=== PATIENT | female | born 1975 | race Caucasian/White ===

== ENCOUNTER 2018-04-14 09:25 | Emergency (ER) | payer BC, OTHER ==
[2018-04-14] MEDS ORDERED: KETOROLAC 30 MG/ML INJ ONE (10:13)
--- NOTE | 2018-04-14 10:45 | RAD REPORT ---
EXAM DESCRIPTION: RAD - Lumbar Spine 3 Views - 04/14/2018 10:25 am CLINICAL HISTORY: PAIN Radiculopathy COMPARISON: No comparisons FINDINGS: Vertebral body heights appear maintained. No compression fracture noted. Mild disc thinnin g is seen at L5-S1. No spondylolysis or spondylolisthesis. Cholecystectomy clips. IMPRESSION: Minimal spondylosis lower lumbar spine.
[2018-04-14] MEDS ORDERED: MEPERIDINE HCL 50 MG/ML AMP ONE (10:57)
[2018-04-14] MEDS ORDERED: ONDANSETRON 4 MG (ODT) TAB ONE (10:58)
[2018-04-14] MEDS ORDERED: predniSONE 20 MG TAB ONE (10:58)
--- NOTE | 2018-04-14 13:20 | ER ---
Nurse's Notes [facility] Name: Shannan Fuller Age: 42 yrs Sex: Female : 1975 Arrival Date: 04/14/2018 Time: 09:28 Bed 16 Private MD: Ruddy Jaramillo Diagnosis: Low back pain Presentation: 04/14 09:29 Presenting complaint: Patient states: low back pain, "feels like I have a bulging sv disk". Pain started after working out Saturday. Transition of care: patient was not received from another setting of care. Onset of symptoms was April 12, 2018. Care prior to arrival: None. 09:29 Method Of Arrival: Ambulatory sv 09:29 Acuity: ANNABEL 3 sv 10:22 Risk Assessment: Do you want to hurt yourself or someone else? Patient reports no ph desire to harm self or others. Initial Sepsis Screen: Does the patient meet any 2 criteria? No. Patient's initial sepsis screen is negative. Does the patient have a suspected source of infection? No. Patient's initial sepsis screen is negative. Triage Assessment: 09:29 General: Appears uncomfortable, Behavior is calm, cooperative, appropriate for age. sv Pain: Complains of pain in low back area Pain currently is 10 out of 10 on a pain scale. EENT: No signs and/or symptoms were reported regarding the EENT system. Neuro: Level of Consciousness is awake, alert, obeys commands, Oriented to person, place, time, situation, Moves all extremities. Full function Gait is steady. Respiratory: Respiratory effort is even, unlabored, Respiratory pattern is regular, symmetrical. 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 - Social history:: Smoking status: Patient uses tobacco products, denies chronic smoking, but will smoke occasionally, Patient uses alcohol, occasionally. - Ebola Screening: : No symptoms or risks identified at this time. Screenin:20 Abuse screen: Denies threats or abuse. Denies injuries from another. Nutritional ph screening: No deficits noted. Tuberculosis screening: No symptoms or risk factors identified. Fall Risk None identified. Assessment: 09:45 General: Appears in no apparent distress. uncomfortable, well groomed, Behavior is ph calm, cooperative, appropriate for age, Denies fever, feeling ill. Pain: Complains of pain in lumbar area. Neuro: Level of Consciousness is awake, alert, obeys commands, Oriented to person, place, time, situation. Cardiovascular: Capillary refill < 3 seconds in bilateral fingers Patient's skin is warm and dry. Respiratory: Airway is patent Respiratory effort is even, unlabored, Respiratory pattern is regular, symmetrical. Derm: Skin is intact, is healthy with good turgor, Skin is pink, warm \\T\\ dry. Musculoskeletal: Circulation, motion, and sensation intact. Range of motion: intact in all extremities. 10:50 Reassessment: Patient appears in no apparent distress at this time. Patient and/or ph family updated on plan of care and expected duration. Pain level reassessed. Patient is alert, oriented x 3, equal unlabored respirations, skin warm/dry/pink. 11:57 Reassessment: Patient appears in no apparent distress at this time. Patient and/or ph family updated on plan of care and expected duration. Pain level reassessed. Patient is alert, oriented x 3, equal unlabored respirations, skin warm/dry/pink. Pt reports that pain has decreased to 5/10, resting quietly at this time. 13:05 Reassessment: Patient appears in no apparent distress at this time. Patient and/or ph family updated on plan of care and expected duration. Pain level reassessed. Patient is alert, oriented x 3, equal unlabored respirations, skin warm/dry/pink. Pt currently rates pain 4/10, d/c home w/ prescriptions. Vital Signs: 09:35 BP 121 / 78; Pulse 84; Resp 24; Pulse Ox 100% ; Weight 81.65 kg; Height 5 ft. 6 in. sv (167.64 cm); Pain 10/10; 10:35 BP 105 / 78; Pulse 82; Resp 18; Pulse Ox 100% on R/A; dh3 11:59 BP 112 / 76; Pulse 83; Resp 18; Pulse Ox 98% on R/A; ph 13:06 BP 107 / 76; Pulse 81; Resp 18; Temp 98.0; Pulse Ox 98% on R/A; Pain 4/10; ph 09:35 Body Mass Index 29.05 (81.65 kg, 167.64 cm) sv ED Course: 09:28 Patient arrived in ED. as 09:28 Ruddy Jaramillo MD is Private Physician. as 09:29 Arm band placed on Patient placed in an exam room, on a stretcher. sv 09:35 Triage completed. sv 09:36 Ray Aguirre MD is Attending Physician. darlyn 09:36 Darwin Cleveland PA is PHCP. jr8 10:05 Ania Dominguez RN is Primary Nurse. ph 10:22 Patient has correct armband on for positive identification. Placed in gown. Bed in low ph position. Call light in reach. Side rails up X 1. Pulse ox on. NIBP on. Warm blanket given. 10:26 XRAY Lumbar Spine (3 Views) In Process Unspecified. EDMS 11:59 No provider procedures requiring assistance completed. ph 12:53 Ruddy Jaramillo MD is Referral Physician. jr8 13:13 Patient did not have IV access during this emergency room visit. ph Administered Medications: 10:13 Drug: TORadol 60 mg Route: IM; Site: right gluteus; ph 10:45 Follow up: Response: No adverse reaction; Pain is unchanged, physician notified ph 10:59 Drug: Demerol 50 mg Route: IM; Site: right deltoid; ph 12:50 Follow up: Response: No adverse reaction; Pain is decreased ph 10:59 Drug: Zofran 4 mg Route: PO; ph 12:50 Follow up: Response: No adverse reaction ph 10:59 Drug: predniSONE 60 mg Route: PO; ph 12:50 Follow up: Response: No adverse reaction ph Outcome: 12:53 Discharge ordered by . jr8 13:06 Discharged to home ambulatory, with family. ph 13:06 Condition: good 13:06 Discharge instructions given to patient, Instructed on discharge instructions, follow up and referral plans. medication usage, Demonstrated understanding of instructions, follow-up care, medications, Prescriptions given X 3. 13:13 Patient left the ED. ph Signatures: Dispatcher [employer] EDMS Julieta Mora RN RN Ray Aguirre MD MD cha Martinez, Amelia as Darwin Cleveland PA PA jr8 Ania Dominguez RN RN ph Giovanny, Dorothy 3
--- NOTE | 2018-04-14 13:21 | EDPHYS ---
Physician Documentation [facility] Name: Shannan Fuller Age: 42 yrs Sex: Female : 1975 Arrival Date: 04/14/2018 Time: 09:28 Bed 16 Private MD: Ruddy Jaramillo ED Physician Ray Aguirre HPI: 04/14 11:34 This 42 yrs old Female presents to ER via Ambulatory with complaints of Low jr8 Back Pain. 11:34 The patient presents with pain that is acute. The symptoms are located in the low back. jr8 The pain does not radiate. The problem was sustained from unknown cause. Onset: The symptoms/episode began/occurred acutely, today. Modifying factors: The patient symptoms are alleviated by nothing, the patient symptoms are aggravated by any movement. Associated signs and symptoms: The patient has no apparent associated signs or symptoms. Severity of symptoms: At their worst the symptoms were moderate, in the emergency department the symptoms are unchanged. The patient has not experienced similar symptoms in the past. The patient has not recently seen a physician. stated that she worked out at the gym the other day. Today started with back pain that is unrelieved by anything and is getting worse. Pain with any movement . 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 - Social history:: Smoking status: Patient uses tobacco products, denies chronic smoking, but will smoke occasionally, Patient uses alcohol, occasionally. - Ebola Screening: : No symptoms or risks identified at this time. ROS: 11:34 Eyes: Negative for injury, pain, redness, and discharge, ENT: Negative for injury, jr8 pain, and discharge, Neck: Negative for injury, pain, and swelling, Cardiovascular: Negative for chest pain, palpitations, and edema, Respiratory: Negative for shortness of breath, cough, wheezing, and pleuritic chest pain, Abdomen/GI: Negative for abdominal pain, nausea, vomiting, diarrhea, and constipation, MS/Extremity: Negative for injury and deformity, Skin: Negative for injury, rash, and discoloration, Neuro: Negative for headache, weakness, numbness, tingling, and seizure. 11:34 Back: Positive for pain at rest, pain with movement, of the low back area. Exam: 12:52 Eyes: Pupils equal round and reactive to light, extra-ocular motions intact. Lids and jr8 lashes normal. Conjunctiva and sclera are non-icteric and not injected. Cornea within normal limits. Periorbital areas with no swelling, redness, or edema. ENT: Nares patent. No nasal discharge, no septal abnormalities noted. Tympanic membranes are normal and external auditory canals are clear. Oropharynx with no redness, swelling, or masses, exudates, or evidence of obstruction, uvula midline. Mucous membranes moist. Neck: Trachea midline, no thyromegaly or masses palpated, and no cervical lymphadenopathy. Supple, full range of motion without nuchal rigidity, or vertebral point tenderness. No Meningismus. Cardiovascular: Regular rate and rhythm with a normal S1 and S2. No gallops, murmurs, or rubs. Normal PMI, no JVD. No pulse deficits. Respiratory: Lungs have equal breath sounds bilaterally, clear to auscultation and percussion. No rales, rhonchi or wheezes noted. No increased work of breathing, no retractions or nasal flaring. Abdomen/GI: Soft, non-tender, with normal bowel sounds. No distension or tympany. No guarding or rebound. No evidence of tenderness throughout. Skin: Warm, dry with normal turgor. Normal color with no rashes, no lesions, and no evidence of cellulitis. MS/ Extremity: Pulses equal, no cyanosis. Neurovascular intact. Full, normal range of motion. Neuro: Awake and alert, GCS 15, oriented to person, place, time, and situation. Cranial nerves II-XII grossly intact. Motor strength 5/5 in all extremities. Sensory grossly intact. Cerebellar exam normal. Normal gait. 12:52 Back: pain, that is moderate, ROM is painful, normal spinal alignment noted, CVA tenderness, is absent, vertebral tenderness, is appreciated at L2 and L3. Vital Signs: 09:35 BP 121 / 78; Pulse 84; Resp 24; Pulse Ox 100% ; Weight 81.65 kg; Height 5 ft. 6 in. sv (167.64 cm); Pain 10/10; 10:35 BP 105 / 78; Pulse 82; Resp 18; Pulse Ox 100% on R/A; dh3 11:59 BP 112 / 76; Pulse 83; Resp 18; Pulse Ox 98% on R/A; ph 13:06 BP 107 / 76; Pulse 81; Resp 18; Temp 98.0; Pulse Ox 98% on R/A; Pain 4/10; ph 09:35 Body Mass Index 29.05 (81.65 kg, 167.64 cm) sv MDM: 09:36 Patient medically screened. jr8 12:52 Data reviewed: vital signs, nurses notes, radiologic studies, plain films, and as a jr8 result, I will discharge patient. Data interpreted: Pulse oximetry: on room air is 98 %. Interpretation: normal. Counseling: I had a detailed discussion with the patient and/or guardian regarding: the historical points, exam findings, and any diagnostic results supporting the discharge/admit diagnosis, radiology results, the need for outpatient follow up, a family practitioner, to return to the emergency department if symptoms worsen or persist or if there are any questions or concerns that arise at home. Response to treatment: the patient's symptoms have markedly improved after treatment. 04/14 09:56 Order name: XRAY Lumbar Spine (3 Views); Complete Time: 10:47 jr8 Administered Medications: 10:13 Drug: TORadol 60 mg Route: IM; Site: right gluteus; ph 10:45 Follow up: Response: No adverse reaction; Pain is unchanged, physician notified ph 10:59 Drug: Demerol 50 mg Route: IM; Site: right deltoid; ph 12:50 Follow up: Response: No adverse reaction; Pain is decreased ph 10:59 Drug: Zofran 4 mg Route: PO; ph 12:50 Follow up: Response: No adverse reaction ph 10:59 Drug: predniSONE 60 mg Route: PO; ph 12:50 Follow up: Response: No adverse reaction ph Disposition: 15:31 Co-signature as Attending Physician, Ray Aguirre MD I agree with the assessment and darlyn plan of care. Disposition: 04/14/18 12:53 Discharged to Home. Impression: Low back pain. - Condition is Stable. - Discharge Instructions: Back Pain, Adult, Musculoskeletal Pain, Heat Therapy. - Prescriptions for Ibuprofen 800 mg Oral Tablet - take 1 tablet by ORAL route every 12 hours As needed take with food; 20 tablet. Ultracet 37.5- 325 mg Oral Tablet - take 1 tablet by ORAL route every 6 hours - for up to 5 days; do not exceed 8 tablets per day.; 30 tablet. Cyclobenzaprine 10 mg Oral Tablet - take 1 tablet by ORAL route every 8 hours As needed; 30 tablet. - Medication Reconciliation Form, Thank You Letter, Antibiotic Education, Prescription Opioid Use, Work release form form. - Follow up: Ruddy Jaramillo MD; When: 2 - 3 days; Reason: Recheck today's complaints, Continuance of care, Re-evaluation by your physician. - Problem is new. - Symptoms have improved. Signatures: Dispatcher [employer] EDJulieta Norwood RN RN Ray Van MD MD cha Roszak, Josh, PA PA jr8 Ania Dominguez RN RN ph Corrections: (The following items were deleted from the chart) 13:13 12:53 04/14/2018 12:53 Discharged to Home. Impression: Low back pain. Condition is ph Stable. Forms are Medication Reconciliation Form, Thank You Letter, Antibiotic Education, Prescription Opioid Use. Follow up: Ruddy Jaramillo; When: 2 - 3 days; Reason: Recheck today's complaints, Continuance of care, Re-evaluation by your physician. Problem is new. Symptoms have improved. jr8
[2018-04-15 14:41] VITALS: BP 107/76; TEMP 98; O2SAT 98
== END 2018-04-14 13:13 | disposition home or self-care (01) ==
LOC: ER 09:25
DX: M54.5 Low back pain (principal); Z72.0 Tobacco use; Z88.5 Allergy status to narcotic agent; Z88.8 Allergy status to other drugs, medicaments and biological substances
CPT/HCPCS: 72100; 96372; 99284; J2175; J7512

== ENCOUNTER 2018-12-04 14:46 | Emergency (ER) | payer BC ==
[2018-12-04 15:41] LABS: Absolute Lymphocytes (CBC) 2.2 K/uL (0.7-4.9); Absolute Monocytes 0.5 K/uL (0.1-1.3); Basophils % 0.5 % (0-1.3); Eosinophils % 1.4 % (0-4.4); Hematocrit 42.4 % (36.0-45.0); Lymphocytes % 25.2 % (15.3-44.8); MPV 7.3 fL (7.6-11.3); Monocytes % 5.1 % (3.3-12.3); RBC Red Blood Cell Count 4.56 M/uL (3.86-4.86)
--- NOTE | 2018-12-04 15:48 | RAD REPORT ---
EXAM DESCRIPTION: RAD - Chest Single View - 12/04/2018 3:42 pm CLINICAL HISTORY: COUGH Chest pain. COMPARISON: CHEST SINGLE VIEW dated 09/10/2013; CHEST SINGLE VIEW dated 09/24/2009; CHEST PA AND LAT 2 VIEW dated 04/15/2006 FINDINGS: Portable technique limits examination quality. The lungs are grossly clear. The heart is normal in size. No displaced fractures. IMPRESSION: No acute intrathoracic process suspected.
[2018-12-04 15:49] LABS: Protime INR 0.91
[2018-12-04 15:55] LABS: ALT/SGPT 69 U/L (12-78); AST/SGOT 25 U/L (15-37); Albumin 3.7 g/dL (3.4-5.0); Alkaline Phosphatase 94 U/L (45-117); BUN Blood Urea Nitrogen 15 mg/dL (7-18); Bicarbonate 20 mmol/L (21-32); Bilirubin Direct 0.1 mg/dL (0-0.2); Bilirubin Total 0.5 mg/dL (0.2-1.0); Glucose Level 118 mg/dL (74-106); Lipase 83 U/L (73-393); Magnesium 2.2 mg/dL (1.8-2.4); NT PRO-BNP 84 pg/mL (<125); Potassium 3.5 mmol/L (3.5-5.1); Protein, Total 7.5 g/dL (6.4-8.2); Sodium Level 143 mmol/L (136-145); Troponin (Emerg Dept Use Only) < 0.02 ng/mL (0.0-0.045)
--- NOTE | 2018-12-04 15:57 | RAD REPORT ---
EXAM DESCRIPTION: CT - Head Brain Wo Cont - 12/04/2018 3:50 pm CLINICAL HISTORY: Dizziness;Confused Headache, drowsiness COMPARISON: No comparisons TECHNIQUE: All CT scans are performed using dose optimization technique as appropriate and may inclu de automated exposure control or mA/KV adjustment according to patient size. FINDINGS: No intracranial hemorrhage, hydrocephalus or extra-axial fluid collection.No areas of brai n edema or evidence of midline shift. The paranasal sinuses and mastoids are clear. The calvarium is intact. IMPRESSION: No acute intracranial abnormality.
[2018-12-04 16:02] LABS: Urine Blood 2+ (NEG); Urine Glucose NEGATIVE (NEG); Urine Protein NEGATIVE (NEG); Urine pH 5.5 (5.0-7.0)
--- NOTE | 2018-12-04 16:13 | ER ---
Nurse's Notes [facility] Name: Shannan Fuller Age: 43 yrs Sex: Female : 1975 Arrival Date: 12/04/2018 Time: 14:48 Bed 26 Private MD: Diagnosis: Weakness;Insomnia Presentation: 12/04 14:51 Presenting complaint: Patient states: Confusion and disorientation since 2300 last hb night. Patient's reports patient flushed her underwear down the toilet. Transition of care: patient was not received from another setting of care. An acute neurological deficit is present. The charge nurse has been notified. Onset of symptoms was December 03, 2018 at 23:00. Risk Assessment: Do you want to hurt yourself or someone else? Patient reports no desire to harm self or others. Initial Sepsis Screen: Does the patient meet any 2 criteria? No. Patient's initial sepsis screen is negative. Does the patient have a suspected source of infection? No. Patient's initial sepsis screen is negative. Care prior to arrival: None. 14:51 Method Of Arrival: Ambulatory hb 14:51 Acuity: ANNABEL 2 hb 21:27 Pre-hospital glucose is not applicable to this patient. Triage Assessment: 14:53 The onset of the patients symptoms was December 03, 2018 at 23:00. General: Appears in no hb apparent distress. uncomfortable, Behavior is anxious. Pain: Denies pain. Neuro: Reports dizziness, weakness. Respiratory: Airway is patent Respiratory effort is even, unlabored, Respiratory pattern is regular, symmetrical. Derm: Skin is intact, is healthy with good turgor, Skin is pink, warm \T\ dry. normal. 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 N/A - Hysterectomy hb Stroke Activation: Symptom onset > 6 hours Physician: Stroke Attending; Name: ; Notified At: ; Arrived At: Physician: Chief Stroke Resident; Name: ; Notified At: ; Arrived At: Physician: Stroke Resident; Name: ; Notified At: ; Arrived At: Physician: ED Attending; Name: ; Notified At: ; Arrived At: Physician: ED Resident; Name: ; Notified At: ; Arrived At: Historical: - Allergies: 14:53 GABAPENTIN; hb 14:53 Prozac; hb - Home Meds: 14:53 Wellbutrin 75 mg Oral tab 1 tab 3 times per day [Active]; hb - PMHx: 14:53 Anxiety; Depression; PTSD; DJD; hb 15:20 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 - Social history:: Smoking status: Patient/guardian denies using tobacco. - Ebola Screening: : Patient negative for fever greater than or equal to 101.5 degrees Fahrenheit, and additional compatible Ebola Virus Disease symptoms Patient denies exposure to infectious person Patient denies travel to an Ebola-affected area in the 21 days before illness onset No symptoms or risks identified at this time. - Family history:: not pertinent. Screenin:05 Abuse screen: Denies threats or abuse. Denies injuries from another. Nutritional ch screening: No deficits noted. Tuberculosis screening: No symptoms or risk factors identified. Fall Risk None identified. Assessment: 15:00 VAN Scoring: Arm Drift: Patients demonstrates NO arm weakness. Patient is VAN Negative. ch 15:22 Patient has been NPO before screening. The patient is alert, and able to follow commands. The patient does not exhibit slurred or garbled speech. The patient is not exhibiting difficulty speaking. The patient is exhibiting difficulty understanding words. The patient is unable to swallow own secretions without drooling or the need for suction. Patient tolerated one teaspoon of water. No drooling, immediate coughing, gurgling, or clearing of the throat was noted. The patient tolerated 90mL of water. No drooling, immediate coughing, gurgling, or clearing of the throat was noted. The patient passed the bedside swallow screening. Oral medications may be given as ordered. Contact Physician for further diet orders. Provider notified of bedside swallow screening results: Ray Aguirre MD. T-PA (Activase) Screening: Contraindications: Patient reports onset of signs and symptoms of stroke greater than 6 hours ago:. General: Appears in no apparent distress. uncomfortable, Behavior is cooperative, anxious, crying, restless. Pain: Denies pain. Neuro: Level of Consciousness is awake, alert, obeys commands, Oriented to person, place, time, situation, pt is slow to answer, and has to think of the words. 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 pt could not remember her phone pass code. . Respiratory: Airway is patent Respiratory effort is even, unlabored, Breath sounds are clear bilaterally. GI: No signs and/or symptoms were reported involving the gastrointestinal system. Abdomen is round non-distended, Bowel sounds present X 4 quads. 15:50 Reassessment: Patient appears in no apparent distress at this time. pt states she feels ch very dizzy. pt is tearful, crying in room. 16:30 Reassessment: Patient appears in no apparent distress at this time. No changes from previously documented assessment. pt states she realized after trying to read text messages, that the lower half of her right eye field of vision is blurry. pt cannot read the numbers she is seeing. physician notified, new orders obtained. 18:08 Reassessment: Ultrasound at the bedside. sv 18:56 Reassessment: Patient appears in no apparent distress at this time. Patient and/or family updated on plan of care and expected duration. Pain level reassessed. Patient is alert, oriented x 3, equal unlabored respirations, skin warm/dry/pink. pt gait is steady, resps even and unlabored, states she feels better. Patient states feeling better. Patient states symptoms have improved. 19:29 Reassessment: Patient appears in no apparent distress at this time. No changes from previously documented assessment. Patient and/or family updated on plan of care and expected duration. Pain level reassessed. Patient is alert, oriented x 3, equal unlabored respirations, skin warm/dry/pink. Vital Signs: 14:53 BP 134 / 74; Pulse 97; Resp 18; Temp 98.3; Pulse Ox 98% on R/A; Weight 83.91 kg; Height hb 5 ft. 6 in. (167.64 cm); 16:30 Pulse 81; Resp 16; Pulse Ox 98% on R/A; Pain 0/10; ch 18:56 BP 139 / 82; Pulse 84; Resp 18; Temp 98.6; Pulse Ox 99% on R/A; Pain 0/10; ch 14:53 Body Mass Index 29.86 (83.91 kg, 167.64 cm) NIH Stroke Scale Scores: 15:05 NIHSS Score: 0 ch ED Course: 14:48 Patient arrived in ED. ds1 14:53 Triage completed. hb 14:53 Arm band placed on right wrist. hb 15:00 Ray Aguirre MD is Attending Physician. darlyn 15:05 Patient has correct armband on for positive identification. Placed in gown. Bed in low ch position. Call light in reach. Side rails up X 1. Adult w/ patient. monitoring coordinator on. Pulse ox on. NIBP on. Warm blanket given. 15:10 No provider procedures requiring assistance completed. Inserted saline lock: 18 gauge ch in right forearm, using aseptic technique. Blood collected. 15:19 Claire Ortiz, RN is Primary Nurse. ch 15:28 No apparent distress. Resting quietly. Appears tearful. ch 15:36 EKG done, by dental technician. reviewed by Ray Aguirre MD. dt2 15:37 X-ray completed. Portable x-ray completed in exam room. Patient tolerated procedure mh1 well. 15:43 XRAY Chest (1 view) In Process Unspecified. EDMS 15:[address] az 15:50 CT Head Brain wo Cont In Process Unspecified. EDMS 16:12 Wade Erickson MD is Referral Physician. darlyn 17:01 Patient moved to MRI via wheelchair. sv 17:18 Brain Wo Cont In Process Unspecified. EDMS 17:31 MRI completed. Patient tolerated well. Patient taken to ultrasound. via wheelchair. em2 17:59 Erik Mcqueen MD is Referral Physician. darlyn 18:27 US Carotid Artery Bilateral In Process Unspecified. EDMS 19:30 IV discontinued, intact, bleeding controlled, No redness/swelling at site. Pressure ch dressing applied. Administered Medications: 16:40 Drug: NS 0.9% 1000 ml Route: IV; Rate: 1 bolus; Site: right forearm; ch 18:00 Follow up: IV Status: Completed infusion; IV Intake: 1000ml ch 16:40 Drug: Aspirin 162 mg Route: PO; ch 18:55 Follow up: Response: No adverse reaction; Marked relief of symptoms ch 16:51 Drug: foLIC Acid 1 mg Route: IVPB; Site: right forearm; ch 18:54 Follow up: IV Status: Completed infusion; IV Intake: 1000ml ch Point of Care Testing: Blood Glucose: 15:01 Blood Glucose: 118 mg/dL; lt1 Ranges: Intake: 18:00 IV: 1000ml; Total: 1000ml. ch 18:54 IV: 1000ml; Total: 2000ml. Outcome: 16:12 Discharge ordered by . [facility] 19:29 Discharged to home ambulatory, with family. 19:29 Condition: stable 19:29 Discharge instructions given to patient, family, Instructed on discharge instructions, follow up and referral plans. medication usage, Demonstrated understanding of instructions, follow-up care, medications, no prescriptions, pt to take home medications. 19:30 Patient left the ED. NIH Stroke Scale - NIH Stroke Score Date: 12/04/2018 Time: 15:05 Total Score = 0 1a. Level of Consciousness (LOC) - 0(Alert) 1b. Level of Consciousness (LOC) (Year \T\ Age) - 0(Both) 1c. LOC Commands (Open \T\ Closes Eyes/Religious Education Coordinator) - 0(Both) 2. Best Gaze (Lateral Gaze Paresis) - 0(Normal) 3. Visual Field Loss - 0(No visual loss) 4. Facial Palsy - 0(Normal) 5a. Left Arm: Motor (10-second hold) - 0(No drift) 5b. Right Arm: Motor (10-second hold) - 0(No drift) 6a. Left Leg: Motor (5-second hold - always test supine) - 0(No drift) 6b. Right Leg: Motor (5-second hold - always test supine) - 0(No drift) 7. Limb Ataxia (finger/nose \T\ heel/pace - test with eyes open) - 0(Absent) 8. Sensory Loss (pinprick arms/legs/face) - 0(Normal) 9. Best Language: Aphasia (description/naming/reading) - 0(No aphasia) 10. Dysarthria (speech clarity - read or repeat words) - 0(Normal) 11. Extinction and Inattention (visual/tactile/auditory/spatial/personal) - 0(No abnormality) Initials: Signatures: Dispatcher [employer] Claire Worthy RN RN ch Verde, Stephanie, RN RN sv Anderson, Corey, MD MD cha Harvey, Martha mh1 Tomer, Sushila ds1 Michael Hallman em2 Arin De Jesus RN RN hb Teague, Danielle dt2 Paris Kaur Leah lt1 Corrections: (The following items were deleted from the chart) VAN Scoring: Arm Drift: Patients demonstrates NO arm weakness. Patient is ch VAN Negative. NIHSS Score: 0 ch ch
--- NOTE | 2018-12-04 16:14 | EDPHYS ---
Physician Documentation [facility] Name: Shannan Fuller Age: 43 yrs Sex: Female : 1975 Arrival Date: 12/04/2018 Time: 14:48 Bed 26 Private MD: ED Physician Ray Aguirre HPI: 12/04 15:34 This 43 yrs old Female presents to ER via Ambulatory with complaints of darlyn Weakness. 15:34 The patient presents to the emergency department with weakness of the entire body, darlyn generalized weakness. Onset: The symptoms/episode began/occurred 1 week(s) ago. Associated signs and symptoms: The patient has no apparent associated signs or symptoms. Severity of symptoms: At their worst the symptoms were mild in the emergency department the symptoms are unchanged. Patient's baseline: Neuro: alert and fully oriented. The patient has not experienced similar symptoms in the past. 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 - Social history:: Smoking status: Patient/guardian denies using tobacco. - Ebola Screening: : Patient negative for fever greater than or equal to 101.5 degrees Fahrenheit, and additional compatible Ebola Virus Disease symptoms Patient denies exposure to infectious person Patient denies travel to an Ebola-affected area in the 21 days before illness onset No symptoms or risks identified at this time. - Family history:: not pertinent. ROS: 15:34 Constitutional: Negative for fever, chills, and weight loss, Eyes: Negative for injury, darlyn pain, redness, and discharge, ENT: Negative for injury, pain, and discharge, Neck: Negative for injury, pain, and swelling, Cardiovascular: Negative for chest pain, palpitations, and edema, Respiratory: Negative for shortness of breath, cough, wheezing, and pleuritic chest pain, Abdomen/GI: Negative for abdominal pain, nausea, vomiting, diarrhea, and constipation, Back: Negative for injury and pain, : Negative for injury, bleeding, discharge, and swelling, MS/Extremity: Negative for injury and deformity, Skin: Negative for injury, rash, and discoloration, Psych: Negative for depression, anxiety, suicide ideation, homicidal ideation, and hallucinations, Allergy/Immunology: Negative for hives, rash, and allergies, Endocrine: Negative for neck swelling, polydipsia, polyuria, polyphagia, and marked weight changes. 15:34 Neuro: Positive for altered mental status, weakness. Exam: 15:34 Constitutional: This is a well developed, well nourished patient who is awake, alert, darlyn and in no acute distress. Head/Face: Normocephalic, atraumatic. Eyes: Pupils equal round and reactive to light, extra-ocular motions intact. Lids and lashes normal. Conjunctiva and sclera are non-icteric and not injected. Cornea within normal limits. Periorbital areas with no swelling, redness, or edema. ENT: Nares patent. No nasal discharge, no septal abnormalities noted. Tympanic membranes are normal and external auditory canals are clear. Oropharynx with no redness, swelling, or masses, exudates, or evidence of obstruction, uvula midline. Mucous membranes moist. Neck: Trachea midline, no thyromegaly or masses palpated, and no cervical lymphadenopathy. Supple, full range of motion without nuchal rigidity, or vertebral point tenderness. No Meningismus. Chest/axilla: Normal chest wall appearance and motion. Nontender with no deformity. No lesions are appreciated. Cardiovascular: Regular rate and rhythm with a normal S1 and S2. No gallops, murmurs, or rubs. Normal PMI, no JVD. No pulse deficits. Respiratory: Lungs have equal breath sounds bilaterally, clear to auscultation and percussion. No rales, rhonchi or wheezes noted. No increased work of breathing, no retractions or nasal flaring. Abdomen/GI: Soft, non-tender, with normal bowel sounds. No distension or tympany. No guarding or rebound. No evidence of tenderness throughout. Back: No spinal tenderness. No costovertebral tenderness. Full range of motion. Skin: Warm, dry with normal turgor. Normal color with no rashes, no lesions, and no evidence of cellulitis. MS/ Extremity: Pulses equal, no cyanosis. Neurovascular intact. Full, normal range of motion. Neuro: Awake and alert, GCS 15, oriented to person, place, time, and situation. Cranial nerves II-XII grossly intact. Motor strength 5/5 in all extremities. Sensory grossly intact. Cerebellar exam normal. Normal gait. Psych: Awake, alert, with orientation to person, place and time. Behavior, mood, and affect are within normal limits. Vital Signs: 14:53 BP 134 / 74; Pulse 97; Resp 18; Temp 98.3; Pulse Ox 98% on R/A; Weight 83.91 kg; Height hb 5 ft. 6 in. (167.64 cm); 16:30 Pulse 81; Resp 16; Pulse Ox 98% on R/A; Pain 0/10; ch 18:56 BP 139 / 82; Pulse 84; Resp 18; Temp 98.6; Pulse Ox 99% on R/A; Pain 0/10; ch 14:53 Body Mass Index 29.86 (83.91 kg, 167.64 cm) hb NIH Stroke Scale Scores: 15:05 NIHSS Score: 0 ch MDM: 15:00 Patient medically screened. [facility] 15:35 Data reviewed: vital signs, nurses notes, lab test result(s), EKG, radiologic studies, [facility] CT scan, plain films. 12/04 15:02 Order name: Basic Metabolic Panel; Complete Time: 16:09 [facility] 12/04 15:02 Order name: CBC with Diff; Complete Time: 16:45 [facility] 12/04 15:02 Order name: LFT's; Complete Time: 16:09 [facility] 12/04 15:02 Order name: Magnesium; Complete Time: 16:09 [facility] 12/04 15:02 Order name: NT PRO-BNP; Complete Time: 16:09 [facility] 12/04 15:02 Order name: PT-INR; Complete Time: 16:09 [facility] 12/04 15:02 Order name: Troponin (emerg Dept Use Only); Complete Time: 16:09 [facility] 12/04 15:02 Order name: Lipase; Complete Time: 16:09 [facility] 12/04 15:02 Order name: Urine Culture [facility] 12/04 15:12 Order name: Glucose, Ancillary Testing; Complete Time: 15:12 [facility] 12/04 15:34 Order name: UDS; Complete Time: 17:50 [facility] 12/04 15:40 Order name: Urine Dipstick--Ancillary (enter results); Complete Time: 16:09 12/04 15:40 Order name: Urine --Ancillary (enter results); Complete Time: 16:09 12/04 15:54 Order name: Manual Differential; Complete Time: 16:45 [facility] 12/04 15:02 Order name: XRAY Chest (1 view); Complete Time: 16:09 [facility] 12/04 15:02 Order name: EKG; Complete Time: 15:05 [facility] 12/04 15:02 Order name: Cardiac monitoring; Complete Time: 15:47 [facility] 12/04 15:02 Order name: EKG - Nurse/Tech; Complete Time: 21:27 [facility] 12/04 15:02 Order name: IV Saline Lock; Complete Time: 15:48 [facility] 12/04 15:02 Order name: Labs collected and sent; Complete Time: 15:48 [facility] 12/04 15:02 Order name: O2 Per Protocol; Complete Time: 15:48 [facility] 12/04 15:02 Order name: O2 Sat Monitoring; Complete Time: 15:48 [facility] 12/04 15:02 Order name: Urine Dipstick-Ancillary (obtain specimen); Complete Time: 15:47 [facility] 12/04 15:34 Order name: CT Head Brain wo Cont; Complete Time: 16:09 [facility] 12/04 16:46 Order name: US Carotid Artery Bilateral [facility] 12/04 17:18 Order name: Brain Wo Cont; Complete Time: 17:50 [facility] 12/04 16:10 Order name: PO challenge; Complete Time: 16:38 [facility] Administered Medications: 16:40 Drug: NS 0.9% 1000 ml Route: IV; Rate: 1 bolus; Site: right forearm; ch 18:00 Follow up: IV Status: Completed infusion; IV Intake: 1000ml ch 16:40 Drug: Aspirin 162 mg Route: PO; ch 18:55 Follow up: Response: No adverse reaction; Marked relief of symptoms ch 16:51 Drug: foLIC Acid 1 mg Route: IVPB; Site: right forearm; ch 18:54 Follow up: IV Status: Completed infusion; IV Intake: 1000ml Point of Care Testing: Blood Glucose: 15:01 Blood Glucose: 118 mg/dL; lt1 Ranges: Critical Glucose Levels:Adult <50 mg/dl or >400 mg/dl <40 mg/dl or >180 mg/dl Disposition: 12/04/18 16:12 Discharged to Home. Impression: Weakness, Insomnia. - Condition is Stable. - Discharge Instructions: Weakness, Fatigue, Weakness, [id number], Aspirin and Your Heart. - Prescriptions for Restoril 7.5 mg Oral Capsule - take 2 capsule by ORAL route At bedtime As needed; 14 capsule. - Work release form, Medication Reconciliation Form, Thank You Letter, Antibiotic Education, Prescription Opioid Use form. - Follow up: Private Physician; When: 2 - 3 days; Reason: Recheck today's complaints, Continuance of care, Re-evaluation by your physician. Follow up: Wade Erickson MD; When: 2 - 3 days; Reason: Recheck today's complaints, Continuance of care, Re-evaluation by your physician. Follow up: Erik Mcqueen MD; When: 1 - 2 days; Reason: Recheck today's complaints, Continuance of care, Re-evaluation by your physician. - Problem is new. - Symptoms have improved. NIH Stroke Scale - NIH Stroke Score Date: 12/04/2018 Time: 15:05 Total Score = 0 1a. Level of Consciousness (LOC) - 0(Alert) 1b. Level of Consciousness (LOC) (Year \T\ Age) - 0(Both) 1c. LOC Commands (Open \T\ Closes Eyes/Computer Graphic Designer) - 0(Both) 2. Best Gaze (Lateral Gaze Paresis) - 0(Normal) 3. Visual Field Loss - 0(No visual loss) 4. Facial Palsy - 0(Normal) 5a. Left Arm: Motor (10-second hold) - 0(No drift) 5b. Right Arm: Motor (10-second hold) - 0(No drift) 6a. Left Leg: Motor (5-second hold - always test supine) - 0(No drift) 6b. Right Leg: Motor (5-second hold - always test supine) - 0(No drift) 7. Limb Ataxia (finger/nose \T\ heel/pace - test with eyes open) - 0(Absent) 8. Sensory Loss (pinprick arms/legs/face) - 0(Normal) 9. Best Language: Aphasia (description/naming/reading) - 0(No aphasia) 10. Dysarthria (speech clarity - read or repeat words) - 0(Normal) 11. Extinction and Inattention (visual/tactile/auditory/spatial/personal) - 0(No abnormality) Initials: Signatures: Dispatcher [employer] [facility] Claire Ortiz RN RN Ray Angulo MD MD cha Baxter, Heather, RN RN Corrections: (The following items were deleted from the chart) 17:18 16:48 MR STROKE PROTOCOL+MRI.RAD.BRZ ordered. [facility] 18:00 16:12 12/04/2018 16:12 Discharged to Home. Impression: Weakness; Insomnia. [facility] Condition is Stable. Forms are Medication Reconciliation Form, Thank You Letter, Antibiotic Education, Prescription Opioid Use. Follow up: Private Physician; When: 2 - 3 days; Reason: Recheck today's complaints, Continuance of care, Re-evaluation by your physician. Follow up: Wade Erickson; When: 2 - 3 days; Reason: Recheck today's complaints, Continuance of care, Re-evaluation by your physician. Problem is new. Symptoms have improved. darlyn 19:30 18:00 12/04/2018 16:12 Discharged to Home. Impression: Weakness; Insomnia. ch Condition is Stable. Discharge Instructions: Weakness, Fatigue, Weakness, [id number], Aspirin and Your Heart. Prescriptions for Restoril 7.5 mg Oral Capsule - take 2 capsule by ORAL route At bedtime As needed; 14 capsule. and Forms are Medication Reconciliation Form, Thank You Letter, Antibiotic Education, Prescription Opioid Use. Follow up: Private Physician; When: 2 - 3 days; Reason: Recheck today's complaints, Continuance of care, Re-evaluation by your physician. Follow up: Wade Erickson; When: 2 - 3 days; Reason: Recheck today's complaints, Continuance of care, Re-evaluation by your physician. Follow up: Erik Mcqueen; When: 1 - 2 days; Reason: Recheck today's complaints, Continuance of care, Re-evaluation by your physician. Problem is new. Symptoms have improved. darlyn
[2018-12-04 16:27] LABS: Blood Morphology Comment NOT SEEN (NOT SEEN); Platelet Estimate ADEQ
[2018-12-04] MEDS ORDERED: ASPIRIN 81 MG CHEWABLE TABLET ONE (16:55)
[2018-12-04] MEDS ORDERED: NA CHLORIDE 0.9% 1,000 ML ONE (16:55)
[2018-12-04 17:12] LABS: Barbiturates NEGATIVE (NEGATIVE); Benzodiazepines NEGATIVE (NEGATIVE); Cocaine NEGATIVE (NEGATIVE); METHAMPHETAM NEGATIVE (NEGATIVE); Methadone NEGATIVE (NEGATIVE); Opiates NEGATIVE (NEGATIVE); Phencyclidine NEGATIVE (NEGATIVE); THC Cannibis NEGATIVE (NEGATIVE)
--- NOTE | 2018-12-04 17:29 | RAD REPORT ---
EXAM DESCRIPTION: MRI - Brain Wo Cont - 12/04/2018 5:20 pm CLINICAL HISTORY: Dizziness;TIA Headache, drowsiness COMPARISON: Head Brain Wo Cont dated 12/04/2018 TECHNIQUE: Multi-sequence, multiplanar MR imaging of the brain was performed without contrast. FINDINGS: No intracranial hemorrhage, hydrocephalus or extra-axial fluid collections. No edema or sh ift of midline structures. No findings to suspect brain mass. DWI is negative for acute CVA. Midline structures are normally formed. Mastoid air cells and paranasal sinuses are clear. IMPRESSION: No acute or concerning intracranial abnormalities.
[2018-12-04] MEDS ORDERED: FOLIC ACID 5 MG/ML VIAL ONE (17:30)
--- NOTE | 2018-12-04 18:39 | RAD REPORT ---
EXAM DESCRIPTION: US - CP - 12/04/2018 6:27 pm CLINICAL HISTORY: DIZZINESS Headache, drowsiness, dizziness COMPARISON: No comparisons TECHNIQUE: Real-time sonographic evaluation of both carotid systems was performed. Doppler interroga tion was performed with waveform tracing bilaterally. FINDINGS: Normal high resistance waveforms are noted in both external carotid arteries. The common c arotid arteries and internal carotid arteries show normal low resistance waveforms. No significant plaque formation is seen. Peak systolic and end diastolic velocity values and the ICA/ CCA ratios are in the non-hemodynamically significant range. Antegrade flow seen in both vertebral arteries. IMPRESSION: No significant atherosclerotic changes noted. No evidence of a hemodynamically significant stenosis.
[2018-12-04 21:25] VITALS: BP 139/82; TEMP 98.6; O2SAT 99
--- NOTE | 2018-12-05 07:18 | EKG ---
Test Date: 2018-12-04 Test Time: 15:11:37 Warp Hanger: MARY MEASUREMENT RESULTS: Intervals: Rate: 84 [place]: 158 QRSD: 92 QT: 358 QTc: 423 [place]: P: 77 AZ: 158 QRS: 97 T: 52 INTERPRETIVE STATEMENTS: Normal sinus rhythm Rightward axis Borderline ECG Compared to ECG 11/25/2014 22:45:07 Right-axis deviation now present Electronically Signed On 12-05-18 07:15:51 CDT by Lennox Damico
== END 2018-12-04 19:30 | disposition home or self-care (01) ==
LOC: ER 14:46
DX: R53.1 Weakness (principal); G47.00 Insomnia, unspecified; F41.9 Anxiety disorder, unspecified; F32.9 Major depressive disorder, single episode, unspecified
CPT/HCPCS: 36415; 70450; 70551; 71045; 80048; 80076; 80307; 81003; 81025; 82962; 83690; 83735; 83880; 84484; 85025; 85610; 87086; 87088; 93005; 93880; 96365; 96366; 99285; J7030

== ENCOUNTER 2021-11-30 17:46 | Emergency (ER) | payer BC ==
--- OUTSIDE RECORDS SUMMARY | 2021-11-30 17:49 | XMS REPORT | Continuity of Care Document ---
:1975 Author Organization [facility] t Address [address] [place] [place] [address] Care Team Providers Name Role Phone Asked, Pcp Primary Care Physician Unavailable TANIA PINK Attending Clinician Unavailable TANIA PINK Attending Clinician Unavailable González Murrieta Attending Clinician Unavailable Chuck Angeles Attending Clinician Unavailable Lincoln DUGGAN, Not In Attending Clinician Unavailable Parag DUGGAN Attending Clinician CHRISTIE MEYERS Attending Clinician Unavailable TANIA PINK Admitting Clinician Unavailable González Murrieta Admitting Clinician Unavailable Physician, Primary or Family Admitting Clinician Unavailabl e Payers Payer Name Policy Type Policy Number Effective Date Expiration Date S carol BCBSTX PPO [id number] 2018 00:00:00 2024 00: 00:00 Problems This patient has no known problems. Allergies, Adverse Reactions, Alerts Allergy Allergy Status Severity Reaction(s) Onset Inactive Treating Comm ents Source Name Type Date Date Clinician fluoxeti DA Active U [facility] ne 03-21 [place] 00:00: [facility] 00 are [facility] fluoxeti DA Active U UNKNOWN [facility] ne 03-21 [place] 00:00: Health 00 are [facility] gabapent DA Active SV 2016-07 [facility] 07[facility] [place] fluoxeti DA Active SV 2016-07 [facility] ne 07-17 [facility] [place] gabapent DA Active SV HEART 2016- [facility] in PALPITATIONS 07-17 [facility] [place] fluoxeti DA Active SV IRREGULAR 2016- [facility] ne HEAR BEAT 07-17 [facility] [place] Social History Social Habit Start Date Stop Date Quantity Comments Source Sex Assigned At [birth year] [facility] 00:00:00 00:00:00 Smoking Status Start Date Stop Date Source Unknown if ever smoked [facility] Medications This patient has no known medications. Procedures This patient has no known procedures. Plan of Care Planned Activity Planned Date Details Comments Source Future Scheduled Test INFLUENZA VACCINE [facility] [code = INFLUENZA VACCINE] Future Scheduled Test COVID-19 VACCINE (1) [facility] [code = COVID-19 VACCINE (1)] Future Scheduled Test Hepatitis C screening [facility] (procedure) [code = 451515479] Future Scheduled Test Screening for [facility] malignant neoplasm of cervix (procedure) [code = 282385331] Encounters Start End Encounter Admission Attending Care Care Encounter Source Date/Time Date/Time Type Type Clinicians Facility Department ID 2021-07-08 Outpatient PINK, [facility] [id number] [place] 01:03:47 [facility] 2021-06-08 [id number] [place] 01:[facility]50 [facility] 2021-05-24 [facility] [id number] [place] 01:03:47 [facility] 2021-05-24 Outpatient PINK, [facility] [id number] [place] 01:03:47 [facility] 2021-04-07 Inpatient U APRYL, [facility] [address] [facility] 20:58:00 [facility] 2021-03-20 Inpatient CARMEN PhelpsSP MEDI.01 [id number] [place] 16:13:00 Willam 0920 [facility] 2020-10-25 Inpatient RICK Angeles [facility] [id number] [facility] 12:00:00 Sah [id number] [facility] [place] 2021-05-08 2021-05-08 EXT MHH IP System, EXT MSRDP [id number] 1 [id number] [place] 00:00:00 00:00:00 Provider LOCATION [id number] Health Not In [id number] 2021-03-20 2021-04-05 Inpatient RICK Murireta [facility] MEDI.01 [id number] [place] 20:36:00 19:20:00 Willam 09 tone [facility] 2021-03-21 2021-03-21 Outpatient Lit, [facility] [id number] [facility] 09:11:00 09:11:00 Willam 43 [facility] are [facility] 2021-03-21 2021-03-21 Outpatient Lit [facility] [id number] [facility] 09:11:00 09:11:00 Willam 0921 [facility] are [facility] 2021-03-20 2021-03-20 Outpatient Lit [facility] PPS [id number] [facility] 23:07:00 23:07:00 Willam 0920 [facility] 2021-02-22 2021-03-20 Inpatient PINK, [facility] [address] [facility] 05:19:00 19:40:00 [facility] 2021-03-13 2021-03-13 EXT MHH IP System, EXT MSRDP [id number] 1 [id number] [place] 00:00:00 00:00:00 Provider LOCATION [id number] Health Not In [id number] 2021-03-02 2021-03-02 EXT MHH IP Parag, EXT MSRDP 1.2.840.114 1 [id number] [place] 00:00:00 00:00:00 Pushan LOCATION [id number] [facility] [id number] 2021-02-02 2021-02-02 EXT MHH OP EXT MSRDP 1.2.840.114 1 [id number] [place] 00:00:00 00:00:00 LOCATION [id number] H ealth [id number] 2021-02-02 2021-02-02 EXT [facility] OP EXT MSRDP [id number] 1 [id number] [place] 00:00:00 00:00:00 LOCATION [id number] H ealth [id number] 2020-10-21 2020-10-21 [id number] 12:00:00 12:00:00 Ash [id number] Wori n's [facility] 2020-09-12 2020-09-12 Outpatient APRYL [facility] [address] [facility] 06:37:00 23:59:00 ROMEO 2020-09-07 2020-09-08 Emergency E MIRA MARCUS [facility] [address] [facility] 18:57:00 08:27:00 Results Test Description Test Time Test Comments Results Result Comments Source PROTEIN ELECTROPHORESIS SERUM 2021-04-05 15:12:00 Test Item Value Reference Range Interpretation Comme nts TOTAL PROTEIN (test code 6.6 g/dL 6.0-8.5 = PROTE) ALBUMIN (test code = 3.4 g/dL 2.9-4.4 ALBE) AQTUD-9-SUHGVEFN (test 0.2 g/dL 0.0-0.4 code = A1G) CCQGJ-3-TUSMCWVA (test 0.9 g/dL 0.4-1.0 code = A2G) BETA GLOBULIN (test code 1.1 g/dL 0.7-1.3 = BG) GAMMA GLOBULIN (test 0.9 g/dL 0.4-1.8 code = GG) M-SPIKE,SERUM (test code Not Observed g/dL Not Observed = MSPIKES) GLOBULIN ELECT (test 3.2 g/dL 2.2-3.9 code = GLOBE) ALBUMIN/GLOBULIN RATIO 1.1 0.7-1.7 (test code = AGE) PROT ELECT INTERP (test Comment See_Comment The SPE pattern appears code = ELEINT) unremarkable. Evidence ofmonoclonal pr otein is not apparent.Perfor med At: [facility] [address] [place] [id number] Reji Claudio MD Ph:[phone] rformed At: DA [facility] [id number] [place], [place] [id number] h ALLAN DUGGAN Ph:[phone] [ Automated message] The sy stem which generated this result transmitted ref erence range: (). The referen ce range was not used to int erpret this result as nika l/abnormal. THYROID STIMULATING [id number] 15:12:00 Test Item Value Reference Range Interpretation Comments THYROID STIMULATING 2.00 mIU/mL 0.55-4.78 N Please n ote: New HORMONE (test code = Referen ce Range Aug TSH) 2020 BASIC METABOLIC [id number] 05:47:00 Test Item Value Reference Range Interpretation Comments SODIUM (test code 146 mmol/L 136-145 H Please not e: New = NA) Reference Range Aug 2020 POTASSIUM (test 3.6 mmol/L 3.5-5.1 N code = K) CHLORIDE (test 105 mmol/L 98-107 N Please note: New code = CL) Reference Range Aug 2020 CARBON DIOXIDE 30 mmol/L 20-31 N Please note: New (test code = CO2) Reference Range Aug 2020 GLUCOSE (test code 88 mg/dL 74-106 N Please no te: New = GLU) Reference Range Aug 2020 BLOOD UREA 22 mg/dL 9-23 N Please note: Ne w NITROGEN (test Reference Ran ge Feb code = BUN) 2020 GLOMERULAR >=60 max >60 Units are FILTRATION RATE estimate mL/min mL/min/1. 73m2 The (test code = GFR) estimated glomerular filtration rate is computed usingpatient ra ce, age (>18), sex, and serum creatinin e. If anyof the neede d data elements a re missing the Laboratory sarina ot compute an estimation of t he glomerular filtration rate . CREATININE (test 0.80 mg/dL 0.55-1.02 N Please note : New code = CREAT) Reference Rang e Aug 2020 CALCIUM (test code 10.2 mg/dL 8.7-10.4 N Please no te: New = CA) Reference Range Aug 2020 Coronavirus 2019 nCoV [id number] 14:47:00 Test Item Value Reference Range Interpretation Comments Coronavirus 2019 Negative Negative Negative re sults should be nCoV Bedside (test treated a s presumptive code = and, ifinconsis tent with [id number]) clinical signs and symptoms or nec essaryfor patient managem ent, should be tested with differentauthor ized or cleared molecul ar tests. Negative result s donot preclude SARS-C OV-2 infection and s hould not be used asthe s ole basis for patient man agement decisions. Negativeresults should be considered in t he context of the patient' srecent exposures, hist ory, presence of cli nical signs andsymptoms con sistent with COVID-19. BASIC METABOLIC [id number] 06:27:00 Test Item Value Reference Range Interpretation Comments SODIUM (test code 144 mmol/L 136-145 N Please not e: New = NA) Reference Range Aug 2020 POTASSIUM (test 3.8 mmol/L 3.5-5.1 N code = K) CHLORIDE (test 105 mmol/L 98-107 N Please note: New code = CL) Reference Range Aug 2020 CARBON DIOXIDE 28 mmol/L 20-31 N Please note: New (test code = CO2) Reference Range Aug 2020 GLUCOSE (test code 105 mg/dL 74-106 N Please no te: New = GLU) Reference Range Aug 2020 BLOOD UREA 18 mg/dL 9-23 N Please note: Ne w NITROGEN (test Reference Ran ge Feb code = BUN) 2020 GLOMERULAR >=60 max >60 Units are FILTRATION RATE estimate mL/min mL/min/1. 73m2 The (test code = GFR) estimated glomerular filtration rate is computed usingpatient ra ce, age (>18), sex, and serum creatinin e. If anyof the neede d data elements a re missing the Laboratory sarina ot compute an estimation of t he glomerular filtration rate . CREATININE (test 0.80 mg/dL 0.55-1.02 N Please note : New code = CREAT) Reference Rang e Aug 2020 CALCIUM (test code 9.9 mg/dL 8.7-10.4 N Please no te: New = CA) Reference Range Aug 2020 [id number] 06:27:00 Test Item Value Reference Range Interpretation Comments MAGNESIUM (test code = 2.3 mg/dL 1.6-2.6 N Pleas e note: New MAG) Reference Range Aug 2020 [id number] 18:55:00 Test Item Value Reference Range Interpretation Comments TROPONIN-I (test 3.2 pg/mL 27.36-66.23 L Please note : Units and code = TROPI) Reference Rang e have changedFeb 3, 2 021 CBC W/AUTO [id number] 20:11:00 Test Item Value Reference Range Interpretation Comments WHITE BLOOD CELL (test code = 8.4 x10 3/uL 4.8-10.8 N WBC) RED BLOOD CELL (test code = 4.32 x10 6/uL 4.20-5.40 N RBC) HEMOGLOBIN (test code = HGB) 12.9 g/dL 12.0-16.0 N HEMATOCRIT (test code = HCT) 40.3 % 37.0-47.0 N MEAN CELL VOLUME (test code = 93.3 fL 81.0-99.0 N MCV) MEAN CELL HGB (test code = MCH) 29.9 pg 27-31 N MEAN CELL HGB CONCENTRATION 32.0 G/DL 33-36.5 L (test code = MCHC) RED CELL DISTRIBUTION WIDTH 13.3 % 12.9-16.9 N (test code = RDW) PLATELET COUNT (test code = 355 x10 3/uL 150-440 N PLT) MEAN PLATELET VOLUME (test code 10.5 fL 8.9-12.4 N = MPV) NEUTROPHIL % (test code = NT%) 66.8 % 42.2-75.2 N LYMPHOCYTE % (test code = LY%) 21.9 % 20.5-51.1 N MONOCYTE % (test code = MO%) 5.8 % 1.7-9.3 N EOSINOPHIL % (test code = EO%) 0.5 % 0.0-7.0 N BASOPHIL % (test code = BA%) 0.8 % 0-2.5 N NEUTROPHIL # (test code = NT#) 5.61 x10 3/uL 1.80-7.70 N LYMPHOCYTE # (test code = LY#) 1.84 x10 3/uL 1.00-4.80 N MONOCYTE # (test code = MO#) 0.49 x10 3/uL 0.00-0.80 N EOSINOPHIL # (test code = EO#) 0.04 x10 3/uL 0.00-0.45 N BASOPHIL # (test code = BA#) 0.07 x10 3/uL 0.0-0.20 N RECOLLECTBASIC METABOLIC [id number] 07:08:00 Test Item Value Reference Range Interpretation Comments SODIUM (test code 143 mmol/L 136-145 N Please not e: New = NA) Reference Range Aug 2020 POTASSIUM (test 3.3 mmol/L 3.5-5.1 L code = K) CHLORIDE (test 105 mmol/L 98-107 N Please note: New code = CL) Reference Range Aug 2020 CARBON DIOXIDE 27 mmol/L 20-31 N Please note: New (test code = CO2) Reference Range Aug 2020 GLUCOSE (test code 87 mg/dL 74-106 N Please no te: New = GLU) Reference Range Aug 2020 BLOOD UREA 21 mg/dL 9-23 N Please note: Ne w NITROGEN (test Reference Ran ge Feb code = BUN) 2020 GLOMERULAR >=60 max >60 Units are FILTRATION RATE estimate mL/min mL/min/1. 73m2 The (test code = GFR) estimated glomerular filtration rate is computed usingpatient ra ce, age (>18), sex, and serum creatinin e. If anyof the neede d data elements a re missing the Laboratory sarina ot compute an estimation of t he glomerular filtration rate . CREATININE (test 0.90 mg/dL 0.55-1.02 N Please note : New code = CREAT) Reference Rang e Aug 2020 CALCIUM (test code 9.8 mg/dL 8.7-10.4 N Please no te: New = CA) Reference Range Aug 2020 BASIC METABOLIC [id number] 05:53:00 Test Item Value Reference Range Interpretation Comments SODIUM (test code = 150 mmol/L 136-145 H Please n ote: New NA) Reference Range Aug 2020 POTASSIUM (test code 3.5 mmol/L 3.5-5.1 N = K) CHLORIDE (test code = 108 mmol/L 98-107 H Please note: New CL) Reference Range Aug 2020 CARBON DIOXIDE (test 30 mmol/L 20-31 N Please note: New code = CO2) Reference Range Aug 2020 GLUCOSE (test code = 105 mg/dL 74-106 N Please note: New GLU) Reference Range Aug 2020 BLOOD UREA NITROGEN 31 mg/dL 9-23 H Please n ote: New (test code = BUN) Reference Range Aug 2020 GLOMERULAR FILTRATION 51 mL/min >60 L Units are RATE (test code = mL/min/1.7 3m2 The GFR) estimated glome rular filtration rate is computed usingp atient race, age (>18) , sex, and serum creat inine. If anyof the ne eded data elements a re missing the Lab oratory cannot compute an estimation of t he glomerular filt ration rate. CREATININE (test code 1.20 mg/dL 0.55-1.02 H Please note: New = CREAT) Reference Range Aug 2020 CALCIUM (test code = 9.7 mg/dL 8.7-10.4 N Please note: New CA) Reference Range Aug 2020 BASIC METABOLIC [id number] 06:07:00 Test Item Value Reference Range Interpretation Comments SODIUM (test code = 147 mmol/L 136-145 H Please n ote: New NA) Reference Range Aug 2020 POTASSIUM (test code 3.8 mmol/L 3.5-5.1 N = K) CHLORIDE (test code = 105 mmol/L 98-107 N Please note: New CL) Reference Range Aug 2020 CARBON DIOXIDE (test 31 mmol/L 20-31 N Please note: New code = CO2) Reference Range Aug 2020 GLUCOSE (test code = 146 mg/dL 74-106 H Please note: New GLU) Reference Range Aug 2020 BLOOD UREA NITROGEN 34 mg/dL 9-23 H Please n ote: New (test code = BUN) Reference Range Aug 2020 GLOMERULAR FILTRATION 47 mL/min >60 L Units are RATE (test code = mL/min/1.7 3m2 The GFR) estimated glome rular filtration rate is computed usingp atient race, age (>18) , sex, and serum creat inine. If anyof the ne eded data elements a re missing the Lab oratory cannot compute an estimation of t he glomerular filt ration rate. CREATININE (test code 1.30 mg/dL 0.55-1.02 H Please note: New = CREAT) Reference Range Aug 2020 CALCIUM (test code = 10.6 mg/dL 8.7-10.4 H Please note: New CA) Reference Range Aug 2020 - XR CHEST 1 [id number] 23:33:00 [facility] : 1975 Sex: FPatient Name: FRANCISCO HERANNDEZ Unit No: [id number] EXAMS: CPT CODE: [id number] XR CHEST 1 V 02328 AFTER HOURS SERVICE ON: 03/27/2021 11:29 PM AP PortableChest Location Code M12 HISTORY: Tracheostomy tube change FINDINGS: Study limited by shallow inspiration. Minimal left basilar subsegmental atelectasis is noted. Tracheostomy is in place. The base of the tracheostomy appears to the left of midline but this may be projectional. There are no pleural effusions. There is no pneumothorax. Cardiac silhouette and mediastinum appear within normal limits. IMPRESSION: Minimal left basilar subsegmental atelectasis.The base of the tracheostomy appears to the left of midline but this may be projectional. Repeat study is suggested. at 2333 Reported and signed by: LEANA MARTINEZ M.D. CC: Willam Murrieta MD; William Smith Technologist: Hussein Hutson Time: DAP (Gy m2): Air Kerma (mGy): Trscr Dt/Tm: 03/27/2021 (2333) by:[email or web address] Printed Date/Time: 03/27/2021 (5757) Name: FRANCISCO HERNANDEZ [facility] Phys: William Rosas [address] : 1975 Age: 45 Sex: [place] [address] [id number] Loc: [facility] Exam Date: 03/27/2021 Status: REG REF PH: FAX: PAGE 1 Signed ReportBASIC METABOLIC [id number] 06:35:00 Test Item Value Reference Range Interpretation Comments SODIUM (test code 146 mmol/L 136-145 H Please not e: New = NA) Reference Range Aug 2020 POTASSIUM (test 4.0 mmol/L 3.5-5.1 N code = K) CHLORIDE (test 104 mmol/L 98-107 N Please note: New code = CL) Reference Range Aug 2020 CARBON DIOXIDE 32 mmol/L 20-31 H Please note: New (test code = CO2) Reference Range Aug 2020 GLUCOSE (test code 98 mg/dL 74-106 N Please no te: New = GLU) Reference Range Aug 2020 BLOOD UREA 30 mg/dL 9-23 H Please note: Ne w NITROGEN (test Reference Ran ge Feb code = BUN) 2020 GLOMERULAR >=60 max >60 Units are FILTRATION RATE estimate mL/min mL/min/1. 73m2 The (test code = GFR) estimated glomerular filtration rate is computed usingpatient ra ce, age (>18), sex, and serum creatinin e. If anyof the neede d data elements a re missing the Laboratory sarina ot compute an estimation of t he glomerular filtration rate . CREATININE (test 0.90 mg/dL 0.55-1.02 N Please note : New code = CREAT) Reference Rang e Aug 2020 CALCIUM (test code 10.4 mg/dL 8.7-10.4 N Please no te: New = CA) Reference Range Aug 2020 CBC W/MANUAL [id number] 09:25:00 Test Item Value Reference Range Interpretation Comments WHITE BLOOD CELL (test code = 10.2 x10 3/uL 4.8-10.8 N WBC) RED BLOOD CELL (test code = 4.33 x10 6/uL 4.20-5.40 N RBC) HEMOGLOBIN (test code = HGB) 12.9 g/dL 12.0-16.0 N HEMATOCRIT (test code = HCT) 40.9 % 37.0-47.0 N MEAN CELL VOLUME (test code = 94.5 fL 81.0-99.0 N MCV) MEAN CELL HGB (test code = MCH) 29.8 pg 27-31 N MEAN CELL HGB CONCENTRATION 31.5 G/DL 33-36.5 L (test code = MCHC) RED CELL DISTRIBUTION WIDTH 14.5 % 12.9-16.9 N (test code = RDW) PLATELET COUNT (test code = 448 x10 3/uL 150-440 H PLT) MEAN PLATELET VOLUME (test code 9.3 fL 8.9-12.4 N = MPV) TOTAL CELLS COUNTED (test code 100 #CELLS = TCC) SEGMENTED NEUTROPHILS (test 62 % 49-71 N code = SEG) LYMPHOCYTE (test code = LYMPH) 28 % 20-40 N BAND NEUTROPHIL (test code = 1 % 0-5 N BAND) MONOCYTE (test code = MON) 7 % 3-8 N EOSINOPHIL (test code = EOS) 1 % 1-5 N METAMYELOCYTE (test code = 1 % 0-0 H META) HYPOCHROMIA (test code = HYPO) 1+ NONE SEEN A POIKILOCYTOSIS (test code = 1+ NONE SEEN A POIK) PLATELET MORPHOLOGY (test code NORMAL NORMAL = PLTMORPH) - XR CHEST 1 [id number] 08:48:00 [facility] : 1975 Sex: FPatient Name: FRANCISCO HERNANDEZ Unit No: [id number] EXAMS: CPT CODE: [id number] XR CHEST 1 V 90014 HISTORY: Respiratory failure Location code: B2 FINDINGS: Frontal view of the chest demonstrates normal cardiomediastinal silhouette. The trachea is midline. The lungs are clear. There is no effusion or pneumothorax. The bones are intact. Tracheostomy tube is in good position. IMPRESSION: No acute pulmonary process. at 0848 Reported and signed by: Joe Rao M.D. CC: Willam Murrieta MD Technologist: Miguel Hutson Time: DAP (Gy m2): Air Kerma (mGy): Trscr Dt/Tm: 03/21/2021 (0827) by:[email or web address] Printed Date/Time: 03/21/2021 (7424) [facility] Raeann Willam Murrieta MD [address] : 1975 Age: 45 Sex: F [place] [id number] Loc: ELKE Exam Date: 03/21/2021 Status: REG REF PH: FAX: PAGE 1 Signed ReportBASIC METABOLIC [id number] 08:26:00 Test Item Value Reference Range Interpretation Comments SODIUM (test code 142 mmol/L 136-145 N Please not e: New = NA) Reference Range Aug 2020 POTASSIUM (test 4.4 mmol/L 3.5-5.1 N code = K) CHLORIDE (test 104 mmol/L 98-107 N Please note: New code = CL) Reference Range Aug 2020 CARBON DIOXIDE 29 mmol/L 20-31 N Please note: New (test code = CO2) Reference Range Aug 2020 GLUCOSE (test code 142 mg/dL 74-106 H Please no te: New = GLU) Reference Range Aug 2020 BLOOD UREA 34 mg/dL 9-23 H Please note: Ne w NITROGEN (test Reference Ran ge Feb code = BUN) 2020 GLOMERULAR >=60 max >60 Units are FILTRATION RATE estimate mL/min mL/min/1. 73m2 The (test code = GFR) estimated glomerular filtration rate is computed usingpatient ra ce, age (>18), sex, and serum creatinin e. If anyof the neede d data elements a re missing the Laboratory sarina ot compute an estimation of t he glomerular filtration rate . CREATININE (test 1.00 mg/dL 0.55-1.02 N Please note : New code = CREAT) Reference Rang e Aug 2020 CALCIUM (test code 10.4 mg/dL 8.7-10.4 N Please no te: New = CA) Reference Range Aug 2020 VULVA TOTAL/SUBTOTAL [id number] 09:44:00 Test Item Value Reference Range Interpretation Comments VULVA TOTAL/SUBTOTAL RESECTION (test code = VULVARES) RUN DATE: 10/28/20 [facility] PAGE 1 RUN TIME: 1835 Specimen Inquiry RUN USER: INTERFACE PATIENT: FRANCISCO HERNANDEZ Mc LOC: [facility] U #: [id number] AGE/SX: 45/F ROOM: RE10/25/20REG DR: Ash Angeles MD : [birth year] BED: DIS: STATUS: CALOS CEBALLOS TLOC: SPEC #: [id number] RECD: 10/26/2043 STATUS: JACKIE LEACH #: [id number] LASHA: 10/25/20- SUBM DR: Ash Angeles MD ENTERED: 10/26/2044 SP TYPE: YANET CLEARY DR: ORDERED: LEVEL SURGIC CODES: [id number] - VULVA, NOS PROCEDURES: LEVEL SURGIC (Incomplete) TISSUES: VULVA, NOS - BILATERAL RADICAL PARTIAL VULVECTOMY X 4 CLINICAL HISTORY 45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, vulvar intraepithelial neoplasia 3 (sparkle) FINAL DIAGNOSIS Specimen #1 vulva, radical partial vulvectomy: - high-grade squamous intraepithelial lesion (BART 3) - margins negative for dysplasia - no invasive malignancy identified Specimen #2 additional left medial labial minora margin, excision: - no high-grade dysplasia identified - focal squamous atypia Specimen #3 additional right clitoral sylvester margin, biopsy: - no high-grade dysplasia identified - reactive inflammatory epithelial changes Specimen #4 additional left labial minora inferior margin, excision: - no high-grade dysplasia identified - focal reactive squamous epithelial changes CPT: 94233, 89877 x3 cds/wpd GROSS DESCRIPTION ANATOMIC SOURCE OF TISSUE (per Requisition): 1. Radical partial vulvectomy, bilateral labial minora clitoral sylvester - stitch at 12:00 2. Additional left medial labial minora margin 3. Additional right clitoral sylvester margin 4. Additional left labia minora inferior margin CONTINUED ON NEXT PAGE RUN DATE: 10/28/20 [facility] PAGE 2 RUN TIME: 6 Specimen Inquiry RUN USER: INTERFACE SPEC #: [id number] PATIENT: FRANCISCO HERNANDEZ #[id number] (Continued) --- GROSS DESCRIPTION (Continued) Each specimen is labeled with the patient's name and medical record number. Specimen #1 is designated "radical partial vulvectomy, bilateral labial minora clitoral sylvester - stitch at 12:00" and consists of a 6 x 3.5 cm, V-shaped, lind-pink to brown skin excised to a depth of 1.0 cm. The specimen displays a suture designating "clitoral sylvester". The specimen is inked as follows: left lateral - emory, left medial - green, right lateral - blue, right medial - red, deep - black. The epidermal surface displays a 2.6 x 1.5 cm lind-white, granular lesion which is 1.5 cm from the clitoral sylvester stitch, 1.0 cm from the left lateral aspect margin, 1.2 cm from the right lateral aspect, abuts the left medial margin and less than 0.1 cm from the right medial margin. The specimen is serially sectioned and subsequently submitted from superior to inferior in A1 - A20. Specimen #2 is designated "additional left medial labial minora margin" and consists of a 2.7 x 0.6 x 0.3 cm lind-esquivel portion of mucosa. The specimen is unoriented. The mucosa is lind-esquivel and dull. The specimen is inked black. The specimen is entirely submitted in B1 - B5. Specimen #3 is designated "additional right clitoral sylvester margin" and consists of a 0.6 x 0.3 x 0.1 cm portion of lind-esquivel mucosa. The mucosa is dull. The specimen is inked black. The specimen is trisected and entirely submitted in C1. Specimen #4 is designated "additional left labia minora inferior margin" and consists of a 2 x 1.3 x 0.4 cm portion of mucosa. The mucosa is dull. The specimen is inked black and entirely submitted in D1 - D4. nz/sparkle 10/26/20 MICROSCOPIC DESCRIPTION Margins are negative for high-grade dysplasia. There is no evidence of invasive malignancy. cds/wpd Signed Thanh Nuñez 10/28/20 0944 END OF REPORT [id number] 13:31:00 Test Item Value Reference Range Interpretation Comments GLUBED (test code = GLUBED) 99 mg/dL 65-110 N [id number] 09:17:00 Test Item Value Reference Range Interpretation Comments GLUBED (test code = GLUBED) 101 mg/dL 65-110 N COVID 19 Asymptomatic IH [id number] 16:39:00 Test Item Value Reference Range Interpretation Comments COVID 19 NEGATIVE NEGATIVE This test has b een Asymptomatic IH AG authorize d only for the (test code = detection ofpro teins from COVNONPUIAG) SARS-CoV-2, not for any other viruses orpathogens. N egative results should be treated as presumptive andconfirmed wi th a molecular assay , if necessary for patientmanageme nt. Negative result s do not rule out COVID- 19 andshould not b e used as the sole basis for treatment orpat ient management brennai giovany including infec tion controldecision s. Negative result s should be considered i n thecontext of a patient's recent exposure s, history and thepresence of clinical signs and symptoms consis tent withCOVID-19. T his test has not been FD A cleared or approved; th e test hasbeen authori matilde by FDA under an Emerge ncy Use Authorization(E UA) for use by [facility] certified under the CLIA thatmeet the re quirements to perform mode rate, high or waivedcomple xity tests. This lauren t is authorized for use at thePoint of Car e (POC), i.e., in patien t care settingsoperati ng under a CLIA Certificat e of Waiver, Certifi charito ofCompliance, o r Certificate of Accreditation. This test is only authori zed for the duration of thedeclaration that circumstances e xist justifying theauthorizatio n of emergency use o f in vitro diagnostic test sfor detection and/o r diagnosis of CO VID-19 under [id number] 4(b)(1) of the Act, 21 U.S .C. 360bbb-3(b)(1), unless theauthorizatio n is terminated or r evoked sooner. CBC W/AUTO [id number] 11:51:00 Test Item Value Reference Range Interpretation Comments WHITE BLOOD CELL (test code = WBC) 9.1 K/mm3 6.5-12.3 N RED BLOOD CELL (test code = RBC) 4.46 M/mm3 3.51-4.69 N HEMOGLOBIN (test code = HGB) 14.0 g/dL 10.1-13.8 H HEMATOCRIT (test code = HCT) 43.6 % 32.5-41.8 H MEAN CELL VOLUME (test code = MCV) 97.8 fL 84.6-96.6 H MEAN CELL HGB (test code = MCH) 31.4 pg 27.3-33.9 N MEAN CELL HGB CONCETRATION (test 32.1 gm/dL 32.0-34.2 N code = MCHC) RED CELL DISTRIBUTION WIDTH (test 12.7 % 12.2-16.3 N code = RDW) PLATELET COUNT (test code = PLT) 312 K/mm3 134-363 N MEAN PLATELET VOLUME (test code = 9.3 fL 9.2-12.7 N MPV) MANUAL DIFF REQUIRED (test code = YES MDIFF) RBC MORPHOLOGY REQUIRED (test code NORMAL NORMAL = RBCM) PLATELET MORPHOLOGY REQUIRED (test NORMAL NORMAL code = PLTMR) WBC [id number] 11:51:00 Test Item Value Reference Range Interpretation Comments TOTAL CELLS COUNTED (test code = 100 #CELLS TCC) SEGMENTED NEUTROPHILS (test code = 64 % 56.5-79.4 N SEG) BAND NEUTROPHIL (test code = BAND) 4 % 0-5 N LYMPHOCYTE (test code = LYMPH) 25 % 20-40 N ATYPICAL LYMPH (test code = 4 % ALYMPH) MONOCYTE (test code = MON) 5 % 0-8 N EOSINOPHIL (test code = EOS) 1 % 0-4 N METAMYELOCYTE (test code = META) 1 % 0-0 H PLATELET MORPHOLOGY (test code = NORMAL NORMAL PLTMORPH) CHEMISTRY 7 [id number] 11:23:00 Test Item Value Reference Range Interpretation Comments SODIUM (test code = NA) 141 mEq/L 135-145 N POTASSIUM (test code = K) 3.4 mEq/L 3.5-5.0 L CHLORIDE (test code = CL) 104 mEq/L 100-115 N CARBON DIOXIDE (test code = CO2) 28 mEq/L 22-31 N ANION GAP (test code = GAP) 12.70 10-20 N GLUCOSE (test code = GLU) 126 mg/dL 65-110 H BLOOD UREA NITROGEN (test code = 15 mg/dL 7-18 N BUN) GLOMERULAR FILTRATION RATE (test 44 ml/min >60 L code = GFR) CREATININE (test code = CREAT) 1.3 mg/dL 0.5-1.0 H CALCIUM (test code = CA) 9.1 mg/dL 8.4-10.2 N CBC W/AUTO [id number] 11:13:00 Test Item Value Reference Range Interpretation Comments WHITE BLOOD CELL (test code = WBC) 9.1 K/mm3 6.5-12.3 N RED BLOOD CELL (test code = RBC) 4.46 M/mm3 3.51-4.69 N HEMOGLOBIN (test code = HGB) 14.0 g/dL 10.1-13.8 H HEMATOCRIT (test code = HCT) 43.6 % 32.5-41.8 H MEAN CELL VOLUME (test code = MCV) 97.8 fL 84.6-96.6 H MEAN CELL HGB (test code = MCH) 31.4 pg 27.3-33.9 N MEAN CELL HGB CONCETRATION (test 32.1 gm/dL 32.0-34.2 N code = MCHC) RED CELL DISTRIBUTION WIDTH (test 12.7 % 12.2-16.3 N code = RDW) PLATELET COUNT (test code = PLT) 312 K/mm3 134-363 N MEAN PLATELET VOLUME (test code = 9.3 fL 9.2-12.7 N MPV) MANUAL DIFF REQUIRED (test code = YES MDIFF) RBC MORPHOLOGY REQUIRED (test code NORMAL = RBCM) PLATELET MORPHOLOGY REQUIRED (test NORMAL code = PLTMR) WBC [id number] 11:13:00 Test Item Value Reference Range Interpretation Comments SEGMENTED NEUTROPHILS (test code = SEG) % 56.5-79.4 LYMPHOCYTE (test code = LYMPH) % 20-40 CBC W/AUTO [id number] 11:13:00 Test Item Value Reference Range Interpretation Comments WHITE BLOOD CELL (test code = WBC) 9.1 K/mm3 6.5-12.3 N RED BLOOD CELL (test code = RBC) 4.46 M/mm3 3.51-4.69 N HEMOGLOBIN (test code = HGB) 14.0 g/dL 10.1-13.8 H HEMATOCRIT (test code = HCT) 43.6 % 32.5-41.8 H MEAN CELL VOLUME (test code = MCV) 97.8 fL 84.6-96.6 H MEAN CELL HGB (test code = MCH) 31.4 pg 27.3-33.9 N MEAN CELL HGB CONCETRATION (test 32.1 gm/dL 32.0-34.2 N code = MCHC) RED CELL DISTRIBUTION WIDTH (test 12.7 % 12.2-16.3 N code = RDW) PLATELET COUNT (test code = PLT) 312 K/mm3 134-363 N MEAN PLATELET VOLUME (test code = 9.3 fL 9.2-12.7 N MPV) MANUAL DIFF REQUIRED (test code = YES MDIFF) RBC MORPHOLOGY REQUIRED (test code NORMAL = RBCM) PLATELET MORPHOLOGY REQUIRED (test NORMAL code = PLTMR) WBC [id number] 11:13:00 Test Item Value Reference Range Interpretation Comments SEGMENTED NEUTROPHILS (test code = SEG) % 56.5-79.4 LYMPHOCYTE (test code = LYMPH) % 20-40
[2021-11-30 18:34] LABS: Urine Blood 1+ (Negative); Urine Glucose Negative (Negative); Urine Protein Negative (Negative); Urine Specific Gravity 1.015 (1.005-1.030); Urine pH 5.5 (5.0-7.0)
[2021-11-30 18:34] LABS: Absolute Lymphocytes (CBC) 2.9 K/uL (0.7-4.9); Hematocrit 42.8 % (36.0-45.0); Lymphocytes % 39.9 % (15.3-44.8); MPV 6.7 fL (7.6-11.3); RBC Red Blood Cell Count 4.58 M/uL (3.86-4.86)
[2021-11-30] MEDS ORDERED: ONDANSETRON 4 MG/2 ML VIAL ONE (18:34)
[2021-11-30] MEDS ORDERED: NA CHLORIDE 0.9% 1,000 ML ONE (18:34)
[2021-11-30] MEDS ORDERED: MORPHINE 4 MG/ML SYR ONE (18:41)
[2021-11-30 18:53] LABS: Albumin 4.1 g/dL (3.4-5.0); Bilirubin Total 0.6 mg/dL (0.2-1.0); Potassium 3.7 mmol/L (3.5-5.1); Protein, Total 7.9 g/dL (6.4-8.2)
[2021-11-30 19:01] LABS: Urine Bacteria 20-50 /HPF (<20)
[2021-11-30] MEDS ORDERED: PROMETHAZINE INJ 25 MG/ML AMP ONE (19:46)
[2021-11-30] MEDS ORDERED: FENTANYL CITR 100 MCG/2 ML ONE (19:47)
--- NOTE | 2021-11-30 19:48 | RAD REPORT ---
EXAM DESCRIPTION: CT - Abdomen Pelvis W Contrast - 11/30/2021 7:37 pm CLINICAL HISTORY: Abdominal pain/right upper quadrant pain COMPARISON: 2010 TECHNIQUE: Computed axial tomography of the abdomen pelvis was obtained. 100 cc Isovue-300 was admin istered intravenously. Oral contrast was not requested which limits evaluation of bowel and appendix All CT scans are performed using dose optimization technique as appropriate and may include automated exposure control or mA/KV adjustment according to patient size. FINDINGS: The liver, spleen, pancreas, adrenal and kidneys appear unremarkable. Cholecystectomy. There is no evidence of diverticulitis. Hysterectomy. No adnexal mass. Shunt tubing has its tip within the anterior abdomen. Moderate amount of stool within the colon IMPRESSION: Moderate amount of stool within the colon
--- NOTE | 2021-11-30 20:04 | EDPHYS ---
Physician Documentation [facility] Name: Shannan Fuller Age: 46 yrs Sex: Female : 1975 Arrival Date: 11/30/2021 Time: 17:47 Bed 18 Private MD: LOUISA Physician Ray Aguirre HPI: 11/30 18:00 This 46 yrs old Female presents to ER via Ambulatory with complaints of Abdominal Pain. jh7 18:00 The patient presents with abdominal pain in the right upper quadrant. Onset: The jh7 symptoms/episode began/occurred 3 week(s) ago, and became worse yesterday. Associated signs and symptoms: Pertinent positives: constipation, nausea, Pertinent negatives: diarrhea, vomiting. Patient reports right upper quadrant pain x3 weeks that was intermittent, but became constant starting yesterday. Also complains of nausea and constipation.. 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 - Social history:: Smoking status: Patient denies any tobacco usage or history of. ROS: 18:00 Constitutional: Negative for fever, chills, and weight loss, Neck: Negative for injury, jh7 pain, and swelling, Cardiovascular: Negative for chest pain, palpitations, and edema, Respiratory: Negative for shortness of breath, cough, wheezing, and pleuritic chest pain, Back: Negative for injury and pain, Skin: Negative for injury, rash, and discoloration, Neuro: Negative for headache, weakness, numbness, tingling, and seizure. 18:00 Abdomen/GI: Positive for abdominal pain, nausea, Negative for vomiting, diarrhea, rectal bleeding. 18:00 All other systems are negative. Exam: 18:00 ENT: Nares patent. No nasal discharge, no septal abnormalities noted. Oropharynx with jh7 no redness, swelling, or masses, exudates, or evidence of obstruction, uvula midline. Mucous membranes moist. Cardiovascular: Regular rate and rhythm with a normal S1 and S2. No gallops, murmurs, or rubs. Normal PMI, no JVD. No pulse deficits. Respiratory: Lungs have equal breath sounds bilaterally, clear to auscultation and percussion. No rales, rhonchi or wheezes noted. No increased work of breathing, no retractions or nasal flaring. Back: No spinal tenderness. No costovertebral tenderness. Full range of motion. Skin: Warm, dry with normal turgor. Normal color with no rashes, no lesions, and no evidence of cellulitis. MS/ Extremity: Pulses equal, no cyanosis. Neurovascular intact. Full, normal range of motion. Neuro: Awake and alert, GCS 15, oriented to person, place, time, and situation. Cranial nerves II-XII grossly intact. Motor strength 5/5 in all extremities. Sensory grossly intact. Cerebellar exam normal. Normal gait. 18:00 Constitutional: The patient appears alert, awake, uncomfortable. 18:00 Abdomen/GI: Inspection: abdomen appears normal, Bowel sounds: normal, Palpation: soft, mild abdominal tenderness, in the right upper quadrant. Vital Signs: 17:57 BP 144 / 96; Pulse 91; Resp 17; Temp 98.1(TE); Pulse Ox 100% on R/A; Weight 89.81 kg tw2 (R); Height 5 ft. 9 in. (175.26 cm); Pain 10/10; 19:22 BP 142 / 86; Pulse 88; Resp 17; Pulse Ox 100% on R/A; lg3 17:57 Body Mass Index 29.24 (89.81 kg, 175.26 cm) tw2 MDM: 18:04 Patient medically screened. jh7 20:05 Differential diagnosis: pancreatitis, Pyelonephritis, urinary tract infection. Data [facility] reviewed: vital signs, nurses notes, lab test result(s), radiologic studies, CT scan. Data interpreted: Pulse oximetry: is 100 %. Interpretation: normal. Counseling: I had a detailed discussion with the patient and/or guardian regarding: the historical points, exam findings, and any diagnostic results supporting the discharge/admit diagnosis, to return to the emergency department if symptoms worsen or persist or if there are any questions or concerns that arise at home. Response to treatment: the patient's symptoms have mildly improved after treatment. ED course: Informed the patient of both the lab and imaging results. She mentioned that her urine had a foul smell to it and that she had been experiencing urinary hesitancy as of the past few days along with her constipation. Informed her that the CT showed no acute findings but that there was a moderate amount of stool shown with no obstruction. Advised for her to increase her fluid intake, fiber, and to take stool softeners. If she develops any new symptoms or severe pain, she may return to the ER for reeval. The patient and agreed with the plan of care.. 11/30 18:11 Order name: CBC with Diff; Complete Time: 18:51 [facility] 11/30 18:11 Order name: CMP; Complete Time: 18:59 [facility] 11/30 18:11 Order name: Lipase; Complete Time: 18:59 [facility] 11/30 18:11 Order name: Urine Microscopic Only; Complete Time: 19:05 [facility] 11/30 18:35 Order name: Urine Dipstick-Ancillary; Complete Time: 18:44 [facility] 11/30 19:04 Order name: Urine Culture [facility] 11/30 18:11 Order name: CT Abd/Pelvis - IV Contrast Only; Complete Time: 20:13 [facility] 11/30 18:11 Order name: IV Saline Lock; Complete Time: 18:27 [facility] 11/30 18:11 Order name: Labs collected and sent; Complete Time: 18:27 [facility] 11/30 18:11 Order name: Urine Dipstick-Ancillary (obtain specimen); Complete Time: 18:27 [facility] Administered Medications: 18:35 Drug: NS 0.9% 1000 ml Route: IV; Rate: 1 bolus; Site: right antecubital; jd3 19:06 Follow up: Response: No adverse reaction; IV Status: Completed infusion jd3 18:35 Drug: Zofran (Ondansetron) 4 mg Route: IVP; Site: right antecubital; jd3 19:07 Follow up: Response: No adverse reaction jd3 18:38 Drug: morphine 4 mg Route: IVP; Infused Over: 4 mins; Site: right antecubital; jd3 19:06 Follow up: Response: No adverse reaction; RASS: Alert and Calm (0) jd3 19:50 Drug: Phenergan (promethazine) 12.5 mg Route: IVP; Site: right antecubital; lg3 19:51 Follow up: Response: No adverse reaction 3 19:50 Drug: fentaNYL (PF) 50 mcg Route: IVP; Site: right antecubital; lg3 19:50 Follow up: Response: No adverse reaction 3 20:36 Drug: Rocephin (cefTRIAXone) 1 grams Route: IV; Rate: 1 calculated rate; Site: right lg3 antecubital; 20:36 Follow up: Response: No adverse reaction; IV Status: Completed infusion; IV Intake: [id number] Disposition Summary: 11/30/21 20:03 Discharge Ordered Location: Home [facility] Problem: new [facility] Symptoms: have improved [facility] Condition: Stable [facility] Diagnosis - UTI/ Urinary tract infection, site not specified [facility] - Constipation [facility] Followup: [facility] - With: Private Physician - When: 2 - 3 days - Reason: Recheck today's complaints Discharge Instructions: - Discharge Summary Sheet [facility] - Constipation, Adult [facility] - Dysuria [facility] - Urinary Tract Infection, Adult [facility] Forms: - Medication Reconciliation Form [facility] - Thank You Letter [facility] - Antibiotic Education [facility] Prescriptions: - Cephalexin 500 mg Oral Capsule - take 1 capsule by ORAL route every 12 hours for 7 days; 14 capsule; Refills: 0, 7 Product Selection Permitted Signatures: Dispatcher [employer] Jocelynn England RN RN tw2 Meet Burkett RN RN jd3 Rosita Houston RN RN lg3 Megan Schuster, [employer]ADER [employer] LEADER [facility]
--- NOTE | 2021-11-30 20:04 | ER ---
Nurse's Notes [facility] Name: Shannan Fuller Age: 46 yrs Sex: Female : 1975 Arrival Date: 11/30/2021 Time: 17:47 Bed 18 Private MD: Diagnosis: UTI/ Urinary tract infection, site not specified;Constipation Presentation: 11/30 17:57 Chief complaint: Patient states: my stomach is hurting bad. it started 3 weeks ago. its tw2 hurting on the right upper side with a sharp pain that steady. painful with a deep breath. ibuprofen isnt helping. Coronavirus screen: At this time, the client does not indicate any symptoms associated with coronavirus-19. Ebola Screen: Patient denies travel to an Ebola-affected area in the 21 days before illness onset. Initial Sepsis Screen: Does the patient meet any 2 criteria? HR > 90 bpm. No. Patient's initial sepsis screen is negative. Does the patient have a suspected source of infection? No. Patient's initial sepsis screen is negative. Risk Assessment: Do you want to hurt yourself or someone else? Patient reports no desire to harm self or others. Onset of symptoms was November 30, 2021. 17:57 Method Of Arrival: Ambulatory tw2 17:57 Acuity: ANNABEL 3 tw2 Triage Assessment: 17:58 General: Appears uncomfortable, Behavior is cooperative, appropriate for age, quiet. tw2 Pain: Complains of pain in right upper quadrant. GI: Reports upper abdominal pain, constipation. GI: Reports intolerance of fluids, intolerance of food. 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 - Social history:: Smoking status: Patient denies any tobacco usage or history of. Screenin:40 Abuse screen: Denies threats or abuse. Nutritional screening: No deficits noted. jd3 Tuberculosis screening: No symptoms or risk factors identified. Fall Risk Ambulatory Aid- None/Bed Rest/Nurse Assist (0 pts). Gait- Normal/Bed Rest/Wheelchair (0 pts) Mental Status- Oriented to own ability (0 pts). Total Fairchild Fall Scale indicates No Risk (0-24 pts). Assessment: 18:38 General: Appears in no apparent distress. uncomfortable, Behavior is calm, cooperative, jd3 appropriate for age. Pain: Complains of pain in abdomen Quality of pain is described as crampy, tender. Neuro: Graham Agitation-Sedation Scale (RASS): 0 - Alert and Calm Level of Consciousness is awake, alert, obeys commands, Oriented to person, place, time, situation. Cardiovascular: Denies chest pain, Capillary refill < 3 seconds Patient's skin is warm and dry. Respiratory: Airway is patent Respiratory effort is even, unlabored, Respiratory pattern is regular, symmetrical, Denies cough, shortness of breath. GI: Abdomen is round non-distended, Abd is soft X 4 quads Abdomen is tender to palpation in right upper quadrant Reports constipation, nausea. : No signs and/or symptoms were reported regarding the genitourinary system. EENT: No signs and/or symptoms were reported regarding the EENT system. Derm: Skin is intact, Skin is dry, Skin is normal, Skin temperature is warm. Musculoskeletal: Circulation, motion, and sensation intact. Range of motion: intact in all extremities. 19:20 General: Appears in no apparent distress. uncomfortable, Behavior is calm, cooperative. lg3 Pain: Complains of pain in right upper quadrant. Neuro: No deficits noted. Graham Agitation-Sedation Scale (RASS): 0 - Alert and Calm Level of Consciousness is awake, alert, obeys commands, Oriented to person, place, time, situation. Cardiovascular: No deficits noted. Denies chest pain, shortness of breath, Capillary refill < 3 seconds Clubbing of nail beds is absent JVD is absent Patient's skin is warm and dry. Respiratory: No deficits noted. Airway is patent Trachea midline Respiratory effort is even, unlabored, Respiratory pattern is regular, symmetrical. GI: Abdomen is round non-distended, Abd is soft X 4 quads Abdomen is tender to palpation in right upper quadrant Guarding noted Reports upper abdominal pain. : No deficits noted. No signs and/or symptoms were reported regarding the genitourinary system. EENT: No deficits noted. No signs and/or symptoms were reported regarding the EENT system. Derm: No deficits noted. No signs and/or symptoms reported regarding the dermatologic system. Skin is intact, is healthy with good turgor, Skin is dry, Skin temperature is warm. Musculoskeletal: No deficits noted. No signs and/or symptoms reported regarding the musculoskeletal system. Circulation, motion, and sensation intact. Range of motion: intact in all extremities. 20:46 Reassessment: Patient appears in no apparent distress at this time. No changes from lg3 previously documented assessment. Patient and/or family updated on plan of care and expected duration. Pain level reassessed. Patient is alert, oriented x 3, equal unlabored respirations, skin warm/dry/pink. Vital Signs: 17:57 BP 144 / 96; Pulse 91; Resp 17; Temp 98.1(TE); Pulse Ox 100% on R/A; Weight 89.81 kg tw2 (R); Height 5 ft. 9 in. (175.26 cm); Pain 10/10; 19:22 BP 142 / 86; Pulse 88; Resp 17; Pulse Ox 100% on R/A; lg3 17:57 Body Mass Index 29.24 (89.81 kg, 175.26 cm) tw2 ED Course: 17:47 Patient arrived in ED. as 17:58 Triage completed. tw2 18:02 Arm band placed on. tw2 18:04 Megan Schuster FNP is PHCP. jh7 18:04 Ray Aguirre MD is Attending Physician. 7 18:27 Meet Burkett RN is Primary Nurse. jd3 18:27 Inserted saline lock: 20 gauge in right antecubital area, using aseptic technique. jd3 Blood collected. 18:40 Patient has correct armband on for positive identification. Bed in low position. Call jd3 light in reach. Side rails up X 1. Adult w/ patient. Pulse ox on. NIBP on. 19:39 CT Abd/Pelvis - IV Contrast Only In Process Unspecified. EDMS 20:46 No provider procedures requiring assistance completed. IV discontinued, intact, lg3 bleeding controlled, No redness/swelling at site. Pressure dressing applied. Administered Medications: 18:35 Drug: NS 0.9% 1000 ml Route: IV; Rate: 1 bolus; Site: right antecubital; jd3 19:06 Follow up: Response: No adverse reaction; IV Status: Completed infusion jd3 18:35 Drug: Zofran (Ondansetron) 4 mg Route: IVP; Site: right antecubital; jd3 19:07 Follow up: Response: No adverse reaction jd3 18:38 Drug: morphine 4 mg Route: IVP; Infused Over: 4 mins; Site: right antecubital; jd3 19:06 Follow up: Response: No adverse reaction; RASS: Alert and Calm (0) jd3 19:50 Drug: Phenergan (promethazine) 12.5 mg Route: IVP; Site: right antecubital; lg3 19:51 Follow up: Response: No adverse reaction lg3 19:50 Drug: fentaNYL (PF) 50 mcg Route: IVP; Site: right antecubital; lg3 19:50 Follow up: Response: No adverse reaction lg3 20:36 Drug: Rocephin (cefTRIAXone) 1 grams Route: IV; Rate: 1 calculated rate; Site: right lg3 antecubital; 20:36 Follow up: Response: No adverse reaction; IV Status: Completed infusion; IV Intake: 13hrxf2 Medication: 18:40 VIS not applicable for this client. jd3 Intake: 20:36 IV: 10ml; Total: 10ml. lg3 Outcome: 20:03 Discharge ordered by MD. [email or web address] 20:46 Discharged to home ambulatory, with significant other. lg3 20:46 Condition: stable 20:46 Discharge instructions given to patient, significant other, Instructed on discharge instructions, medication usage, Demonstrated understanding of instructions, medications, Prescriptions given X 1. 20:53 Patient left the ED. lg3 Signatures: Dispatcher [employer] EDMS Miller Sarahi as Flynn, Jocelynn, RN RN tw2 Meet Burkett RN RN jd3 Rosita Houston RN RN lg3 Megan Schuster, PAPER MAKING MACHINE OPERATOR [facility] jh7
[2021-11-30] MEDS ORDERED: CEFTRIAXONE 1000 MG/VIAL ONE (20:30)
[2021-11-30 21:18] VITALS: TEMP 98.1; O2SAT 100
[2021-11-30 21:20] VITALS: BP 142/86
== END 2021-11-30 20:53 | disposition home or self-care (01) ==
LOC: ER 17:46
DX: N39.0 Urinary tract infection, site not specified (principal); K59.00 Constipation, unspecified; F41.9 Anxiety disorder, unspecified; F32.A Depression, unspecified; F43.10 Post-traumatic stress disorder, unspecified; Z88.5 Allergy status to narcotic agent; Z88.8 Allergy status to other drugs, medicaments and biological substances
CPT/HCPCS: 96361; 87088; 85025; 87086; 36415; 87077; 87186; 83690; 80053; 74177; 96375; 96374; 99284; Q9967; J2550; J3010; J7030; J2405; 81003; 81015

== ENCOUNTER 2022-11-12 06:45 | Emergency (ER) | payer BC ==
--- OUTSIDE RECORDS SUMMARY | 2022-11-12 06:48 | XMS REPORT | Continuity of Care Document ---
:1975 Author Organization [facility] t Address [address] [place] [address] [place] [id number] Care Team Providers Name Role Phone Asked, No Pcp Primary Care Physician Unavailable ROMEO PINK Attending Clinician Unavailable ROMEO PINK Attending Clinician Unavailable Ash Angeles Attending Clinician Unavailable [email or web address]_Fernandez_E Attending Clinician Unavailable Lincoln DUGGAN, Provider Not In Attending Clinician Unavailable Willam Murrieta Attending Clinician Unavailable Thomas Tuttle MD Attending Clinician ANGELINE MEYERS Attending Clinician Unavailable ROMEO PINK Admitting Clinician Unavailable Physician, No Primary or Family Admitting Clinician Unavaila ble GC_GCBEC_Fernandez_E Admitting Clinician Unavailable Willam Murrieta Admitting Clinician Unavailable Payers Payer Name Policy Type Policy Number Effective Date Expiration Date Chuck medina BCBSTX PPO [id number] 2018 2024 00:00:00 00:00:00 [place] [id number] 2021 OF [place] (PP[place] 00:00:00 Problems This patient has no known problems. Allergies, Adverse Reactions, Alerts Allergy Allergy Status Severity Reaction(s) Onset Inactive Treating Comm ents Source Name Type Date Date Clinician fluoxeti DA Active U [facility] [place] 00:[facility]: [facility] are [facility] [address] fluoxeti DA Active U UNKNOWN [facility] 03[facility]21 [place] 00:[facility]: [facility] 00 are [facility] gabapent DA Active SV 2016-07 [facility] [place] flu[facility] DA Active SV 2016-07 [facility] [place] gabapent DA Active SV HEART 2016-07 [facility] 07[facility] [place] fluoxeti DA Active SV IRREGULAR 2016-07 [facility] ne HEAR BEAT 07-17 [facility] [place] Social History Social Habit Start Date Stop Date Quantity Comments Source History of tobacco Current smoker OR Health use Gender identity [facility] Sexual orientation Method [facility] Sex Assigned At [birth year] [employer] 00:00:00 00:00:00 Hospital Smoking Status Start Date Stop Date Source Ex-smoker [facility] Tobacco smoking consumption unknown [facility] Medications This patient has no known medications. Procedures This patient has no known procedures. Plan of Care Planned Activity Planned Date Details Comments Source Future Scheduled 2022-09-30 COLONOSCOPY SCREENING [facility] Test 21:56:07 [code = COLONOSCOPY SCREENING] Future Scheduled 2022-09-30 INFLUENZA VACCINE Method [facility] Test 21:56:07 [code = INFLUENZA VACCINE] Future Scheduled 2022-09-30 COVID-19 VACCINE (#1) [facility] Test 21:56:07 [code = COVID-19 VACCINE (#1)] Future Scheduled 2022-09-30 Hepatitis C screening [facility] Test 21:56:07 (procedure) [code = 848150025] Future Scheduled 2022-09-30 Screening for [facility] Test 21:56:07 malignant neoplasm of cervix (procedure) [code = 543140217] Future Scheduled 2022-09-30 BREAST CANCER [facility] Test 21:56:07 SCREENING [code = BREAST CANCER SCREENING] Future Scheduled INFLUENZA VACCINE Method [facility] Test [code = INFLUENZA VACCINE] Future Scheduled COVID-19 VACCINE (1) Met [facility] Test [code = COVID-19 VACCINE (1)] Future Scheduled Hepatitis C screening [facility] Test (procedure) [code = 802839236] Future Scheduled Screening for [facility] Test malignant neoplasm of cervix (procedure) [code = 228594610] Encounters Start End Encounter Admission Attending Care Care Encounter Source Date/Time Date/Time Type Type Clinicians Facility Department ID 2021-07-08 Outpatient APRYL, [facility] [id number] [place] 01:03:47 [facility] 2021-06-08 Outpatient PINK, [facility] [id number] [place] [facility] Out[facility] PINK, [facility] [id number] [place] 01:03:47 [facility] 2021-05-24 Outpatient PINK, [facility] [id number] [place] [facility]:03[facility]-04-07 Inpatient U APRYL, [facility] [address] [facility] 20:58:00 [facility] 2020-10-21 Inpatient RICK Angeles, [facility] [id number] [facility] 10:03:57 [facility] 2022-07-15 Outpatient GC_GCBEC_Fe PRIV PRIV [id number] [place] 00:00:00 00:00:00 rnandez_E [id number] [facility] 2022-01-23 2022-01-23 [place] 6400 1.2.840.114 [id number] [place] 00:00:00 00:00:00 [facility] ANKUSH [id number] Health [id number] [id number] 2021-05-08 2021-05-08 EXT [facility] IP System, EXT MSRDP 1.2.840.114 [id number] [place] 00:00:00 00:00:00 Provider LOCATION [id number] Health Not In [id number] [id number] 0 2021-05-08 2021-05-08 EXT [facility] IP System, EXT MSRDP 1.2.840.114 1 [id number] [place] 00:00:00 00:00:00 Provider LOCATION [id number] Health Not In [id number] [id number] 2021-03-20 2021-04-05 Inpatient CARMEN Phelps MEDI.01 [id number] 16:13:00 19:20:00 Willam 09 [facility] 2021-03-21 2021-03-21 Outpatient Lit CARMENN REF [id number] [facility] 09:11:00 09:11:00 Willam 43 [facility] 2021-03-20 2021-03-20 Outpatient Lit [facility] PPS [id number] [facility] 23:07:00 23:07:00 Willam 46 [facility] 2021-02-22 2021-03-20 Inpatient PINK, [facility] [address] [facility] 05:19:00 19:40:00 ROMEO 2021-03-13 2021-03-13 EXT [facility] IP System, EXT MSRDP 1.2.840.114 [id number] [place] 00:00:00 00:00:00 Provider LOCATION [id number] Health Not In [id number] [id number] 2021-03-13 2021-03-13 EXT [facility] IP System, EXT MSRDP 1.2.840.114 1 [id number] [place] 00:00:00 00:00:00 Provider LOCATION [id number] Health Not In [id number] [id number] 2021-03-02 2021-03-02 EXT [facility] IP Parag, EXT MSRDP 1.2.840.114 1 [id number] [place] 00:00:00 00:00:00 Pushan LOCATION [id number] H ealth 9.2.7.2.686 [id number] 0 2021-03-02 2021-03-02 EXT [facility] IP Parag, EXT MSRDP 1.2.840.114 1 [id number] [place] 00:00:00 00:00:00 Pushan LOCATION [id number] H ealth 9.2.7.2.686 [id number] 0 2021-02-02 2021-02-02 EXT [facility] OP EXT MSRDP 1.2.840.114 1 [id number] [place] 00:00:00 00:00:00 LOCATION [id number] H ealth 9.2.7.2.686 [id number] 2021-02-02 2021-02-02 EXT [facility] OP EXT MSRDP 1.2.840.114 1 [id number] [place] 00:00:00 00:00:00 LOCATION [id number] H ealth 9.2.7.2.686 [id number] 2021-02-02 2021-02-02 EXT [facility] OP EXT MSRDP 1.2.840.114 1 [id number] [place] 00:00:00 00:00:00 LOCATION 350.1.13.58 H ealth 9.2.7.2.686 [id number] 2021-02-02 2021-02-02 EXT [facility] OP EXT MSRDP 1.2.840.114 1 [id number] [place] 00:00:00 00:00:00 LOCATION 350.1.13.58 H ealth 9.2.7.2.686 [id number] 2020-09-12 2020-09-12 Outpatient APRYL [facility] [address] [facility] 06:37:00 23:59:00 ROMEO 2020-09-07 2020-09-08 Emergency E ANGELINE MEYERS [facility] [address] [facility] 18:57:00 08:27:00 Results Test Description Test Time Test Comments Results Result Comments Source PROTEIN ELECTROPHORESIS SERUM 2021-04-05 15:12:00 Test Item Value Reference Range Interpretation Comme nts TOTAL PROTEIN (test code 6.6 g/dL 6.0-8.5 = PROTE) ALBUMIN (test code = 3.4 g/dL 2.9-4.4 ALBE) [id number]-4-TAXEAQFX (test 0.2 g/dL 0.0-0.4 code = A1G) TXJZA-6-LMIMMUFY (test 0.9 g/dL 0.4-1.0 code = A2G) [...] pr otein is not apparent.Perfor med At: HD [facility] [place] [address] [place], [place] [id number] Reji Claudio MD Ph:[phone] rformed At: DA [facility] kh4650 [facility] [address] [place], [place] [id number] h ALLAN DUGGAN Ph:[phone] [ Automated message] The sy stem which generated this result transmitted ref erence range: (). The referen ce range was not used to int erpret this result as nika l/abnormal. THYROID STIMULATING [id number] 15:12:00 Test Item Value Reference Range Interpretation Comments THYROID STIMULATING 2.00 mIU/mL 0.55-4.78 N Please n ote: New HORMONE (test code = Referen ce Range Aug TSH) 2020 BASIC METABOLIC [id number] 05:47:00 Test Item Value Reference Range Interpretation [...] Reference Range Aug 2020 Coronavirus 2019 nCoV [id number] 14:47:00 Test Item Value Reference Range Interpretation Comments Coronavirus 2019 Negative Negative Negative re sults should be nCoV Bedside (test treated a s presumptive code = and, ifinconsis tent with [id number]) clinical signs and symptoms or nec essaryfor patient managem ent, should be tested with differentauthor ized or cleared molecul ar tests. Negative result s donot preclude SARS-C OV-2 infection and s hould not be used asthe s ole basis for patient man agement decisions. Nega tiveresults should be consi dered in the context of the patient'srecent exposures, history, presen ce of clinical signs andsymptoms consistent with COVID-19. BASIC METABOLIC [id number] 06:27:00 Test Item Value Reference Range Interpretation [...] New = CA) Reference Range Aug 2020 [id number] 06:27:00 Test Item Value Reference Range Interpretation Comments MAGNESIUM (test code = 2.3 mg/dL 1.6-2.6 N Pleas e note: New MAG) Reference Range Aug 2020 [id number] 18:55:00 Test Item Value Reference Range Interpretation Comments TROPONIN-I (test 3.2 pg/mL 27.36-66.23 L Please note : Units and code = TROPI) Reference Rang e have changedFeb 3, 2 021 CBC W/AUTO [id number] 20:11:00 Test Item Value Reference Range Interpretation [...] 0.07 x10 3/uL 0.0-0.20 N RECOLLECTBASIC METABOLIC [id number] 07:08:00 Test Item Value Reference Range Interpretation [...] CA) Reference Range Aug 2020 BASIC METABOLIC [id number] 05:53:00 Test Item Value Reference Range Interpretation [...] CA) Reference Range Aug 2020 BASIC METABOLIC [id number] 06:07:00 Test Item Value Reference Range Interpretation [...] Range Aug 2020 - XR CHEST 1 [id number] 23:33:00 [facility] : 1975 Sex: FPatient Name: FRANCISCO FULLER Unit No: [id number] EXAMS: CPT CODE: [id number] XR CHEST 1 V 89721 AFTER HOURS SERVICE ON: 03/27/2021 11:29 PM AP Portable Chest Location Code M12 HISTORY: Tracheostomy tube change FINDINGS: Study limited by shallow inspiration. Minimal left basilar subsegmental atelectasis isnoted. Tracheostomy is in place. The base of the tracheostomy appears to the left of midline but this may be projectional. There are no pleural effusions. There is no pneumothorax. Cardiac silhouette and mediastinum appear within normal limits. IMPRESSION: Minimal left basilar subsegmental atelectasis. The base of the tracheostomy appears to the left of midline but this may be projectional. Repeat study is suggested. at 2333 Reported and signed by: LEANA MARTINEZ M.D. CC: Willam Murrieta MD; William Parker Vo Technologist: Hussein Hutson Time: DAP (Gy m2): Air Kerma (mGy): Trscr Dt/Tm: 03/27/2021 (2333) by:[email or web address] Printed Date/Time: 03/27/2021 (2336) [facility]: VOTHI - Vo,William Q [address] : 1975 Age: 45 Sex: F [place]bie Burd[place] [id number] Loc: P.PSCLIENExam Date: 03/27/2021 Status: REG REF PH: FAX: PAGE 1 Signed ReportBASIC METABOLIC [id number] 06:35:00 Test Item Value Reference Range Interpretation [...] CA) Reference Range Aug 2020 CBC W/MANUAL [id number] 09:25:00 Test Item Value Reference Range Interpretation [...] NORMAL = PLTMORPH) - XR CHEST 1 [id number] 08:48:00 [facility]: 1975 Sex: FPatient Name: FRANCISCO FULLER Unit No: [id number] EXAMS: CPT CODE: [id number] XR CHEST 1 V 79660 HISTORY:Respiratory failure Location code: B2 FINDINGS: Frontal view of the chest demonstrates normal cardiomediastinal silhouette. The trachea is midline. The lungs are clear. There is no effusion or pneumothorax. The bones are intact. Tracheostomy tube is in good position. IMPRESSION: No acute pulmonary process. at 0848 Reported and signed by: Tim Freeman CC: Willam Murrieta MD Technologist: Miguel Rosales Fluoro Time: DAP (Gy m2): Air Kerma (mGy): Trscr Dt/Tm: 03/21/2021 (0848) by:[email or web address] Printed Date/Time: 03/21/2021 (0851) Name: FRANCISCO FULLER [facility] Phys: Willam Trejo MD [address] : 1975 Age: 45 Sex: [place] [address] Loc: ELKE Exam Date: 03/21/2021 Status: REG REF PH: FAX: PAGE 1 Signed Report BASIC METABOLIC [id number] 08:26:00 Test Item Value Reference Range Interpretation [...] CA) Reference Range Aug 2020 VULVA TOTAL/SUBTOTAL [id number] 09:44:00 Test Item Value Reference Range Interpretation Comments VULVA TOTAL/SUBTOTAL RESECTION (test code = VULVARES) RUN DATE: 10/28/20 [facility] PAGE 1 RUN TIME: 1836 Specimen Inquiry RUN USER: INTERFACE PATIENT: FRANCISCO FULLER LOC: [facility] U #: [id number] AGE/SX: 45/F ROOM: RE10/25/20REG DR: Ash Angeles MD : [birth year] BED: DIS: STATUS: [facility] TLOC: SPEC #: [id number] RECD: 10/26/20 STATUS: JACKIE LEACH #: [id number] LASHA: 10/25/20- DR: Ash Angeles MD ENTERED: 10/26/20 SP TYPE: YANET CLEARY DR: ORDERED: LEVEL SURGIC CODES: [id number] - VULVA, NOS PROCEDURES: LEVEL SURGIC (Incomplete) [...] - focal reactive squamous epithelial changes CPT: 27266, 18226 x3 cds/wpd GROSS DESCRIPTION ANATOMIC SOURCE OF TISSUE (per Requisition): 1. Radical partial vulvectomy, bilateral labial minora clitoral sylvester - stitch at 12:00 2. Additional left medial labial minora margin 3. Additional right clitoral sylvester margin 4. Additional left labia minora inferior margin CONTINUED ON NEXT PAGE RUN DATE: 10/28/20 [facility] PAGE 2 RUN TIME: 1835 Specimen Inquiry RUN USER: INTERFACE SPEC #: [id number] PATIENT: FRANCISCO FULLER #[id number] (Continued) --- GROSS DESCRIPTION (Continued) Each specimen [...] Thanh Nuñez 10/28/20 0944 END OF REPORT [id number] 13:31:00 Test Item Value Reference Range Interpretation Comments GLUBED (test code = GLUBED) 99 mg/dL 65-110 N [id number] 09:17:00 Test Item Value Reference Range Interpretation Comments GLUBED (test code = GLUBED) 101 mg/dL 65-110 N COVID 19 Asymptomatic IH [id number] 16:39:00 Test Item Value Reference Range Interpretation Comments COVID 19 NEGATIVE NEGATIVE This test has b een Asymptomatic IH AG authorize d only for the (test code = detection ofpro teins from COVNONPUIAG) SARS-CoV-2, not for any other viruses orpathogens. Ne gative results should be treated as presumptive andconfirmed wi th a molecular assay , if necessary for patientmanageme nt. Negative result s do not rule out COVID- 19 andshould not b e used as the sole basis for treatment orpat ient management deci sions, including infec tion controldecision s. Negative result [...] of Accreditation. This test is only authori zehever for the duration of thedeclaration that circumstances e xist justifying theauthorizatio n of emergency use o f in vitro diagnostic test sfor detection and/o r diagnosis of CO VID-19 under Jvifnec53 4(b)(1) of the Act, 21 U.S .C. 360bbb-3(b)(1), unless theauthorizatio n is terminated or r evoked sooner. CBC W/AUTO [id number] 11:51:00 Test Item Value Reference Range Interpretation [...] (test NORMAL NORMAL code = PLTMR) WBC [id number] 11:51:00 Test Item Value Reference Range Interpretation [...] code = NORMAL NORMAL PLTMORPH) CHEMISTRY 7 [id number] 11:23:00 Test Item Value Reference Range Interpretation [...] CA) 9.1 mg/dL 8.4-10.2 N CBC W/AUTO [id number] 11:13:00 Test Item Value Reference Range Interpretation [...] REQUIRED (test NORMAL code = PLTMR) WBC [id number] 11:13:00 Test Item Value Reference Range Interpretation Comments SEGMENTED NEUTROPHILS (test code = SEG) % 56.5-79.4 LYMPHOCYTE (test code = LYMPH) % 20-40 CBC W/AUTO [id number] 11:13:00 Test Item Value Reference Range Interpretation [...] REQUIRED (test NORMAL code = PLTMR) WBC [id number] 11:13:00 Test Item Value Reference Range Interpretation Comments SEGMENTED NEUTROPHILS (test code = SEG) % 56.5-79.4 LYMPHOCYTE (test code = LYMPH) % 20-40
[2022-11-12] MEDS ORDERED: ONDANSETRON 4 MG/2 ML VIAL ONE (07:23)
[2022-11-12] MEDS ORDERED: MORPHINE 4 MG/ML SYR ONE (07:41)
--- NOTE | 2022-11-12 07:42 | RAD REPORT ---
EXAM DESCRIPTION: CT - CTHCSPWOC - 11/12/2022 7:30 am CLINICAL HISTORY: Trauma, head and neck injury. fall, head injury COMPARISON: No comparisons TECHNIQUE: Axial 5 mm thick images of the head were obtained. Axial 2 mm thick images of the cervical spine were obtained with sagittal and coronal reconstruction images generated and reviewed. All CT scans are performed using dose optimization technique as appropriate and may include automated exposure control or mA/KV adjustment according to patient size. FINDINGS: CT HEAD WITHOUT CONTRAST: No acute hemorrhage, hydrocephalus or extra-axial collection is identified.No areas of brain edema or midline shift. 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 The paranasal sinuses and mastoids are clear.Right-sided craniotomy and aneurysm clipping. Left front al approach ventriculostomy. CT CERVICAL SPINE WITHOUT CONTRAST: No fracture or subluxation.No prevertebral soft tissues swelling is identified. Multilevel degenerati ve changes are present in the spine. Neural foraminal narrowing noted bilaterally. IMPRESSION: No acute intracranial or cervical spine findings.
--- NOTE | 2022-11-12 07:51 | RAD REPORT ---
EXAM DESCRIPTION: RAD - Chest Single View - 11/12/2022 7:42 am CLINICAL HISTORY: fall COMPARISON: Chest Single View dated 12/04/2018; CHEST SINGLE VIEW dated 09/10/2013; CHEST SINGLE VIEW d ated 09/24/2009; CHEST PA AND LAT 2 VIEW dated 04/15/2006 FINDINGS: Lines: [employer] [place] shunts overlying the right and left hemithorax. Lungs: No evidence of edema or pneumonia. Pleural: No significant pleural effusions or pneumothorax. Cardiac: The heart size is within normal limits. Mediastinum: Within normal limits. Bones: No acute fractures. Other: None IMPRESSION: No acute cardiopulmonary disease.
--- NOTE | 2022-11-12 07:53 | RAD REPORT ---
EXAM DESCRIPTION: RAD - Ankle Right 3 View - 11/12/2022 7:42 am CLINICAL HISTORY: PAIN COMPARISON: Ankle Right 3 View dated 10/23/2011 FINDINGS/IMPRESSION: No acute fracture. No malalignment. Dorsal aspect calcaneal spur. Probable acce ssory ossicle distal fibular tip is unchanged.
[2022-11-12 08:20] LABS: Absolute Lymphocytes (CBC) 1.4 K/uL (0.7-4.9); Hematocrit 40.8 % (36.0-45.0); Lymphocytes % 28.2 % (15.3-44.8); MCV 85.7 fL (80-100); MPV 6.8 fL (7.6-11.3); RBC Red Blood Cell Count 4.76 M/uL (3.86-4.86)
[2022-11-12 08:38] LABS: ALT/SGPT 94 U/L (13-56); AST/SGOT 46 U/L (15-37); Alkaline Phosphatase 111 U/L (45-117); BUN Blood Urea Nitrogen 12 mg/dL (7-18); Bicarbonate 23 mEq/L (21-32); Bilirubin Total 0.4 mg/dL (0.2-1.0); Glomerular Filtration Rate 70 ml/min (=/>90); Glucose Level 153 mg/dL (74-106); Magnesium 1.7 mg/dL (1.6-2.4); Potassium 3.4 mEq/L (3.5-5.1); Protein, Total 7.9 g/dL (6.4-8.2); Sodium Level 140 mEq/L (136-145)
[2022-11-12 08:41] LABS: Bilirubin Direct < 0.1 mg/dL (0-0.2); Bilirubin Indirect, Calculated ND mg/dL (0.2-0.8); Troponin High Sensitivity < 3.0 pg/mL (<58.9)
[2022-11-12 08:51] LABS: Protime INR 0.97
[2022-11-12 09:17] LABS: Blood Morphology Comment NOT SEEN (NOT SEEN); Platelet Estimate ADEQ; White Blood Cell Scan OK (OK)
[2022-11-12 09:44] LABS: Urine Bacteria >50 /HPF (<20); Urine Bilirubin NEGATIVE (Negative); Urine Blood 1+ (Negative); Urine Clarity Turbid (Clear); Urine Color Yellow (Yellow); Urine Glucose NEGATIVE (Negative); Urine Mucus 4+ /HPF (None Seen); Urine Protein 1+ (Negative); Urine Urobilinogen Normal (Normal)
[2022-11-12] MEDS ORDERED: CIPROFLOXACIN 400mg IV 400 MG/200 ML BAG IV ONE (10:19)
[2022-11-12] MEDS ORDERED: PROMETHAZINE INJ 25 MG/ML AMP ONE (10:19)
--- NOTE | 2022-11-12 11:09 | ER ---
Nurse's Notes [facility] Name: Shannan Fuller Age: 47 yrs Sex: Female : 1975 Arrival Date: 11/12/2022 Time: 06:45 Bed 17 Private MD: Diagnosis: Unspecified injury of head, initial encounter;Sprain of unspecified ligament of right ankle, initial encounter;UTI/ Urinary tract infection, site not specified Presentation: 11/12 07:21 Chief complaint: Spouse and/or significant other states: pt got up to bathroom, he iw found her on the ground at 0500, pt does not remember falling, does not remember anything, c/o neck and right ankle pain , abrasion across the bridge of her nose, hx of brain aneurysms with FLATWORK PRESSER shunt, hx orf seizures. 07:21 Acuity: ANNABEL 2 iw 07:26 Coronavirus screen: At this time, the client does not indicate any symptoms associated iw with coronavirus-19. Ebola Screen: Patient negative for fever greater than or equal to 101.5 degrees Fahrenheit, and additional compatible Ebola Virus Disease symptoms Patient denies exposure to infectious person. Patient denies travel to an Ebola-affected area in the 21 days before illness onset. No symptoms or risks identified at this time. Initial Sepsis Screen: Does the patient meet any 2 criteria? No. Patient's initial sepsis screen is negative. Does the patient have a suspected source of infection? No. Patient's initial sepsis screen is negative. Risk Assessment: Do you want to hurt yourself or someone else? Patient reports no desire to harm self or others. Onset of symptoms was November 12, 2022. 07:26 Method Of Arrival: Wheelchair iw 11:59 Care prior to arrival: None. Mechanism of Injury: No Mechanism of Injury. Trauma event db details: Injury occurred in the [facility]. 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 - control method db Trauma Activation: Not Applicable Physician: ED Physician; Name: ; Notified At: ; Arrived At: Physician: General Surgeon; Name: ; Notified At: ; Arrived At: Physician: Radiology; Name: ; Notified At: ; Arrived At: Physician: Respiratory; Name: ; Notified At: ; Arrived At: Physician: Lab; Name: ; Notified At: ; Arrived At: Historical: - Allergies: 07:27 NKA; iw 08:09 GABAPENTIN; db 08:09 Prozac; db 08:09 Latex, Natural Rubber; db - Home Meds: : amantadine HCl 100 mg Oral tab 1 tab once daily [Active]; Aptiom 400 mg Oral tab 1 tab iw once daily [Active]; trazodone 100 mg Oral tablet every day at bedtime [Active]; trazodone 50 mg Oral tablet every day at bedtime [Active]; testosterone implant [Active]; - PMHx: 07:28 Anxiety; Depression; DJD; 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 - Social history:: Smoking status: Patient denies any tobacco usage or history of. - Immunization history: Last tetanus immunization: unknown. - Family history:: not pertinent. - Hospitalizations: : No recent hospitalization is reported. Screenin:10 Abuse screen: Denies threats or abuse. Denies injuries from another. Tuberculosis db screening: No symptoms or risk factors identified. 11:59 [facility] ED Fall Risk Assessment (Adult) History of falling in the last 3 months, db including since admission Yes- single mechanical fall (1 pt) Confusion or Disorientation No (0 pts) Intoxicated or Sedated No (0 pts) Impaired Gait Yes (1 pt) Mobility Assist Device Used Yes (1 pt) Altered Elimination No (0 pt) Score/Fall Risk Level 3 or more points = High Risk Oriented to surroundings, Maintained a safe environment, Educated pt \T\ family on fall prevention, incl call for assistance when getting out of bed. Nutritional screening: No deficits noted. Primary Survey: 08:10 NO uncontrolled hemorrhage observed. Breathing/Chest: Spontaneous respiratory effort, db equal unlabored respirations, breath sounds clear bilaterally, regular pattern, symmetrical chest rise and fall. Respiratory effort: spontaneous, unlabored, Breath sounds: clear, bilaterally. Respiratory pattern: regular. Circulation: No external hemorrhage present. Regular and strong central pulse, skin warm/dry/normal color. Disability Client is alert. Exposure/Environment: There is no evidence of uncontrolled external bleeding. Obvious injury(ies) are noted at this time: nose lac and right ankle pain. Reassessment Alertness and Airway: Awake and alert. The airway is patent. Breathing: Spontaneous respiratory effort, equal unlabored respirations, breath sounds clear bilaterally, regular pattern with symmetrical chest rise and fall. Respiratory effort Spontaneous Unlabored Circulation: No external hemorrhage noted. Regular and strong central pulse, skin warm/dry/normal color. Disability: Alert. Secondary Survey: 11:58 Injury Description: Abrasion sustained to face. db Assessment: 07:25 Reassessment: patient to CT. db 08:08 Reassessment: Patient appears in no apparent distress at this time. Patient and/or db family updated on plan of care and expected duration. Pain level reassessed. Patient is alert, oriented x 3, equal unlabored respirations, skin warm/dry/pink. laceration to nose. Right ankle pain. General: Appears in no apparent distress. comfortable, Behavior is calm, cooperative. Pain: Complains of pain in face and right foot. Neuro: Level of Consciousness is awake, alert, obeys commands, Oriented to person, place, time, situation. Respiratory: Airway is patent Respiratory effort is even, unlabored, Respiratory pattern is regular, symmetrical. Musculoskeletal: Reports pain in right ankle. 09:22 Reassessment: Patient appears in no apparent distress at this time. Patient and/or db family updated on plan of care and expected duration. Pain level reassessed. Patient is alert, oriented x 3, equal unlabored respirations, skin warm/dry/pink. patient assisted to restroom via wheelchair. 10:30 Reassessment: Patient appears in no apparent distress at this time. Patient and/or db family updated on plan of care and expected duration. Pain level reassessed. Patient is alert, oriented x 3, equal unlabored respirations, skin warm/dry/pink. General: Appears in no apparent distress. comfortable. 11:59 Reassessment: Patient appears in no apparent distress at this time. Patient and/or db family updated on plan of care and expected duration. Pain level reassessed. Patient is alert, oriented x 3, equal unlabored respirations, skin warm/dry/pink. Patient states feeling better. Patient states symptoms have improved. Vital Signs: 07:26 BP 127 / 73; Pulse 85; Resp 16; Temp 97.9; Pulse Ox 98% on R/A; Weight 104.33 kg; iw Height 5 ft. 6 in. ; Pain 7/10; 07:36 BP 113 / 78; Pulse 87; Resp 16; Pulse Ox 97% on R/A; db 08:30 BP 106 / 74; Pulse 81; Resp 16; Pulse Ox 97% ; db 09:30 BP 110 / 79; Pulse 86; Resp 16; Pulse Ox 98% ; db 10:30 BP 114 / 78; Pulse 76; Resp 16; Pulse Ox 96% on R/A; db 11:30 BP 107 / 73; Pulse 79; Resp 16; Pulse Ox 97% on R/A; db 07:26 Body Mass Index 37.12 (104.33 kg, 167.64 cm) iw 07:26 Pain Scale: Adult iw Fowler Coma Score: 07:36 Eye Response: spontaneous(4). Motor Response: obeys commands(6). Verbal Response: db oriented(5). Total: 15. Trauma Score (Adult): 07:36 Eye Response: spontaneous(1); Verbal Response: oriented(1); Motor Response: obeys db commands(2); Systolic BP: > 89 mm Hg(4); Respiratory Rate: 10 to 29 per min(4); Agnes Score: 15; Trauma Score: 12 ED Course: 06:45 Patient arrived in ED. [id number] 07:03 Brijesh Matamoros MD is Attending Physician. rn 07:04 Mandy Patterson, MORA is Primary Nurse. db 07:26 Triage completed. iw 07:28 Arm band placed on. iw 07:32 CT Head C Spine In Process Unspecified. EDMS 07:36 Patient has correct armband on for positive identification. Bed in low position. Call db light in reach. Side rails up X2. spouse is at bedside. 07:44 Chest Single View XRAY In Process Unspecified. EDMS 07:44 XRAY Ankle RIGHT 3 view In Process Unspecified. EDMS 08:00 Inserted saline lock: 20 gauge in right antecubital area, using aseptic technique. db Blood collected. 10:30 Wound care: to abrasion. db 11:59 No provider procedures requiring assistance completed. IV discontinued, intact, db bleeding controlled, No redness/swelling at site. 12:00 Patient maintains SpO2 saturation greater than 95% on room air. db 12:00 Thermoregulation: warm blanket given to patient. db Administered Medications: 08:02 Drug: Ondansetron IVP 4 mg Route: IVP; Site: right antecubital; db 11:23 Follow up: Response: No adverse reaction db 08:02 Drug: morphine IVP or IV 4 mg Route: IVP; Infused Over: 4 mins; Site: right antecubital;db 11:23 Follow up: Response: No adverse reaction db 10:15 Drug: Promethazine IVP 12.5 mg Route: IVP; Site: right antecubital; db 11:23 Follow up: Response: No adverse reaction db 10:15 Drug: Ciprofloxacin IVPB 400 mg Volume: 200 ml; Route: IVPB; Infused Over: 60 mins; db Site: right antecubital; 11:23 Follow up: Response: No adverse reaction; IV Status: Completed infusion; IV Intake: db 200ml 11:45 Drug: HYDROcodone-acetaminophen PO 5 mg-325 mg 1 tabs Route: PO; db 12:00 Follow up: Response: No adverse reaction db Medication: 12:00 VIS not applicable for this client. db Intake: 11:23 IV: 200ml; Total: 200ml. db 12:00 PO: 0ml; Total: 200ml. db Outcome: 11:09 Discharge ordered by . rn 11:59 Discharged to home via wheelchair. db 11:59 Condition: stable 11:59 Discharge instructions given to patient, Instructed on discharge instructions, follow up and referral plans. Prescriptions given X 2. 12:00 Patient's length of stay was not longer than 2 hours. Patient's length of stay in the Emergency Department was greater than 2 hours. 12:01 Patient left the ED. db Addendum: 11/16/2022 07:51 Addendum: Culture Results: Positive urine culture. No further action required. Bacteria e b sensitive to prescribed antibiotic. Signatures: Dispatcher [employer] Guerda Engle RN RN iw Nieto, Roman, MD MD rn Botello, Elizabeth eb Jeffries, Jennifer [id number] Benton, Danielle, RN RN db
--- NOTE | 2022-11-12 11:09 | EDPHYS ---
Physician Documentation [facility] Name: Shannan Fuller Age: 47 yrs Sex: Female : 1975 Arrival Date: 11/12/2022 Time: 06:45 Bed 17 Private MD: ED Physician Brijesh Matamoros HPI: 11/12 07:22 This 47 yrs old Female presents to ER via Unassigned with complaints of Fall Injury. rn 07:22 Details of fall: The patient fell from an upright position, while standing. Onset: The rn symptoms/episode began/occurred just prior to arrival. Associated injuries: The patient sustained injury to the head, right ankle. Severity of symptoms: At their worst the symptoms were moderate, in the emergency department the symptoms are unchanged. The patient has not experienced similar symptoms in the past. The patient has not recently seen a physician. Pt reports got up from bed to use bathroom, fell, not sure how or why she fell, unsure if LOC, reports pain to neck and right ankle. Has had previous stroke with left sided residual weakness and coordination problems, with a shunt. Ambulatory with assistance. No chest pain/sob/abd pain/back pain/hip pain. . 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 - Social history:: Smoking status: Patient denies any tobacco usage or history of. - Immunization history: Last tetanus immunization: unknown. - Family history:: not pertinent. - Hospitalizations: : No recent hospitalization is reported. ROS: 07:22 Constitutional: Negative for fever, chills, and weight loss, Eyes: Negative for injury, rn pain, redness, and discharge, ENT: + pain to nose Neck: + neck pain Cardiovascular: Negative for chest pain, palpitations, and edema, Respiratory: Negative for shortness of breath, cough, wheezing, and pleuritic chest pain, Abdomen/GI: + nausea since fall, neg for abd pain Back: Negative for injury and pain, MS/Extremity: + right ankle pain Skin: Negative for injury, rash, and discoloration, Neuro: Negative for weakness, numbness, tingling, and seizure. Exam: 07:26 Constitutional: This is a well developed, well nourished patient who is awake, alert, rn + nauseated and sitting upright in bed Head/Face: Normocephalic, + small superficial laceration 0.5cm to nasal bridge Eyes: Pupils equal round and reactive to light, extra-ocular motions intact. Neck: No midline cervical tenderness Chest/axilla: No rib tenderness or crepitus Cardiovascular: Regular rate and rhythm. No pulse deficits. Respiratory: No increased work of breathing, no retractions or nasal flaring. Abdomen/GI: soft, non-tender Back: No spinal tenderness. Skin: Warm, dry MS/ Extremity: Pulses equal, no cyanosis. Neurovascular intact. Mild painful ROM right ankle without significant swelling or deformity Neuro: Awake and alert, GCS 15, oriented to person, place, time, and situation. 09:12 ECG was reviewed by the Attending Physician. rn Vital Signs: 07:26 BP 127 / 73; Pulse 85; Resp 16; Temp 97.9; Pulse Ox 98% on R/A; Weight 104.33 kg; iw Height 5 ft. 6 in. ; Pain 7/10; 07:36 BP 113 / 78; Pulse 87; Resp 16; Pulse Ox 97% on R/A; db 08:30 BP 106 / 74; Pulse 81; Resp 16; Pulse Ox 97% ; db 09:30 BP 110 / 79; Pulse 86; Resp 16; Pulse Ox 98% ; db 10:30 BP 114 / 78; Pulse 76; Resp 16; Pulse Ox 96% on R/A; db 11:30 BP 107 / 73; Pulse 79; Resp 16; Pulse Ox 97% on R/A; db 07:26 Body Mass Index 37.12 (104.33 kg, 167.64 cm) iw 07:26 Pain Scale: Adult iw Comstock Coma Score: 07:36 Eye Response: spontaneous(4). Motor Response: obeys commands(6). Verbal Response: db oriented(5). Total: 15. Trauma Score (Adult): 07:36 Eye Response: spontaneous(1); Verbal Response: oriented(1); Motor Response: obeys db commands(2); Systolic BP: > 89 mm Hg(4); Respiratory Rate: 10 to 29 per min(4); Comstock Score: 15; Trauma Score: 12 MDM: 07:03 Patient medically screened. rn 10:25 Differential diagnosis: abrasion, closed head injury, contusion, fracture, laceration, rn sprain, strain. 11:06 Data reviewed: vital signs, nurses notes, lab test result(s), radiologic studies, CT rn scan, plain films, and as a result, I will discharge patient. Independent interpretation of the following test(s) in the Emergency Department X-Ray: My interpretation is Xray right ankle images neg for fracture/dislocation per my interpretation. Counseling: I had a detailed discussion with the patient and/or guardian regarding: the historical points, exam findings, and any diagnostic results supporting the discharge/admit diagnosis, lab results, radiology results, the need for outpatient follow up, to return to the emergency department if symptoms worsen or persist or if there are any questions or concerns that arise at home. Response to treatment: the patient's symptoms have markedly improved after treatment, and as a result, I will discharge patient. Special discussion: I discussed with the patient/guardian in detail that at this point there is no indication for admission to the hospital. It is understood, however, that if the symptoms persist or worsen the patient needs to return immediately for re-evaluation. ED course: Wound cleaned, does not open up, more of an abrasion, no need for suture or glue. Will steri-strip and dc home with abx for UTI. . 11/12 07:11 Order name: Basic Metabolic Panel; Complete Time: 09:11 rn 11/12 07:11 Order name: CBC with Diff; Complete Time: 09:58 rn 11/12 07:11 Order name: Hepatic Function; Complete Time: 09:11 rn 11/12 07:11 Order name: Magnesium; Complete Time: 09:11 rn 11/12 07:11 Order name: Protime (+inr); Complete Time: 09:11 rn 11/12 07:11 Order name: Ptt, Activated; Complete Time: 09:11 rn 11/12 07:11 Order name: Troponin High Sensitivity; Complete Time: 09:11 rn 11/12 07:11 Order name: Urinalysis w/ reflexes; Complete Time: 09:58 rn 11/12 08:30 Order name: CBC Smear Scan; Complete Time: 09:58 EDOH 11/12 09:54 Order name: Urine Culture EDOH 11/12 07:11 Order name: CT Head C Spine; Complete Time: 07:56 rn 11/12 07:11 Order name: Chest Single View XRAY; Complete Time: 07:56 rn 11/12 07:11 Order name: XRAY Ankle RIGHT 3 view; Complete Time: 07:56 rn 11/12 07:11 Order name: EKG; Complete Time: 07:13 rn 11/12 11:37 Order name: EKG Electrocardiogram; Complete Time: 12:01 EDOH 11/12 07:11 Order name: Cardiac monitoring; Complete Time: 08:08 rn 11/12 07:11 Order name: EKG - Nurse/Tech; Complete Time: 08:08 rn 11/12 07:11 Order name: IV Saline Lock; Complete Time: 08:08 rn 11/12 07:11 Order name: Labs collected and sent; Complete Time: 08:08 rn 11/12 07:11 Order name: O2 Per Protocol; Complete Time: 08:08 rn 11/12 07:11 Order name: O2 Sat Monitoring; Complete Time: 08:08 rn 11/12 07:11 Order name: Wound Care; Complete Time: 10:26 rn 11/12 09:58 Order name: Dermabond; Complete Time: 10:43 rn EC:12 Rate is 84 beats/min. Rhythm is regular. QRS [place] is Normal. MS interval is normal. QRS rn interval is normal. QT interval is normal. No Q waves. T waves are Inverted in leads V1, V2, V3, V4, V5, V6. No ST changes noted. Clinical impression: NSR w/ Non-specific ST/T Changes. Interpreted by me. Reviewed by me. Administered Medications: 08:02 Drug: Ondansetron IVP 4 mg Route: IVP; Site: right antecubital; db 11:23 Follow up: Response: No adverse reaction db 08:02 Drug: morphine IVP or IV 4 mg Route: IVP; Infused Over: 4 mins; Site: right antecubital;db 11:23 Follow up: Response: No adverse reaction db 10:15 Drug: Promethazine IVP 12.5 mg Route: IVP; Site: right antecubital; db 11:23 Follow up: Response: No adverse reaction db 10:15 Drug: Ciprofloxacin IVPB 400 mg Volume: 200 ml; Route: IVPB; Infused Over: 60 mins; db Site: right antecubital; 11:23 Follow up: Response: No adverse reaction; IV Status: Completed infusion; IV Intake: db 200ml 11:45 Drug: HYDROcodone-acetaminophen PO 5 mg-325 mg 1 tabs Route: PO; db 12:00 Follow up: Response: No adverse reaction db Disposition Summary: 11/12/22 11:09 Discharge Ordered Location: Home rn Problem: new rn Symptoms: have improved rn Condition: Stable rn Diagnosis - Unspecified injury of head, initial encounter rn - Sprain of unspecified ligament of right ankle, initial encounter rn - UTI/ Urinary tract infection, site not specified rn Followup: rn - With: Private Physician - When: As needed - Reason: Recheck today's complaints, Re-evaluation by your physician Discharge Instructions: - Discharge Summary Sheet rn - Ankle Sprain rn - Head Injury, Adult rn - Urinary Tract Infection, Adult rn Forms: - Medication Reconciliation Form rn - Thank You Letter rn - Antibiotic technical support internship - Prescription Opioid Use rn Prescriptions: - ondansetron 4 mg Oral Tablet,disintegrating - take 1 tablet by ORAL route every 8-10 hours As needed; 15 tablet; Refills: 0, rn Product Selection Permitted - Cipro 500 mg Oral Tablet - take 1 tablet by ORAL route every 12 hours for 7 days; 14 tablet; Refills: 0, rn Product Selection Permitted Signatures: Dispatcher [employer] Guerda Engle RN RN iw Nieto, Roman, MD MD rn Benton, Danielle, RN RN db Corrections: (The following items were deleted from the chart) 07:27 07:22 Constitutional: Negative for fever, chills, and weight loss, rn rn
--- NOTE | 2022-11-12 11:41 | EKG ---
Test Date: 2022-11-12 Test Time: 07:49:41 Plate Corrector: JANIS MEASUREMENT RESULTS: Intervals: Rate: 84 [place]: 172 QRSD: 98 QT: 392 QTc: 463 [place]: P: 44 [place]: 172 QRS: 86 T: -19 INTERPRETIVE STATEMENTS: Normal sinus rhythm T wave abnormality, consider anterior ischemia Prolonged QT Abnormal ECG Compared to ECG 11/12/2022 07:46:13 Right ventricular hypertrophy no longer present Early repolarization no longer present T-wave abnormality still present Possible ischemia still present Electronically Signed On 11-12-22 11:41:14 CDT by Lennox Damico
--- NOTE | 2022-11-12 11:42 | EKG ---
Test Date: 2022-11-12 Test Time: 07:46:13 Signal Intelligence/Electronic Warfare: JANIS MEASUREMENT RESULTS: Intervals: Rate: 86 AL: 174 QRSD: 94 QT: 394 QTc: 471 [place]: P: 48 AL: 174 QRS: 92 T: -18 INTERPRETIVE STATEMENTS: Poor data quality, interpretation may be adversely affected Normal sinus rhythm Right ventricular hypertrophy with repolarization abnormality T wave abnormality, consider inferolateral ischemia Prolonged QT Abnormal ECG Compared to ECG 12/04/2018 15:11:37 Right ventricular hypertrophy now present Early repolarization now present T-wave abnormality now present Possible ischemia now present Prolonged QT interval now present Right-axis deviation no longer present Electronically Signed On 11-12-22 11:41:15 CDT by Lennox Damico
[2022-11-12] MEDS ORDERED: HYDROCODONE/APAP 5/325 MG TAB ONE (11:51)
[2022-11-12 12:05] VITALS: TEMP 97.9
[2022-11-12 12:06] VITALS: BP 113/78; O2SAT 97
== END 2022-11-12 12:01 | disposition home or self-care (01) ==
LOC: ER 06:45
DX: S09.90XA Unspecified injury of head, initial encounter (principal); S93.401A Sprain of unspecified ligament of right ankle, initial encounter; W19.XXXA Unspecified fall, initial encounter; Y92.89 Other specified places as the place of occurrence of the external cause; N39.0 Urinary tract infection, site not specified; F43.10 Post-traumatic stress disorder, unspecified; F41.9 Anxiety disorder, unspecified; F32.A Depression, unspecified; G47.30 Sleep apnea, unspecified; Z79.899 Other long term (current) drug therapy; Z88.8 Allergy status to other drugs, medicaments and biological substances; Z91.040 Latex allergy status
CPT/HCPCS: 96365; 93005 ×2; 87088; 85025; 81001; 87086; 80048; 36415; 83735; 85610; 80076; 85730; 87077 ×2; 87186 ×2; 84484; 70450; 72125; 71045; 73610; 96375; 99285; J2550; J2405; J0744

== ENCOUNTER 2023-11-03 19:39 | Inpatient (IN) | payer BC, OTHER, SELFPAY ==
--- NOTE | 2023-11-03 20:23 | RAD REPORT ---
EXAM DESCRIPTION: CT - Ct Stroke Brain Wo Cont - 11/03/2023 8:10 pm CLINICAL HISTORY: Left-sided weakness. Facial droop COMPARISON: 2022 TECHNIQUE: Computed axial tomography of the head was obtained. All CT scans are performed using dose optimization technique as appropriate and may include automated exposure control or mA/KV adjustment according to patient size. FINDINGS: Right craniotomy. Moderate gliosis right cerebrum. Ventricular shunt enters frontal horn l eft lateral ventricle. Dilatation of the right lateral ventricle is unchanged likely sequela of atrop hy. Gliosis right internal capsule unchanged. No acute intracranial bleed. Postsurgical changes aneurysm repair. Fluid within the sinuses/ mastoids is not seen. IMPRESSION: No acute intracranial abnormality is seen. Ray Page of the emergency room was notified at 8:13 p.m. November 03, 2023
[2023-11-03 21:14] LABS: PT Prothrombin Time 10.9 SECONDS (9.5-12.5); Protime INR 0.99
[2023-11-03 21:15] LABS: Absolute Lymphocytes (CBC) 1.8 K/uL (0.7-4.9); Absolute Monocytes 0.3 K/uL (0.1-1.3); Absolute Neutrophil 3.6 K/uL (1.8-8.0); Basophils % 0.6 % (0-1.3); Eosinophils % 0.8 % (0-4.4); Hematocrit 41.4 % (36.0-45.0); Hemoglobin 14.1 g/dL (12.0-15.0); MCH 31.2 pg (27.0-35.0); MCV 91.7 fL (80-100); MPV 7.3 fL (7.6-11.3); Monocytes % 4.4 % (3.3-12.3); Neutrophils % 62.2 % (41.7-73.7); Nucleated Red Blood Cells % 0.1 % (0-0); Platelets 295 thou/uL (152-406); RBC Red Blood Cell Count 4.52 M/uL (3.86-4.86); Red Cell Distribution Width 14.1 % (12.1-15.2)
--- NOTE | 2023-11-03 21:19 | RAD REPORT ---
EXAM DESCRIPTION: [place] Single View11/03/2023 8:46 pm CLINICAL HISTORY: Left arm numbness. Cerebral aneurysm. CVA. Confusion COMPARISON: 2022 FINDINGS: The lungs appear clear of acute infiltrate. The heart is normal size IMPRESSION: No acute abnormalities displayed
[2023-11-03 21:40] LABS: Albumin/Globulin Ratio 1.2 (1.1-1.8); Anion Gap 7.4 mEq/L (5.0-15.0); Bilirubin Direct 0.1 mg/dL (0-0.2); Bilirubin Indirect, Calculated 0.5 mg/dL (0.2-0.8); Bilirubin Total 0.6 mg/dL (0.2-1.0); Globulin 3.4 g/dL (2.3-3.5); Potassium 3.4 mEq/L (3.5-5.1); Protein, Total 7.4 g/dL (6.4-8.2); Troponin High Sensitivity 4.1 pg/mL (<58.9)
[2023-11-03] MEDS ORDERED: ASPIRIN 81 MG CHEWABLE TABLET ONE (21:58)
[2023-11-03] MEDS ORDERED: FOLIC ACID 5 MG/ML VIAL ONE (21:59)
--- NOTE | 2023-11-03 22:44 | RAD REPORT ---
EXAM DESCRIPTION: [place] Angio11/03/2023 10:18 pm CLINICAL HISTORY: aphasia COMPARISON: None TECHNIQUE: 100 cc Isovue [address] angiogram of the neck was obtained. 3D MIPS reconstruction performed. All CT scans are performed using dose optimization technique as appropriate and may include automated exposure control or mA/KV adjustment according to patient size. FINDINGS: Visualized great vessels unremarkable Common carotid, internal carotid and external carotid arteries bilaterally unremarkable Vertebral arteries unremarkable No dissection is seen. No high-grade stenosis [place] Mild stenosis 0 to 49 % Moderate stenosis 50-69% Severe stenosis 70-99% IMPRESSION: No significant abnormality is displayed
--- NOTE | 2023-11-03 22:44 | RAD REPORT ---
EXAM DESCRIPTION: CTHead angio11/03/2023 10:18 pm CLINICAL HISTORY: aphasia COMPARISON: none TECHNIQUE: 100 cc Isovue [address] angiogram of the head was obtained. 3D MIPS reconstruction performed. All CT scans are performed using dose optimization technique as appropriate and may include automated exposure control or mA/KV adjustment according to patient size. FINDINGS: Aneurysm clip right posterior circulation. Otherwise, internal carotid, basilar, anterior cerebral, middle cerebral and posterior cerebral arter ies do not demonstrate a significant stenosis A recurrent aneurysm is not seen origin right posterior cerebral artery No large vessel occlusion IMPRESSION: No significant abnormality is displayed
--- NOTE | 2023-11-03 22:55 | ER ---
Nurse's Notes [facility] Name: Shannan Fuller Age: 48 yrs Sex: Female : 1975 Arrival Date: 11/03/2023 Time: 19:39 Bed 19 Private MD: Diagnosis: Cerebral infarction, unspecified;Weakness;Facial weakness;Paresthesia of skin Presentation: 11/02 19:51 Chief complaint: EMS states: welfare check called, on scene patient was confused, tm6 forgetful. Last known normal was one week ago. Minor left sided weakness. Coronavirus screen:. Onset of symptoms is unknown. 19:51 Method Of Arrival: EMS: [facility] tm6 19:51 Acuity: ANNABEL 2 tm6 19:51 Ebola Screen: Patient negative for fever greater than or equal to 101.5 degrees tm6 Fahrenheit, and additional compatible Ebola Virus Disease symptoms Patient denies exposure to infectious person. Patient denies travel to an Ebola-affected area in the 21 days before illness onset. No symptoms or risks identified at this time. An acute neurological deficit is present. The charge nurse has been notified. The patients blood glucose was checked before arriving to the hospital and was found to be normal. Initial Sepsis Screen: Does the patient meet any 2 criteria? No. Patient's initial sepsis screen is negative. Does the patient have a suspected source of infection? No. Patient's initial sepsis screen is negative. Risk Assessment: Do you want to hurt yourself or someone else? Patient reports no desire to harm self or others. Triage Assessment: 19:51 The onset of the patients symptoms was at an unknown time. General: Appears in no tm6 apparent distress. Behavior is calm, cooperative. Pain: Denies pain. Neuro: Level of Consciousness is awake, alert, obeys commands, Oriented to person, Finance Director are weak on left Moves all extremities. Weakness in left hand(s) arm(s) leg(s) Speech is normal, Facial droop on left, Intact Reports confusion. Cardiovascular: Capillary refill < 3 seconds Patient's skin is warm and dry. Rhythm is sinus bradycardia. Respiratory: Airway is patent Respiratory effort is even, unlabored, Respiratory pattern is regular, symmetrical. GI: Abdomen is flat, non-distended, Abd is soft and non tender X 4 quads. : No signs and/or symptoms were reported regarding the genitourinary system. Derm: No signs and/or symptoms reported regarding the dermatologic system. Musculoskeletal: No deficits noted. 19:51 The onset of the patients symptoms was October 27, 2023 at 12:00. 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 - Infectious Disease History:: Denies. - Family history:: not pertinent. - Social history:: Smoking status: unknown. - Hospitalizations: : No recent hospitalization is reported. Screenin:50 [facility] ED Fall Risk Assessment (Adult) History of falling in the last 3 months, tm6 including since admission No falls in past 3 months (0 pts) Confusion or Disorientation Yes (5 pts) Intoxicated or Sedated No (0 pts) Impaired Gait Yes (1 pt) Mobility Assist Device Used No (0 pt) Altered Elimination No (0 pt) Score/Fall Risk Level 3 or more points = High Risk Oriented to surroundings, Maintained a safe environment, Educated pt \T\ family on fall prevention, incl call for assistance when getting out of bed, Provided non-skid footwear. Abuse screen: Denies threats or abuse. Denies injuries from another. Nutritional screening: No deficits noted. Tuberculosis screening: No symptoms or risk factors identified. Assessment: 19:41 VAN Scoring: Arm Drift: Patients demonstrates NO arm weakness. Patient is VAN Negative. tm6 Visual Disturbance: No visual disturbance noted. Aphasia: Expressive aphasia noted. Provider notified of +VAN scoring. Neglect: No neglect noted. 20:00 [place] Swallow Protocol Exclusion Criteria: Exclusion Criteria Result: Proceed Brief tm6 Cognitive Screen What is your name? Normal, Where are you right now? Abnormal: unable to say where she is. What year is it? Abnormal: unable to state year. Oral Mechanism Examination Facial Symmetry: Normal, Motion: Normal, Lip Closure: Normal, Oral Mechanism Result: Normal. 3 oz Water Swallow Challenge: Pt able to drink all water without stopping, coughing, choking or throat clearing: Yes Result: ANNA DUGGAN Notified: Brijesh Matamoros MD. 20:50 TNKase (Tenecteplase) Screening: Indications: Definite evidence of stroke, ischemic, tm6 embolic, or hypertensive: Yes. Treatment will start within 4.5 hours onset of symptoms: No. Contraindications:. Reassessment: see triage assessment. 21:55 Reassessment: Patient appears in no apparent distress at this time. Patient and/or tm6 family updated on plan of care and expected duration. Pain level reassessed. Patient is alert, oriented x 3, equal unlabored respirations, skin warm/dry/pink. 23:45 Reassessment: Patient and/or family updated on plan of care and expected duration. Pain tm6 level reassessed. Patient is alert, oriented x 3, equal unlabored respirations, skin warm/dry/pink. 11/03 02:23 Reassessment: Patient and/or family updated on plan of care and expected duration. Pain tm6 level reassessed. Patient is alert, oriented x 3, equal unlabored respirations, skin warm/dry/pink. Vital Signs: 11/02 19:40 BP 114 / 80; Pulse 60; Resp 19; Pulse Ox 100% on R/A; Pain 0/10; tm6 20:15 BP 107 / 80; Pulse 61; Resp 19; Pulse Ox 100% on R/A; Pain 0/10; tm6 20:45 BP 107 / 80; Pulse 61; Resp 21; Temp 97.5; Pulse Ox 100% on R/A; Weight 71.21 kg; tm6 Height 5 ft. 6 in. ; Pain 0/10; 21:30 BP 110 / 85; Pulse 59; Resp 20; Pulse Ox 100% on R/A; Pain 0/10; tm6 21:54 Pulse 61; Resp 20; Pulse Ox 96% on R/A; Pain 0/10; tm6 22:47 BP 144 / 71; Pulse 46; Resp 16; Pulse Ox 100% on R/A; Pain 0/10; tm6 23:44 BP 126 / 84; Pulse 39; Resp 13; Pulse Ox 100% on R/A; Pain 0/10; tm6 11/03 02:23 BP 118 / 76; Pulse 48; Resp 15; Pulse Ox 97% on R/A; Pain 0/10; tm6 11/02 20:45 Body Mass Index 25.34 (71.21 kg, 167.64 cm) tm6 11/02 19:40 Pain Scale: Adult tm6 20:15 Pain Scale: Adult tm6 20:45 Pain Scale: Adult tm6 21:30 Pain Scale: Adult tm6 21:54 Pain Scale: Adult tm6 22:47 Pain Scale: Adult tm6 23:44 Pain Scale: Adult tm6 11/03 02:23 Pain Scale: Adult tm6 NIH Stroke Scale Scores: 11/02 19:41 NIHSS Score: 7 tm6 19:41 NIHSS Score: 7 risk intern Course: 19:40 Patient arrived in ED. ra3 19:40 Brijesh aMtamoros MD is Attending Physician. rn 19:42 Luz Pinto, MORA is Primary Nurse. tm6 20:06 Triage completed. tm6 20:11 CT Stroke Brain w/o Contrast In Process Unspecified. EDMS 20:40 Initial lab(s) drawn, by me. vc1 20:45 Arm band placed on right wrist. tm6 20:48 Stroke CXR 1 View In Process Unspecified. EDMS 20:50 Maintain EMS IV. Dressing intact. Good blood return noted. Site clean \T\ dry. Gauge \T\ tm 6 site: 20g RAC. IV is patent. 20:50 Patient has correct armband on for positive identification. Placed in gown. Bed in low tm6 position. Call light in reach. Side rails up X2. Provided Education on: use of call palmer. Client placed on continuous cardiac and pulse oximetry monitoring. NIBP monitoring applied. site monitor on. Pulse ox on. NIBP on. Door closed. Noise minimized. Warm blanket given. 20:54 Basic Metabolic Panel Sent. tm6 20:54 CBC with Diff Sent. tm6 20:54 Hepatic Function Sent. tm6 20:54 High Sensitivity Troponin Sent. tm6 20:54 Protime (+inr) Sent. tm6 20:54 Ptt, Activated Sent. tm6 21:41 CBC with Diff Sent. tm6 21:45 UDS Sent. tm6 22:20 CT Head Angio In Process Unspecified. EDMS 22:20 CT Neck Angio In Process Unspecified. EDMS 22:52 Willy Rao MD is Hospitalizing Provider. rn 11/03 02:22 No provider procedures requiring assistance completed. Patient admitted, IV remains in tm6 place. Administered Medications: 11/02 22:11 Drug: Aspirin PO Chewable Tablet 324 mg PO once; 81 mg tablets x 4 Route: PO; tm6 22:11 Drug: foLIC Acid IVPB 1 mg IVPB once Route: IVPB; Site: right antecubital; tm6 Medication: 20:50 VIS not applicable for this client. tm6 Point of Care Testing: Blood Glucose: 20:45 Blood Glucose: 82 mg/dL; tm6 Ranges: Outcome: 22:54 Decision to Hospitalize by Provider. rn 11/03 02:22 Admitted to Med/surg accompanied by tech, via wheelchair, room 223, with chart, tm6 Condition: stable Instructed on the need for admit, Demonstrated understanding of instructions, 02:38 Patient left the ED. tm6 NIH Stroke Scale - NIH Stroke Score Date: 11/03/2023 Time: 19:41 Total Score = 7 10. Dysarthria (speech clarity - read or repeat words) - 1(Mild to Moderate) 11. Extinction and Inattention (visual/tactile/auditory/spatial/personal) - 0(No abnormality) 1a. Level of Consciousness (LOC) - 0(Alert) 1b. Level of Consciousness (LOC) (Month \T\ Age) - 1(One) 1c. LOC Commands (Open \T\ Closes Eyes/Shear Helper) - 0(Both) 2. Best Gaze (Lateral Gaze Paresis) - 0(Normal) 3. Visual Field Loss - 0(No visual loss) 4. Facial Palsy - 1(Minor Paralysis) 5a. Left Arm: Motor (10-second hold) - 1(Drift) 5b. Right Arm: Motor (10-second hold) - 0(No drift) 6a. Left Leg: Motor (5-second hold - always test supine) - 1(Drift) 6b. Right Leg: Motor (5-second hold - always test supine) - 0(No drift) 7. Limb Ataxia (finger/nose \T\ heel/pace - test with eyes open) - 0(Absent) 8. Sensory Loss (pinprick arms/legs/face) - 1(Mild to moderate loss) 9. Best Language: Aphasia (description/naming/reading) - 1(Mild to moderate aphasia) Initials: tm6 NIH Stroke Scale - NIH Stroke Score Date: 11/03/2023 Time: 19:41 Total Score = 7 10. Dysarthria (speech clarity - read or repeat words) - 1(Mild to Moderate) 11. Extinction and Inattention (visual/tactile/auditory/spatial/personal) - 0(No abnormality) 1a. Level of Consciousness (LOC) - 0(Alert) 1b. Level of Consciousness (LOC) (Month \T\ Age) - 1(One) 1c. LOC Commands (Open \T\ Closes Eyes/Shear Helper) - 0(Both) 2. Best Gaze (Lateral Gaze Paresis) - 0(Normal) 3. Visual Field Loss - 0(No visual loss) 4. Facial Palsy - 1(Minor Paralysis) 5a. Left Arm: Motor (10-second hold) - 1(Drift) 5b. Right Arm: Motor (10-second hold) - 0(No drift) 6a. Left Leg: Motor (5-second hold - always test supine) - 1(Drift) 6b. Right Leg: Motor (5-second hold - always test supine) - 0(No drift) 7. Limb Ataxia (finger/nose \T\ heel/pace - test with eyes open) - 0(Absent) 8. Sensory Loss (pinprick arms/legs/face) - 1(Mild to moderate loss) 9. Best Language: Aphasia (description/naming/reading) - 1(Mild to moderate aphasia) Initials: rn Signatures: Dispatcher [employer] EDBrijesh Ordonez MD MD rn Calcote, Vanessa, RN RN vc1 Luz Pinto RN RN tm6 Iris Abbott ra3 Corrections: (The following items were deleted from the chart) 11/02 22:58 20:45 The onset of the patients symptoms was at an unknown time 6 6 22:58 20:45 General: Appears in no apparent distress. Behavior is calm, cooperative, tm6 tm6 22:58 20:45 Pain: Denies pain. tm6 tm6 22:58 20:45 Neuro: Level of Consciousness is awake, alert, obeys commands, Oriented tm6 to person, Finance Director are weak on left Moves all extremities. Weakness in left hand(s) arm(s) leg(s) Speech is normal, Facial droop on left, Intact Reports confusion. tm6 22:58 20:45 Cardiovascular: Capillary refill < 3 seconds Patient's skin is warm and tm6 dry. Rhythm is sinus bradycardia tm6 22:58 20:45 Respiratory: Airway is patent Respiratory effort is even, unlabored, tm6 Respiratory pattern is regular, symmetrical, tm6 22:58 20:45 GI: Abdomen is flat, non-distended, Abd is soft and non tender X 4 quads. tm6 tm6 22:58 20:45 : No signs and/or symptoms were reported regarding the genitourinary tm6 system. tm6 22:58 20:45 Derm: No signs and/or symptoms reported regarding the dermatologic tm6 system. tm6 22:58 20:45 Musculoskeletal: No deficits noted. tm6 tm6
--- NOTE | 2023-11-03 22:55 | EDPHYS ---
Physician Documentation [facility] Name: Shannan Fuller Age: 48 yrs Sex: Female : 1975 Arrival Date: 11/03/2023 Time: 19:39 Bed 19 Private MD: ED Physician Brijesh Matamoros HPI: 11/02 19:41 This 48 yrs old Female presents to ER via Unassigned with complaints of S/S of Possible rn Stroke. 19:41 The patient's problem is reported as altered mental status, a facial droop, weakness, rn in the left upper extremity, in the left lower extremity, in the left side of face. Onset: The symptoms/episode began/occurred at an unknown time. Duration: The episode is continuous. The symptoms are alleviated by nothing. The symptoms are aggravated by nothing. Associated signs and symptoms: Pertinent positives: headache, Pertinent negatives: chest pain, seizure, shortness of breath. Severity of symptoms: At their worst the symptoms were moderate in the emergency department the symptoms are unchanged. The patient has experienced a previous episode. The patient has not recently seen a physician. Patient reports trouble with her speech, left-sided weakness, unknown onset. Patient states that she believes started sometime yesterday during the day. Denies sudden onset anytime today. Patient reports history of aneurysm and has had a stroke in the past. Denies recent head injury or trauma. Denies drug use. Does not think had a seizure.. 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 - Infectious Disease History:: Denies. - Family history:: not pertinent. - Social history:: Smoking status: unknown. - Hospitalizations: : No recent hospitalization is reported. ROS: 19:41 Constitutional: Negative for fever, chills, and weight loss, Cardiovascular: Negative rn for chest pain, palpitations, and edema, Respiratory: Negative for shortness of breath, cough, wheezing, and pleuritic chest pain, Abdomen/GI: Negative for abdominal pain, nausea, vomiting, diarrhea, and constipation, Back: Negative for injury and pain, MS/Extremity: Negative for injury and deformity, Skin: Negative for injury, rash, and discoloration, Neuro: Positive for confusion and weakness. Positive for headache. Exam: 19:41 Constitutional: This is a well developed, well nourished patient who is awake, alert, rn seems confused. Slow to respond. Head/Face: Normocephalic, atraumatic. Eyes: Pupils equal round and reactive to light, extra-ocular motions intact. No nystagmus Neck: Trachea midline, no masses palpated, and no cervical lymphadenopathy. Supple, full range of motion without nuchal rigidity, or vertebral point tenderness. No Meningismus. Cardiovascular: Regular rate and rhythm. No pulse deficits. Respiratory: No increased work of breathing, no retractions or nasal flaring. Abdomen/GI: Soft, non-tender MS/ Extremity: Pulses equal, no cyanosis. Neuro: Awake, slow to respond, positive for slurred speech and at times inappropriate words. Positive for left-sided weakness with drift of the left upper extremity and left lower extremity. Positive for mild left lower facial droop. Forehead sparing present. Decree sensation to soft touch on the left face and left side of body. 21:09 ECG was reviewed by the Attending Physician. rn Vital Signs: 19:40 BP 114 / 80; Pulse 60; Resp 19; Pulse Ox 100% on R/A; Pain 0/10; tm6 20:15 BP 107 / 80; Pulse 61; Resp 19; Pulse Ox 100% on R/A; Pain 0/10; tm6 20:45 BP 107 / 80; Pulse 61; Resp 21; Temp 97.5; Pulse Ox 100% on R/A; Weight 71.21 kg; tm6 Height 5 ft. 6 in. ; Pain 0/10; 21:30 BP 110 / 85; Pulse 59; Resp 20; Pulse Ox 100% on R/A; Pain 0/10; tm6 21:54 Pulse 61; Resp 20; Pulse Ox 96% on R/A; Pain 0/10; tm6 22:47 BP 144 / 71; Pulse 46; Resp 16; Pulse Ox 100% on R/A; Pain 0/10; tm6 23:44 BP 126 / 84; Pulse 39; Resp 13; Pulse Ox 100% on R/A; Pain 0/10; tm6 11/03 02:23 BP 118 / 76; Pulse 48; Resp 15; Pulse Ox 97% on R/A; Pain 0/10; tm6 11/02 20:45 Body Mass Index 25.34 (71.21 kg, 167.64 cm) tm6 11/02 19:40 Pain Scale: Adult tm6 20:15 Pain Scale: Adult tm6 20:45 Pain Scale: Adult tm6 21:30 Pain Scale: Adult tm6 21:54 Pain Scale: Adult tm6 22:47 Pain Scale: Adult tm6 23:44 Pain Scale: Adult tm6 11/03 02:23 Pain Scale: Adult tm6 NIH Stroke Scale Scores: 11/02 19:41 NIHSS Score: 7 tm6 19:41 NIHSS Score: 7 rn MDM: 19:40 Patient medically screened. rn 19:46 ED course: Patient not TNK candidate due to presentation outside of the window. Patient rn able to answer questions and states that she felt the symptoms present yesterday and is questionable if it was present the day before. EMS states person with patient last spoke to her a few days ago.. 20:45 ED course: Family is here, states last time they saw her was about a week ago. Given rn all information to this point, patient is outside of TNK window with the last known normal per patient may be yesterday or the day before.. 22:50 Differential diagnosis: CVA, TIA, metabolic disorder. Data reviewed: vital signs, rn nurses notes, lab test result(s), EKG, radiologic studies, CT scan, and as a result, I will admit patient. Consideration of Admission/Observation Patient was admitted/placed on observation. Escalation of care including admission/observation considered. Counseling: I had a detailed discussion with the patient and/or guardian regarding the historical points, exam findings, and any diagnostic results supporting the discharge/admit diagnosis, lab results, radiology results, the need for further work-up and treatment in the hospital. Response to treatment: the patient's symptoms have mildly improved after treatment, and as a result, I will admit patient. ED course: Symptoms slightly improved, improved strength and sensation but not completely back to baseline. Still slight left lower facial droop. Family confirmed that this is not her baseline status. 11/02 19:41 Order name: Basic Metabolic Panel; Complete Time: 21:57 rn 11/02 19:41 Order name: CBC with Diff; Complete Time: 23:35 rn 11/02 19:41 Order name: Hepatic Function; Complete Time: 21:57 rn 11/02 19:41 Order name: High Sensitivity Troponin; Complete Time: 21:57 rn 11/02 19:41 Order name: Protime (+inr); Complete Time: 21:29 rn 11/02 19:41 Order name: Ptt, Activated; Complete Time: 21:29 rn 11/02 19:41 Order name: UDS; Complete Time: 23:35 rn 11/02 20:09 Order name: Glucose, Ancillary Testing; Complete Time: 20:44 EDMS 11/02 21:37 Order name: Manual Differential; Complete Time: 23:35 EDMS 11/03 01:10 Order name: Urinalysis w/ reflexes EDMS 11/03 01:10 Order name: CBC with Automated Diff EDMS 11/03 01:10 Order name: CBC with Automated Diff EDMS 11/03 01:10 Order name: Comprehensive Metabolic Panel EDMS 11/03 01:10 Order name: Comprehensive Metabolic Panel EDMS 11/02 19:41 Order name: CT Head Angio; Complete Time: 22:49 rn 11/02 19:41 Order name: CT Neck Angio; Complete Time: 22:49 rn 11/02 19:41 Order name: CT Stroke Brain w/o Contrast; Complete Time: 20:44 rn 11/02 19:41 Order name: Stroke CXR 1 View; Complete Time: 21:29 rn 11/03 01:11 Order name: Echo with Doppler EDMS 11/03 01:11 Order name: Brain Wo Cont EDMS 11/02 19:41 Order name: EKG; Complete Time: 19:42 rn 11/02 19:41 Order name: Accucheck; Complete Time: 20:38 rn 11/02 19:41 Order name: Cardiac monitoring; Complete Time: 20:38 rn 11/02 19:41 Order name: EKG - Nurse/Tech; Complete Time: 20:54 rn 11/02 19:41 Order name: IV Saline Lock; Complete Time: 20:38 rn 11/02 19:41 Order name: Labs collected and sent; Complete Time: 20:54 rn 11/02 19:41 Order name: NPO; Complete Time: 20:38 rn 11/02 19:41 Order name: O2 Per Protocol; Complete Time: 20:38 rn 11/02 19:41 Order name: O2 Sat Monitoring; Complete Time: 20:38 rn 11/02 19:41 Order name: Stroke Swallow Screen; Complete Time: 21:41 rn EC:09 Rate is 54 beats/min. Rhythm is regular. T waves are Inverted in leads V1, V2, V3. rn Clinical impression: Sinus bradycardia. Interpreted by me. Reviewed by me. Administered Medications: 22:11 Drug: Aspirin PO Chewable Tablet 324 mg PO once; 81 mg tablets x 4 Route: PO; tm6 22:11 Drug: foLIC Acid IVPB 1 mg IVPB once Route: IVPB; Site: right antecubital; tm6 Point of Care Testing: Blood Glucose: 20:45 Blood Glucose: 82 mg/dL; tm6 Ranges: Critical Glucose Levels:Adult <50 mg/dl or >400 mg/dl <40 mg/dl or >180 mg/dl Disposition Summary: 11/03/23 22:54 Hospitalization Ordered Notes: Hospitalization Status: Inpatient Admission rn Provider: Willy Rao rn [facility] rn Condition: Stable rn Problem: new rn Symptoms: have improved rn Bed/Room Type: Standard rn Room Assignment: 223(11/04/23 01:20) rv1 Diagnosis - Cerebral infarction, unspecified rn - Weakness rn - Facial weakness rn - Paresthesia of skin rn Forms: - Medication Reconciliation Form rn - SBAR form rn - Leadership Thank You Letter rn NIH Stroke Scale - NIH Stroke Score Date: 11/03/2023 Time: 19:41 Total Score = 7 10. Dysarthria (speech clarity - read or repeat words) - 1(Mild to Moderate) 11. Extinction and Inattention (visual/tactile/auditory/spatial/personal) - 0(No abnormality) 1a. Level of Consciousness (LOC) - 0(Alert) 1b. Level of Consciousness (LOC) (Month \T\ Age) - 1(One) 1c. LOC Commands (Open \T\ Closes Eyes/Mine Exploration Engineer) - 0(Both) 2. Best Gaze (Lateral Gaze Paresis) - 0(Normal) 3. Visual Field Loss - 0(No visual loss) 4. Facial Palsy - 1(Minor Paralysis) 5a. Left Arm: Motor (10-second hold) - 1(Drift) 5b. Right Arm: Motor (10-second hold) - 0(No drift) 6a. Left Leg: Motor (5-second hold - always test supine) - 1(Drift) 6b. Right Leg: Motor (5-second hold - always test supine) - 0(No drift) 7. Limb Ataxia (finger/nose \T\ heel/pace - test with eyes open) - 0(Absent) 8. Sensory Loss (pinprick arms/legs/face) - 1(Mild to moderate loss) 9. Best Language: Aphasia (description/naming/reading) - 1(Mild to moderate aphasia) Initials: tm6 NIH Stroke Scale - NIH Stroke Score Date: 11/03/2023 Time: 19:41 Total Score = 7 10. Dysarthria (speech clarity - read or repeat words) - 1(Mild to Moderate) 11. Extinction and Inattention (visual/tactile/auditory/spatial/personal) - 0(No abnormality) 1a. Level of Consciousness (LOC) - 0(Alert) 1b. Level of Consciousness (LOC) (Month \T\ Age) - 1(One) 1c. LOC Commands (Open \T\ Closes Eyes/Mine Exploration Engineer) - 0(Both) 2. Best Gaze (Lateral Gaze Paresis) - 0(Normal) 3. Visual Field Loss - 0(No visual loss) 4. Facial Palsy - 1(Minor Paralysis) 5a. Left Arm: Motor (10-second hold) - 1(Drift) 5b. Right Arm: Motor (10-second hold) - 0(No drift) 6a. Left Leg: Motor (5-second hold - always test supine) - 1(Drift) 6b. Right Leg: Motor (5-second hold - always test supine) - 0(No drift) 7. Limb Ataxia (finger/nose \T\ heel/pace - test with eyes open) - 0(Absent) 8. Sensory Loss (pinprick arms/legs/face) - 1(Mild to moderate loss) 9. Best Language: Aphasia (description/naming/reading) - 1(Mild to moderate aphasia) Initials: rn Signatures: Dispatcher [employer] EDMS Brijesh Matamoros MD MD rn Garcia, Cindy RN RN Paola Carcamo rv1 Luz Pinto RN RN tm6 Corrections: (The following items were deleted from the chart) 11/03 01:15 11/02 22:54 rn sandra 11/03 01:20 01:15 [facility] [place] rv1
[2023-11-03 23:04] LABS: Band Neutrophils 8 % (0-1); Differential Total Cells Count 100; Lymphocytes 26 % (15-42); Monocytes 3 % (0-10); Reactive Lymphocytes 2 %; Segmented Neutrophils 61 % (40-80)
[2023-11-03 23:05] LABS: Blood Morphology Comment NOT SEEN (NOT SEEN); Platelet Estimate ADEQ
[2023-11-03 23:34] LABS: Barbiturates NEGATIVE (NEGATIVE); Benzodiazepines NEGATIVE (NEGATIVE); Cocaine NEGATIVE (NEGATIVE); METHAMPHETAM NEGATIVE (NEGATIVE); Methadone NEGATIVE (NEGATIVE); Opiates NEGATIVE (NEGATIVE); Phencyclidine NEGATIVE (NEGATIVE); THC Cannibis POSITIVE (NEGATIVE)
--- NOTE | 2023-11-04 01:01 | P.HP ---
Certification for Inpatient Patient admitted to: Inpatient With expected LOS: >2 Midnights Practitioner: I am a practitioner with admitting privileges, knowledge of patient current condition, hospital course, and medical plan of care. Services: Services provided to patient in accordance with Admission requirements found in Title 42 Section 412.3 of the Code of Federal Regulations Patient History Date of Service: 11/04/23 Reason for admission: Weakness History of Present Illness: 48 yrs old Female with past medical history of traumatic brain injury, anxiety, depression, DJD, PTSD, sleep apnea, diabetes, hyperlipidemia brought to ER with altered mental status, a facial droop, weakness, in the left upper extremity, in the left lower extremity, in the left side of face. Patient is a poor historian hence most of the history is obtained from the chart review and also talking to the ER physician and also the family member at the bedside. Patient denies any chest pain or shortness of breath. Patient was not feeling well and has been confused and generalized weak and has been tired has not been eating anything at all. Family member at the bedside's asked for a welfare check and found to be she having strokelike symptoms and sent to the ER. Patient was assessed in the ER and is admitted for further management for possible TIA/CVA Allergies fluoxetine HCl [From Prozac] Allergy (Intermediate, Verified 10/23/11 21:06) IRREGULAR HEARTBEAT gabapentin Allergy (Unverified 11/26/14 01:39) Unknown - Past Medical/Surgical History Past Medical History: Reviewed- Non-Contributory Past Surgical History: Reviewed- Non-Contributory - Family History Family History: Reviewed- Non-Contributory - Social History Smoking Status: Never smoker Review of Systems 10-point ROS is otherwise unremarkable Physical Examination - Vital Signs Temperature: 98.2 F Blood Pressure: 128/78 Pulse: 42 Respirations: 18 Pulse Ox (%): 93 - Physical Exam General: Alert, In no apparent distress, Oriented x3, Mild distress, Obese HEENT: Atraumatic, Normocephalic Neck: Supple, JVD not distended, No Thyromegaly Respiratory: Clear to auscultation bilaterally, Normal air movement Cardiovascular: No edema, Normal S1 S2, Irregular heart rate/rhythm Capillary refill: <2 Seconds Gastrointestinal: Soft and benign, W/out hepatosplenomegaly Musculoskeletal: No clubbing, No swelling Integumentary: No rashes, No breakdown Neurological: Normal gait, Normal speech, Normal strength at 5/5 x4 extr, Cranial nerves 3-12 intact, Normal reflexes 2+, Normal affect Lymphatics: No axilla or inguinal lymphadenopathy - Studies Laboratory Data (last 24 hrs) 11/03/23 11/03/23 11/03/23 20:37 20:37 20:37 WBC 5.70 Hgb 14.1 Hct 41.4 Plt Count 295 PT 10.9 INR 0.99 APTT 29.0 Sodium 141 Potassium 3.4 L BUN 15 Creatinine 1.20 H Glucose 90 Total Bilirubin 0.6 AST 20 ALT 58 H Alkaline Phosphatase 93 Assessment and Plan - Problems (Diagnosis) (1) TIA (transient ischemic attack) Current Visit: Yes Status: Acute Plan: CVA/TIA No focal weakness Numbness of left-sided body Started on aspirin and statin CT CTA findings noted MRI brain ordered Monitor neuro vital signs Monitor under telemetry MRI of the brain Hypertension Antihypertensives titrated Continue home medications and titrate as needed Hyperlipidemia Continue statin DM Insulin sliding scale Basal insulin Accu-Chek ACHS Monitor closely Hypokalemia Replace potassium Monitor closely on telemetry GI/DVT prophylaxis Advanced directive full code Discharge Plan: Home Plan to discharge in: 48 Hours - Advance Directives Does patient have a Living Will: No Does patient have a Durable POA for Healthcare: No - Code Status/Comfort Care Code Status: Full Code Time Spent Managing Pts Care (In Minutes): 48
[2023-11-04] MEDS: NA CHLORIDE 0.9% 1,000 ML IV SCH (03:23)
[2023-11-04 03:42] VITALS: BMI 25.3
[2023-11-04] MEDS: INSULIN REGULAR (HUMAN) 100 UNIT/ML IV SCH (07:30)
[2023-11-04] MEDS: ASPIRIN EC 81 MG TAB PO SCH (08:28)
[2023-11-04] MEDS: ENOXAPARIN 40 MG/0.4 ML SQ SCH (08:28)
--- NOTE | 2023-11-04 14:38 | EKG ---
Test Date: 2023-11-03 Test Time: 23:17:25 Social Media Senior Associate: KINGSLEY MEASUREMENT RESULTS: Intervals: Rate: 43 MT: 156 QRSD: 96 QT: 524 QTc: 442 [place]: P: 52 MT: 156 QRS: 15 T: 33 INTERPRETIVE STATEMENTS: Marked sinus bradycardia Nonspecific T wave abnormality Abnormal ECG Compared to ECG 11/03/2023 20:41:39 No significant changes Electronically Signed On 11-04-23 14:37:04 CDT by Lev Resendiz
--- NOTE | 2023-11-04 14:38 | EKG ---
Test Date: 2023-11-03 Test Time: 20:41:39 Manager Online: KINGSLEY MEASUREMENT RESULTS: Intervals: Rate: 54 TX: 162 QRSD: 94 QT: 466 QTc: 441 [place]: P: 41 TX: 162 QRS: 1 T: 15 INTERPRETIVE STATEMENTS: Sinus bradycardia Nonspecific T wave abnormality Abnormal ECG Compared to ECG 11/12/2022 07:49:41 Sinus rhythm no longer present Possible ischemia no longer present Prolonged QT interval no longer present T-wave abnormality still present Electronically Signed On 11-04-23 14:37:25 CDT by Lev Resendiz
--- NOTE | 2023-11-04 15:45 | P.PN ---
Date of Service: 11/04/23 Patient seen and examined. She has mild left facial droop, and significant left-sided weakness. She reports history of seizures. History of brain aneurysm status post aneurysmal clips. CT head also reports v-p shunt. Patient also reported history of CVA Differential diagnosis for left-sided weakness: Acute CVA Seizures with Reji's paralysis. Plan: Neurology consult. Aspirin Statins Adequate hydration to maintain BP Patient cannot do MRI due to presence of aneurysmal clips. Repeat head CT after 24 hours. Review, reconcile and continue home medications including any antiseizure medications. Obtain urinalysis with reflex to rule out UTI.
[2023-11-04] MEDS ORDERED: SUMATRIPTAN SUCCINATE 100 MG PO PRN (17:21)
[2023-11-04] MEDS: carBAMazepine 200 MG TAB PO SCH (18:18)
[2023-11-04] MEDS: AMANTADINE 100 MG CAP PO SCH (20:46)
[2023-11-04] MEDS: DONEPEZIL HCL 5 MG TAB PO SCH (20:47)
[2023-11-04] MEDS: levETIRAcetam 500 MG TAB PO SCH (20:49)
[2023-11-04] MEDS: ATORVASTATIN 40 MG TAB PO SCH (20:50)
[2023-11-04] MEDS: SUMATRIPTAN SUCCI 50 MG TAB PO PRN (20:54)
[2023-11-04] MEDS ORDERED: ATORVASTATIN 40 MG TAB PO SCH (21:00)
[2023-11-05] MEDS: ONDANSETRON 4 MG/2 ML VIAL IV PRN (01:04)
[2023-11-05 05:01] LABS: Specific Gravity > 1.030 (1.005-1.030); Sqamous Epithelial <5 /HPF (None Seen); Urine Bacteria >50 /HPF (<20); Urine Bilirubin NEGATIVE (Negative); Urine Blood Negative (Negative); Urine Clarity Extremely Turbid (Clear); Urine Color Yellow (Yellow); Urine Culture Reflex Order NOT NEEDED; Urine Glucose NEGATIVE (Negative); Urine Ketones NEGATIVE (Negative); Urine Microscopic Reflex YN ORDER UMIC; Urine Mucus 1+ /HPF (None Seen); Urine Nitrite NEGATIVE (Negative); Urine Protein TRACE (Negative); Urine RBC <5 /HPF (None Seen); Urine Urobilinogen Normal (Normal); Urine WBC <5 /HPF (<5)
[2023-11-05 07:18] LABS: Albumin 2.8 g/dL (3.4-5.0); Albumin/Globulin Ratio 0.9 (1.1-1.8); Anion Gap 5.2 mEq/L (5.0-15.0); Bilirubin Total 0.4 mg/dL (0.2-1.0); Globulin 3.1 g/dL (2.3-3.5); Potassium 3.2 mEq/L (3.5-5.1); Protein, Total 5.9 g/dL (6.4-8.2)
--- NOTE | 2023-11-05 07:24 | P.PN ---
Date of Service: 11/05/23 Subjective: some improvement feels left side is "paralyzed", but able to move extremities and ambulated in brito Aunt at bedside States she noted some weakness back in August of this year Patient has h/o CVA years ago and had significant left sided deficits ROS: 10 point ROS as noted above, otherwise negative Physical Exam: GEN: Alert, orientedx3, NAD, slow but normal speech HEENT: Normal conjunctiva, sclera anicteric CV: Regular rate and rhythm, no edema Pulm: Nonlabored respirations on room air, clear bilaterally ABD: Soft, nontender, nondistended MSK: tenderness along left foot/ankle - on dorsal aspect Integumentary: No rashes Neuro: mild left sided weakness, sensation intact bilaterally vitals reviewed Problem List: Left sided weakness, CVA/TIA vs seizures hx brain aneurysm s/p aneurysm clips hx prior CVA with residual left sided deficits hx of TBI Hyperlipidemia Anxiety/Depression/PTSD Degenerative joint disease hx sleep apnea Left sided weakness, CVA/TIA vs seizures hx brain aneurysm s/p aneurysm clips hx prior CVA with residual left sided deficits Patient with mild left facial droop, significant left-sided weakness in upper/lower extremities. hx prior CVA with residual LLE weakness. CT brain (11/02): no acute intracranial abnormality. Right craniotomy. Moderate gliosis right cerebrum. Ventricular shunt enters frontal horn left lateral ventricle. CTA head/neck (11/02): no significant abnormalities. No large vessel occlusion. No high-grade stenosis. unable to obtain MRI d/t aneurysm clips repeat CT (11/04): No acute intracranial abnormality similar to CT 11/02. Neurology consulted recommended starting trial of keppra in addition to tegretol, concern for possible focal seizure given h/o focal seizures continue tegretol, keppra will discuss what medications she should be taking continue aspirin, statin continue IV fluids confirm home meds urinalysis with > 50 bacteria but < 5 WBC/RBC/LE; no dysuria, no fever, no indication for antibiotics Hyperlipidemia continue statin Anxiety/Depression/PTSD Degenerative joint disease hx sleep apnea confirm home meds, restart as appropriate VTE: Lovenox Code: Full Dispo: Home, ~1-2 days
[2023-11-05 08:33] LABS: Absolute Basophils 0.1 K/uL (0-0.5); Absolute Eosinophils 0.1 K/uL (0-0.5); Absolute Lymphocytes (CBC) 2.6 K/uL (0.7-4.9); Absolute Monocytes 0.3 K/uL (0.1-1.3); Absolute Neutrophil 2.7 K/uL (1.8-8.0); Basophils % 1.1 % (0-1.3); Eosinophils % 1.2 % (0-4.4); Hematocrit 40.4 % (36.0-45.0); Hemoglobin 13.7 g/dL (12.0-15.0); Lymphocytes % 45.2 % (15.3-44.8); MCHC 33.9 g/dL (32.0-36.0); MCV 91.2 fL (80-100); MPV 7.1 fL (7.6-11.3); Monocytes % 5.2 % (3.3-12.3); Neutrophils % 47.3 % (41.7-73.7); Nucleated Red Blood Cells % 0.2 % (0-0); Platelets 312 thou/uL (152-406); RBC Red Blood Cell Count 4.43 M/uL (3.86-4.86); Red Cell Distribution Width 14.3 % (12.1-15.2)
--- NOTE | 2023-11-05 08:41 | RAD REPORT ---
EXAM DESCRIPTION: CT - Head Brain Wo Cont - 11/05/2023 8:34 am CLINICAL HISTORY: Follow up stroke-like symptoms Headache, drowsiness COMPARISON: Head angio dated 11/03/2023; Ct Stroke Brain Wo Cont dated 11/03/2023 TECHNIQUE: All CT scans are performed using dose optimization technique as appropriate and may inclu de automated exposure control or mA/KV adjustment according to patient size. FINDINGS: No intracranial hemorrhage, hydrocephalus or extra-axial fluid collection.Large area of gl iosis is present right cerebral hemisphere. Evidence of prior right-sided craniotomy. Left frontal ve ntriculostomy tube is unchanged in position. The paranasal sinuses and mastoids are clear. The calvarium is intact. IMPRESSION: No acute intracranial abnormality.
[2023-11-05] MEDS: hydroCHLOROthiazide 12.5 MG CAP PO SCH (08:59)
[2023-11-05] MEDS ORDERED: HOME MED 1 EA UNK (Donepezil Hcl [Donepezil Hcl] 10 MG Tablet) PO SCH (09:00)
[2023-11-05] MEDS ORDERED: HOME MED 1 EA UNK (Potassium Chloride [Klor-Con] 20 MEQ Packet) PO SCH (09:00)
[2023-11-05] MEDS: POTASSIUM CL SA 10 MEQ TAB PO SCH (09:00)
[2023-11-05] MEDS: CYCLOBENZAPRINE 10 MG TAB PO SCH (09:00)
[2023-11-05] MEDS ORDERED: HOME MED 1 EA UNK (Hydrochlorothiazide [Hydrochlorothiazide] 12.5 MG Tablet) PO SCH (09:00)
[2023-11-05] MEDS: ACETAMINOPHEN 325 MG TABLET PO PRN (10:01)
[2023-11-05 10:21] LABS: Differential Total Cells Count 100; Eosinophils 2 % (0-3); Lymphocytes 43 % (15-42); Monocytes 6 % (0-10); Myelocytes 1 % (0-0); Platelet Estimate ADEQ; Reactive Lymphocytes 2 %; Segmented Neutrophils 45 % (40-80)
[2023-11-05 10:22] LABS: Blood Morphology Comment NOT SEEN (NOT SEEN)
--- NOTE | 2023-11-05 23:17 | RAD REPORT ---
EXAM DESCRIPTION: RAD - Foot Left 3 View - 11/05/2023 5:47 pm CLINICAL HISTORY: fall 1 week ago COMPARISON: No comparisons TECHNIQUE: Left foot, 3 views. FINDINGS: No fracture, dislocation or periosteal reaction. Mild degenerative changes of the tibiotal ar articulation. No air or foreign body in the soft tissues. Enthesopathy at the Achilles tendon attachment. IMPRESSION: No acute osseous abnormality. Chronic findings as above.
[2023-11-06 01:01] VITALS: O2SAT 100
[2023-11-06 06:55] LABS: Absolute Eosinophils 0.1 K/uL (0-0.5); Absolute Monocytes 0.3 K/uL (0.1-1.3); Absolute Neutrophil 2.6 K/uL (1.8-8.0); Basophils % 0.7 % (0-1.3); Eosinophils % 1.5 % (0-4.4); Hematocrit 37.3 % (36.0-45.0); Hemoglobin 12.7 g/dL (12.0-15.0); Lymphocytes % 40.4 % (15.3-44.8); MCH 31.2 pg (27.0-35.0); MCHC 34.2 g/dL (32.0-36.0); MCV 91.2 fL (80-100); MPV 7.5 fL (7.6-11.3); Monocytes % 5.2 % (3.3-12.3); Neutrophils % 52.2 % (41.7-73.7); Nucleated Red Blood Cells % 0.1 % (0-0); Platelets 264 thou/uL (152-406); RBC Red Blood Cell Count 4.08 M/uL (3.86-4.86); Red Cell Distribution Width 14.4 % (12.1-15.2)
[2023-11-06 07:27] LABS: ALT/SGPT 35 U/L (13-56); Albumin 3.3 g/dL (3.4-5.0); Albumin/Globulin Ratio 1.1 (1.1-1.8); Alkaline Phosphatase 77 U/L (45-117); Anion Gap 6.8 mEq/L (5.0-15.0); BUN Blood Urea Nitrogen 5 mg/dL (7-18); Bicarbonate 27 mEq/L (21-32); Bilirubin Total 0.4 mg/dL (0.2-1.0); Globulin 3.1 g/dL (2.3-3.5); Glomerular Filtration Rate 74 ml/min (=/>90); Glucose Level 92 mg/dL (74-106); Phosphorus 3.9 mg/dL (2.5-4.9); Potassium 2.8 mEq/L (3.5-5.1); Protein, Total 6.4 g/dL (6.4-8.2); Sodium Level 140 mEq/L (136-145)
[2023-11-06 07:31] LABS: AST/SGOT < 10 U/L (15-37)
[2023-11-06] MEDS: KCL 20 MEQ/100 mL IVPB 20 MEQ/100 ML BAG IV SCH (09:14)
[2023-11-06] MEDS: POTASSIUM CL SA 10 MEQ TAB PO ONE (11:14)
--- NOTE | 2023-11-06 13:36 | ECHO ---
HEIGHT: 5 ft 6 in WEIGHT: 156 lb 15.859 oz DATE OF STUDY: 11/05/[address]: Hung Rao DO 2-DIMENSIONAL: YES M.MODE: YES DOPPLER: YES COLOR FLOW: YES TDS: PORTABLE: YES DEFINITY: BUBBLE STUDY: DIAGNOSIS: STROKE EVALUATION, BRADYCARDIA CARDIAC HISTORY: CATHERIZATION: NO SURGERY: NO PROSTHETIC VALVE: NO PACEMAKER: NO MEASUREMENTS (cm) DIASTOLIC (NORMALS) SYSTOLIC (NORMALS) IVSd 1.0 (0.6-1.2) LA Diam 2.4 (1.9-4.0) LVEF 68% LVIDd 4.3 (3.5-5.7) LVIDs 2.7 (2.0-3.5) %FS 37% LVPWd 1.1 (0.6-1.2) Ao Diam 2.7 (2.0-3.7) 2 DIMENSIONAL ASSESSMENT: RIGHT ATRIUM: NORMAL LEFT ATRIUM: NORMAL RIGHT VENTRICLE: NORAML LEFT VENTRICLE: NORMAL TRICUSPID VALVE: TRACE TRICUSPID REGURGITATION MITRAL VALVE: NORMAL PULMONIC VALVE: NORMAL AORTIC VALVE: NORMAL PERICARDIAL EFFUSION: NONE AORTIC ROOT: NORMAL LEFT VENTRICULAR WALL MOTION: NORMAL DOPPLER/COLOR FLOW: NORMAL COMMENTS: 1. NORMAL LEFT VENTRICULAR SYSTOLIC FUNCTION, EJECTION FRACTION 60%, NORMAL WALL MOTION 2. NORMAL DIASTOLIC FUNCTION TECHNOLOGIST: MAGAN HENRIQUEZ
[2023-11-06 16:54] VITALS: BP 122/89; TEMP 98.2
--- NOTE | 2023-11-07 01:45 | CON ---
Reason For Consultation: Consultation called because of possible TIA versus stroke or seizure and To dd's paralysis. History Of Present Illness: Ms. Fuller is a 48-year-old patient, whom I have seen in clinic for lo calization-related complex partial seizures after she had a [employer] aneurysm rupture and bleed with crani otomy, hydrocephalus, and shunt placement. I am following her in clinic since 2019. She is on antie pileptic medications. She came to [facility] on 11/04/2023 with some more weakness in the l eft upper and lower extremity and facial droop. She said the left foot caught as she was ambulating and she stumbled and bumped the left foot. She also felt a little more confused, disoriented, and harper d some trouble eating. Family members brought her in for evaluation. Her CT scan of the head showed no acute ischemic hemorrhagic finding. The study did identify as already known right-sided cranioto my with a large area of gliosis in the right cerebral hemisphere and left frontal ventriculostomy tub e, which has been unchanged when compared to a prior study. The patient reports going back to baseli ne level of functioning with moving the left side. It is not likely that she has had a stroke, poten tially area of Reji's paralysis, perhaps related to activity in the right hemispheric region. Ari frost of the presence of the shunt, she is unable to get an MRI of the brain. Blood work revealed a norm al complete blood count with differential and coagulation panel is unremarkable. She did have a low potassium down to 2.8, that is replaced at 3.6 currently. Normal sodium. Slightly elevated chloride . Normal creatinine. Liver function studies were unremarkable. TSH unremarkable. Urinalysis shows 3+ amorphous crystals, greater than 50 bacteria, trace protein. She did have a positive screen for marijuana. Past Medical History: As noted above including the craniotomy, aneurysm rupture, and shunt placement . Allergies: FLUOXETINE, GABAPENTIN. Medications: Lipitor 40 mg at night, aspirin 81 mg daily, amantadine 100 mg twice daily, Tegretol 20 0 mg twice daily, Flexeril 10 mg daily, Aricept 10 mg at bedtime, Lovenox 40 mg subcutaneously daily, Keppra 500 mg twice daily, Zofran 4 mg 6 hours as needed, potassium 20 mEq daily, Imitrex 100 mg twi ce daily as needed. Family History: Noncontributory. Allergies: LATEX. Review of Systems: As noted, some confusion, disorientation, weakness on the left side that is resolved and she does amb ulate, standing in the room and walking around. Mild confusion as noted as well. Physical Examination: Vital Signs: Blood pressure 122/89, pulse 79, respiratory rate 16, temperature 98.2, and saturation 99% on room air. Weight 156 pounds, height 5 feet 6 inches. General: Ms. Fuller is standing in the room. HEENT: She appears normocephalic, atraumatic. Sclerae anicteric. Oropharynx pink and moist. Neck: Supple. Chest: Clear. Extremities: No clubbing, cyanosis, or edema. Mild bruising noted in the left lateral foot. Neuro: On cranial nerves, slight decrease of left nasolabial fold with fair excursions. Slight diff iculty in communication, slow speech, and slight difficulty with expression and comprehension. In te gabby of motor examination, left upper extremity is remarkably well given the large size or area of enc ephalomalacia. At least 4/5 strength left lower extremity, again 4/5 proximally and distally. Sensa tion decreased to light touch in the left upper and lower extremity compared to the right upper and l ower extremity. Coordination slow with left side intact on the right. Reflexes increased in the lef t upper extremity compared to the right side. Assessment: Ms. Fuller is a 48-year-old patient with history of right hemispheric craniotomy due t o cerebral hemorrhage. She has had a brain MRI aneurysm that ruptured and had surgery. She has had a ventriculostomy that is in place. She has left-sided weakness and expressive receptive aphasia and has had history of headache and seizures. Her likely etiology for her presentation is not likely to be stroke with potentially Reji's paralysis related to overactivity of the right hemisphere where sh e has had the resection. Plan: May continue medications for stroke risk reduction. Continue antiepileptic medications. The patient may be discharged home once her x-ray of the left foot is cleared and she should follow up in Dr. Erickson's clinic within the month. TANYA/JED Voice ID: [id number] Report ID: [id number]
== END 2023-11-06 18:50 | disposition home or self-care (01) | DRG 92 ==
LOC: ER 19:39 → 2ND 11-04 01:05
PROVIDERS: ADMIT Family Medicine; ATTEND Hospitalist
DX: G83.84 Todd's paralysis (postepileptic) (principal); I69.354 Hemiplegia and hemiparesis following cerebral infarction affecting left non-dominant side; R47.01 Aphasia; E87.6 Hypokalemia; E78.5 Hyperlipidemia, unspecified; I10 Essential (primary) hypertension; F32.A Depression, unspecified; F41.9 Anxiety disorder, unspecified; F43.10 Post-traumatic stress disorder, unspecified; E11.9 Type 2 diabetes mellitus without complications; M19.90 Unspecified osteoarthritis, unspecified site; R29.707 NIHSS score 7; R29.810 Facial weakness; R20.2 Paresthesia of skin; R47.81 Slurred speech; R41.82 Altered mental status, unspecified; Z88.8 Allergy status to other drugs, medicaments and biological substances; Z90.49 Acquired absence of other specified parts of digestive tract; Z91.040 Latex allergy status; Z90.710 Acquired absence of both cervix and uterus
CPT/HCPCS: 36415; 70450; 70496; 70498; 71045; 80048; 80053; 80076; 80307; 81001; 82947; 83735; 84100; 84132; 84443; 84484; 85025; 85610; 85730; 92523; 93005; 93306; 94760; 96374; 97116; 97129; 97161; 97530; 99285; J1650; J2405; J3480; J7030; Q9967

== ENCOUNTER 2024-03-06 17:45 | Emergency (ER) | payer BC, OTHER ==
[2024-03-06] MEDS ORDERED: CYCLOBENZAPRINE 10 MG TAB ONE (19:21)
[2024-03-06] MEDS ORDERED: dexAMETHasone 10 MG/ML VIAL ONE (19:21)
[2024-03-06] MEDS ORDERED: KETOROLAC 30 MG/ML INJ ONE (19:21)
--- NOTE | 2024-03-06 20:34 | EDPHYS ---
Physician Documentation [facility] Name: Shannan Fuller Age: 48 yrs Sex: Female : 1975 Arrival Date: 03/06/2024 Time: 17:45 Bed 10 Private MD: LOUISA Physician Ray Aguirre HPI: 03/06 19:23 This 48 yrs old Female presents to ER via Wheelchair with complaints of Leg Pain. sb4 19:23 patient reports upper back pain x 2 weeks and left groin pain that started this sb4 morning. denies any known injury. has taken tylenol and motrin once without relief. no history of PVD. 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 - Infectious Disease History:: Denies. - Social history:: Smoking status: Patient denies any tobacco usage or history of. ROS: 19:23 Constitutional: Negative for fever, chills, and weight loss, sb4 19:23 Back: Positive for pain at rest, of the thoracic area, 19:23 MS/extremity: Positive for pain, of the left femoral area, 19:23 All other systems are negative, Exam: 19:23 Constitutional: This is a well developed, well nourished patient who is awake, alert, sb4 and in no acute distress. Head/Face: Normocephalic, atraumatic. Eyes: Extra-ocular motions intact. Periorbital areas with no swelling, redness, or edema. ENT: Mucous membranes moist. Skin: Warm, dry with normal turgor. Normal color with no rashes, no lesions, and no evidence of cellulitis. MS/ Extremity: Pulses equal, no cyanosis. Neurovascular intact. Full, normal range of motion. Neuro: Awake and alert, GCS 15, oriented to person, place, time, and situation. Motor strength 5/5 in all extremities. Sensory grossly intact. Vital Signs: 18:13 BP 105 / 72; Pulse 86; Resp 18; Temp 97.3(TE); Pulse Ox 100% on R/A; Weight 65.77 kg; ld1 Height 5 ft. 6 in. ; 19:33 BP 116 / 86; Pulse 88; Resp 18; Pulse Ox 100% on R/A; ar6 20:24 BP 177 / 77; Pulse 76; Resp 18; Pulse Ox 99% on R/A; ar6 18:13 Body Mass Index 23.40 (65.77 kg, 167.64 cm) ld1 MDM: 19:10 Patient medically screened. sb4 20:02 Data reviewed: vital signs, nurses notes, and as a result, I will discharge patient. sb4 20:33 Counseling: I had a detailed discussion with the patient and/or guardian regarding the sb4 historical points, exam findings, and any diagnostic results supporting the discharge/admit diagnosis, to return to the emergency department if symptoms worsen or persist or if there are any questions or concerns that arise at home. Administered Medications: 19:32 Drug: Cyclobenzaprine PO 10 mg PO once Route: PO; ar6 20:51 Follow up: Response: No adverse reaction ar6 20:58 Follow up: Response: No adverse reaction ar6 19:32 Drug: Dexamethasone IM 10 mg IM once Route: IM; Site: left deltoid; ar6 20:51 Follow up: Response: No adverse reaction ar6 20:58 Follow up: Response: No adverse reaction ar6 19:32 Drug: Ketorolac IM 30 mg IM once Route: IM; Site: right deltoid; ar6 20:51 Follow up: Response: No adverse reaction ar6 20:58 Follow up: Response: No adverse reaction ar6 20:58 Not Given (pyxis does not have; GEMMA Hummel notified; no new orders at this time): ar6 lidodermpatch 5 % (700 mg/patch) 1 patches Topical once; leave on for 12 hours; cover most painful area; may cut into smaller pieces Disposition Summary: 03/06/24 20:34 Discharge Ordered Notes: Location: Home sb4 Problem: new sb4 Symptoms: have improved sb4 Condition: Stable sb4 Diagnosis - Pain in left leg sb4 Followup: sb4 - With: Private Physician - When: As needed - Reason: Recheck today's complaints, Re-evaluation by your physician Discharge Instructions: - Discharge Summary Sheet sb4 - Musculoskeletal Pain sb4 - Muscle Strain, [id number] sb4 Forms: - Patient Portal Instructions sb4 - Leadership Thank You Letter sb4 Prescriptions: - meloxicam 7.5 mg Oral tablet - take 1 tablet ORAL route daily; 14 tablet; Refills: 0, Product Selection sb4 Permitted - Cyclobenzaprine 5 mg Oral Tablet - take 1 tablet ORAL route 3 times per day As needed; 15 tablet; Refills: 0, sb4 Product Selection Permitted Addendum: 03/14/2024 15:36 Co-signature as Attending Physician, Ray Aguirre MD I agree with the assessment and c harper plan of care. 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
--- NOTE | 2024-03-06 20:34 | ER ---
Nurse's Notes [facility] Name: Shannan Fuller Age: 48 yrs Sex: Female : 1975 Arrival Date: 03/06/2024 Time: 17:45 Bed 10 Private MD: Diagnosis: Pain in left leg Presentation: 03/06 18:13 Chief complaint: Patient states: Pain to left leg since last night. Pt reports brain ld1 shunt 3 years ago. Coronavirus screen: At this time, the client does not indicate any symptoms associated with coronavirus-19. Ebola Screen: No symptoms or risks identified at this time. Initial Sepsis Screen: Does the patient meet any 2 criteria? No. Patient's initial sepsis screen is negative. Does the patient have a suspected source of infection? No. Patient's initial sepsis screen is negative. Risk Assessment: Do you want to hurt yourself or someone else? Patient reports no desire to harm self or others. Onset of symptoms was March 06, 2024. 18:13 Method Of Arrival: Wheelchair ld1 18:13 Acuity: ANNABEL 4 ld1 Triage Assessment: 18:14 General: Appears in no apparent distress. comfortable, Behavior is calm, cooperative, ld1 appropriate for age. Pain: Complains of pain in left leg Pain does not radiate. Pain currently is 8 out of 10 on a pain scale. Quality of pain is described as sharp, shooting, throbbing, Pain began 1 day ago. Is continuous. EENT: No signs and/or symptoms were reported regarding the EENT system. Neuro: Level of Consciousness is awake, alert, obeys commands, Oriented to person, place, time, situation, Appropriate for age. Cardiovascular: Capillary refill < 3 seconds Patient's skin is warm and dry. Respiratory: Airway is patent Respiratory effort is even, unlabored. GI: Abdomen is round non-distended. : No signs and/or symptoms were reported regarding the genitourinary system. Derm: No signs and/or symptoms reported regarding the dermatologic system. Musculoskeletal: No signs and/or symptoms reported regarding the musculoskeletal system. 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 - Infectious Disease History:: Denies. - Social history:: Smoking status: Patient denies any tobacco usage or history of. Screenin:33 [facility] ED Fall Risk Assessment (Adult) History of falling in the last 3 months, ar6 including since admission No falls in past 3 months (0 pts) Confusion or Disorientation No (0 pts) Intoxicated or Sedated Yes (3 pts) Impaired Gait No (0 pts) Mobility Assist Device Used No (0 pt) Altered Elimination No (0 pt) Score/Fall Risk Level 0 - 2 = Low Risk. [facility] ED Fall Risk Assessment (Adult) Score/Fall Risk Level 0 - 2 = Low Risk Oriented to surroundings, Maintained a safe environment, Educated pt \T\ family on fall prevention, incl call for assistance when getting out of bed, Hourly rounding (assess needs \T\ fall precautionary measures) done. Abuse screen: Denies threats or abuse. Denies injuries from another. Nutritional screening: No deficits noted. Tuberculosis screening: No symptoms or risk factors identified. Assessment: 19:33 General: Appears in no apparent distress. uncomfortable, Behavior is calm, cooperative, ar6 appropriate for age. Pain: Complains of pain in left leg Pain currently is 8 out of 10 on a pain scale. Pain began gradually. Neuro: Level of Consciousness is awake, alert, obeys commands, Oriented to person, place, time, situation. Cardiovascular: Capillary refill < 3 seconds. Respiratory: Airway is patent. GI: Abdomen is round non-distended, Patient currently denies diarrhea, nausea, vomiting. : No signs and/or symptoms were reported regarding the genitourinary system. EENT: Oral mucosa is moist. Derm: Skin is intact, is healthy with good turgor, Skin is dry, pt. reports LLE pain; without S\T\S of swelling, bruising, or infection Skin is pink, warm \T\ dry. Musculoskeletal: Reports pain in left leg pt. reports LLE pain; reports it gradually began this morning. Vital Signs: 18:13 BP 105 / 72; Pulse 86; Resp 18; Temp 97.3(TE); Pulse Ox 100% on R/A; Weight 65.77 kg; ld1 Height 5 ft. 6 in. ; 19:33 BP 116 / 86; Pulse 88; Resp 18; Pulse Ox 100% on R/A; ar6 20:24 BP 177 / 77; Pulse 76; Resp 18; Pulse Ox 99% on R/A; ar6 18:13 Body Mass Index 23.40 (65.77 kg, 167.64 cm) ld1 ED Course: 17:50 Patient arrived in ED. mr 18:14 Triage completed. ld1 18:14 Arm band placed on right wrist. ld1 19:10 [facility] sb4 19:10 Ray Aguirre MD is Attending Physician. sb4 19:18 Dolly Braswell, RN is Primary Nurse. ar6 19:33 No apparent distress. Awaiting disposition. ar6 19:33 Patient has correct armband on for positive identification. Bed in low position. Call ar6 light in reach. Side rails up X 1. Provided Education on: call light use \T\ medications. Pulse ox on. NIBP on. Door closed. Noise minimized. Lights dimmed. Moved to private room. Warm blanket given. Head of bed elevated. 19:33 No provider procedures requiring assistance completed. Patient did not have IV access ar6 during this emergency room visit. Administered Medications: 19:32 Drug: Cyclobenzaprine PO 10 mg PO once Route: PO; ar6 20:51 Follow up: Response: No adverse reaction ar6 20:58 Follow up: Response: No adverse reaction ar6 19:32 Drug: Dexamethasone IM 10 mg IM once Route: IM; Site: left deltoid; ar6 20:51 Follow up: Response: No adverse reaction ar6 20:58 Follow up: Response: No adverse reaction ar6 19:32 Drug: Ketorolac IM 30 mg IM once Route: IM; Site: right deltoid; ar6 20:51 Follow up: Response: No adverse reaction ar6 20:58 Follow up: Response: No adverse reaction ar6 20:58 Not Given (pyxiyuki does not have; GEMMA Hummel notified; no new orders at this time): ar6 lidodermpatch 5 % (700 mg/patch) 1 patches Topical once; leave on for 12 hours; cover most painful area; may cut into smaller pieces Medication: 19:33 VIS not applicable for this client. ar6 Outcome: 20:34 Discharge ordered by . sb4 21:14 Discharged to home ambulatory, ar6 21:14 Condition: good 21:14 Discharge instructions given to patient, family, Instructed on discharge instructions, follow up and referral plans. medication usage, Demonstrated understanding of instructions, follow-up care, medications, Prescriptions given X 2, 21:15 Patient left the ED. 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
[2024-03-06 21:19] VITALS: TEMP 97.3
[2024-03-06 21:22] VITALS: BP 177/77; O2SAT 99
== END 2024-03-06 21:15 | disposition home or self-care (01) ==
LOC: ER 17:45
DX: M79.605 Pain in left leg (principal)
CPT/HCPCS: 96372; 99284; J1100

== ENCOUNTER 2024-04-02 17:44 | Inpatient (IN) | payer BC, OTHER ==
[2024-04-02 18:10] LABS: Absolute Basophils 0.1 K/uL (0-0.5); Absolute Eosinophils 0.1 K/uL (0-0.5); Absolute Lymphocytes (CBC) 1.5 K/uL (0.7-4.9); Absolute Monocytes 0.3 K/uL (0.1-1.3); Absolute Neutrophil 2.6 K/uL (1.8-8.0); Basophils % 1.5 % (0-1.3); Eosinophils % 1.6 % (0-4.4); Hematocrit 38.6 % (36.0-45.0); Lymphocytes % 32.9 % (15.3-44.8); MCH 32.4 pg (27.0-35.0); MCHC 33.8 g/dL (32.0-36.0); MPV 7.5 fL (7.6-11.3); Monocytes % 5.8 % (3.3-12.3); Neutrophils % 58.2 % (41.7-73.7); Platelets 231 thou/uL (152-406); RBC Red Blood Cell Count 4.02 M/uL (3.86-4.86); Red Cell Distribution Width 13.5 % (12.1-15.2)
[2024-04-02 18:14] LABS: PT Prothrombin Time 10.8 SECONDS (9.4-12.5); PTT, Activated Partial Thromb 33.9 SECONDS (24.3-36.9); Protime INR 0.96
[2024-04-02 18:25] LABS: Anion Gap 5.6 mEq/L (5.0-15.0); Magnesium 2.2 mg/dL (1.6-2.4); Potassium 3.6 mEq/L (3.5-5.1); Troponin High Sensitivity 3.4 pg/mL (<58.9)
--- NOTE | 2024-04-02 18:33 | RAD REPORT ---
EXAMINATION: ONE VIEW CHEST XR CLINICAL INDICATION: CVA TECHNIQUE: Frontal chest projection is submitted. Examination is limited by patient positioning and t echnique. COMPARISON: 11/03/2023 FINDINGS: The lungs are well inflated and clear. The heart is normal in size. No displaced fractures identified . Shunt tubing is noted. IMPRESSION: No acute intrathoracic abnormalities.
--- NOTE | 2024-04-02 19:02 | RAD REPORT ---
EXAM: CT brain without contrast HISTORY: STROKE ALERT COMPARISON: 11/05/2023 TECHNIQUE: Multiple contiguous axial images were obtained and a CT of the brain without contrast. Sag ittal and coronal reformats were performed. One or more of the following dose reduction techniques were used: Automated exposure control, adjust ment of the mA and/or kV according to patient size, and/or iterative reconstruction. FINDINGS: Postsurgical changes are noted temporal lobe. Aneurysm clip is present along the right aspect of the [place]. Gliosis is present in the right periventricular region. No acute findings seen. Left frontal ventriculostomy tube noted. Large right-sided craniotomy. The visualized paranasal sinuses and mastoid air cells are essentially clear. IMPRESSION: No evidence of acute intracranial abnormality.
--- NOTE | 2024-04-02 19:07 | RAD REPORT ---
EXAMINATION: CTA HEAD CLINICAL INDICATION: Weakness TECHNIQUE: Axial CT images were obtained through the head after intravenous contrast utilizing angiog raphic protocol with 3D post-processing (maximum intensity projection images, volume rendered images and/or shaded surface rendered images). One or more of the following dose reduction technique s were used: Automated exposure control, adjustment of the mA and/or kV according to patient size, and/or iterative reconstruction. Unless otherwise specified, incidental findings do not require dedic ated imaging follow-up. COMPARISON: No prior exam. FINDINGS: ICA: The petrous, cavernous, and supraclinoid segments of the bilateral internal carotid arteries are normal. The ophthalmic artery origins are visualized and normal. The posterior communicating arteries are patent. Aneurysm clips adjacent to the right posterior communicating. DANIELLA: Anterior cerebral arteries are normal bilaterally. The anterior communicating artery is patent. MCA: Middle cerebral arteries are normal bilaterally. OENOLOGIST: Posterior cerebral arteries are normal bilaterally. Vertebrobasilar: The vertebral arteries are patent. The basilar artery is normal in appearance. 3D images confirm these findings. IMPRESSION: No significant flow abnormality is identified.
--- NOTE | 2024-04-02 19:08 | RAD REPORT ---
EXAMINATION: CTA NECK CLINICAL INDICATION: left sided deficits TECHNIQUE: Axial CT images were obtained from the aortic arch to the skull base after intravenous con trast utilizing angiographic protocol with 3D post-processing (maximum intensity projection images, volume rendered images and/or shaded surface rendered images). One or more of the following dose redu ction techniques were used: Automated exposure control, adjustment of the mA and/or kV according to patient size, and/or iterative reconstruction. Unless otherwise specified, incidental findings do not require dedicated imaging follow-up. COMPARISON: No prior exam. FINDINGS: AORTA: The imaged aortic arch is normal. CCA: The common carotid arteries are patent and normal in caliber. ICA/ECA: Bilateral internal and external carotid arteries are patent. There is no significant interna l carotid artery stenosis. VERTEBRAL: The cervical vertebral arteries are patent. The vertebral arteries are codominant. SOFT TISSUE: No significant neck soft tissue abnormalities. The visualized lung apices are clear. 3D images confirm these findings. IMPRESSION: No significant flow abnormality of the neck vessels is identified. NASCET criteria used. Mild 0-49% stenosis Moderate 50-69% stenosis Severe 70-99% stenosis
--- NOTE | 2024-04-02 19:35 | ER ---
Nurse's Notes [facility] Name: Shannan Fuller Age: 48 yrs Sex: Female : 1975 Arrival Date: 04/02/2024 Time: 17:44 Bed 7 Private MD: Diagnosis: Altered mental status, unspecified;Acute Kidney Injury Presentation: 04/02 17:48 Chief complaint: EMS states: neighbor came to check on patient after noticing she ss hasn't been checking her mail and found her unable to speak. HX of aneurysm. Last seen normal was 4 days ago by neighbor. Coronavirus screen: Client denies travel out of the [place] in the last 14 days. Ebola Screen: Patient denies exposure to infectious person. Patient denies travel to an Ebola-affected area in the 21 days before illness onset. Initial Sepsis Screen: Does the patient meet any 2 criteria? No. Patient's initial sepsis screen is negative. Does the patient have a suspected source of infection? No. Patient's initial sepsis screen is negative. Risk Assessment: Do you want to hurt yourself or someone else? Patient reports no desire to harm self or others. Onset of symptoms is unknown. Care prior to arrival: Medication(s) given: Normal saline infusion, 200 mL zofran 4 mg, IV initiated. 20 GA, in the right hand, Glucose check: 81. 17:48 Method Of Arrival: EMS: [facility] 17:48 Acuity: ANNABEL 2 ss Historical: - Allergies: 17:55 GABAPENTIN; ss 17:55 Prozac; ss - Home Meds: 18:21 sumatriptan succinate 50mg take 1 tab at onset of headache and repeat in 2 hrs if no aa5 relief (max 4 tabs in 24hrs) [Active]; amantadine HCl 100 mg Oral capsule 2 times per day [Active]; carbamazepine 200 mg Oral tablet 2 times per day [Active]; hydrochlorothiazide 12.5 mg Oral tablet every morning [Active]; levetiracetam 500 mg oral tablet 2 times per day [Active]; trazodone 100 mg Oral tablet every day at bedtime [Active]; cyclobenzaprine 10 mg Oral tablet 2 times per day [Active]; baclofen 10 mg Oral tablet 3 times per day [Active]; - PMHx: 17:55 Anxiety; Depression; diabetes mellitus; DJD; PTSD; Sleep Apnea; ss 17:55 Mild left sided weakness (from brain SX); Seizure; aa5 - PSHx: 17:55 Appendectomy; Cholecystectomy; dual aneurysm sx; hip SX; hysterectomy; right knee sx; ss 17:55 Brain sx; aa5 - Immunization history:: Adult Immunizations unknown. - Infectious Disease History:: unknown. - Social history:: Smoking status: unknown. Screenin:55 [facility] ED Fall Risk Assessment (Adult) History of falling in the last 3 months, aa5 including since admission No falls in past 3 months (0 pts) Confusion or Disorientation Yes (5 pts) Intoxicated or Sedated No (0 pts) Impaired Gait No (0 pts) Mobility Assist Device Used No (0 pt) Altered Elimination No (0 pt) Score/Fall Risk Level 3 or more points = High Risk Oriented to surroundings, Maintained a safe environment, Educated pt \T\ family on fall prevention, incl call for assistance when getting out of bed, Hourly rounding (assess needs \T\ fall precautionary measures) done. Abuse screen: unable to complete due to AMS. Nutritional screening: No deficits noted. Tuberculosis screening: unable to complete . Assessment: 17:55 General: Appears comfortable, Behavior is unresponsive. Pain: Unable to use pain scale. aa5 Patient is unresponsive. Neuro: Level of Consciousness is unable to follow commands, currently not speaking, pt with eyes closed. Withdraws to painful stimuli. . Pupils are PERRL. Cardiovascular: Heart tones S1 S2 present Rhythm is regular. Respiratory: Airway is patent Respiratory effort is even, unlabored, Respiratory pattern is regular, symmetrical. GI: Abdomen is round non-distended, Bowel sounds present X 4 quads. Abd is soft X 4 quads. : No deficits noted. EENT: No deficits noted. Derm: Skin is pink, warm \T\ dry. Bruising noted to right pace, approximately quater sized, purple in color. Bruising that is faded purple color noted to tino posterior knees that is approximately maritza sized. Musculoskeletal: Range of motion: intact in all extremities. 18:20 Reassessment: No changes from previously documented assessment. aa5 19:00 General: Appears comfortable, Behavior is unresponsive. Pain: Unable to use pain scale. jj7 Patient is unresponsive. Neuro: Level of Consciousness is unresponsive, RESPONSIVE TO PAINFUL STIMULI. Cardiovascular: No deficits noted. Rhythm is regular. Respiratory: Airway is patent Trachea midline Respiratory effort is even, unlabored, Respiratory pattern is regular, symmetrical. 21:00 Reassessment: No changes from previously documented assessment. jj7 23:00 Reassessment: No changes from previously documented assessment. jj7 04/03 01:00 Reassessment: No changes from previously documented assessment. jj7 Vital Signs: 04/02 17:48 BP 126 / 85; Pulse 77; Resp 16; Temp 97.4(TE); Pulse Ox 94% on R/A; ss 18:30 BP 114 / 82; Pulse 67; Resp 14 S; Pulse Ox 99% on R/A; aa5 19:00 BP 124 / 89; Pulse 66; Resp 14; Pulse Ox 100% on R/A; jj7 20:00 BP 124 / 87; Pulse 61; Resp 15; Pulse Ox 97% ; jj7 23:50 BP 121 / 80; Pulse 61; Resp 18 S; Pulse Ox 98% on R/A; br2 04/03 01:00 BP 112 / 82; Pulse 76; Resp 19; Temp 98.1; Pulse Ox 100% on R/A; jj7 ED Course: 04/02 17:44 Patient arrived in ED. ss 17:47 Bryson Young DO is Attending Physician. ms3 17:55 Triage completed. ss 17:55 Arm band placed on right wrist. ss 17:55 Patient has correct armband on for positive identification. Placed in gown. Bed in low aa5 position. Call light in reach. Side rails up X2. Client placed on continuous cardiac and pulse oximetry monitoring. NIBP monitoring applied. campus monitor on. Pulse ox on. NIBP on. 18:05 Eva Bailey, RN is Primary Nurse. aa5 18:30 Stroke CXR 1 View In Process Unspecified. EDMS 18:50 CT Neck Angio In Process Unspecified. EDMS 18:51 Head Brain Wo Cont In Process Unspecified. EDMS 18:51 Head angio In Process Unspecified. EDMS 19:00 Warm blanket given. jj7 19:00 Inserted saline lock: 20 gauge in right antecubital area, using aseptic technique. jj7 Flushed with 10 mL NS. 19:10 Report given to DONY RN and MORA Spangler. aa5 19:34 Willy Rao MD is Hospitalizing Provider. ms3 19:51 Maintain EMS IV. Dressing intact. Good blood return noted. Site clean \T\ dry. Gauge \T\ jj 7 site: 20G RIGHT WRIST. Flushed with 10 mL NS. 04/03 01:35 No provider procedures requiring assistance completed. Patient admitted, IV remains in jj7 place. Administered Medications: No medications were administered Medication: 04/02 18:39 VIS not applicable for this client. aa5 Outcome: 19:34 Decision to Hospitalize by Provider. ms3 04/03 01:35 Admitted to Med/surg accompanied by tech, via stretcher, room 412, Report called to [facility] SBAR FAXED TO 4TH FLOOR Condition: stable 01:35 Patient left the ED. j Signatures: Dispatcher [employer] EDMS Eva Bailey RN RN aa5 Pari Diallo RN RN Bryson Alfred, DO ms3 Randolph Cohen RN RN jCrys Puga, RN RN br2 Corrections: (The following items were deleted from the chart) 04/02 19:52 19:00 IV is patent, is intact, with good blood return, Flushed right antecubital saline j7 lock with 5 ml normal saline jApollo 04/03 01:53 01:53 Patient left the ED. jApollo jj7
--- NOTE | 2024-04-02 19:35 | EDPHYS ---
Physician Documentation [facility] Name: Shannan Fuller Age: 48 yrs Sex: Female : 1975 Arrival Date: 04/02/2024 Time: 17:44 Bed 7 Private MD: ED Physician Bryson Young HPI: 04/02 17:54 This 48 yrs old Female presents to ER via Unassigned with complaints of Altered Mental [facility] Status. 17:54 48-year-old female with past medical history of brain aneurysm presents to the [facility] emergency department via [facility] for altered mental status. Patient was last seen normal 4 days ago by a neighbor. EMS states administered 4 mg Zofran, 200 mL normal saline and route. Patient's blood glucose level found to be 81.. Historical: - Allergies: 17:55 GABAPENTIN; ss 17:55 Prozac; ss - Home Meds: 18:21 sumatriptan succinate 50mg take 1 tab at onset of headache and repeat in 2 hrs if no aa5 relief (max 4 tabs in 24hrs) [Active]; amantadine HCl 100 mg Oral capsule 2 times per day [Active]; carbamazepine 200 mg Oral tablet 2 times per day [Active]; hydrochlorothiazide 12.5 mg Oral tablet every morning [Active]; levetiracetam 500 mg oral tablet 2 times per day [Active]; trazodone 100 mg Oral tablet every day at bedtime [Active]; cyclobenzaprine 10 mg Oral tablet 2 times per day [Active]; baclofen 10 mg Oral tablet 3 times per day [Active]; - PMHx: 17:55 Anxiety; Depression; diabetes mellitus; DJD; PTSD; Sleep Apnea; ss 17:55 Mild left sided weakness (from brain SX); Seizure; aa5 - PSHx: 17:55 Appendectomy; Cholecystectomy; dual aneurysm sx; hip SX; hysterectomy; right knee sx; ss 17:55 Brain sx; aa5 - Immunization history:: Adult Immunizations unknown. - Infectious Disease History:: unknown. - Social history:: Smoking status: unknown. ROS: 17:54 Unable to obtain ROS due to altered mental status, [facility] Exam: 17:54 Head/Face: Normocephalic, atraumatic. Eyes: Pupils equal round and reactive to light. ms3 Lids and lashes normal. Conjunctiva and sclera are non-icteric and not injected. Periorbital areas with no swelling, redness, or edema. Cardiovascular: Regular rate and rhythm with a normal S1 and S2. No gallops, murmurs, or rubs. Normal PMI, no JVD. No pulse deficits. Respiratory: Lungs have equal breath sounds bilaterally, clear to auscultation and percussion. No rales, rhonchi or wheezes noted. No increased work of breathing, no retractions or nasal flaring. 17:54 Skin: Warm, dry with normal turgor. Normal color with no rashes, no lesions, and no evidence of cellulitis. 17:54 Abdomen/GI: Inspection: abdomen appears normal, Bowel sounds: normal, Palpation: soft, in all quadrants, 17:54 Neuro: Orientation: unable to test, Mentation: unable to test, Memory: unable to test, Withdraws to pain with RUE, RLE, LLE, LUE, 18:30 ECG was reviewed by the Attending Physician. ms3 Vital Signs: 17:48 BP 126 / 85; Pulse 77; Resp 16; Temp 97.4(TE); Pulse Ox 94% on R/A; ss 18:30 BP 114 / 82; Pulse 67; Resp 14 S; Pulse Ox 99% on R/A; aa5 19:00 BP 124 / 89; Pulse 66; Resp 14; Pulse Ox 100% on R/A; jj7 20:00 BP 124 / 87; Pulse 61; Resp 15; Pulse Ox 97% ; jj7 23:50 BP 121 / 80; Pulse 61; Resp 18 S; Pulse Ox 98% on R/A; br2 04/03 01:00 BP 112 / 82; Pulse 76; Resp 19; Temp 98.1; Pulse Ox 100% on R/A; jj7 MDM: 04/02 17:56 Patient medically screened. ms3 19:56 Differential Diagnosis: CVA, electrolyte abnormality, intracranial bleed. Data ms3 reviewed: vital signs, nurses notes, and as a result, I will discharge patient. Consideration of Admission/Observation Patient was admitted/placed on observation. Management of patient was discussed with the following: Hospitalist: Dr Rao. Independent interpretation of the following test(s) in the Emergency Department EKG: See my EKG interpretation above. Care significantly affected by the following chronic conditions: Diabetes. Counseling: I had a detailed discussion with the patient and/or guardian regarding the historical points, exam findings, and any diagnostic results supporting the discharge/admit diagnosis, lab results, radiology results, the need for further work-up and treatment in the hospital. ED course: Discussed labs, CT findings with patient's son. He understands and agrees with plan for admission. Case was discussed with Dr. Rao and he accepts admission.. 04/02 17:48 Order name: Basic Metabolic Panel; Complete Time: 18:49 ms3 04/02 17:48 Order name: CBC with Diff; Complete Time: 18:49 ms3 04/02 17:48 Order name: High Sensitivity Troponin; Complete Time: 18:49 ms3 04/02 17:48 Order name: Magnesium; Complete Time: 18:49 ms3 04/02 17:48 Order name: Protime (+inr); Complete Time: 18:49 ms3 04/02 17:48 Order name: Ptt, Activated; Complete Time: 18:49 ms3 04/02 17:52 Order name: UDS ms3 04/02 20:29 Order name: Urinalysis w/ reflexes EDMS 04/02 20:29 Order name: CBC with Automated Diff EDMS 04/02 20:29 Order name: CBC with Automated Diff EDMS 04/02 20:29 Order name: Comprehensive Metabolic Panel EDMS 04/02 20:29 Order name: Comprehensive Metabolic Panel EDMS 04/02 17:48 Order name: CT Neck Angio; Complete Time: 19:21 ms3 04/02 17:48 Order name: Stroke CXR 1 View; Complete Time: 18:49 ms3 04/02 18:33 Order name: Head Brain Wo Cont; Complete Time: 19:21 EDMS 04/02 18:34 Order name: Head angio; Complete Time: 19:21 EDMS 04/02 17:48 Order name: EKG; Complete Time: 17:49 ms3 04/02 20:29 Order name: CONS Physician Consult EDMS 04/02 17:48 Order name: Cardiac monitoring; Complete Time: 18:06 ms3 04/02 17:48 Order name: EKG - Nurse/Tech; Complete Time: 18:06 ms3 04/02 17:48 Order name: IV Saline Lock; Complete Time: 18:06 ms3 04/02 17:48 Order name: Labs collected and sent; Complete Time: 18:06 ms3 04/02 17:48 Order name: NPO; Complete Time: 18:06 ms3 04/02 17:48 Order name: O2 Per Protocol; Complete Time: 18:06 ms3 04/02 17:48 Order name: O2 Sat Monitoring; Complete Time: 18:06 ms3 EC:30 Rate is 75 beats/min. Rhythm is regular. QRS [place] is Normal. [place] interval is normal. QRS ms3 interval is normal. Clinical impression: NSR w/ Non-specific ST/T Changes. Interpreted by me. Reviewed by me. Administered Medications: No medications were administered Disposition: 19:57 Chart complete. ms3 Disposition Summary: 04/02/24 19:34 Hospitalization Ordered Notes: Hospitalization Status: Inpatient Admission ms3 Provider: Willy Rao ms3 Condition: Stable ms3 Problem: new ms3 Symptoms: are unchanged ms3 Bed/Room Type: Standard ms3 Location: Telemetry/MedSurg (Inpatient)(04/02/24 22:49) vc1 Room Assignment: [facility](04/02/24 22:58) cg Diagnosis - Altered mental status, unspecified ms3 - Acute Kidney Injury ms3 Forms: - Medication Reconciliation Form ms3 - SBAR form ms3 - Leadership Thank You Letter ms3 Signatures: Dispatcher [employer] EDMS Eva Bailey RN RN aa5 Pari Diallo RN RN ss Garcia, Cindy, RN RN Bryson Young DO DO ms3 Constanza Giron RN RN vc1 Corrections: (The following items were deleted from the chart) 18:29 17:48 Accucheck ordered. ms3 aa5 18:33 17:49 CT-STROKE BRAIN W/O CONTRAST+CT.RAD.BRZ ordered. EDMS EDMS 22:09 19:34 Telemetry/MedSurg (Inpatient) ms3 vc1 22:09 19:34 ms3 vc1 22:49 22:09 [facility] ER HOLD vc1 vc1 22:49 22:09 ERHOLD- vc1 vc1 22:58 22:49 vc1 cg
--- NOTE | 2024-04-02 20:24 | P.HP ---
Certification for Inpatient Patient admitted to: Inpatient With expected LOS: >2 Midnights Practitioner: I am a practitioner with admitting privileges, knowledge of patient current condition, hospital course, and medical plan of care. Services: Services provided to patient in accordance with Admission requirements found in Title 42 Section 412.3 of the Code of Federal Regulations Patient History Date of Service: 04/03/24 Reason for admission: AMS History of Present Illness: 48 yrs old Female with past medical history of anxiety, depression, diabetes, DJD, PTSD, sleep apnea, mild left-sided weakness from brain surgery, history of aneurysm status post clipping, brain surgery, seizure, who was brought to ER with altered mental status . She has a past medical history of brain aneurysm Patient was last seen normal 4 days ago by a neighbor. Patient is altered and drowsy and cannot offer any history hence most of the history is obtained from the chart review and also talking to the ER physician. Allergies latex Adverse Reaction (Verified 11/04/23 02:48) Hives/Rash Home medications list reviewed: Yes Home Medications: Atorvastatin Calcium 40 mg PO BEDTIME 11/04/23 Cyclobenzaprine HCl 1 tab PO DAILY 11/04/23 Docosahexanoic AC/Epa [Fish Oil 1,000 MG*] 2 cap PO DAILY 11/04/23 Donepezil HCl 1 tab PO DAILY 11/04/23 Potassium Chloride [Klor-Con] 1 tab PO DAILY 11/04/23 Sumatriptan Succinate [Imitrex] 1 tab PO BID PRN 11/04/23 carBAMazepine [Carbamazepine] 1 tab PO BID 11/04/23 hydroCHLOROthiazide [Hydrochlorothiazide] 1 cap PO DAILY 11/04/23 Amantadine [Symmetrel*] 1 cap PO BID 30 Days #60 cap 11/06/23 levETIRAcetam [Keppra*] 500 mg PO BID 30 Days #60 tab 11/06/23 - Past Medical/Surgical History Diabetic: Yes Past Medical History: Reviewed- Non-Contributory -: brain aneurysm -: seizures -: diabetic -: cva, left sided weakness -: arthiritis Past Surgical History: Reviewed- Non-Contributory -: aneurysm clip -: hip sx -: knee sx - Family History Family History: Reviewed- Non-Contributory - Social History Smoking Status: Never smoker Alcohol use: No CD- Drugs: No Caffeine use: Yes Review of Systems is unable to be obtained Physical Examination - Vital Signs Temperature: 97 F Blood Pressure: 111/76 Pulse: 68 Respirations: 18 Pulse Ox (%): 98 - Physical Exam General: Unresponsive HEENT: Atraumatic, Normocephalic Neck: Supple Respiratory: Clear to auscultation bilaterally, Normal air movement Cardiovascular: Normal pulses, Regular rate/rhythm Capillary refill: <2 Seconds Gastrointestinal: Soft and benign, W/out hepatosplenomegaly Musculoskeletal: No clubbing, No swelling Integumentary: No rashes Neurological: Other (Altered mental status ) Lymphatics: No axilla or inguinal lymphadenopathy - Studies Laboratory Data (last 24 hrs) 04/02/24 04/02/24 04/02/24 18:00 18:00 18:00 WBC 4.40 Hgb 13.0 Hct 38.6 Plt Count 231 PT 10.8 INR 0.96 APTT 33.9 Sodium 139 Potassium 3.6 BUN 18 Creatinine 1.43 H Glucose 96 Magnesium 2.2 Assessment and Plan - Plan Acute encephalopathy metabolic versus postictal versus stroke No focal weakness CT CTA findings noted MRI brain ordered but could not do because of the aneurysm clip Monitor neuro vital signs Monitor under telemetry Will consult neurology Seizure disorder Will continue Keppra Telemetry Neurology consulted Diabetes Insulin sliding scale Accu-Chek before every meal and at bedtime BARON Renal parameters monitored Electrolytes monitor and replace accordingly GI/DVT prophylaxis Advanced directive full code Discharge Plan: Home Plan to discharge in: Greater than 2 days - Advance Directives Does patient have a Living Will: No Does patient have a Durable POA for Healthcare: No - Code Status/Comfort Care Code Status: Full Code Time Spent Managing Pts Care (In Minutes): 48
[2024-04-03 03:44] VITALS: BMI 24.1
[2024-04-03] MEDS: NA CHLORIDE 0.9% 1,000 ML IV SCH (04:41)
[2024-04-03 06:40] LABS: Absolute Eosinophils 0.1 K/uL (0-0.5); Absolute Lymphocytes (CBC) 1.8 K/uL (0.7-4.9); Absolute Monocytes 0.3 K/uL (0.1-1.3); Absolute Neutrophil 2.5 K/uL (1.8-8.0); Hematocrit 37.5 % (36.0-45.0); Hemoglobin 12.6 g/dL (12.0-15.0); Lymphocytes % 38.3 % (15.3-44.8); MCH 32.1 pg (27.0-35.0); MCHC 33.5 g/dL (32.0-36.0); MCV 95.9 fL (80-100); MPV 7.7 fL (7.6-11.3); Neutrophils % 51.7 % (41.7-73.7); Platelets 233 thou/uL (152-406); RBC Red Blood Cell Count 3.91 M/uL (3.86-4.86); Red Cell Distribution Width 13.3 % (12.1-15.2)
[2024-04-03 06:57] LABS: ALT/SGPT 19 U/L (13-56); Albumin 3.8 g/dL (3.4-5.0); Albumin/Globulin Ratio 1.3 (1.1-1.8); Alkaline Phosphatase 62 U/L (45-117); Anion Gap 4.2 mEq/L (5.0-15.0); BUN Blood Urea Nitrogen 16 mg/dL (7-18); Bicarbonate 28 mEq/L (21-32); Bilirubin Total 0.9 mg/dL (0.2-1.0); Glomerular Filtration Rate 62 ml/min (=/>90); Glucose Level 82 mg/dL (74-106); Potassium 3.2 mEq/L (3.5-5.1); Protein, Total 6.8 g/dL (6.4-8.2); Sodium Level 140 mEq/L (136-145)
[2024-04-03 07:02] LABS: AST/SGOT < 10 U/L (15-37)
[2024-04-03] MEDS: levETIRAcetam 500 MG in NA CHLORIDE 0.9% 100 ML IV SCH (10:10)
[2024-04-03] MEDS: KCL 20 MEQ/100 mL IVPB 20 MEQ/100 ML BAG IV SCH (10:10)
--- NOTE | 2024-04-03 16:34 | EKG ---
Test Date: 2024-04-02 Test Time: 18:01:21 Smt Technician: BURT MEASUREMENT RESULTS: Intervals: Rate: 75 PA: 148 QRSD: 86 QT: 408 QTc: 455 [place]: P: 70 PA: 148 QRS: 62 T: 50 INTERPRETIVE STATEMENTS: Normal sinus rhythm ST & T wave abnormality, consider anterior ischemia Abnormal ECG Compared to ECG 11/03/2023 23:17:25 ST (T wave) deviation now present Possible ischemia now present Sinus bradycardia no longer present T-wave abnormality no longer present Electronically Signed On 04-03-24 16:31:57 CDT by Lev Resendiz
--- NOTE | 2024-04-03 16:51 | CON ---
Reason For Consultation: Consultation called because of altered mental status. History Of Present Illness: Ms. 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 Subsequently developed hydrocephalus, had a shunt placed and had seizures controlled by anti-epileptic medications. In addition, she has had migraines. She was recently seen in [facility] on November 03 of this year with weakness of left upper extremity and lower extremity with facia l droop. She was confused, disoriented, and had difficulty eating. CT scan of the head showed no ac afshin ischemic or hemorrhagic findings. Of course, the study identified the chronic right-sided cranio lili with a large area of gliosis and a left frontal ventriculostomy tube. She did not have an MRI. She was diagnosed with a transient ischemic attack versus Reji paralysis. She did have some abnorma l electrolytes such as low potassium that was addressed. Urinalysis did show 50 bacteria and at that time she was positive for marijuana. For this admission, the patient's mother who was at the [facility] did provide some more information. She said that the patient was found to be confused and disorien ashvin by a neighbor who took apparently some mail to her. The patient's mother said there was a man aaron savage in the house that she was unfamiliar with and she thought he was suspicious and potentially gaby ht have been giving her some form of perhaps either drugs or so. She does have a drug screen present . At [facility], the patient was found to be somewhat disoriented, confused, drowsy, could not offer much of a history. She did have a urine drug screen that is actually pending. She is not able to get the urinalysis. Complete blood count with differential completely normal. Coagulation p victoria completely normal. Chemistries showed dehydration with creatinine 1.43, otherwise normal liver function. Sugar is normal. Sodium normal. She did receive hydration and the potassium was normal a t admission, did go down to 3.2, creatinine improved from 1.43 to 1.09. As noted, there is a pending urinalysis and drug screen. Please note that she was positive for marijuana at her last visit back in October. CT scan of the head showed no acute ischemic changes. The study did identify changes as not ed above, which did include gliosis in the right periventricular region. Aneurysm clipping present i n the right aspect of the [place]. There were postsurgical changes in the temporal lobe, al so the left frontal ventriculostomy tube was noted. All those unchanged and there is of course a lar ge right-sided craniotomy present. The sinuses were clear. At the time I evaluated the patient, she was able to show me a thumbs-up sign of the hands. She did report some significant pain in the back of her neck and head. There is no palpable mass. No area o f bleeding or obvious external injury identified. A CT angiogram of her neck and head did not identi fy any significant abnormality to blood vessels currently of the head and the neck aside from mention ed above. Past Medical History: Localization-related seizures with rapid eye movement, the presenting feature of seizures. She has eczema, vulvar carcinoma, hypertension, migraines, diabetes mellitus. Past Surgical History: Right meniscus repair in 2020, aneurysm repair in 2020, vulvar carcinoma in , cholecystectomy in 2007, appendectomy in 2007, hysterectomy in 1999. Family History: Dementia in father. Allergies: LATEX. Current Medications: Tylenol 650 every 4 hours as needed, levetiracetam 500 mg twice daily, IV Zofra n 4 mg every 6 hours as needed. She is receiving sodium chloride 100 cc an hour. Note, Demerol and Phenergan as needed will be put twice daily, minimum dose of each. Physical Examination: Vital Signs: Blood pressure 111/76, pulse 68, respiratory rate 18, temperature 97, oxygen saturation 98%. GENERAL: Jonny is resting in bed. She is in no significant distress. Has mild to moderate pain, she does report in the back of her head. HEENT: She is otherwise normocephalic, atraumatic. Sclerae anicteric. Oropharynx pink and moist. Neck: Supple. Chest: Clear. Heart: Regular. Extremities: No significant clubbing, cyanosis, or edema noted. Assessment: Ms. Fuller is a 48-year-old patient who has a cerebral aneurysm, status post surgical repair, which is complicated by intracerebral hemorrhage, ventriculoperitoneal shunt placed. She de luna s have some residual left upper extremity weakness, left homonymous hemianopsia. She has right trige laverne neuralgia and occipital pain, course complex partial seizures with secondary generalization gaby jigar and mild cognitive impairment. She is admitted with some confusion with the possibility of a s eizure. If EEG is available, EEG may be ordered, although warehousing technician may not be available at this po int. I would recommend that she continue with the Keppra 500 mg IV twice daily. There is sodium chl oride on board for dehydration. Orders were put for her to begin Demerol and Phenergan as needed for severe pain. She did have prior to hospitalization chelating magnesium 100 mg twice daily, Ubrelvy 100 mg as needed for abortive treatment for headache, and she had trazodone and melatonin at night fo r sleep. TANYA/JED Voice ID: [id number] Report ID: [id number]
[2024-04-03] MEDS: PROMETHAZINE INJ 25 MG/ML AMP IV SCH (20:37)
[2024-04-03] MEDS ORDERED: MEPERIDINE HCL 25 MG/ML SYR IV SCH (21:00)
[2024-04-04] MEDS: MORPHINE 2 MG/ML SYR IV PRN (06:33)
[2024-04-04] MEDS: BACLOFEN 10 MG TAB PO SCH (11:16)
[2024-04-04] MEDS: CYCLOBENZAPRINE 10 MG TAB PO SCH (11:16)
[2024-04-04] MEDS: carBAMazepine 200 MG TAB PO SCH (11:17)
[2024-04-04] MEDS: D5.45NS W/KCL 20MEQ 20 MEQ/1,000 ML BAG IV SCH (12:08)
--- NOTE | 2024-04-04 13:50 | P.PN ---
Subjective Date of Service: 04/03/24 Chief Complaint: AMS Patient remain obtunded. Mother stated patient was complaining of headache. I could not obtain any subjective complaint due to AMS. Physical Examination - Vital Signs Temperature: 97.5 F Blood Pressure: 121/76 Pulse: 60 Respirations: 12 Pulse Ox (%): 100 Assessment And Plan - Plan Physical examination General: Obtunded, NAD. HEENT: Conjunctiva not pale, anicteric sclera, EOMI Neck: Supple, no elevated JVD Heart: Heart sounds 1 and 2 normal, regular rhythm, normal rate, no pedal edema Lungs: Clear to auscultation bilaterally, adequate breath sounds bilaterally, no rhonchi or crackles. Abdomen: Soft, nondistended, nontender, normal bowel sounds. Extremities: No tenderness, no deformity Skin: Normal skin turgor, no rash, no nodules or ulcers. Neuro: No focal motor deficit. Patient moves all extremities spontaneously. Do es not open eyes to verbal. Psychiatry: Obtunded Assessment and plan Altered mental status Metabolic encephalopathy Seizure disorder Altered mental status secondary to polypharmacy versus postictal state. Mother reports patient was found on the floor having tremors. Patient's mother is also suspicious substance abuse. Breakthrough seizures most likely No focal weakness CT CTA: Stable with no new findings. Patient cannot do a brain MRI due to the presence of aneurysm clip. Neurology input appreciated. Continue IV Keppra Resume patient other home antiseizure medications including baclofen. Monitor neuro vital signs Monitor under telemetry EEG if available Toxicology screen is pending. Diabetes mellitus type 2 Insulin sliding scale Accu-Chek before every meal and at bedtime BARON Improved Monitor renal function. DVT prophylaxis: SCD Advanced directive; Full code.
[2024-04-04] MEDS ORDERED: GLUCAGON 1 MG/VIAL IM PRN (13:59)
--- NOTE | 2024-04-04 13:59 | P.PN ---
Subjective Date of Service: 04/04/24 Chief Complaint: AMS Patient is more awake today and participated in a conversation but she is slow to respond She is complaining of neck pains and headache. Patient noted to be hypoglycemic. Physical Examination - Vital Signs Temperature: 97.5 F Blood Pressure: 121/76 Pulse: 60 Respirations: 12 Pulse Ox (%): 100 Assessment And Plan - Plan Physical examination General: Obtunded, NAD. HEENT: Conjunctiva not pale, anicteric sclera, EOMI Neck: Supple, no elevated JVD Heart: Heart sounds 1 and 2 normal, regular rhythm, normal rate, no pedal edema Lungs: Clear to auscultation bilaterally, adequate breath sounds bilaterally, no rhonchi or crackles. Abdomen: Soft, nondistended, nontender, normal bowel sounds. Extremities: No tenderness, no deformity Skin: Normal skin turgor, no rash, no nodules or ulcers. Neuro: No focal motor deficit. Patient moves all extremities spontaneously. Does not open eyes to verbal. Psychiatry: Obtunded Assessment and plan Altered mental status Metabolic encephalopathy Seizure disorder Altered mental status secondary to polypharmacy versus postictal state. Mother reports patient was found on the floor having tremors. Patient's mother is also suspicious substance abuse. Breakthrough seizures most likely No focal weakness CT CTA: Stable with no new findings. Patient cannot do a brain MRI due to the presence of aneurysm clip. Neurology input appreciated. Continue IV Keppra Continue carbamazepine and baclofen. Monitor neuro vital signs Monitor under telemetry EEG if available Toxicology screen is pending. Migraine Patient is complaining of uncontrolled headache Resume Imitrex Patient may use home Ubrelvy. Diabetes mellitus type 2 Hypoglycemia Insulin sliding scale Accu-Chek before every meal and at bedtime Dextrose infusion Resume diet BARON Hypokalemia Improved Monitor renal function. DVT prophylaxis: SCD Advanced directive; Full code.
[2024-04-04] MEDS: AMANTADINE 100 MG CAP PO SCH (20:54)
[2024-04-04] MEDS: TRAZODONE 50 MG TABLET PO SCH (20:54)
[2024-04-04] MEDS: DONEPEZIL HCL 5 MG TAB PO SCH (20:54)
[2024-04-04] MEDS: ATORVASTATIN 40 MG TAB PO SCH (20:54)
[2024-04-04] MEDS: SUMATRIPTAN SUCCI 50 MG TAB PO PRN (21:10)
[2024-04-05 06:24] LABS: Absolute Eosinophils 0.1 K/uL (0-0.5); Absolute Lymphocytes (CBC) 1.7 K/uL (0.7-4.9); Absolute Monocytes 0.3 K/uL (0.1-1.3); Absolute Neutrophil 2.8 K/uL (1.8-8.0); Basophils % 0.9 % (0-1.3); Eosinophils % 2.5 % (0-4.4); Hematocrit 38.9 % (36.0-45.0); MCH 32.1 pg (27.0-35.0); MCHC 33.5 g/dL (32.0-36.0); MCV 95.7 fL (80-100); MPV 7.5 fL (7.6-11.3); Monocytes % 6.7 % (3.3-12.3); Neutrophils % 55.9 % (41.7-73.7); Nucleated Red Blood Cells % 0.1 % (0-0); Platelets 231 thou/uL (152-406); RBC Red Blood Cell Count 4.06 M/uL (3.86-4.86); Red Cell Distribution Width 13.4 % (12.1-15.2)
[2024-04-05 06:40] LABS: Anion Gap 7.7 mEq/L (5.0-15.0); Potassium 3.7 mEq/L (3.5-5.1)
[2024-04-05 10:21] LABS: Barbiturates NEGATIVE (NEGATIVE); Benzodiazepines NEGATIVE (NEGATIVE); Cocaine NEGATIVE (NEGATIVE); METHAMPHETAM NEGATIVE (NEGATIVE); Methadone NEGATIVE (NEGATIVE); Opiates NEGATIVE (NEGATIVE); Phencyclidine NEGATIVE (NEGATIVE); THC Cannibis POSITIVE (NEGATIVE)
--- NOTE | 2024-04-05 14:49 | P.PN ---
Subjective Date of Service: 04/05/24 Chief Complaint: AMS Patient is awake and interactive. She was sitting on the edge of the bed when I saw her this morning. She appears confused. She denies any headache. Physical Examination - Vital Signs Temperature: 97.7 F Blood Pressure: 124/74 Pulse: 72 Respirations: 18 Pulse Ox (%): 100 Assessment And Plan - Plan Physical examination General: Awake, NAD HEENT: Anicteric sclera, EOMI Neck: Supple, no elevated JVD Heart: Heart sounds 1 and 2 normal, regular rhythm, normal rate, no pedal edema Lungs: Clear to auscultation bilaterally, adequate breath sounds bilaterally, no rhonchi or crackles. Abdomen: Soft, nondistended, nontender, normal bowel sounds. Extremities: No tenderness, no deformity Skin: Normal skin turgor, no rash, no nodules or ulcers. Neuro: No focal motor deficit. No focal motor deficits. Psychiatry: Awake but confused, no agitation Assessment and plan Altered mental status Metabolic encephalopathy Seizure disorder Altered mental status secondary to polypharmacy versus postictal state. Mother reports patient was found on the floor having tremors. Patient's mother is also suspicious of substance abuse. Breakthrough seizures most likely No focal weakness CT CTA: Stable with no new findings. Patient cannot do a brain MRI due to the presence of aneurysm clip. Neurology input appreciated. Continue IV Keppra Continue carbamazepine and baclofen. Monitor neuro vital signs Monitor under telemetry EEG tomorrow Toxicology screen positive for THC. Diet as tolerated. Monitor for seizures. Migraine Patient denies headache today. Continue Imitrex as needed Patient may use home Ubrelvy. Diabetes mellitus type 2 Hypoglycemia Insulin sliding scale Accu-Chek before every meal and at bedtime Diet as needed. Continue IV dextrose. BARON Hypokalemia Resolved. Continue IV hydration and monitor renal function. DVT prophylaxis: Heparin SQ Advanced directive; Full code.
[2024-04-05] MEDS: MORPHINE 2 MG/ML SYR IV PRN (15:35)
[2024-04-05] MEDS: HEPARIN 5000 UNIT/ML 1 ML VIAL SQ SCH (17:00)
[2024-04-05] MEDS: D10W 125 ML IV PRN (20:47)
[2024-04-06 07:30] LABS: Anion Gap 8.6 mEq/L (5.0-15.0); Potassium 3.6 mEq/L (3.5-5.1)
--- NOTE | 2024-04-06 15:32 | P.PN ---
Subjective Date of Service: 04/06/24 Chief Complaint: AMS Patient is sleeping more today. She has been experiencing intermittent episodes of hypoglycemia. Mother states patient oral intake has been poor. Physical Examination - Vital Signs Temperature: 97.2 F Blood Pressure: 135/83 Pulse: 60 Respirations: 16 Pulse Ox (%): 98 Assessment And Plan - Plan Physical examination General: Awake, NAD HEENT: Anicteric sclera, EOMI Neck: Supple, no elevated JVD Heart: Heart sounds 1 and 2 normal, regular rhythm, normal rate, no pedal edema Lungs: Clear to auscultation bilaterally, adequate breath sounds bilaterally, no rhonchi or crackles. Abdomen: Soft, nondistended, nontender, normal bowel sounds. Extremities: No tenderness, no deformity Skin: Normal skin turgor, no rash. Neuro: No focal motor deficit. No focal motor deficits. Psychiatry: Awake, interactive, no agitation Assessment and plan Altered mental status Metabolic encephalopathy Seizure disorder Altered mental status secondary to polypharmacy versus postictal state. Mother reports patient was found on the floor having tremors. Patient's mother is also suspicious of substance abuse. Breakthrough seizures most likely No focal weakness CT CTA: Stable with no new findings. Patient cannot do a brain MRI due to the presence of aneurysm clip. Neurology is following. EEG official report is pending but suggest some spikes correlating with excitations. Continue Keppra Continue carbamazepine and baclofen. Monitor neuro vital signs Toxicology screen positive for THC. Diet as tolerated. Monitor for seizures. Migraine Patient denies headache today. Continue Imitrex as needed Patient may use home Ubrelvy. Diabetes mellitus type 2 Hypoglycemia Patient experiencing intermittent bouts of hypoglycemia. Hypoglycemia secondary to poor oral intake in am and amantadine use. Hypoglycemia protocol Insulin sliding scale Accu-Chek before every meal and at bedtime Diet as needed. Continue IV dextrose infusion. BARON Hypokalemia Resolved. Continue IV hydration and monitor renal function. DVT prophylaxis: Heparin SQ Advanced directive; Full code.
[2024-04-07 06:46] LABS: Absolute Eosinophils 0.2 K/uL (0-0.5); Absolute Lymphocytes (CBC) 1.9 K/uL (0.7-4.9); Absolute Monocytes 0.3 K/uL (0.1-1.3); Absolute Neutrophil 3.3 K/uL (1.8-8.0); Basophils % 0.9 % (0-1.3); Eosinophils % 3.3 % (0-4.4); Hematocrit 36.4 % (36.0-45.0); Hemoglobin 12.1 g/dL (12.0-15.0); Lymphocytes % 33.5 % (15.3-44.8); MCHC 33.4 g/dL (32.0-36.0); MCV 95.9 fL (80-100); MPV 7.7 fL (7.6-11.3); Monocytes % 4.9 % (3.3-12.3); Neutrophils % 57.4 % (41.7-73.7); Platelets 201 thou/uL (152-406); RBC Red Blood Cell Count 3.79 M/uL (3.86-4.86); Red Cell Distribution Width 13.2 % (12.1-15.2)
[2024-04-07 06:56] LABS: Albumin 3.1 g/dL (3.4-5.0); Anion Gap 6.7 mEq/L (5.0-15.0); Bilirubin Total 0.3 mg/dL (0.2-1.0); Potassium 3.7 mEq/L (3.5-5.1); Protein, Total 6.1 g/dL (6.4-8.2)
--- NOTE | 2024-04-07 10:54 | P.PN ---
Date of Service: 04/07/24 Subjective: feeling more tired/somnolent soft speech. Able to respond to some questions appropriately some difficulty recalling her name today, coming up with right words repeats "[place]" when asked for her name after asking if her name is Shannan, she responded yes, then asked her what's her name, to which she responded "Shannan" When asked what year is it - she responded "Shannan" ROS: 10 point ROS as noted above, otherwise negative Physical Exam: GEN: Alert, NAD, tired appearing HEENT: Normal conjunctiva, sclera anicteric CV: Regular rate and rhythm, no edema Pulm: Nonlabored respirations on room air, clear bilaterally ABD: soft, nontender, nondistended Neuro: word finding difficulty, expressive aphasia, LUE: only minimally able to squeeze left hand Problem List: Acute metabolic encephalopathy / ?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 She was found by neighbor unable to speak. Reportedly feeling normal ~3-4 days prior to episode reports some chronic residual left upper extremity weakness, left homonymous hemianopsia prior to episode. Mother reports patient was found on the floor having tremors and is also concerned for substance use Altered mental status secondary to polypharmacy vs postictal state. CT head, CTA neck (04/02): both negative for any acute findings unable to do MRI due to the presence of aneurysm clip. Dr. Erickson, Neurology is following. EEG official report is pending but Dr. Erickson mentioned area of prior brain insult was abnormal Continue Keppra Continue carbamazepine and baclofen. Monitor for seizures. Monitor neuro vital signs Diet as tolerated. flexeril and phenergan dc'd 04/07 - potentially contributing to her somnolence mom at bedside reports several days in hospital she has had a "paralyzed left arm" seemingly having expressive aphasia - secondary to post-ictal state unknown amount of time patient was down / possibly in status prior to being brought to ED. Migraine Continue Imitrex as needed Patient may use home Ubrelvy. NIDDM2 with intermittent hypoglycemia Patient experiencing intermittent bouts of hypoglycemia. Hypoglycemia secondary to poor oral intake in am and amantadine use. continue hypoglycemia protocol accu-cheks, SSI Continue IV dextrose - decrease rate, patient eating BARON Hypokalemia Resolved with IV hydration continue to monitor renal function monitor and replete electrolytes as needed VTE: heparin sq Code: Full Dispo: anticipate SNF, ~2-3 days Time Spent Managing Pts Care (In Minutes):51
[2024-04-07 14:05] LABS: Specific Gravity 1.008 (1.005-1.030); Sqamous Epithelial <5 /HPF (None Seen); Urine Bacteria <20 /HPF (<20); Urine Bilirubin NEGATIVE (Negative); Urine Blood Negative (Negative); Urine Clarity Extremely Turbid (Clear); Urine Color Colorless (Yellow); Urine Culture Reflex Order REFLEXED; Urine Glucose NEGATIVE (Negative); Urine Ketones NEGATIVE (Negative); Urine Microscopic Reflex YN ORDER UMIC; Urine Mucus Slight /HPF (None Seen); Urine Nitrite 2+ (Negative); Urine Protein NEGATIVE (Negative); Urine RBC <5 /HPF (None Seen); Urine Urobilinogen Normal (Normal); Urine Yeast (Budding) Trace /HPF (None Seen)
[2024-04-07] MEDS: FLUCONAZOLE 100 MG TAB PO SCH (18:17)
[2024-04-07] MEDS: D5.45NS W/KCL 20MEQ 20 MEQ/1,000 ML BAG IV SCH (18:17)
[2024-04-07] MEDS: ACETAMINOPHEN 325 MG TABLET PO PRN (21:53)
[2024-04-08 07:04] LABS: Absolute Eosinophils 0.1 K/uL (0-0.5); Absolute Lymphocytes (CBC) 2.3 K/uL (0.7-4.9); Absolute Monocytes 0.3 K/uL (0.1-1.3); Absolute Neutrophil 2.3 K/uL (1.8-8.0); Basophils % 0.8 % (0-1.3); Eosinophils % 2.5 % (0-4.4); Hematocrit 37.3 % (36.0-45.0); Hemoglobin 12.4 g/dL (12.0-15.0); Lymphocytes % 45.3 % (15.3-44.8); MCH 31.9 pg (27.0-35.0); MCHC 33.3 g/dL (32.0-36.0); MCV 95.8 fL (80-100); MPV 8.3 fL (7.6-11.3); Neutrophils % 46.4 % (41.7-73.7); Platelets 198 thou/uL (152-406); RBC Red Blood Cell Count 3.89 M/uL (3.86-4.86); Red Cell Distribution Width 13.3 % (12.1-15.2)
[2024-04-08 07:11] LABS: Albumin 3.1 g/dL (3.4-5.0); Anion Gap 8.5 mEq/L (5.0-15.0); Bilirubin Total 0.3 mg/dL (0.2-1.0); Globulin 3.2 g/dL (2.3-3.5); Magnesium 1.8 mg/dL (1.6-2.4); Potassium 3.5 mEq/L (3.5-5.1); Protein, Total 6.3 g/dL (6.4-8.2)
[2024-04-08] MEDS: MAGNESIUM SULFATE 1 gm IVPB 1 GM/100 ML BAG IV ONE (08:55)
[2024-04-08 08:59] LABS: Blood Morphology Comment NOT SEEN (NOT SEEN); Platelet Estimate ADEQ; White Blood Cell Scan OK (OK)
[2024-04-08] MEDS: CEFTRIAXONE 1,000 MG in NA CHLORIDE 0.9% 50 ML IVPB SCH (09:32)
--- NOTE | 2024-04-08 10:48 | P.PN ---
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 She was found by neighbor unable to speak. Reportedly feeling normal ~3-4 days prior to episode reports some chronic residual left upper extremity weakness, left homonymous hemianopsia prior to episode. Mother reports patient was found on the floor having tremors and is also concerned for substance use Altered mental status secondary to polypharmacy vs postictal state. CT head, CTA neck (04/02): both negative for any acute findings unable to do MRI due to the presence of aneurysm clip. Dr. Erickson, Neurology is following. EEG official report is pending but Dr. Erickson mentioned area of prior brain insult was abnormal Continue Keppra Continue carbamazepine and baclofen. Monitor for seizures. - no seizure activity Monitor neuro vital signs Speech consulted; no signs of aspiration. flexeril and phenergan dc'd 04/07 - potentially contributing to her somnolence mom at bedside reports several days in hospital she has had a "paralyzed left arm" seemingly having expressive aphasia - secondary to post-ictal state -- much improved unknown amount of time patient was down / possibly in status prior to being brought to ED. Possible UTI UA (04/07): concerning for possible UTI / yeast infection urine cx (04/07) prelim 4+GNR Start empiric rocephin (04/08-) continue diflucan to cover yeast (04/07-); would cover for 2 weeks total afebrile, no leukocytosis Migraine Continue Imitrex as needed Patient may use home Ubrelvy. NIDDM2 with intermittent hypoglycemia Patient experiencing intermittent bouts of hypoglycemia. Hypoglycemia secondary to poor oral intake in am and amantadine use. continue hypoglycemia protocol accu-cheks, SSI Continue IV dextrose - decrease rate, patient eating BARON Hypokalemia Resolved with IV hydration continue to monitor renal function monitor and replete electrolytes as needed VTE: heparin sq Code: Full Dispo: anticipate home, ~2 days pending cultures, improvement, PT eval mother updated at bedside Time Spent Managing Pts Care (In Minutes):51
[2024-04-08] MEDS: levETIRAcetam 500 MG TAB PO SCH (20:33)
[2024-04-09] MEDS: ONDANSETRON 4 MG/2 ML VIAL IV PRN (04:40)
[2024-04-09 06:36] LABS: Hematocrit 39.5 % (36.0-45.0); Hemoglobin 13.3 g/dL (12.0-15.0); MCH 32.2 pg (27.0-35.0); MCHC 33.6 g/dL (32.0-36.0); MCV 95.9 fL (80-100); MPV 7.7 fL (7.6-11.3); Platelets 213 thou/uL (152-406); RBC Red Blood Cell Count 4.12 M/uL (3.86-4.86); Red Cell Distribution Width 13.3 % (12.1-15.2)
[2024-04-09 06:48] LABS: Anion Gap 8.9 mEq/L (5.0-15.0); Magnesium 2.1 mg/dL (1.6-2.4); Potassium 3.9 mEq/L (3.5-5.1)
[2024-04-09] MEDS: POTASSIUM CL SA 10 MEQ TAB PO ONE (08:18)
[2024-04-09] MEDS: levoFLOXacin 750 MG TAB PO SCH (08:19)
--- NOTE | 2024-04-09 09:12 | P.PN ---
Date of Service: 04/09/24 Subjective: reports episode of nausea/vomiting overnight denies any nausea today able to ambulate to restroom after purewick removed yesterday Nursing staff reported that patient was able to lift her left arm when going to the bathroom last night denies any urinary symptoms afebrile ROS: 10 point ROS as noted above, otherwise negative Physical Exam: GEN: Alert, NAD HEENT: Normal conjunctiva, sclera anicteric CV: Regular rate and rhythm, no edema Pulm: Nonlabored respirations on room air, clear bilaterally ABD: soft, nontender, nondistended Neuro: LUE: only minimally able to squeeze left hand, LLE weakness Problem List: Acute metabolic encephalopathy / ?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 She was found by neighbor unable to speak. Reportedly feeling normal ~3-4 days prior to episode reports some chronic residual left upper extremity weakness, left homonymous hemianopsia prior to episode. Mother reports patient was found on the floor having tremors and is also concerned for substance use Altered mental status secondary to polypharmacy vs postictal state. CT head, CTA neck (04/02): both negative for any acute findings unable to do MRI due to the presence of aneurysm clip. Dr. Erickson, Neurology is following. EEG report: abnormal EEG d/t presence of right hemisphere sharp and slow epileptiform discharged. 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 Continue Keppra Continue carbamazepine and baclofen Monitor for seizures. - no seizure activity Speech consulted; no signs of aspiration. flexeril and phenergan dc'd 04/07 - potentially contributing to her somnolence mom at bedside reports several days in hospital she has had a "paralyzed left arm" Nursing staff noted in last 24 hours patient was able to use her left arm when ambulating to the bathroomshe place it only handrail. Similarly when she realized, her arm became flaccid again May have a psych component versus factitious Aphasia resolved unknown amount of time patient was down / possibly in status prior to being brought to ED. UTI, multiple organisms Reports she is asymptomatic, stating she typically gets some incontinence/dysuria with prior UTIs Initial UA was ordered on admission was not collected until the 8 for some reason. This was not obtained due to having symptoms Patient was improving in regard to her mental capacity It is possible that she had a UTI present on admission urine cx (04/07): E. Coli and Enterococcus Faecalis rocephin switched to levaquin (04/09) following culture results Patient without sepsis, positive culture, asymptomatic bacteriuria versus true bacterial infection Given the uncertainty of the etiology of her presentation, will cover with a ntibiotic continue PO levaquin (04/09-) diflucan dc'd (04/07-04/08) afebrile, no leukocytosis Migraine Continue Imitrex as needed Patient may use home Ubrelvy. NIDDM2 with intermittent hypoglycemia Patient experiencing intermittent bouts of hypoglycemia. Hypoglycemia secondary to poor oral intake in am and amantadine use. continue hypoglycemia protocol accu-cheks, SSI BARON Hypokalemia continue to monitor renal function monitor and replete electrolytes as needed IVF dc'd 04/08 creatinine 1.01 -> 1.34 (04/09) Likely from vomiting last night/decreased intake Repeat in a.m. VTE: heparin sq Code: Full Dispo: anticipate home, ~1-2 days Time Spent Managing Pts Care (In Minutes): 41
--- NOTE | 2024-04-09 09:50 | EEG ---
CHART: [id number] TEST ID#: [id number] DATE OF STUDY: 04/03/2024 THE EEG WAS RECORDED PORTABLE IN THE PATIENT'S ROOM ON A 17 CHANNEL MACHINE. ELECTRODES WERE APPLIED IN THE USUAL MANNER USING THE INTERNATIONAL 10-20 SYSTEM. THE WAKING BACKGROUND RHYTHM IN THIS RECORD CONSISTS OF FAIRLY WELL DEVELOPED AND WELL ORGANIZED WAVES OF 8 HZ., MAXIMAL IN THE LEFT POSTERIOR HEAD REGIONS WHICH ATTENUATE NORMALLY WITH EYE OPENING. LOW-VOLTAGE 18-22 HZ ACTIVITY IS EXPRESSED IN THE LEFT FRONTAL REGIONS. MODERATE VOLTAGE SHARP AND SLOW WAVES ARE EXPRESSED IN THE RIGHT HEMISPHERE. THERE ARE NO FOCAL OR LATERALIZING FEATURES. NO EPILEPTIFORM ACTIVITY APPEARS. SLEEP OCCURRED NATURALLY. HYPERVENTILATION WAS NOT PERFORMED. PHOTIC STIMULATION PRODUCED NO DRIVING BILATERALLY. IMPRESSION: THIS IS A MODERATELY ABNORMAL ROUTINE AWAKE EEG DUE TO THE PRESENCE OF RIGHT HEMISPHERE SHARP AND SLOW EPILEPTIFORM DISCHARGED. THIS FINDING IS CONSISTENT WITH A DESTRUCTIVE LESION IN THE RIGHT HEMISPHERE.
[2024-04-10 06:18] LABS: Anion Gap 10.7 mEq/L (5.0-15.0); Potassium 3.7 mEq/L (3.5-5.1)
[2024-04-10] MEDS: NA CHLORIDE 0.9% 1,000 ML IV SCH (07:47)
[2024-04-10] MEDS: POTASSIUM CL SA 10 MEQ TAB PO ONE (08:30)
--- NOTE | 2024-04-10 09:19 | RAD REPORT ---
EXAMINATION: CT ABDOMEN AND PELVIS WITHOUT CONTRAST CLINICAL INDICATION: nausea/vomiting, uti, nabil TECHNIQUE: CT abdomen and pelvis was performed, without IV contrast, as per department protocol. Axia l, sagittal and coronal reconstructions were obtained. One or more of the following dose reduction techniques were used: Automated exposure control, adjustment of the mA and kV according to the patien t size, and iterative reconstruction. Unless otherwise specified, incidental findings do not require dedicated imaging follow-up. COMPARISON: 11/30/2021 FINDINGS: The lack of intravenous contrast limits the sensitivity of this exam for evaluation of solid visceral organs, vascular structures, and retroperitoneum. LOWER CHEST: The visualized lung bases are clear. LIVER: Normal in size and contour. No focal lesion. Cholecystectomy clips. SPLEEN: Normal size. No focal lesion. PANCREAS: No mass, ductal dilation, or bessy-pancreatic fluid. ADRENALS: Normal; no mass. KIDNEYS AND URETERS: Normal size and contour. No hydronephrosis. URINARY BLADDER: Normal contour. GASTROINTESTINAL TRACT: No evidence of bowel obstruction, significant free fluid, free air or abscess . Small bore catheter is present in the abdomen terminating in the anterior pelvis. APPENDIX: Normal appendix. LYMPH NODES: No lymphadenopathy. MUSCULOSKELETAL: No acute or suspicious osseous abnormality. ADDITIONAL FINDINGS: Small volume of pelvic free fluid. IMPRESSION: No acute or concerning abnormalities in the abdomen or pelvis, with evaluation limited by lack of IV contrast.
--- NOTE | 2024-04-10 10:15 | P.PN ---
Date of Service: 04/10/24 Subjective: felt very nauseated last night and had episode of vomiting. 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 She was found by neighbor unable to speak. Reportedly feeling normal ~3-4 days prior to episode reports some chronic residual left upper extremity weakness, left homonymous hemianopsia prior to episode. Mother reports patient was found on the floor having tremors and is also concerned for substance use Altered mental status secondary to polypharmacy vs postictal state. CT head, CTA neck (04/02): both negative for any acute findings unable to do MRI due to the presence of aneurysm clip. Dr. Erickson, Neurology is following. EEG report: abnormal EEG d/t presence of right hemisphere sharp and slow epileptiform discharged. 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 Continue Keppra Continue carbamazepine and baclofen Monitor for seizures - no seizure activity Speech consulted; no signs of aspiration. flexeril and phenergan dc'd 04/07 - potentially contributing to her somnolence mom at bedside reports several days in hospital she has had a "paralyzed left arm" Nursing staff noted in last 24 hours patient was able to use her left arm when ambulating to the bathroomshe place it only handrail. Similarly when she realized, her arm became flaccid again May have a psych component versus factitious Family noticing some improvement in left hand strength Aphasia resolved unknown amount of time patient was down / possibly in status prior to being brought to ED. Nausea/vomiting, new onset; unclear etiology unclear etiology. ?reactive to medication/antibiotic reports episode of nausea/vomiting 2 night ago, and again last night. Around the same time each day. No reported nausea during day. Reports decreased intake recently. CT abdomen (04/09): no acute findings. Small volume of pelvic free fluid. dc statin; patient reports she hasn't been taking at home in a while. Could be contributing to nausea. PRN zofran UTI, multiple organisms Reports she is asymptomatic, stating she typically gets some incont inence/dysuria with prior UTIs Initial UA was ordered on admission was not collected until the 8 for some reason. This was not obtained due to having symptoms Patient was improving in regard to her mental capacity It is possible that she had a UTI present on admission urine cx (04/07): E. Coli and Enterococcus Faecalis rocephin switched to levaquin (04/09) following culture results Patient without sepsis, positive culture, asymptomatic bacteriuria versus true bacterial infection Given the uncertainty of the etiology of her presentation, will cover with antibiotic continue PO levaquin (04/09-) diflucan dc'd (04/07-04/08) afebrile, no leukocytosis Migraine Continue Imitrex as needed Patient may use home Ubrelvy. NIDDM2 with intermittent hypoglycemia Patient experiencing intermittent bouts of hypoglycemia. Hypoglycemia secondary to poor oral intake in am and amantadine use. continue hypoglycemia protocol accu-cheks, SSI BARON Hypokalemia continue to monitor renal function monitor and replete electrolytes as needed IVF dc'd 04/08 creatinine slightly worse (04/10) Likely secondary to nausea/vomiting and decreased intake VTE: heparin sq Code: Full Dispo: anticipate home, ~1-2 days Time Spent Managing Pts Care (In Minutes): 41
--- NOTE | 2024-04-11 03:33 | CON ---
Date of Consultation: 04/10/2024 Chief Complaint: Acute on chronic kidney injury. History Of Present Illness: The patient has history of chronic kidney disease stage 3A, baseline cre atinine level 1.0. The patient is a 48-year-old woman with past medical history of anxiety; depressi on; diabetes mellitus; ; sleep apnea; left-sided weakness from brain surgery; history of an eurysm, status post clipping; brain surgery in the past; seizure disorder. The patient was brought t o emergency room because she developed altered mental status. She has history of brain aneurysm. Sh e became confused, drowsy, altered. She had trouble to communicate. She denied new symptoms, like v ision changes. She has some dysarthria and aphasia as well. Review of Systems: Constitutional: Denies fever, chills. Eyes: Denies new vision changes. Ears, Nose, Mouth, and Throat: Denies sore throat, earache. Respiratory: Denies PND, orthopnea. Cardiovascular: Denies syncope. GI: Denies nausea, vomiting. Denies melena, hematemesis. All other systems reviewed and all are negative. Past Medical History: Chronic kidney disease stage 3A; diabetes mellitus; hypertension; CVA, left-si ded weakness; arthritis; chronic pain; knee surgery; hip surgery; brain aneurysm clip. Family History: No kidney disease in family. Social History: Never-smoker. Denies alcohol or illicit drugs. Physical Examination: General: The patient is awake, alert, follows commands. Eyes: Anicteric sclerae. EOMI. Ears, Nose, Mouth, and Throat: Oral mucosa moist. No pallor. Neck: Supple. No bruits. Lungs: Clear to auscultation bilaterally. No wheezing. No rhonchi. Cardiovascular: S1, S2. No pericardial friction rub. Abdomen: Soft, benign, nontender. No rebound. No guarding. Extremities: No edema. Laboratory Data: Sodium 139, potassium 3.6, BUN 18, creatinine 1.5, glucose 96. Magnesium 2.2. Impression And Plan: Acute encephalopathy, altered mental status. The patient developed metabolic e ncephalopathy versus postictal versus . She underwent CT angiogram. MRI was not ordered b ecause she has aneurysm plate. Plan: 1.To monitor renal function. Avoid nephrotoxic medication. Continue mild hydration. Check urine f or possible active urinary sediment. Further workup according to pending results. 2.Seizure disorder. Continue Keppra. Continue telemetry. Neurology was consulted. 3.Diabetes mellitus. Continue insulin sliding scale. 4.Acute kidney injury, likely prerenal azotemia. Differential diagnosis includes contrast-induced n ephropathy. The patient has underlying chronic kidney disease stage 3A and history of long-term diab etes. Plan is to screen for proteinuria. Avoid nephrotoxic medication. The patient cannot take non steroidal anti-inflammatory medication. Continue adequate hydration by mouth and IV fluids. EB/MODL Voice ID: [id number] Report ID: [id number]
--- NOTE | 2024-04-11 07:54 | P.PN ---
Date of Service: 04/11/24 Subjective: had some nausea yesterday afternoon after going to the bathroom. 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 Reportedly feeling normal ~3-4 days prior to episode chronic residual left upper extremity weakness, left homonymous hemianopsia prior to episode. Mother reports patient was found on the floor having tremors and is also concerned for substance use Altered mental status secondary to polypharmacy vs postictal state. CT head, CTA neck (04/02): both negative for any acute findings unable to do MRI due to the presence of aneurysm clip. Dr. Erickson, Neurology is following. EEG report: abnormal EEG d/t presence of right hemisphere sharp and slow epileptiform discharged. 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 Continue Keppra Continue carbamazepine and baclofen Monitor for seizures - no seizure activity Speech consulted; no signs of aspiration. flexeril and phenergan dc'd 04/07 - potentially contributing to her somnolence mom at bedside reports several days in hospital she has had a "paralyzed left arm" Nursing staff noted in last 24 hours patient was able to use her left arm when ambulating to the bathroomshe place it only handrail. Similarly when she realized, her arm became flaccid again May have a psych component versus factitious Daily improvement noted Aphasia resolved unknown amount of time patient was down / possibly in status prior to being brought to ED. Nausea/vomiting, new onset; unclear etiology unclear etiology. ?reactive to medication/antibiotic reports episode of nausea/vomiting 2 nights ago, and again last night. Around t he same time each day. CT abdomen (04/09): no acute findings. Small volume of pelvic free fluid. statin dc'd 04/10; patient reports she hasn't been taking at home in a while. Could be contributing to nausea. PRN zofran UTI, multiple organisms Reports she is asymptomatic, stating she typically gets some incontinence/dysuria with prior UTIs Initial UA was ordered on admission was not collected until the 8 for some reason. This was not obtained due to having symptoms Patient was improving in regard to her mental capacity It is possible that she had a UTI present on admission urine cx (04/07): E. Coli and Enterococcus Faecalis rocephin switched to levaquin (04/09) following culture results Patient without sepsis, positive culture, asymptomatic bacteriuria versus true bacterial infection Given the uncertainty of the etiology of her presentation, will cover with antibiotic continue PO levaquin (04/09-) diflucan dc'd (04/07-04/08) afebrile, no leukocytosis Migraine Continue Imitrex as needed Patient may use home Ubrelvy. NIDDM2 with intermittent hypoglycemia Patient was initially experiencing intermittent bouts of hypoglycemia. Has resolved accu-cheks, SSI BARON, resolved Hypokalemia, improved continue to monitor renal function monitor and replete electrolytes as needed BARON secondary to nausea/vomiting and decreased intake IVF dc'd 04/08, given further IV fluids 04/10 BARON resolved 04/11 VTE: heparin sq Code: Full Dispo: anticipate home, ~1-2 days Time Spent Managing Pts Care (In Minutes): 41
[2024-04-11 08:28] LABS: Absolute Eosinophils 0.1 K/uL (0-0.5); Absolute Monocytes 0.3 K/uL (0.1-1.3); Absolute Neutrophil 2.5 K/uL (1.8-8.0); Eosinophils % 2.1 % (0-4.4); Hematocrit 38.2 % (36.0-45.0); Hemoglobin 12.6 g/dL (12.0-15.0); Lymphocytes % 40.5 % (15.3-44.8); MCH 31.8 pg (27.0-35.0); MCHC 32.9 g/dL (32.0-36.0); MCV 96.6 fL (80-100); MPV 7.8 fL (7.6-11.3); Monocytes % 5.5 % (3.3-12.3); Neutrophils % 50.9 % (41.7-73.7); Platelets 221 thou/uL (152-406); RBC Red Blood Cell Count 3.95 M/uL (3.86-4.86); Red Cell Distribution Width 13.4 % (12.1-15.2)
[2024-04-11 08:34] LABS: Albumin 3.4 g/dL (3.4-5.0); Anion Gap 7.9 mEq/L (5.0-15.0); Bilirubin Total 0.2 mg/dL (0.2-1.0); Globulin 3.3 g/dL (2.3-3.5); Magnesium 1.8 mg/dL (1.6-2.4); Potassium 3.9 mEq/L (3.5-5.1); Protein, Total 6.7 g/dL (6.4-8.2)
[2024-04-11 09:27] LABS: Band Neutrophils 1 % (0-1); Blood Morphology Comment NOT SEEN (NOT SEEN); Differential Total Cells Count 100; Eosinophils 1 % (0-3); Lymphocytes 41 % (15-42); Monocytes 6 % (0-10); Myelocytes 2 % (0-0); Platelet Estimate ADEQ; Segmented Neutrophils 49 % (40-80)
--- NOTE | 2024-04-11 13:19 | P.PN ---
Subjective Date of Service: 04/11/24 Chief Complaint: AMS Subjective: No new changes Physical Examination - Vital Signs Temperature: 98.2 F Blood Pressure: 119/84 Pulse: 93 Respirations: 16 Pulse Ox (%): 97 - Physical Exam General: Other (patient appears as her stated age) HEENT: Atraumatic, Normocephalic Neck: Supple, JVD not distended Respiratory: Other (symmetric chest expansion) Cardiovascular: No rubs, No murmurs Gastrointestinal: Soft and benign, No guarding Musculoskeletal: No clubbing Integumentary: No warmth Neurological: Normal tone Urinary: Other (no bladder distention) External genitalia: Deferred Rectal: Deferred Assessment And Plan - Plan 1. BARON 2/2 prerenal state. SCr decreased from 1.5 to 1.0. Cont IV/PO hydration. 2. CKD2. Monitor renal panel. 3. Seizure disorder. Continue Keppra. Continue telemetry. Neurology was consulted. 4. DM2. Continue insulin sliding scale.
[2024-04-12 07:13] LABS: Anion Gap 7.6 mEq/L (5.0-15.0); Magnesium 1.7 mg/dL (1.6-2.4); Phosphorus 3.6 mg/dL (2.5-4.9); Potassium 3.6 mEq/L (3.5-5.1)
[2024-04-12] MEDS: POTASSIUM CL SA 10 MEQ TAB PO ONE (08:54)
[2024-04-12] MEDS: MAGNESIUM SULFATE 1 gm IVPB 1 GM/100 ML BAG IV ONE (08:55)
--- NOTE | 2024-04-12 10:50 | P.PN ---
Date of Service: 04/12/24 Subjective: denies any new / worsening problems no further episodes of reported nausea/vomiting appetite improving family updated at bedside reports episode of feeling heart racing for a few seconds last night ROS: 10 point ROS as noted above, otherwise negative Physical Exam: GEN: Alert, NAD, slow speech HEENT: Normal conjunctiva, sclera anicteric CV: Regular rate and rhythm, no edema Pulm: Nonlabored respirations on room air, clear bilaterally ABD: soft, nontender, nondistended Neuro: LUE: 34+/5 arm flexors, LLE mild weakness Problem List: Acute metabolic encephalopathy / ?expressive aphasia secondary to chevy's para lysis / seizure Seizure disorder; secondary to significant encephalomalacia after cerebral aneurysm rupture/repair Nausea/vomiting, new onset; unclear etiology UTI, multiple organisms Migraine NIDDM2 with intermittent hypoglycemia BARON, resolved Hypokalemia, improved Acute metabolic encephalopathy / ?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 Reportedly feeling normal ~3-4 days prior to episode unknown amount of time patient was down / possibly in status prior to being brought to ED. chronic residual left upper extremity weakness, left homonymous hemianopsia prior to episode. Mother reports patient was found on the floor having tremors and is also concerned for substance use Altered mental status secondary to polypharmacy vs postictal state. CT head, CTA neck (04/02): both negative for any acute findings unable to do MRI due to the presence of aneurysm clip. EEG report: abnormal EEG d/t presence of right hemisphere sharp and slow epileptiform discharged. 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 Dr. Erickson, Neurology is following. Continue Keppra Continue carbamazepine and baclofen Monitor for seizures - no seizure activity Speech consulted; no signs of aspiration. flexeril and phenergan dc'd 04/07 - potentially contributing to her somnolence Left arm/hand strength improving daily Aphasia resolved add telemetry for today, given episode she felt last night Nausea/vomiting, new onset; unclear etiology unclear etiology. ?reactive to medication/antibiotic reports episode of nausea/vomiting 04/09 and again on 04/10. Around the same time each day. CT abdomen (04/09): no acute findings. Small volume of pelvic free fluid. statin dc'd 04/10; patient reports she hasn't been taking at home in a while. Could be contributing to nausea. no further episodes of nausea/vomiting in last 24 hours PRN zofran UTI, multiple organisms Reports she is asymptomatic, stating she typically gets some incontinence/dysuria with prior UTIs Initial UA was ordered on admission was not collected until the 8 for some reason. This was not obtained due to having symptoms Patient was improving in regard to her mental capacity It is possible that she had a UTI present on admission urine cx (04/07): E. Coli and Enterococcus Faecalis rocephin switched to levaquin (04/09) following culture results Patient without sepsis, positive culture, asymptomatic bacteriuria versus true bacterial infection Given the uncertainty of the etiology of her presentation, will cover with antibiotic continue PO levaquin (04/09-) diflucan dc'd (04/07-04/08) afebrile, no leukocytosis Migraine Continue Imitrex as needed Patient may use home Ubrelvy. NIDDM2 with intermittent hypoglycemia Patient was initially experiencing intermittent bouts of hypoglycemia. Has resolved accu-cheks, SSI BARON, resolved Hypokalemia, improved continue to monitor renal function monitor and replete electrolytes as needed BARON secondary to nausea/vomiting and decreased intake IVF dc'd 04/08, given further IV fluids 04/10 BARON resolved 04/11 VTE: heparin sq Code: Full Dispo: anticipate home, ~1 day Time Spent Managing Pts Care (In Minutes): 41
--- NOTE | 2024-04-12 16:35 | P.PN ---
Subjective Date of Service: 04/12/24 Chief Complaint: AMS Subjective: No new changes Physical Examination - Vital Signs Temperature: 97.7 F Blood Pressure: 112/71 Pulse: 80 Respirations: 20 Pulse Ox (%): 100 - Physical Exam General: Other (appears as her stated age) HEENT: Atraumatic, PERRLA Neck: Supple, JVD not distended Respiratory: Other (symmetric chest expansion) Cardiovascular: No rubs, No murmurs Gastrointestinal: Soft and benign, No guarding Musculoskeletal: No clubbing Integumentary: No warmth Neurological: Normal tone Urinary: Other (no bladder distention) External genitalia: Deferred Rectal: Deferred Assessment And Plan - Plan 1. BARON 2/2 prerenal state. SCr decreased to 1.0. Encourage liberal by mouth fluid intake. IVF prn. 2. CKD2. Monitor renal panel. 3. Seizure disorder. Continue Keppra. Continue telemetry. Neurology was consulted. 4. DM2. Continue insulin sliding scale.
[2024-04-13 06:13] LABS: Anion Gap 7.9 mEq/L (5.0-15.0); Potassium 3.9 mEq/L (3.5-5.1)
[2024-04-13 08:45] VITALS: BP 105/67; TEMP 97.2
[2024-04-13] MEDS: POTASSIUM CL SA 10 MEQ TAB PO ONE (08:46)
--- NOTE | 2024-04-13 09:07 | P.DS ---
Admission Date: 04/02/24 Discharge Date: 04/13/24 Disposition: ROUTINE DISCHARGE Discharge Condition: FAIR Reason for Admission: AMS Consultations: Neurology - Dr. Erickson Nephrology - Dr. Ballard, Dr. Guillen-Bahman Brief History of Present Illness: 48yo F, PMH: anxiety, depression, diabetes, DJD, PTSD, sleep apnea, mild left- sided weakness from brain surgery, history of aneurysm status post clipping, brain surgery, seizure, Patient was brought to ER with altered mental status . She has a past medical history of brain aneurysm. Patient was last seen normal 4 days ago by a neighbor. Patient is altered and drowsy and cannot offer any history hence most of the history is obtained from the chart review and also talking to the ER physician. 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 Given her presentation of symptoms and history, suspect her confusion, altered mentation status, arm weakness secondary to polypharmacy vs postictal state/ Reji's paralysis further complicated by UTI. CT head, CTA head/neck were all negative for any acute findings. MRI brain unable to be done here due to presence of aneurysm clip. Dr. Erickson (neuro) was consulted. EEG done this hospitalization was abnormal due to presence of right hemisphere sharp and slow epileptiform discharged, consistent with prior destructive lesion in the right hemisphere. Patient was down/unwitnessed for unknown amount of time while having seizure(s) prior to admission. Her home flexeril were held during hospitalization as there was some concern that polypharmacy could've been contributing to her confusion/somnolence and mentation continued to improve daily. Patient was feeling better, mentation improved, strength improving, expressive aphasia resolved, and was deemed stable for discharge. Recommend following up with Neurology in near future for further management. She was also found to have a UTI this hospitalization. Initial UA was ordered on admission but was unable to be collected until 04/07 - suspicious for UTI. Urine culture grew E.coli and Enterococcus aecalis susceptible to levaquin. She remained asymptomatic throughout hospitalization, and states she typically gets some incontinence/dysuria with prior UTIs. Its possible she had a UTI present of admission that could've contributed to confusion. Given the uncertainty of the etiology of her presentation and urine results, she was started on empiric rocephin. She had improvement after starting rocephin. Culture than grew eneterococcus in addition to the initial e.coli, so she was switched to levaquin per sensitivities. At time of urine collection and culture result, she did not display any signs of infection/sepsis, but also had not fully recovered to her baseline mentation. Since no other signs/symptoms of infection, and per sensitivities - levaquin was antibiotic of choice. Patient remained afebrile without leukocytosis throughout hospitalization. Patient is to complete 6 more days of levaquin on discharge for total of 10 day course. 04/09 - 04/18, She was noted to have an episode of nausea/vomiting 04/09 and again on 04/10 around the same time each day. Unclear exact etiology. Possibly reactive to atorvastatin vs antibiotic. CT abdomen was negative for any acute findings. A mild bump in her creatinine. Nausea/vomiting self resolved with time, and renal function returned to baseline. No further episodes of nausea/vomiting for at least 48 hours. Blood pressure and potassium have been within normal limits. BP low-normal. Her HCTZ and potassium were held, and at this point continue to not take them. Follow up with PCP. Medications: Levaquin for 6 more days every 48 hours (2 tablets), since received one on day of discharge. next doses are Saturday and Saturday hold/stop HCTZ and potassium pills until follow up with PCP she reported not taking her donepezil in awhile and stopped atorvastatin as well. During episode of nausea/vomiting, she was recently restarted on her prior home statin. This was discontinued and she had no further episodes. donepezil was not continued during hospitalization. continue to hold this until follow up with Neurology Follow up: PCP 3-5 days Neurology 2-4 weeks Please call to schedule / confirm appointments Physical Exam: GEN: Alert, NAD, slow speech HEENT: Normal conjunctiva, sclera anicteric CV: Regular rate and rhythm, no edema Pulm: Nonlabored respirations on room air, clear bilaterally ABD: soft, nontender, nondistended Neuro: LUE: 4+/5 arm flexors, LLE mild weakness Vital Signs/Physical Exam: Temp Pulse Resp BP Pulse Ox 97.2 F 74 16 105/67 98 04/13/24 08:00 04/13/24 08:00 04/13/24 08:00 04/13/24 08:00 04/13/24 08:00 Laboratory Data at Discharge: WBC 5.00 thou/uL (4.3-10.9) 04/11/24 08:07 Hgb 12.6 g/dL (12.0-15.0) 04/11/24 08:07 Hct 38.2 % (36.0-45.0) 04/11/24 08:07 Plt Count 221 thou/uL (152-406) 04/11/24 08:07 PT 10.8 SECONDS (9.4-12.5) 04/02/24 18:00 INR 0.96 04/02/24 18:00 APTT 33.9 SECONDS (24.3-36.9) 04/02/24 18:00 Sodium 139 mEq/L (136-145) 04/13/24 05:28 Potassium 3.9 mEq/L (3.5-5.1) 04/13/24 05:28 BUN 16 mg/dL (7-18) 04/13/24 05:28 Creatinine 1.17 mg/dL (0.55-1.02) H 04/13/24 05:28 Glucose 94 mg/dL (74-106) 04/13/24 05:28 Phosphorus 3.6 mg/dL (2.5-4.9) 04/12/24 06:47 Magnesium 2.0 mg/dL (1.6-2.4) 04/13/24 05:28 Total Bilirubin 0.2 mg/dL (0.2-1.0) 04/11/24 08:07 AST 24 U/L (15-37) 04/11/24 08:07 ALT 66 U/L (13-56) H 04/11/24 08:07 Alkaline Phosphatase 129 U/L (45-117) H 04/11/24 08:07 Home Medications: Sumatriptan Succinate [Imitrex] 1 tab PO BID PRN 11/04/23 carBAMazepine [Carbamazepine] 1 tab PO BID 11/04/23 Amantadine [Symmetrel*] 1 cap PO BID 30 Days #60 cap 11/06/23 levETIRAcetam [Keppra*] 500 mg PO BID 30 Days #60 tab 11/06/23 Baclofen 10 mg PO TID 04/03/24 Trazodone HCl [Desyrel] 1 tab PO BEDTIME 04/03/24 levoFLOXacin [Levaquin] 750 mg PO Q48H 4 Days #2 tab 04/13/24 New Medications: levoFLOXacin [Levaquin] 750 mg PO Q48H 4 Days #2 tab Physician Discharge Instructions: Physician discharge instructions: Patient presented with altered mentation, confusion, expressive aphasia, left hand weakness. Given her presentation of symptoms and history, suspect her confusion, altered mentation status, arm weakness secondary to polypharmacy vs postictal state/ Reji's paralysis further complicated by UTI. CT head, CTA head/neck were all negative for any acute findings. MRI brain unable to be done here due to presence of aneurysm clip. Dr. Erickson (neuro) was consulted. EEG done this hospitalization was abnormal due to presence of right hemisphere sharp and slow epileptiform discharged, consistent with prior destructive lesion in the right hemisphere. Patient was down/unwitnessed for unknown amount of time while having seizure(s) prior to admission. Her home flexeril were held during hospitalization as there was some concern that polypharmacy could've been contributing to her confusion/somnolence and mentation continued to improve daily. Patient was feeling better, mentation improved, strength improving, expressive aphasia resolved, and was deemed stable for discharge. Recommend following up with Neurology in near future for further management. She was also found to have a UTI this hospitalization. Initial UA was ordered on admission but was unable to be collected until 04/07 - suspicious for UTI. Urine culture grew E.coli and Enterococcus aecalis susceptible to levaquin. She remained asymptomatic throughout hospitalization, and states she typically gets some incontinence/dysuria with prior UTIs. Its possible she had a UTI present of admission that could've contributed to confusion. Given the uncertainty of the etiology of her presentation and urine results, she was started on empiric rocephin. She had improvement after starting rocephin. Culture than grew eneterococcus in addition to the initial e.coli, so she was switched to levaquin per sensitivities. At time of urine collection and culture result, she did not display any signs of infection/sepsis, but also had not fully recovered to her baseline mentation. Since no other signs/symptoms of infection, and per sensitivities - levaquin was antibiotic of choice. Patient remained afebrile without leukocytosis throughout hospitalization. Patient is to complete 6 more days of levaquin on discharge for total of 10 day course. 04/09 - 04/08, She was noted to have an episode of nausea/vomiting 04/09 and again on 04/10 around the same time each day. Unclear exact etiology. Possibly reactive to atorvastatin vs antibiotic. CT abdomen was negative for any acute findings. A mild bump in her creatinine. Nausea/vomiting self resolved with time, and renal function returned to baseline. No further episodes of nausea/vomiting for at least 48 hours. Blood pressure and potassium have been within normal limits. BP low-normal. Her HCTZ and potassium were held, and at this point continue to not take them. Follow up with PCP. Medications: Levaquin for 6 more days every 48 hours (2 tablets), since received one on day of discharge. next doses are Saturday and Saturday hold/stop HCTZ and potassium pills until follow up with PCP she reported not taking her donepezil in awhile and stopped atorvastatin as well. During episode of nausea/vomiting, she was recently restarted on her prior home statin. This was discontinued and she had no further episodes. donepezil was not continued during hospitalization. continue to hold this until follow up with Neurology Follow up: PCP 3-5 days Neurology 2-4 weeks Please call to schedule / confirm appointments Followup: Wade Erickson MD [ASSOCIATE-ACTIVE - CAN ADMIT] - NONE,NONE [Primary Care Provider] - Time spent managing pt's care (in minutes): 45
[2024-04-13 10:01] VITALS: O2SAT 98
--- NOTE | 2024-04-14 03:30 | PN ---
Date of Progress Note: 04/13/2024 Chief Complaint: Acute kidney injury. Subjective: The patient presented to the hospital because of generalized weakness. She has multiple medical problems, including history of chronic kidney disease stage 2, seizure disorder, history of CVA, diabetes mellitus, hypertension. The patient is feeling better today. Review of Systems: Denies chest pain, palpitation. Physical Examination: Lungs: Clear to auscultation bilaterally. Heart: S1, S2. Abdomen: Soft. Extremities: No edema. Impression And Plan: 1.Acute kidney injury secondary to prerenal state. Serum creatinine level decreased to 1.0. Contin ue p.o. fluid intake. IV fluids as needed. Avoid nonsteroidal anti-inflammatory medication. 2.Chronic kidney disease stage 2. Monitor renal panel. Continue adequate hydration by mouth. 3.Seizure disorder. The patient was consulted by neurologist. 4.Diabetes mellitus. Continue insulin. EB/MODL Voice ID: [id number] Report ID: [id number]
== END 2024-04-13 13:34 | disposition home or self-care (01) | DRG 91 ==
LOC: ER 17:44 → ERHOLD 20:25 → 4TH 23:35
PROVIDERS: ADMIT Family Medicine; ATTEND Hospitalist
DX: G83.84 Todd's paralysis (postepileptic) (principal); G92.8 Other toxic encephalopathy; N17.9 Acute kidney failure, unspecified; N39.0 Urinary tract infection, site not specified; E87.6 Hypokalemia; G93.89 Other specified disorders of brain; M19.90 Unspecified osteoarthritis, unspecified site; F43.10 Post-traumatic stress disorder, unspecified; G43.909 Migraine, unspecified, not intractable, without status migrainosus; G40.909 Epilepsy, unspecified, not intractable, without status epilepticus; I12.9 Hypertensive chronic kidney disease with stage 1 through stage 4 chronic kidney disease, or unspecified chronic kidney disease; N18.31 Chronic kidney disease, stage 3a; E11.22 Type 2 diabetes mellitus with diabetic chronic kidney disease; E11.649 Type 2 diabetes mellitus with hypoglycemia without coma; T50.915A Adverse effect of multiple unspecified drugs, medicaments and biological substances, initial encounter; B96.20 Unspecified Escherichia coli [E. coli] as the cause of diseases classified elsewhere; B95.2 Enterococcus as the cause of diseases classified elsewhere; R47.1 Dysarthria and anarthria; Z88.8 Allergy status to other drugs, medicaments and biological substances; Z90.49 Acquired absence of other specified parts of digestive tract; Z91.040 Latex allergy status; Z79.899 Other long term (current) drug therapy; Z90.710 Acquired absence of both cervix and uterus
CPT/HCPCS: 36415; 70450; 70496; 70498; 71045; 74176; 80048; 80053; 80307; 81001; 82947; 83735; 84100; 84484; 85025; 85027; 85610; 85730; 87077; 87086; 87088; 87186; 92610; 93005; 95819; 97110; 97112; 97116; 97129; 97161; 99285; J0696; J1644; J1953; J2175; J2270; J2405; J2550; J3475; J3480; J7030; Q9967

== ENCOUNTER 2024-04-18 11:12 | Emergency (ER) | payer BC, OTHER ==
[2024-04-18] MEDS ORDERED: NA CHLORIDE 0.9% 1,000 ML ONE (11:43)
[2024-04-18] MEDS ORDERED: ONDANSETRON 4 MG/2 ML VIAL ONE (11:43)
[2024-04-18] MEDS ORDERED: MORPHINE 4 MG/ML SYR ONE (11:43)
[2024-04-18 11:55] LABS: Absolute Basophils 0.1 K/uL (0-0.5); Absolute Lymphocytes (CBC) 1.4 K/uL (0.7-4.9); Absolute Monocytes 0.7 K/uL (0.1-1.3); Absolute Neutrophil 11.3 K/uL (1.8-8.0); Basophils % 0.6 % (0-1.3); Eosinophils % 0.1 % (0-4.4); Hematocrit 40.8 % (36.0-45.0); Hemoglobin 13.7 g/dL (12.0-15.0); Lymphocytes % 10.7 % (15.3-44.8); MCH 31.8 pg (27.0-35.0); MCHC 33.6 g/dL (32.0-36.0); MCV 94.5 fL (80-100); MPV 7.2 fL (7.6-11.3); Monocytes % 5.1 % (3.3-12.3); Neutrophils % 83.5 % (41.7-73.7); Platelets 396 thou/uL (152-406); RBC Red Blood Cell Count 4.31 M/uL (3.86-4.86); Red Cell Distribution Width 13.5 % (12.1-15.2)
[2024-04-18 12:15] LABS: Anion Gap 11.6 mEq/L (5.0-15.0); Bilirubin Total 0.8 mg/dL (0.2-1.0); Globulin 3.9 g/dL (2.3-3.5); Potassium 3.6 mEq/L (3.5-5.1); Protein, Total 7.9 g/dL (6.4-8.2)
--- NOTE | 2024-04-18 12:45 | RAD REPORT ---
EXAMINATION: CT ABDOMEN AND PELVIS WITH CONTRAST CLINICAL INDICATION: Abdominal pain TECHNIQUE: CT abdomen and pelvis was performed, after the administration of 100 cc Isovue-300.. Sagit carmen and coronal reconstructions were obtained. One or more of the following dose reduction techniques were used: Automated exposure control, adjustment of the mA and kV according to patient si ze, and iterative reconstruction. Unless otherwise specified, incidental findings do not require dedicated imaging follow-up. [id number]. Oral contrast was not given which limits evaluation of bowel and appendix. COMPARISON: April 10, 2024 and 2021 FINDINGS: Cholecystectomy.: Prominence of the biliary tree without significant change probably physiologic. The spleen, pancreas, and adrenals unremarkable. Tip of a peritoneal shunt right pelvis. Hysterectomy. Appendectomy. No adnexal mass. Rectum is distended with stool measuring 1.2 cm. Moderate to large amount stool is present within the colon. Presacral edema is present. IMPRESSION: Rectal distention may represent a fecal impaction. Moderate to large amount stool within the colon.
[2024-04-18] MEDS ORDERED: FLEET ENEMA ADULT PR ONE ×2 (13:03→16:47)
[2024-04-18] MEDS ORDERED: LACTULOSE 20 GM/30 ML UCUP ONE (13:26)
[2024-04-18] MEDS ORDERED: FENTANYL CITR 100 MCG/2 ML ONE (14:32)
[2024-04-18] MEDS ORDERED: BISACODYL 10 MG RECTAL SUPP ONE (16:47)
--- NOTE | 2024-04-18 17:32 | EDPHYS ---
Physician Documentation [facility] Name: Shannan Fuller Age: 48 yrs Sex: Female : 1975 Arrival Date: 04/18/2024 Time: 11:12 Bed 20 Private MD: ED Physician Ray Aguirre HPI: 04/18 11:23 This 48 yrs old Female presents to ER via Unassigned with complaints of Abdominal Pain. sb4 11:23 The patient presents with abdominal pain right lower quadrant. Onset: The sb4 symptoms/episode began/occurred at an unknown time. The symptoms do not radiate. Associated signs and symptoms: none. The patient has not experienced similar symptoms in the past. The patient has been recently been admitted at [facility], was discharged earlier this week, for apparently unrelated complaints. 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 - Infectious Disease History:: Denies. - Social history:: Smoking status: Patient denies any tobacco usage or history of. ROS: 11:24 Constitutional: Negative for fever, chills, and weight loss, sb4 11:24 Abdomen/GI: Positive for abdominal pain, 11:24 All other systems are negative, Exam: 11:24 Head/Face: Normocephalic, atraumatic. Eyes: Extra-ocular motions intact. Periorbital sb4 areas with no swelling, redness, or edema. ENT: Mucous membranes moist. Cardiovascular: Regular rate and rhythm with a normal S1 and S2. Respiratory: Lungs have equal breath sounds bilaterally, clear to auscultation and percussion. No rales, rhonchi or wheezes noted. No increased work of breathing, no retractions or nasal flaring. Skin: Warm, dry with normal turgor. Normal color with no rashes, no lesions, and no evidence of cellulitis. 11:24 Constitutional: The patient appears alert, awake, in obvious pain, uncomfortable, 11:24 Abdomen/GI: Inspection: bruising, all quadrants, Palpation: abdomen is soft and non-tender, mild abdominal tenderness, in the right lower quadrant and left lower quadrant, Vital Signs: 11:22 BP 113 / 76; Pulse 71; Resp 17; Temp 98(O); Pulse Ox 97% ; rs5 15:01 BP 118 / 77; Pulse 70; Resp 17; Pulse Ox 99% on R/A; rs5 17:31 BP 120 / 81; Pulse 74; Resp 17; Pulse Ox 99% on R/A; rs5 Procedures: 16:02 Fecal disimpaction: digital disimpaction was performed, with a small amount of stool sb4 expressed. tolerated poorly, had to stop. MDM: 11:21 Medical Screening Exam initiated sb4 12:54 Differential diagnosis: bowel obstruction, diverticulitis, non-specific abd pain, sb4 Peritonitis, Ureterolithiasis, urinary tract infection. 12:54 Data reviewed: vital signs, nurses notes, EMS record, lab test result(s), radiologic sb4 studies. 13:44 Counseling: I had a detailed discussion with the patient and/or guardian regarding the sb4 historical points, exam findings, and any diagnostic results supporting the discharge/admit diagnosis, lab results, radiology results, the need for outpatient follow up, for definitive care, to return to the emergency department if symptoms worsen or persist or if there are any questions or concerns that arise at home. 04/18 11:21 Order name: CBC with Diff; Complete Time: 12:02 sb4 04/18 11:21 Order name: CMP; Complete Time: 12:20 sb4 04/18 11:21 Order name: Lipase; Complete Time: 12:20 sb4 04/18 11:21 Order name: CT Abd/Pelvis - IV Contrast Only; Complete Time: 12:47 sb4 04/18 11:21 Order name: IV Saline Lock; Complete Time: 11:48 sb4 04/18 11:21 Order name: Labs collected and sent; Complete Time: 11:48 sb4 EC:35 Rate is 99 beats/min. Rhythm is regular, Normal Sinus Rhythm. CO interval is normal at sb4 142 msec. QRS interval is normal at 84 msec. QT interval is normal at 328 msec. No Q waves. T waves are Normal. No ST changes noted. Clinical impression: Normal ECG. Interpreted by me. Reviewed by me. Administered Medications: 11:53 Drug: Ondansetron IVP 4 mg IVP once; over 2 minutes Route: IVP; Site: right forearm; rs5 12:10 Follow up: Response: No adverse reaction; Pain is decreased rs5 11:53 Drug: morphine IVP or IV 4 mg IVP once over 4 mins Route: IVP; Infused Over: 4 mins; rs5 Site: right forearm; 12:10 Follow up: Response: No adverse reaction; Pain is decreased rs5 11:53 Drug: NS 0.9% IV 1000 ml IV at 1 bolus Per protocol; to be given as a bolus over 60 rs5 minutes Route: IV; Rate: 1 bolus; Site: right forearm; 13:01 Follow up: Response: No adverse reaction; IV Status: Completed infusion; IV Intake: rs5 1000ml 13:36 Drug: Lactulose PO 20 grams 30 ml PO once Volume: 30 ml; Route: PO; rs5 14:30 Follow up: Response: No adverse reaction rs5 13:51 Drug: Fleet Enema CO 133 ml CO once; may repeat once Route: CO; rs5 14:30 Follow up: Response: No adverse reaction rs5 14:25 Drug: fentaNYL (PF) IVP 25 mcg IVP once Route: IVP; Site: right forearm; rs5 15:01 Follow up: Response: No adverse reaction; Pain is decreased rs5 17:00 Drug: Fleet Enema CO 133 ml CO once; may repeat once Route: CO; rs5 17:30 Follow up: Response: No adverse reaction rs5 17:00 Drug: Bisacodyl CO Suppository 10 mg CO once Route: CO; rs5 17:30 Follow up: Response: No adverse reaction rs5 Disposition Summary: 04/18/24 17:31 Discharge Ordered Notes: Location: Home sb4 Problem: new sb4 Symptoms: have improved sb4 Condition: Stable sb4 Diagnosis - Fecal impaction sb4 - Constipation sb4 - Lower abdominal pain, unspecified sb4 Followup: sb4 - With: Private Physician - When: As needed - Reason: Recheck today's complaints, Re-evaluation by your physician Discharge Instructions: - Discharge Summary Sheet sb4 - Constipation, Adult, [id number] sb4 - Abdominal Pain, Adult, [id number] sb4 - Fecal Impaction sb4 Forms: - Patient Portal Instructions sb4 - Leadership Thank You Letter sb4 Prescriptions: - Colace 100 mg Oral Tablet - take 1 tablet ORAL route every 12 hours; 14 tablet; Refills: 0, Product sb4 Selection Permitted Signatures: Dispatcher [employer] Guerda Engle RN RN iw Brown, Sophia, HAN SHORT sb4 Joshua Espinoza RN RN rs5
--- NOTE | 2024-04-18 17:32 | ER ---
Nurse's Notes [facility] Name: Shannan Fuller Age: 48 yrs Sex: Female : 1975 Arrival Date: 04/18/2024 Time: 11:12 Bed 20 Private MD: Diagnosis: Fecal impaction;Constipation;Lower abdominal pain, unspecified Presentation: 04/18 11:33 Chief complaint: EMS states: family reports RLQ pain since Saturday. Coronavirus iw screen: At this time, the client does not indicate any symptoms associated with coronavirus-19. Ebola Screen: No symptoms or risks identified at this time. Initial Sepsis Screen: Does the patient meet any 2 criteria? No. Patient's initial sepsis screen is negative. Does the patient have a suspected source of infection? No. Patient's initial sepsis screen is negative. Risk Assessment: Do you want to hurt yourself or someone else? Patient reports no desire to harm self or others. Onset of symptoms was April 15, 2024. 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 - Infectious Disease History:: Denies. - Social history:: Smoking status: Patient denies any tobacco usage or history of. Screenin:21 [facility] ED Fall Risk Assessment (Adult) History of falling in the last 3 months, rs5 including since admission No falls in past 3 months (0 pts) Confusion or Disorientation No (0 pts) Intoxicated or Sedated No (0 pts) Impaired Gait Yes (1 pt) Mobility Assist Device Used Yes (1 pt) Altered Elimination No (0 pt) Score/Fall Risk Level 0 - 2 = Low Risk Oriented to surroundings, Maintained a safe environment. Abuse screen: Denies threats or abuse. Nutritional screening: No deficits noted. Tuberculosis screening: No symptoms or risk factors identified. Assessment: 11:21 General: Appears in no apparent distress. uncomfortable, Behavior is calm, cooperative. rs5 Pain: Complains of pain in abdomen Pain currently is 8 out of 10 on a pain scale. Quality of pain is described as aching, Is continuous. Neuro: Level of Consciousness is awake, alert, obeys commands, Oriented to person, place, time, situation. Cardiovascular: Patient's skin is warm and dry. Respiratory: Airway is patent Respiratory effort is even, unlabored, Respiratory pattern is regular, symmetrical. GI: Abdomen is round non-distended, Bowel sounds present X 4 quads. Abd is soft and non tender X 4 quads. Reports nausea. : No signs and/or symptoms were reported regarding the genitourinary system. EENT: No signs and/or symptoms were reported regarding the EENT system. Derm: Skin is intact, Skin is pink, warm \\T\\ dry. Musculoskeletal: Range of motion: limited in left arm and left leg. 12:25 Reassessment: Patient and/or family updated on plan of care and expected duration. Pain rs5 level reassessed. Patient is alert, oriented x 3, equal unlabored respirations, skin warm/dry/pink. 13:01 Reassessment: to bedside for enema, pt states "can you ask the provider to see if we rs5 can try a different kind of medicine instead of the enema?" provider notfied. 13:39 Reassessment: Patient and/or family updated on plan of care and expected duration. Pain rs5 level reassessed. Patient is alert, oriented x 3, equal unlabored respirations, skin warm/dry/pink. 13:52 Reassessment: pt states "I want to try the enema now", provider notified, to bedside rs5 for enema, pt tolerated procedure well, pt instructed to hit call light if pt has a BM or feels about to have a BM, comode at bedside . 15:01 Reassessment: Patient and/or family updated on plan of care and expected duration. Pain rs5 level reassessed. Patient is alert, oriented x 3, equal unlabored respirations, skin warm/dry/pink. 16:11 Reassessment: Patient and/or family updated on plan of care and expected duration. Pain rs5 level reassessed. Patient is alert, oriented x 3, equal unlabored respirations, skin warm/dry/pink. 17:31 Reassessment: No changes from previously documented assessment. rs5 18:00 Reassessment: Patient and/or family updated on plan of care and expected duration. Pain rs5 level reassessed. Patient is alert, oriented x 3, equal unlabored respirations, skin warm/dry/pink. Vital Signs: 11:22 BP 113 / 76; Pulse 71; Resp 17; Temp 98(O); Pulse Ox 97% ; rs5 15:01 BP 118 / 77; Pulse 70; Resp 17; Pulse Ox 99% on R/A; rs5 17:31 BP 120 / 81; Pulse 74; Resp 17; Pulse Ox 99% on R/A; rs5 ED Course: 11:20 Patient arrived in ED. sb4 11:20 Yesenia Marino PA-C is PHCP. sb4 11:20 Ray Aguirre MD is Attending Physician. sb4 11:21 Patient has correct armband on for positive identification. Placed in gown. Bed in low rs5 position. Call light in reach. Side rails up X2. 11:21 No provider procedures requiring assistance completed. rs5 11:30 Joshua Espinoza, RN is Primary Nurse. rs5 11:34 Triage completed. iw 11:35 Arm band placed on. iw 11:48 CBC with Diff Sent. em1 11:48 CMP Sent. em1 11:48 Lipase Sent. em1 11:48 Initial lab(s) drawn, by me, sent to lab. Inserted saline lock: 22 gauge in right em1 forearm, using aseptic technique. Blood collected. Flushed with 10 mL NS. 12:33 CT Abd/Pelvis - IV Contrast Only In Process Unspecified. EDMS 18:00 Provided Education on: discharge instructions . rs5 18:00 IV discontinued, intact, bleeding controlled, No redness/swelling at site. Pressure rs5 dressing applied. Administered Medications: 11:53 Drug: Ondansetron IVP 4 mg IVP once; over 2 minutes Route: IVP; Site: right forearm; rs5 12:10 Follow up: Response: No adverse reaction; Pain is decreased rs5 11:53 Drug: morphine IVP or IV 4 mg IVP once over 4 mins Route: IVP; Infused Over: 4 mins; rs5 Site: right forearm; 12:10 Follow up: Response: No adverse reaction; Pain is decreased rs5 11:53 Drug: NS 0.9% IV 1000 ml IV at 1 bolus Per protocol; to be given as a bolus over 60 rs5 minutes Route: IV; Rate: 1 bolus; Site: right forearm; 13:01 Follow up: Response: No adverse reaction; IV Status: Completed infusion; IV Intake: rs5 1000ml 13:36 Drug: Lactulose PO 20 grams 30 ml PO once Volume: 30 ml; Route: PO; rs5 14:30 Follow up: Response: No adverse reaction rs5 13:51 Drug: Fleet Enema NH 133 ml NH once; may repeat once Route: NH; rs5 14:30 Follow up: Response: No adverse reaction rs5 14:25 Drug: fentaNYL (PF) IVP 25 mcg IVP once Route: IVP; Site: right forearm; rs5 15:01 Follow up: Response: No adverse reaction; Pain is decreased rs5 17:00 Drug: Fleet Enema NH 133 ml NH once; may repeat once Route: NH; rs5 17:30 Follow up: Response: No adverse reaction rs5 17:00 Drug: Bisacodyl NH Suppository 10 mg NH once Route: NH; rs5 17:30 Follow up: Response: No adverse reaction rs5 Medication: 11:31 VIS not applicable for this client. rs5 Intake: 13:01 IV: 1000ml; Total: 1000ml. rs5 Outcome: 17:31 Discharge ordered by . sb4 18:00 Patient left the ED. rs5 18:00 Discharged to home via wheelchair, with family, rs5 18:00 Condition: stable 18:00 Discharge instructions given to patient, family, Instructed on discharge instructions, follow up and referral plans. medication usage, Demonstrated understanding of instructions, follow-up care, medications, Prescriptions given X 1, Signatures: Dispatcher [employer] EDMS Guerda Bowman RN RN iw Martinez, Eric em1 Yesenia Marino PA-C PA-C sb4 Joshua Espinoza RN RN rs5 Corrections: (The following items were deleted from the chart) 19:21 18:23 Patient left the ED. rs5 rs5 19:21 18:00 Discharge instructions given to patient, family, Instructed on discharge rs5 instructions, follow up and referral plans. Demonstrated understanding of instructions, follow-up care, rs5
[2024-04-18 21:51] VITALS: TEMP 98
[2024-04-18 21:55] VITALS: O2SAT 99
[2024-04-18 21:56] VITALS: BP 120/81
== END 2024-04-18 18:23 | disposition home or self-care (01) ==
LOC: ER 11:12
DX: K56.41 Fecal impaction (principal); E11.9 Type 2 diabetes mellitus without complications
CPT/HCPCS: 96361; 85025; 36415; 83690; 80053; 74177; 96375; 96374; 99284; Q9967; J3010; J2405; J7030

== ENCOUNTER 2024-04-23 09:30 | Emergency (ER) | payer BC, OTHER ==
[2024-04-23] MEDS ORDERED: THIAMINE 200 MG/2 ML INJ ONE (10:18)
[2024-04-23] MEDS ORDERED: NA CHLORIDE 0.9% 1,000 ML ONE ×2 (10:18→12:44)
[2024-04-23] MEDS ORDERED: FAMOTIDINE 20 MG/2 ML VIAL IV ONE (10:18)
[2024-04-23 10:26] LABS: Absolute Basophils 0.1 K/uL (0-0.5); Absolute Lymphocytes (CBC) 1.1 K/uL (0.7-4.9); Absolute Monocytes 0.4 K/uL (0.1-1.3); Absolute Neutrophil 7.8 K/uL (1.8-8.0); Basophils % 0.5 % (0-1.3); Eosinophils % 0.1 % (0-4.4); Hematocrit 34.7 % (36.0-45.0); Hemoglobin 11.8 g/dL (12.0-15.0); Lymphocytes % 11.8 % (15.3-44.8); MCH 32.5 pg (27.0-35.0); MCHC 34.1 g/dL (32.0-36.0); MCV 95.2 fL (80-100); MPV 6.7 fL (7.6-11.3); Monocytes % 4.5 % (3.3-12.3); Neutrophils % 83.1 % (41.7-73.7); Nucleated Red Blood Cells % 0.1 % (0-0); Platelets 382 thou/uL (152-406); RBC Red Blood Cell Count 3.64 M/uL (3.86-4.86); Red Cell Distribution Width 13.6 % (12.1-15.2)
[2024-04-23 10:31] LABS: PT Prothrombin Time 10.3 SECONDS (9.4-12.5); PTT, Activated Partial Thromb 26.9 SECONDS (24.3-36.9); Protime INR 0.92
--- NOTE | 2024-04-23 10:36 | RAD REPORT ---
EXAM: CT brain without contrast HISTORY: AMS COMPARISON: 11/22/2022 TECHNIQUE: Multiple contiguous axial images were obtained and a CT of the brain without contrast. Sag ittal and coronal reformats were performed. One or more of the following dose reduction techniques were used: Automated exposure control, adjust ment of the mA and/or kV according to patient size, and/or iterative reconstruction. FINDINGS: No evidence of hydrocephalus, intracranial hemorrhage, or extra-axial fluid collection. Large area of gliosis is seen right frontotemporal region. Tracheostomy tube is in place terminating near the foramen of Monro. No evidence of midline shift or areas of brain edema. Additional catheter tubing is present along the right superior convexity. Evidence of previous right sided craniotomy noted. Left-sided valentino hole present. Aneurysm clip is noted on the right anterior clinoid process. The visualized paranasal sinuses and mastoid air cells are essentially clear. IMPRESSION: No evidence of acute intracranial abnormality. EXAM: CT of the cervical spine without contrast HISTORY: Neck pain, injury AMS TECHNIQUE: Multiple contiguous axial images were obtained in a CT of the cervical spine without contr ast. Sagittal and coronal reformats were performed. FINDINGS: The vertebral bodies demonstrate normal height and alignment. No evidence of acute fracture or subluxation.. Moderate midcervical degenerative spondylosis is present. No prevertebral soft tissue swelling is seen. The posterior facets are well aligned. Normal alignment of the skull base with the cervical spine is seen. The lung apices are unremarkable. IMPRESSION: No evidence of acute osseous abnormality of the cervical spine.
--- NOTE | 2024-04-23 10:42 | RAD REPORT ---
EXAMINATION: ONE VIEW CHEST XR CLINICAL INDICATION: COUGH TECHNIQUE: Frontal chest projection is submitted. Examination is limited by patient positioning and t echnique. COMPARISON: 04/02/2024 FINDINGS: The lungs are well inflated and clear. The heart is normal in size. No displaced fractures identified . Tracheostomy tubing noted. IMPRESSION: No acute intrathoracic abnormalities.
[2024-04-23 10:45] LABS: Arterial Blood Carboxyhemoglob 1.2 % (0-1.5); Blood Gas Oxyhemoglobin 92.5 % (94-97); Blood O2 Saturation 95.4 % (92-98.5)
[2024-04-23 10:46] LABS: Blood Gas THB 11.8 g/dl (12-18)
[2024-04-23 10:52] LABS: ALT/SGPT 338 U/L (13-56); AST/SGOT 22 U/L (15-37); Albumin 3.8 g/dL (3.4-5.0); Albumin/Globulin Ratio 1.1 (1.1-1.8); Alkaline Phosphatase 249 U/L (45-117); BUN Blood Urea Nitrogen 16 mg/dL (7-18); Bicarbonate 26 mEq/L (21-32); Bilirubin Total 0.2 mg/dL (0.2-1.0); Globulin 3.6 g/dL (2.3-3.5); Glomerular Filtration Rate 50 ml/min (=/>90); Glucose Level 111 mg/dL (74-106); Magnesium 1.9 mg/dL (1.6-2.4); NT PRO-BNP 337 pg/mL (<125); Protein, Total 7.4 g/dL (6.4-8.2); Sodium Level 146 mEq/L (136-145); Troponin High Sensitivity 5.6 pg/mL (<58.9)
[2024-04-23 10:54] LABS: Bilirubin Direct < 0.2 mg/dL (0-0.2)
[2024-04-23] MEDS ORDERED: NA CHLORIDE 0.9% 1,000 ML with THIAMINE HCL 100 MG, FOLIC ACID 1 MG, MULTIVITAMINS INJ ... IV SCH (11:30)
[2024-04-23 11:41] LABS: Band Neutrophils 4 % (0-1); Differential Total Cells Count 100; Segmented Neutrophils 72 % (40-80)
[2024-04-23 11:42] LABS: Blood Morphology Comment NOT SEEN (NOT SEEN); Lymphocytes 20 % (15-42); Metamyelocytes 1 % (0-0); Monocytes 3 % (0-10); Platelet Estimate ADEQ
[2024-04-23 12:57] LABS: Calcium Oxalate Crystals- Ur Moderate /HPF (None Seen); Sqamous Epithelial <5 /HPF (None Seen); Urine Bacteria None Seen /HPF (<20); Urine Bilirubin NEGATIVE (Negative); Urine Blood 1+ (Negative); Urine Clarity Extremely Turbid (Clear); Urine Color Yellow (Yellow); Urine Culture Reflex Order NOT NEEDED; Urine Glucose NEGATIVE (Negative); Urine Ketones NEGATIVE (Negative); Urine Microscopic Reflex YN ORDER UMIC; Urine Mucus 3+ /HPF (None Seen); Urine Nitrite NEGATIVE (Negative); Urine Protein 1+ (Negative); Urine RBC 21-50 /HPF (None Seen); Urine Urobilinogen Normal (Normal); Urine WBC Clump Occasional /HPF (None Seen); Urine Yeast (Budding) Trace /HPF (None Seen)
[2024-04-23 13:02] LABS: Barbiturates NEGATIVE (NEGATIVE); Benzodiazepines NEGATIVE (NEGATIVE); Cocaine NEGATIVE (NEGATIVE); METHAMPHETAM NEGATIVE (NEGATIVE); Methadone NEGATIVE (NEGATIVE); Opiates NEGATIVE (NEGATIVE); Phencyclidine NEGATIVE (NEGATIVE); THC Cannibis POSITIVE (NEGATIVE)
[2024-04-23] MEDS ORDERED: KCL 20 MEQ/100 mL IVPB 100 ML IV ONE (13:03)
[2024-04-23] MEDS ORDERED: NA CHLORIDE 0.9% 100 ML ONE (13:10)
[2024-04-23] MEDS ORDERED: LEVETIRACETAM 500 MG/5 ML VIAL IV ONE (13:10)
--- NOTE | 2024-04-23 13:13 | ER ---
Nurse's Notes [facility] Name: Shannan Fuller Age: 48 yrs Sex: Female : 1975 Arrival Date: 04/23/2024 Time: 09:30 Bed 5 Private MD: Diagnosis: Altered mental status, unspecified;Aphasia;Epileptic seizures related to external causes, not intractable, without status epilepticus Presentation: 04/23 09:55 Chief complaint: EMS states: they were called out for a fall, but the patient was found ap3 sitting by the bed, and the last known well is reported to be last night. EMS reports the patient urinated herself and was vomiting. EMS initiated a 20g IV to the right wrist and administered 4mg Zofran IV. Coronavirus screen: At this time, the client does not indicate any symptoms associated with coronavirus-19. Ebola Screen: No symptoms or risks identified at this time. Initial Sepsis Screen: Does the patient meet any 2 criteria? No. Patient's initial sepsis screen is negative. Does the patient have a suspected source of infection? No. Patient's initial sepsis screen is negative. Risk Assessment: Do you want to hurt yourself or someone else? Patient reports no desire to harm self or others. Onset of symptoms is unknown. Care prior to arrival: Medication(s) given: zofran 4 mg, IV initiated. 20 GA, in the right wrist. Transition of care: patient was not received from another setting of care. 09:55 Method Of Arrival: EMS: [facility] ap3 09:55 Acuity: ANNABEL 2 ap3 Triage Assessment: 10:07 General: Appears distressed, Behavior is. Pain: Unable to use pain scale. verbally ap3 unresponsive. Neuro: Level of Consciousness is verbally unresponsive. withdraws to pain. Oriented to unknown at this time. 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 - Infectious Disease History:: unknown. - Social history:: Smoking status: Patient denies any tobacco usage or history of. Screenin:10 Abuse screen: Denies threats or abuse. Nutritional screening: On. Nutritional ap3 screening: No deficits noted. Tuberculosis screening: No symptoms or risk factors identified. 10:38 [facility] ED Fall Risk Assessment (Adult) History of falling in the last 3 months, ap3 including since admission Yes- fall prone (multiple falls) (3 pts) Confusion or Disorientation Yes (5 pts) Intoxicated or Sedated Yes (3 pts) Impaired Gait Yes (1 pt) Mobility Assist Device Used No (0 pt) Altered Elimination Yes (1 pt) Score/Fall Risk Level 3 or more points = High Risk Oriented to surroundings, Maintained a safe environment, Educated pt \T\ family on fall prevention, incl call for assistance when getting out of bed, Assessed \T\ reinforced patient's understanding of fall precautions, Provided non-skid footwear, Hourly rounding (assess needs \T\ fall precautionary measures) done, Used ambulatory aids as needed (educated on \T\ assisted with), Used gait belt as appropriate Implemented a Fall Risk Plan of Care, Apply high fall risk patient identification: yellow non skid footwear/ fall signage, Remained w/in arm's length of patient and in sight while toileting, Offered frequent toileting (1:1 observation), Remained with patient while ambulating, Utilized family, sitter, or virtual universal grinder set up operator as indicated. Assessment: 15:30 Reassessment: attempt to call report , no answer. iw 16:35 Reassessment: Patient appears in no apparent distress at this time. family at bedside iw for dispo, address given to mother. Vital Signs: 09:55 BP 120 / 71; Pulse 53; Resp 14; Temp 97.7; Pulse Ox 100% on R/A; ap3 10:58 Pulse 56; Resp 13; Pulse Ox 100% ; ap3 12:02 BP 117 / 63; Pulse 75; Pulse Ox 100% on R/A; ap3 12:14 BP 124 / 69; Pulse 52; Pulse Ox 100% on R/A; ap3 12:54 BP 120 / 68; Pulse 66; Resp 15; Pulse Ox 100% on R/A; ap3 14:08 BP 113 / 63; Pulse 73; Resp 15; Pulse Ox 100% on R/A; iw [place] Coma Score: 10:07 Eye Response: to pain(2). Motor Response: withdraws from pain(4). Verbal Response: ap3 incomprehensible(2). Total: 8. 12:20 Eye Response: to pain(2). Motor Response: withdraws from pain(4). Verbal Response: ap3 inappropriate words(3). Total: 9. NIH Stroke Scale Scores: 13:05 NIHSS Score: 13 darlyn ED Course: 09:41 Patient arrived in ED. ss 09:42 Ray Aguirre MD is Attending Physician. darlyn 09:51 Head C Spine Mpr Wo Con In Process Unspecified. EDMS 09:55 Olivia Clark, RN is Primary Nurse. ap3 10:06 Triage completed. ap3 10:09 Arm band placed on right wrist. ap3 10:09 Missed attempt(s): 20 gauge in right wrist. ap3 10:10 Patient has correct armband on for positive identification. Bed in low position. Call ap3 light in reach. Side rails up X2. Adult w/ patient. Client placed on continuous cardiac and pulse oximetry monitoring. NIBP monitoring applied. equipment monitor phototypesetting on. Pulse ox on. NIBP on. 10:26 XRAY Chest (1 view) In Process Unspecified. EDMS 10:35 EKG done, by ED staff, reviewed by Ray Aguirre MD. ap3 12:21 Patient has correct armband on for positive identification. Seizure precautions ap3 initiated. Provided Education on: need for straight catheter for urine. 13:15 initiated transfer with Som at [facility] transfer [place]. bc6 13:17 CT Neck Angio In Process Unspecified. EDMS 13:24 Head angio In Process Unspecified. EDMS 14:[address] Marisol Haile at [facility]. bc6 15:58 tony with [facility] accepted transfer. bc6 16:30 Primary Nurse role handed off by Olivia Clark, MORA iw 16:30 Guerda Bowman, MORA is Primary Nurse. iw 16:37 No provider procedures requiring assistance completed. Patient transferred, IV remains iw in place. Administered Medications: 10:26 Drug: NS 0.9% IV 1000 ml IV at 1 bolus Per protocol; to be given as a bolus over 60 ap3 minutes Route: IV; Rate: 1 bolus; Site: right wrist; 13:40 Follow up: IV Status: Completed infusion; IV Intake: 1000ml ap3 10:26 Drug: Thiamine IV 100 mg IV at bolus once Route: IV; Rate: bolus; Site: right wrist; ap3 13:40 Follow up: IV Status: Completed infusion ap3 10:26 Drug: Famotidine IVP 20 mg IVP once; dilute with 10 mL 0.9% NaCl; give over 2 minutes ap3 Route: IVP; Site: right wrist; 13:59 Follow up: Response: No adverse reaction ap3 12:02 Drug: Banana Bag - (Multivitamin IV 1 amp, NS 0.9% IV 1000 ml, Thiamine IV 100 mg, ap3 foLIC Acid IVPB 1 mg) IV at 125 ml/hr once Route: IV; Rate: 125 ml/hr; Site: right wrist; 16:30 Follow up: IV Status: Order to discontinue infusion iw 12:52 Drug: NS 0.9% IV 1000 ml IV at 1000 ml once; to be given as a bolus over 60 minutes ap3 Route: IV; Rate: 1000 ml; Site: right wrist; 14:00 Follow up: IV Status: Completed infusion iw 13:40 Drug: Keppra IV 2000 mg IV at per protocol once Route: IV; Rate: per protocol; Site: ap3 right wrist; 13:58 Follow up: IV Status: Completed infusion; IV Intake: 100ml ap3 13:41 Drug: NS 0.9% IV 1000 ml IV at 1000 ml once; to be given as a bolus over 60 minutes ap3 Route: IV; Rate: 1000 ml; Site: right wrist; 16:29 Follow up: IV Status: Completed infusion iw 13:58 Drug: Ativan IVP 1 mg IVP once Route: IVP; Site: right wrist; ap3 16:35 Follow up: Response: No adverse reaction iw 14:08 Drug: Potassium Chloride IV 20 mEq IV at per protocol once; administer over 1-2 hours ap3 Route: IV; Rate: per protocol; Site: left wrist; 16:00 Follow up: IV Status: Completed infusion iw 14:08 Drug: Aspirin RI Suppository 300 mg RI once Route: RI; ap3 16:35 Follow up: Response: No adverse reaction iw 16:25 Drug: Rocephin IV 1 grams IV at per protocol once; Given slow IV push per pharmacy iw instructions Route: IV; Rate: per protocol; Site: right wrist; 16:29 Follow up: IV Status: Completed infusion iw Medication: 10:41 VIS not applicable for this client. ap3 Intake: 13:40 IV: 1000ml; Total: 1000ml. ap3 13:58 IV: 100ml; Total: 1100ml. ap3 Outcome: 13:12 ER care complete, transfer ordered by . [facility] 16:36 Transferred by [facility]. to [facility], Transfer form iw completed. X-rays sent w/ patient. 16:36 Condition: improved 16:36 Discharge instructions given to family, Instructed on the need for transfer, Demonstrated understanding of 16:37 Patient left the ED. NIH Stroke Scale - NIH Stroke Score Date: 04/23/2024 Time: 13:05 Total Score = 13 10. Dysarthria (speech clarity - read or repeat words) - 2(Severe) 11. Extinction and Inattention (visual/tactile/auditory/spatial/personal) - 0(No abnormality) 1a. Level of Consciousness (LOC) - 0(Alert) 1b. Level of Consciousness (LOC) (Month \T\ Age) - 2(Neither) 1c. LOC Commands (Open \T\ Closes Eyes/Associate Principal) - 2(Neither) 2. Best Gaze (Lateral Gaze Paresis) - 0(Normal) 3. Visual Field Loss - 0(No visual loss) 4. Facial Palsy - 1(Minor Paralysis) 5a. Left Arm: Motor (10-second hold) - 3(No effort against gravity) 5b. Right Arm: Motor (10-second hold) - 0(No drift) 6a. Left Leg: Motor (5-second hold - always test supine) - 0(No drift) 6b. Right Leg: Motor (5-second hold - always test supine) - 0(No drift) 7. Limb Ataxia (finger/nose \T\ heel/pace - test with eyes open) - 1(Present in one limb) 8. Sensory Loss (pinprick arms/legs/face) - 0(Normal) 9. Best Language: Aphasia (description/naming/reading) - 2(Severe aphasia) Initials: [facility] Signatures: Dispatcher [employer] Ray Borwn MD MD cha Williams, Irene, RN RN iw Pari Diallo, MORA RN ss Olivia Clark RN RN ap3 Nicole Hong [facility] Corrections: (The following items were deleted from the chart) 14:24 14:08 BP 113 / 63; Pulse 37bpm; Resp 15bpm; Pulse Ox 100% RA; ap3 iw
--- NOTE | 2024-04-23 13:13 | EDPHYS ---
Physician Documentation [facility] Name: Shannan Fuller Age: 48 yrs Sex: Female : 1975 Arrival Date: 04/23/2024 Time: 09:30 Bed 5 Private MD: ED Physician Ray Aguirre HPI: 04/23 13:03 This 48 yrs old Female presents to ER via EMS with complaints of Seizure. darlyn 13:03 The patient presents the episode(s) was witnessed. 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 - Infectious Disease History:: unknown. - Social history:: Smoking status: Patient denies any tobacco usage or history of. ROS: 13:05 Constitutional: Negative for fever, chills, and weight loss, Eyes: Negative for injury, darlyn pain, redness, and discharge, ENT: Negative for injury, pain, and discharge, Neck: Negative for injury, pain, and swelling, Cardiovascular: Negative for chest pain, palpitations, and edema, Respiratory: Negative for shortness of breath, cough, wheezing, and pleuritic chest pain, Abdomen/GI: Negative for abdominal pain, nausea, vomiting, diarrhea, and constipation, Back: Negative for injury and pain, : Negative for injury, bleeding, discharge, and swelling, MS/Extremity: Negative for injury and deformity, Skin: Negative for injury, rash, and discoloration, Psych: Negative for depression, anxiety, suicide ideation, homicidal ideation, and hallucinations, Allergy/Immunology: Negative for hives, rash, and allergies, Endocrine: Negative for neck swelling, polydipsia, polyuria, polyphagia, and marked weight changes, Hematologic/Lymphatic: Negative for swollen nodes, abnormal bleeding, and unusual bruising, 13:05 Neuro: Positive for altered mental status, speech changes, weakness, of the face and left arm, Exam: 13:05 Constitutional: This is a well developed, well nourished patient who is awake, alert, darlyn and in no acute distress. Head/Face: Normocephalic, atraumatic. Eyes: Pupils equal round and reactive to light, extra-ocular motions intact. Lids and lashes normal. Conjunctiva and sclera are non-icteric and not injected. Cornea within normal limits. Periorbital areas with no swelling, redness, or edema. ENT: Nares patent. No nasal discharge, no septal abnormalities noted. Tympanic membranes are normal and external auditory canals are clear. Oropharynx with no redness, swelling, or masses, exudates, or evidence of obstruction, uvula midline. Mucous membranes moist. Neck: Trachea midline, no thyromegaly or masses palpated, and no cervical lymphadenopathy. Supple, full range of motion without nuchal rigidity, or vertebral point tenderness. No Meningismus. Chest/axilla: Normal chest wall appearance and motion. Nontender with no deformity. No lesions are appreciated. Cardiovascular: Regular rate and rhythm with a normal S1 and S2. No gallops, murmurs, or rubs. Normal PMI, no JVD. No pulse deficits. Respiratory: Lungs have equal breath sounds bilaterally, clear to auscultation and percussion. No rales, rhonchi or wheezes noted. No increased work of breathing, no retractions or nasal flaring. Abdomen/GI: Soft, non-tender, with normal bowel sounds. No distension or tympany. No guarding or rebound. No evidence of tenderness throughout. Back: No spinal tenderness. No costovertebral tenderness. Full range of motion. Pelvic Exam: Normal external genitalia. Speculum exam with closed cervical os, no discharge or bleeding noted. Bimanual exam with normal adnexa, no adnexal or cervical motion tenderness. Normal uterus. Skin: Warm, dry with normal turgor. Normal color with no rashes, no lesions, and no evidence of cellulitis. MS/ Extremity: Pulses equal, no cyanosis. Neurovascular intact. Full, normal range of motion. Psych: Awake, alert, with orientation to person, place and time. Behavior, mood, and affect are within normal limits. 13:05 ECG was reviewed by the Attending Physician. Vital Signs: 09:55 BP 120 / 71; Pulse 53; Resp 14; Temp 97.7; Pulse Ox 100% on R/A; ap3 10:58 Pulse 56; Resp 13; Pulse Ox 100% ; ap3 12:02 BP 117 / 63; Pulse 75; Pulse Ox 100% on R/A; ap3 12:14 BP 124 / 69; Pulse 52; Pulse Ox 100% on R/A; ap3 12:54 BP 120 / 68; Pulse 66; Resp 15; Pulse Ox 100% on R/A; ap3 14:08 BP 113 / 63; Pulse 73; Resp 15; Pulse Ox 100% on R/A; iw NIH Stroke Scale Scores: 13:05 NIHSS Score: 13 darlyn [place] Coma Score: 10:07 Eye Response: to pain(2). Motor Response: withdraws from pain(4). Verbal Response: ap3 incomprehensible(2). Total: 8. 12:20 Eye Response: to pain(2). Motor Response: withdraws from pain(4). Verbal Response: ap3 inappropriate words(3). Total: 9. MDM: 09:42 Medical Screening Exam initiated darlyn 13:16 Differential Diagnosis altered mental status, sepsis, flu. Differential Diagnosis: CVA, darlyn electrolyte abnormality, alcohol intoxication, hypoglycemia, intracranial bleed, meningitis, overdose, pneumonia, seizure, sepsis, TIA, UTI, volume depletion. Data reviewed: vital signs, nurses notes, lab test result(s), EKG, radiologic studies. Consideration of Admission/Observation Escalation of care including admission/observation considered. I considered the following discharge prescriptions or medication management in the emergency department Medications were administered in the Emergency Department. See MAR. Independent interpretation of the following test(s) in the Emergency Department EKG: See my EKG interpretation above. Test considered but Not performed: MRI: NO MRI BRAIN. Historians other than the Patient: Parent: MOM WELL INFORMED. Care significantly affected by the following chronic conditions: Diabetes, ANXIETY,DJD, MULTIPLE ANEURSYMS , CLIPPED. 04/23 09:46 Order name: Basic Metabolic Panel; Complete Time: 12:50 [facility] 04/23 09:46 Order name: CBC with Diff; Complete Time: 12:50 [facility] 04/23 09:46 Order name: LFT's; Complete Time: 12:50 [facility] 04/23 09:46 Order name: Magnesium; Complete Time: 12:50 [facility] 04/23 09:46 Order name: NT PRO-BNP; Complete Time: 12:50 [facility] 04/23 09:46 Order name: PT-INR; Complete Time: 10:45 [facility] 04/23 09:46 Order name: Troponin HS; Complete Time: 12:50 [facility] 04/23 09:46 Order name: Acetaminophen; Complete Time: 12:50 [facility] 04/23 09:46 Order name: ETOH Level; Complete Time: 10:45 [facility] 04/23 09:46 Order name: Ptt, Activated; Complete Time: 10:45 [facility] 04/23 09:46 Order name: Salicylate; Complete Time: 12:50 [facility] 04/23 09:46 Order name: Urinalysis w/ reflexes; Complete Time: 13:36 [facility] 04/23 09:46 Order name: Urine Drug Screen; Complete Time: 13:36 [facility] 04/23 09:46 Order name: ABG; Complete Time: 12:50 [facility] 04/23 11:42 Order name: Manual Differential; Complete Time: 12:50 EDMS 04/23 09:45 Order name: Head C Spine Mpr Wo Con; Complete Time: 10:45 EDMS 04/23 09:46 Order name: XRAY Chest (1 view); Complete Time: 12:50 [facility] 04/23 09:46 Order name: CT Head C Spine [facility] 04/23 13:01 Order name: CT Neck Angio [facility] 04/23 13:06 Order name: Head angio; Complete Time: 14:02 EDMS 04/23 09:46 Order name: EKG; Complete Time: 09:46 [facility] 04/23 09:46 Order name: Cardiac monitoring; Complete Time: 10:11 [facility] 04/23 09:46 Order name: EKG - Nurse/Tech; Complete Time: 10:34 [facility] 04/23 09:46 Order name: IV Saline Lock; Complete Time: 10:27 [facility] 04/23 09:46 Order name: Labs collected and sent; Complete Time: 10:27 [facility] 04/23 09:46 Order name: O2 Per Protocol; Complete Time: 10:11 [facility] 04/23 09:46 Order name: O2 Sat Monitoring; Complete Time: 10:11 [facility] EC:05 Rate is 60 beats/min. Rhythm is regular. QRS [place] is Normal. NE interval is normal. QRS darlyn interval is normal. QT interval is normal. No Q waves. T waves are Normal. No ST changes noted. Clinical impression: NSR w/ Non-specific ST/T Changes and No evidence of ischemia. Interpreted by me. Reviewed by me. Administered Medications: 10:26 Drug: NS 0.9% IV 1000 ml IV at 1 bolus Per protocol; to be given as a bolus over 60 ap3 minutes Route: IV; Rate: 1 bolus; Site: right wrist; 13:40 Follow up: IV Status: Completed infusion; IV Intake: 1000ml ap3 10:26 Drug: Thiamine IV 100 mg IV at bolus once Route: IV; Rate: bolus; Site: right wrist; ap3 13:40 Follow up: IV Status: Completed infusion ap3 10:26 Drug: Famotidine IVP 20 mg IVP once; dilute with 10 mL 0.9% NaCl; give over 2 minutes ap3 Route: IVP; Site: right wrist; 13:59 Follow up: Response: No adverse reaction ap3 12:02 Drug: Banana Bag - (Multivitamin IV 1 amp, NS 0.9% IV 1000 ml, Thiamine IV 100 mg, ap3 foLIC Acid IVPB 1 mg) IV at 125 ml/hr once Route: IV; Rate: 125 ml/hr; Site: right wrist; 16:30 Follow up: IV Status: Order to discontinue infusion iw 12:52 Drug: NS 0.9% IV 1000 ml IV at 1000 ml once; to be given as a bolus over 60 minutes ap3 Route: IV; Rate: 1000 ml; Site: right wrist; 14:00 Follow up: IV Status: Completed infusion iw 13:40 Drug: Keppra IV 2000 mg IV at per protocol once Route: IV; Rate: per protocol; Site: ap3 right wrist; 13:58 Follow up: IV Status: Completed infusion; IV Intake: 100ml ap3 13:41 Drug: NS 0.9% IV 1000 ml IV at 1000 ml once; to be given as a bolus over 60 minutes ap3 Route: IV; Rate: 1000 ml; Site: right wrist; 16:29 Follow up: IV Status: Completed infusion iw 13:58 Drug: Ativan IVP 1 mg IVP once Route: IVP; Site: right wrist; ap3 16:35 Follow up: Response: No adverse reaction iw 14:08 Drug: Potassium Chloride IV 20 mEq IV at per protocol once; administer over 1-2 hours ap3 Route: IV; Rate: per protocol; Site: left wrist; 16:00 Follow up: IV Status: Completed infusion iw 14:08 Drug: Aspirin NE Suppository 300 mg NE once Route: NE; ap3 16:35 Follow up: Response: No adverse reaction iw 16:25 Drug: Rocephin IV 1 grams IV at per protocol once; Given slow IV push per pharmacy iw instructions Route: IV; Rate: per protocol; Site: right wrist; 16:29 Follow up: IV Status: Completed infusion iw Disposition Summary: 04/23/24 13:12 Transfer Ordered Notes: Transfer Location: [facility] darlyn Reason: Higher level of care darlyn Condition: Fair darlyn Problem: new darlyn Symptoms: have improved darlyn Accepting Physician: VIOLETA REDDY(04/23/24 16:37) iw Diagnosis - Altered mental status, unspecified darlyn - Aphasia darlyn - Epileptic seizures related to external causes, not intractable, without status darlyn epilepticus Forms: - Medication Reconciliation Form darlyn - SBAR form darlyn NIH Stroke Scale - NIH Stroke Score Date: 04/23/2024 Time: 13:05 Total Score = 13 10. Dysarthria (speech clarity - read or repeat words) - 2(Severe) 11. Extinction and Inattention (visual/tactile/auditory/spatial/personal) - 0(No abnormality) 1a. Level of Consciousness (LOC) - 0(Alert) 1b. Level of Consciousness (LOC) (Month \T\ Age) - 2(Neither) 1c. LOC Commands (Open \T\ Closes Eyes/Sort Operations Supervisor) - 2(Neither) 2. Best Gaze (Lateral Gaze Paresis) - 0(Normal) 3. Visual Field Loss - 0(No visual loss) 4. Facial Palsy - 1(Minor Paralysis) 5a. Left Arm: Motor (10-second hold) - 3(No effort against gravity) 5b. Right Arm: Motor (10-second hold) - 0(No drift) 6a. Left Leg: Motor (5-second hold - always test supine) - 0(No drift) 6b. Right Leg: Motor (5-second hold - always test supine) - 0(No drift) 7. Limb Ataxia (finger/nose \T\ heel/pace - test with eyes open) - 1(Present in one limb) 8. Sensory Loss (pinprick arms/legs/face) - 0(Normal) 9. Best Language: Aphasia (description/naming/reading) - 2(Severe aphasia) Initials: darlyn Signatures: Dispatcher [employer] EDMS Ray Aguirre MD MD cha Williams, Irene, RN Olivia Bradshaw RN RN ap3 Corrections: (The following items were deleted from the chart) 09:46 09:46 BASIC METABOLIC PANEL+C.LAB.BRZ ordered. EDMS EDMS 09:46 09:46 CBC+H.LAB.BRZ ordered. EDMS EDMS 09:46 09:46 HEPATIC FUNCTION+C.LAB.BRZ ordered. EDMS EDMS 09:46 09:46 MAGNESIUM+C.LAB.BRZ ordered. EDMS EDMS 09:46 09:46 PROBNP+C.LAB.BRZ ordered. EDMS EDMS 09:46 09:46 PROTIME (+INR)+COAG.LAB.BRZ ordered. EDMS EDMS 09:46 09:46 Troponin High Sensitivity+C.LAB.BRZ ordered. EDMS EDMS 09:46 09:46 ACETAMINOPHEN+C.LAB.BRZ ordered. EDMS EDMS 09:46 09:46 ETHANOL+C.LAB.BRZ ordered. EDMS EDMS 09:46 09:46 PTT, ACTIVATED+COAG.LAB.BRZ ordered. EDMS EDMS 09:46 09:46 SALICYLATE+C.LAB.BRZ ordered. EDMS EDMS 09:46 09:46 Urinalysis+U.LAB.BRZ ordered. EDMS EDMS 09:46 09:46 URINE DRUG SCREEN+UC.LAB.BRZ ordered. EDMS EDMS 10:36 09:46 Suicide Screening ([place]) ordered. [facility] ap3 11:30 09:58 MR STROKE PROTOCOL+MRI.RAD.BRZ ordered. EDMS EDMS 13:02 13:02 Neck Angio+CT.RAD.BRZ ordered. EDMS EDMS 13:13 13:12 [facility] darlyn 16:37 13:13 [facility] darlyn anne
[2024-04-23] MEDS ORDERED: ASPIRIN 300 MG/SUPP PR ONE (13:45)
[2024-04-23] MEDS ORDERED: LORazepam 2 MG/ML VIAL ONE (13:47)
--- NOTE | 2024-04-23 14:00 | RAD REPORT ---
EXAMINATION: CTA HEAD CLINICAL INDICATION: Female, 48 years old. PAIN TECHNIQUE: Axial CT images were obtained through the head after intravenous contrast utilizing angiog raphic protocol with 3D post-processing (maximum intensity projection images, volume rendered images and/or shaded surface rendered images). One or more of the following dose reduction technique s were used: Automated exposure control, adjustment of the mA and/or kV according to patient size, and/or iterative reconstruction. Unless otherwise specified, incidental findings do not require dedic ated imaging follow-up. COMPARISON: Head CT of the same day. CT angiogram brain 04/02/2024. FINDINGS: Sequelae of right temporal/subtemporal craniotomy again seen, with extra-axial catheter present just deep to the craniotomy flap. Left frontal approach ventriculostomy shunt in unchanged position. ICA: The petrous, cavernous, and supraclinoid segments of the bilateral internal carotid arteries are normal. The ophthalmic artery origins are visualized and normal. The posterior communicating arteries are patent. DANIELLA: Anterior cerebral arteries are normal bilaterally. The anterior communicating artery is patent. MCA: Middle cerebral arteries are normal bilaterally. COUTURE ALTERATIONS DRESSMAKER: Aneurysm clip present along the proximal right COUTURE ALTERATIONS DRESSMAKER, with no evidence of residual or recurrent an eurysm allowing for metallic streak artifact. Patent right posterior communicating artery. Posterior cerebral arteries are normal bilaterally. Vertebrobasilar: The vertebral arteries are patent. The basilar artery is normal in appearance. 3D images confirm these findings. IMPRESSION: No evidence of hemodynamically significant stenosis or large vessel occlusion. Stable right COUTURE ALTERATIONS DRESSMAKER aneurysm clip. No evidence of residual or recurrent aneurysm allowing for metallic s treak artifact in this region.
--- NOTE | 2024-04-23 14:08 | RAD REPORT ---
EXAMINATION: Neck Angio CLINICAL INDICATION: Female, 48 years old. [facility] PAIN Bed Name: 5 TECHNIQUE: Axial CT images were obtained from the aortic arch to the skull base after intravenous con trast utilizing angiographic protocol. Multiplanar reformats, as well as 3D post-processing (maximum intensity projection images, volume rendered images and/or shaded surface rendered images) w ere generated and reviewed. One or more of the following dose reduction techniques were used: Automated exposure control, adjustment of the mA and/or kV according to patient size, and/or iterativ e reconstruction. Unless otherwise specified, incidental findings do not require dedicated imaging follow-up. COMPARISON: Head and C-spine CT of the same day. CTA NECK 04/02/2024 FINDINGS: AORTA: The imaged aortic arch is normal. Aberrant right subclavian artery is incidentally noted, cour sing posterior to the esophagus. CCA: No artifact The common carotid arteries are patent and normal in caliber. ICA/ECA: Bilateral internal and external carotid arteries are patent. There is no significant interna l carotid artery stenosis. VERTEBRAL: The cervical vertebral arteries are patent to the skull base. Vertebral arteries are codom inant. SOFT TISSUE: No significant neck soft tissue abnormalities. The visualized lung apices are clear. 3D images confirm these findings. IMPRESSION: No significant flow abnormality of the neck vessels is identified. NASCET criteria used to quantify ICA stenosis, with the following grading scheme: Mild 0-49% stenosis Moderate 50-69% stenosis Severe 70-99% stenosis Reference: [place] Symptomatic Carotid Endarterectomy Trial Collaborators; Jimmy MTZ, Isabelle DW, Michele RB, et al. Beneficial effect of carotid endarterectomy in symptomatic patients with high-grade carotid stenosis. N Engl J Med. 1990 15;325(7):445-53.
[2024-04-23] MEDS ORDERED: CEFTRIAXONE 1000 MG/VIAL ONE (15:59)
[2024-04-23 21:05] VITALS: TEMP 97.7; O2SAT 100
[2024-04-23 21:11] VITALS: BP 113/63
--- NOTE | 2024-04-24 14:16 | EKG ---
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
== END 2024-04-23 16:37 | disposition short-term general hospital (02) ==
LOC: ER 09:30
DX: G40.509 Epileptic seizures related to external causes, not intractable, without status epilepticus (principal); R47.01 Aphasia; E11.9 Type 2 diabetes mellitus without complications
CPT/HCPCS: 93005; 85025; 81001; 80048; 36415; 83735; 85610; 80076; 85730; 84484; 83880; 80307; 70450; 72125; 70496; 70498; 71045; 82805; 99285; 80143; 80179; 82077; 36600; Q9967; J3411 ×2; J3480; J1953; J7030 ×3; J0696

== ENCOUNTER 2024-07-09 15:18 | Emergency (ER) | payer BC, SELFPAY ==
--- NOTE | 2024-07-09 16:12 | RAD REPORT ---
EXAMINATION: ONE VIEW CHEST XR CLINICAL INDICATION: MALAISE TECHNIQUE: Frontal chest projection is submitted. Examination is limited by patient positioning and t echnique. COMPARISON: 04/23/2024 FINDINGS: The lungs are well inflated and clear. The heart is normal in size. No displaced fractures identified . Shunt tubing noted. IMPRESSION: No acute intrathoracic abnormalities.
[2024-07-09 16:22] LABS: Absolute Basophils 0.1 K/uL (0-0.5); Absolute Eosinophils 0.1 K/uL (0-0.5); Absolute Lymphocytes (CBC) 2.2 K/uL (0.7-4.9); Absolute Monocytes 0.4 K/uL (0.1-1.3); Absolute Neutrophil 3.3 K/uL (1.8-8.0); Eosinophils % 1.3 % (0-4.4); Hematocrit 39.9 % (36.0-45.0); Hemoglobin 13.3 g/dL (12.0-15.0); Lymphocytes % 36.2 % (15.3-44.8); MCH 32.1 pg (27.0-35.0); MCHC 33.2 g/dL (32.0-36.0); MCV 96.5 fL (80-100); Monocytes % 5.9 % (3.3-12.3); Neutrophils % 55.6 % (41.7-73.7); Platelets 293 thou/uL (152-406); RBC Red Blood Cell Count 4.13 M/uL (3.86-4.86); Red Cell Distribution Width 13.2 % (12.1-15.2)
[2024-07-09 16:41] LABS: ALT/SGPT 34 U/L (13-56); AST/SGOT 12 U/L (15-37); Albumin 3.6 g/dL (3.4-5.0); Albumin/Globulin Ratio 1.1 (1.1-1.8); Alkaline Phosphatase 100 U/L (45-117); Anion Gap 6.1 mEq/L (5.0-15.0); BUN Blood Urea Nitrogen 14 mg/dL (7-18); Bicarbonate 28 mEq/L (21-32); Bilirubin Total 0.3 mg/dL (0.2-1.0); Globulin 3.4 g/dL (2.3-3.5); Glomerular Filtration Rate 68 ml/min (=/>90); Glucose Level 93 mg/dL (74-106); NT PRO-BNP 315 pg/mL (<125); Potassium 4.1 mEq/L (3.5-5.1); Sodium Level 142 mEq/L (136-145)
[2024-07-09 16:43] LABS: PT Prothrombin Time 10.6 SECONDS (9.4-12.5); Protime INR 0.94
[2024-07-09 16:49] LABS: Bilirubin Direct < 0.2 mg/dL (0-0.2); Bilirubin Indirect, Calculated 0.1 mg/dL (0.2-0.8); Troponin High Sensitivity < 3.0 pg/mL (<58.9)
[2024-07-09 16:52] LABS: Specific Gravity 1.018 (1.005-1.030); Sqamous Epithelial <5 /HPF (None Seen); Transitional Epithelial <5 /HPF (None Seen); Urine Bacteria None Seen /HPF (<20); Urine Bilirubin NEGATIVE (Negative); Urine Blood Trace (Negative); Urine Clarity Clear (Clear); Urine Color Light-Yellow (Yellow); Urine Culture Reflex Order NOT NEEDED; Urine Glucose NEGATIVE (Negative); Urine Ketones NEGATIVE (Negative); Urine Micro Reflex YN NO BILL MICROSCOPIC; Urine Nitrite NEGATIVE (Negative); Urine Protein NEGATIVE (Negative); Urine Urobilinogen Normal (Normal); Urine WBC <5 /HPF (<5); Urine pH 6.5 (5.0-7.0)
[2024-07-09 16:53] LABS: Barbiturates NEGATIVE (NEGATIVE); Benzodiazepines NEGATIVE (NEGATIVE); Cocaine NEGATIVE (NEGATIVE); METHAMPHETAM NEGATIVE (NEGATIVE); Methadone NEGATIVE (NEGATIVE); Opiates NEGATIVE (NEGATIVE); Phencyclidine NEGATIVE (NEGATIVE); THC Cannibis POSITIVE (NEGATIVE)
[2024-07-09 17:00] LABS: Specific Gravity 1.018 (1.005-1.030)
--- NOTE | 2024-07-09 17:29 | RAD REPORT ---
EXAM: CT brain without contrast HISTORY: CONFUSED COMPARISON: 05/14/2024 TECHNIQUE: Multiple contiguous axial images were obtained and a CT of the brain without contrast. Sag ittal and coronal reformats were performed. One or more of the following dose reduction techniques were used: Automated exposure control, adjust ment of the mA and/or kV according to patient size, and/or iterative reconstruction. FINDINGS: No evidence of hydrocephalus, intracranial hemorrhage, or extra-axial fluid collection. Postsurgical changes seen right temporal region. Aneurysm clips are present adjacent to the right as pect of the sella. Ventriculostomy tube is noted with tip terminating near the septum of the lateral ventricles. No evidence of midline shift or areas of brain edema. Right temporal craniotomy changes noted. The visualized paranasal sinuses and mastoid air cells are e ssentially clear. IMPRESSION: No evidence of acute intracranial abnormality.
--- NOTE | 2024-07-09 19:00 | ER ---
Nurse's Notes [facility] Name: Shannan Fuller Age: 48 yrs Sex: Female : 1975 Arrival Date: 07/09/2024 Time: 15:18 Bed 3 Private MD: Diagnosis: Altered mental status, unspecified;Adverse effect of unspecified psychotropic drug Presentation: 07/09 15:25 Chief complaint: EMS states: called to patient's home due to patient being cm10 unresponsive. Per EMS report, pt's mom went to patient's home at 0700 this morning and found pt like this and left. When mom came back to check on patient, she was still unresponsive. EMS reports that pt was nodding when asked questions and was having tremors. Pt received Ativan 2mg in route by EMS for the tremors because family reports that pt does this when having seizures. Pt arrived to the ER responding to painful stimuli. When pt asked to squeeze my hands, pt able to follow commands. Coronavirus screen: Client denies travel out of the [place] in the last 14 days. Ebola Screen: Patient denies travel to an Ebola-affected area in the 21 days before illness onset. Initial Sepsis Screen: Does the patient meet any 2 criteria? No. Patient's initial sepsis screen is negative. Does the patient have a suspected source of infection? No. Patient's initial sepsis screen is negative. Risk Assessment: Do you want to hurt yourself or someone else? Unable to obtain. Onset of symptoms was July 09, 2024. Care prior to arrival: Medication(s) given: Ativan 2mg IV initiated. 20 GA, in the right antecubital area, Glucose check: 86 Oxygen administered. via nasal cannula. 15:25 Method Of Arrival: EMS: [facility] cm10 15:25 Acuity: ANNABEL 2 cm10 Triage Assessment: 15:30 General: Appears comfortable, Behavior is unresponsive. Pain: Unable to use pain scale. cm10 Patient is disoriented. Neuro: Level of Consciousness is obeys commands, lethargic, Pipe Changer are equal bilaterally. Respiratory: No deficits noted. Airway is patent Respiratory effort is even, unlabored, Respiratory pattern is regular, symmetrical. 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 - Infectious Disease History:: Denies. - Social history:: Smoking status: unknown. Screenin:00 [facility] ED Fall Risk Assessment (Adult) History of falling in the last 3 months, kc6 including since admission No falls in past 3 months (0 pts) Confusion or Disorientation No (0 pts) Intoxicated or Sedated No (0 pts) Impaired Gait No (0 pts) Mobility Assist Device Used No (0 pt) Altered Elimination No (0 pt) Score/Fall Risk Level 0 - 2 = Low Risk Oriented to surroundings, Maintained a safe environment, Educated pt \\T\\ family on fall prevention, incl call for assistance when getting out of bed. Abuse screen: Denies threats or abuse. Denies injuries from another. Nutritional screening: No deficits noted. Tuberculosis screening: No symptoms or risk factors identified. Assessment: 17:00 Reassessment: PT MOVED TO ER03 FOR "AIRWAY PROTECTION". PT DROWSY BUT AOx4. MD NOTIFIED bp AND AT B/S. 17:00 General: Appears in no apparent distress. comfortable, well groomed, well developed, kc6 Behavior is calm, cooperative, appropriate for age, drowsy. Neuro: Level of Consciousness is awake, alert, obeys commands, Oriented to person, place, time, situation, Appropriate for age Reports headache. Cardiovascular: Denies chest pain, shortness of breath, Heart tones S1 S2 present Capillary refill < 3 seconds Rhythm is sinus rhythm. Respiratory: Airway is patent Trachea midline Respiratory effort is even, unlabored, Respiratory pattern is regular, symmetrical. GI: No signs and/or symptoms were reported involving the gastrointestinal system. : No signs and/or symptoms were reported regarding the genitourinary system. EENT: No signs and/or symptoms were reported regarding the EENT system. Derm: No signs and/or symptoms reported regarding the dermatologic system. Skin is intact, is healthy with good turgor, Skin is pink, warm \\T\\ dry. Musculoskeletal: No signs and/or symptoms reported regarding the musculoskeletal system. Circulation, motion, and sensation intact. Range of motion: intact in all extremities. 17:05 Reassessment: pt denies using any street drugs or ETOH abuse. pt reports having a hx of kc6 seizures and "several strokes" and that she has not taken her seizure medications in several days. pt also denies SI or HI. 18:34 Reassessment: Patient appears in no apparent distress at this time. No changes from kc6 previously documented assessment. Patient and/or family updated on plan of care and expected duration. Pain level reassessed. Patient is alert, oriented x 3, equal unlabored respirations, skin warm/dry/pink. 19:04 General: Appears in no apparent distress. comfortable, Behavior is calm, cooperative. al5 Pain: Denies pain. Neuro: Level of Consciousness is awake, alert, obeys commands, Oriented to person, place, time, situation. Cardiovascular: Capillary refill < 3 seconds Patient's skin is warm and dry. Rhythm is sinus rhythm. Respiratory: Airway is patent Respiratory effort is even, unlabored, Respiratory pattern is regular, symmetrical. GI: No signs and/or symptoms were reported involving the gastrointestinal system. : No signs and/or symptoms were reported regarding the genitourinary system. EENT: No signs and/or symptoms were reported regarding the EENT system. Derm: Skin is intact, is healthy with good turgor, Skin is pink, warm \\T\\ dry. normal. Musculoskeletal: No signs and/or symptoms reported regarding the musculoskeletal system. Vital Signs: 15:25 BP 124 / 97; Pulse 59; Resp 15; Temp 97.8(O); Pulse Ox 100% on R/A; Weight 68.04 kg; cm10 Height 5 ft. 6 in. ; 17:01 BP 126 / 93; Pulse 69; Resp 16 S; Pulse Ox 100% on R/A; kc6 17:39 BP 125 / 93; Pulse 59; Resp 18 S; Pulse Ox 100% on R/A; kc6 18:34 BP 122 / 94; Pulse 57; Resp 16 S; Pulse Ox 96% on R/A; kc6 19:00 BP 121 / 86; Pulse 50; Resp 13; Pulse Ox 100% on R/A; al5 19:15 BP 120 / 76; Pulse 51; Resp 13; Pulse Ox 100% on R/A; al5 15:25 Body Mass Index 24.21 (68.04 kg, 167.64 cm) cm10 ED Course: 15:24 Patient arrived in ED. cm10 15:26 Nieves Kerr MD is Attending Physician. gb1 15:29 Triage completed. cm10 15:30 Arm band placed on right wrist. Patient placed in an exam room, on a stretcher, on cm10 phototypesetting equipment monitor, on pulse oximetry. 15:45 Sindy Miller, RN is Primary Nurse. cm10 15:51 XRAY Chest (1 view) In Process Unspecified. EDMS 16:22 Urine Drug Screen Sent. cm10 16:22 UAM Sent. cm10 16:22 Straight cath inserted, using sterile technique, 14 Fr. Specimen obtained. Returned cm10 clear yellow urine. 16:24 Patient has correct armband on for positive identification. Bed in low position. Call cm10 light in reach. Side rails up X2. Client placed on continuous cardiac and pulse oximetry monitoring. NIBP monitoring applied. engine monitor on. 16:24 Accessed peripheral vein via ultrasound, utilizing dynamic ultrasound technique Clean \\T\\ cm10 dry. Dressing intact. Good blood return. Flushes easily. 20g left ac. Maintain EMS IV. Dressing intact. Good blood return noted. Site clean \\T\\ dry. Gauge \\T\\ site: 20g right AC. Flushed with 10 mL NS. 17:00 Patient has correct armband on for positive identification. Bed in low position. Call kc6 light in reach. Side rails up X2. Report received from Sindy Miller RN. engine monitor on. Pulse ox on. NIBP on. Door closed. Noise minimized. Lights dimmed. Warm blanket given. Pillow given. 17:00 Patient maintains SpO2 saturation greater than 95% on room air. kc6 17:10 Report given to MORA Alanis. cm10 17:[address] via stretcher. kc6 17:20 Annabelle Montenegor, RN is Primary Nurse. kc6 17:20 Acetaminophen Sent. kc6 17:20 Salicylate Sent. kc6 17:21 ETOH Level Sent. kc6 17:24 CT Head Brain wo Cont In Process Unspecified. EDMS 19:37 Provided Education on: discharge follow up. al5 19:37 No provider procedures requiring assistance completed. IV discontinued, intact, al5 bleeding controlled, No redness/swelling at site. Pressure dressing applied. Administered Medications: No medications were administered Medication: 19:36 VIS not applicable for this client. al5 Outcome: 18:59 Discharge ordered by . [email or web address] 19:39 Discharged to home via wheelchair, with family, al5 19:39 Condition: good 19:39 Discharge instructions given to patient, family, Instructed on discharge instructions, follow up and referral plans. Demonstrated understanding of instructions, follow-up care, 19:39 Patient left the ED. al5 Signatures: Dispatcher [employer] EDMS Win Garcia RN RN Annabelle Aguilar RN RN [email or web address] Sindy Miller RN RN cm10 Nieves Kerr MD MD gb1 Olivia Us RN RN al5 Corrections: (The following items were deleted from the chart) 16:43 15:25 Risk Assessment: Do you want to hurt yourself or someone else? Patient reports no cm10 desire to harm self or others. cm10 17:06 16:45 Reassessment: PT MOVED TO ER03 FOR AIRWAY PROTECTION. PT DROWSY BUT AOx4 bp bp
--- NOTE | 2024-07-09 19:00 | EDPHYS ---
Physician Documentation [facility] Name: Shannan Fuller Age: 48 yrs Sex: Female : 1975 Arrival Date: 07/09/2024 Time: 15:18 Bed 3 Private MD: ED Physician Nieves Kerr HPI: 07/09 17:40 This 48 yrs old Female presents to ER via EMS with complaints of Altered gb1 Mental Status. 17:40 48-year-old female brought in by EMS for concern for altered mental status. Patient has gb1 a history of diabetes, depression, anxiety, left-sided weakness after surgery for brain aneurysm a few years ago. Patient's mother found her difficult to arouse on the couch, the patient's mother went out to breakfast returned around 1330 today and she was in the same position still with sonorous breathing. The patient's mother called 911 and patient was transported here to the emergency department. Per the patient's mother is where most of this history has been reported as the patient's mental status is obtunded on arrival. Patient's mother does have a concern that possibly the patient had been using illicit drugs versus possibly overdosing on the medications that she is prescribed.. 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 - Infectious Disease History:: Denies. - Social history:: Smoking status: unknown. Exam: 17:40 Constitutional: Patient is lethargic, obtunded on my initial evaluation with sonorous gb1 respirations. She is responsive to painful stimuli but otherwise is severely altered mentation. Head/Face: Normocephalic, atraumatic. Eyes: Pupils equal round and reactive to light, extra-ocular motions intact. Lids and lashes normal. Conjunctiva and sclera are non-icteric and not injected. Cornea within normal limits. Periorbital areas with no swelling, redness, or edema. Neck: Trachea midline, no thyromegaly or masses palpated, and no cervical lymphadenopathy. Supple, full range of motion without nuchal rigidity, or vertebral point tenderness. No Meningismus. Chest/axilla: Normal chest wall appearance and motion. Nontender with no deformity. No lesions are appreciated. Cardiovascular: Regular rate and rhythm with a normal S1 and S2. No gallops, murmurs, or rubs. Normal PMI, no JVD. No pulse deficits. Respiratory: Lungs have equal breath sounds bilaterally, clear to auscultation and percussion. No rales, rhonchi or wheezes noted. No increased work of breathing, no retractions or nasal flaring. Back: No spinal tenderness. No costovertebral tenderness. Full range of motion. Skin: Warm, dry with normal turgo pale. No rashes, no lesions, and no evidence of cellulitis. MS/ Extremity: Pulses equal, no cyanosis. Neurovascular intact. Full, normal range of motion. Vital Signs: 15:25 BP 124 / 97; Pulse 59; Resp 15; Temp 97.8(O); Pulse Ox 100% on R/A; Weight 68.04 kg; cm10 Height 5 ft. 6 in. ; 17:01 BP 126 / 93; Pulse 69; Resp 16 S; Pulse Ox 100% on R/A; kc6 17:39 BP 125 / 93; Pulse 59; Resp 18 S; Pulse Ox 100% on R/A; kc6 18:34 BP 122 / 94; Pulse 57; Resp 16 S; Pulse Ox 96% on R/A; kc6 19:00 BP 121 / 86; Pulse 50; Resp 13; Pulse Ox 100% on R/A; al5 19:15 BP 120 / 76; Pulse 51; Resp 13; Pulse Ox 100% on R/A; al5 15:25 Body Mass Index 24.21 (68.04 kg, 167.64 cm) cm10 MDM: 15:36 Medical Screening Exam initiated gb1 17:40 Data reviewed: vital signs, nurses notes, lab test result(s), CBC, drug level(s), gb1 electrolytes, urinalysis, urine drug screen, EKG, EKG was completed 1536 shows sinus bradycardia 54 bpm patient does have inverted T waves in leads V1 V2 flat T waves in V5 and V6 but also inverted T waves in V3 patient has normal intervals and axis with a QTc of 415 VT interval 166.. 18:55 ED course: 48-year-old female with history of Alterman status likely secondary to THC gb1 intoxication, patient is clinically improved and at her baseline. She is up walking and talking without assistance her mom is at the bedside she will be discharged home with her mom and I given them both excellent return precautions which are both compliant to prior to discharge home today.. 07/09 15:38 Order name: Basic Metabolic Panel; Complete Time: 17:07 07/09 15:38 Order name: CBC with Diff; Complete Time: 17:07/09 15:38 Order name: LFT's; Complete Time: 17:07 07/09 15:38 Order name: NT PRO-BNP; Complete Time: 17:07 07/09 15:38 Order name: PT-INR; Complete Time: 17:07 07/09 15:38 Order name: Troponin HS; Complete Time: 17:07 07/09 15:38 Order name: UAM; Complete Time: 17:07 07/09 16:05 Order name: Urine Drug Screen; Complete Time: 17:07 cm10 07/09 16:45 Order name: ETOH Level; Complete Time: 18:09 cm10 07/09 16:45 Order name: Salicylate; Complete Time: 18:09 cm10 07/09 16:45 Order name: Acetaminophen; Complete Time: 18:09 cm10 07/09 16:45 Order name: Test, Urine; Complete Time: 17:07 cm10 07/09 15:38 Order name: XRAY Chest (1 view); Complete Time: 17:07 07/09 15:38 Order name: CT Head Brain wo Cont; Complete Time: 17:30 07/09 15:38 Order name: EKG; Complete Time: 15:39 07/09 15:38 Order name: Cardiac monitoring; Complete Time: 15:46 07/09 15:38 Order name: EKG - Nurse/Tech; Complete Time: 15:40 07/09 15:38 Order name: IV Saline Lock; Complete Time: 15:46 07/09 15:38 Order name: Labs collected and sent; Complete Time: 15:46 gb1 07/09 15:38 Order name: O2 Per Protocol; Complete Time: 15:46 gb1 07/09 15:38 Order name: O2 Sat Monitoring; Complete Time: 15:46 gb1 07/09 16:05 Order name: Straight Cath; Complete Time: 16:22 cm10 Administered Medications: No medications were administered Disposition Summary: 07/09/24 18:59 Discharge Ordered Notes: Location: Home gb1 Problem: new gb1 Symptoms: have improved gb1 Condition: Stable gb1 Diagnosis - Altered mental status, unspecified gb1 - Adverse effect of unspecified psychotropic drug gb1 Followup: gb1 - With: Private Physician - When: - Reason: Further diagnostic work-up Discharge Instructions: - Discharge Summary Sheet gb1 - Confusion gb1 - Illegal Drug Use Information, Adult gb1 Forms: - Medication Reconciliation Form gb1 - Antibiotic Education gb1 - Prescription Opioid Use gb1 - Patient Portal Instructions gb1 - Leadership Thank You Letter gb1 Signatures: Dispatcher [employer] Sindy Westbrook RN RN cm10 Nieves Kerr MD MD gb1 Corrections: (The following items were deleted from the chart) 16:45 16:45 ETHANOL+C.LAB.BRZ ordered. EDMS EDMS 16:45 16:45 SALICYLATE+C.LAB.BRZ ordered. EDMS EDMS 16:45 16:45 ACETAMINOPHEN+C.LAB.BRZ ordered. EDMS EDMS 16:45 16:45 Test, Urine+UC.LAB.BRZ ordered. EDMS EDMS
[2024-07-09 19:54] VITALS: TEMP 97.8
[2024-07-09 20:00] VITALS: O2SAT 100
[2024-07-09 20:02] VITALS: BP 120/76
--- NOTE | 2024-07-13 10:55 | EKG ---
Test Date: 2024-07-09 Test Time: 15:37:14 Stitching Machine Setter: JENNIFER MEASUREMENT RESULTS: Intervals: Rate: 54 AL: 166 QRSD: 96 QT: 438 QTc: 415 [place]: P: 50 AL: 166 QRS: -14 T: 13 INTERPRETIVE STATEMENTS: Sinus bradycardia Low voltage QRS Borderline ECG Compared to ECG 04/23/2024 10:32:13 Sinus rhythm no longer present Electronically Signed On 07-13-24 10:51:09 CHEMIST STEROIDS by Chao Elizabeth
== END 2024-07-09 19:39 | disposition home or self-care (01) ==
LOC: ER 15:18
DX: R41.82 Altered mental status, unspecified (principal); T43.95XA Adverse effect of unspecified psychotropic drug, initial encounter
CPT/HCPCS: 36415; 51702; 70450; 71045; 80048; 80076; 80143; 80179; 80307; 81001; 81025; 82077; 83880; 84484; 85025; 85610; 93005; 99285

== ENCOUNTER 2024-10-06 12:51 | Emergency (ER) | payer BC, OTHER ==
--- NOTE | 2024-10-06 13:49 | RAD REPORT ---
EXAMINATION: Head C Spine Mpr Wo Con CLINICAL INDICATION: Female, 49 years old. MENTAL STATUS CHANGE TECHNIQUE: Axial CT images from the skull base to the vertex without intravenous contrast. Axial CT i mages through the cervical spine were obtained without intravenous contrast. Sagittal and coronal reformatted images were created from the data set. Coronal and sagittal reformatted images were creat ed from the data set. One or more of the following dose reduction techniques were used: Automated exposure control, adjustment of the mA and/or kV according to patient size, and/or iterative reconstr uction. Unless otherwise specified, incidental findings do not require dedicated imaging follow-up. [id number]. COMPARISON: 04/23/2024 FINDINGS: Head: INTRACRANIAL: No acute intracranial hemorrhage. Similar ventriculomegaly. No mass effect or midline s hift. Remote right frontal lobe infarct and large area of encephalomalacia.. VASCULATURE: No visualized abnormalities in the arteries or dural venous sinuses. Aneurysm clips. SCALP/SKULL: No calvarial fracture identified. No acute soft tissue abnormality. Left frontal approa ch ventriculostomy. Right parietal craniotomy. SINUSES: The visualized paranasal sinuses are mostly clear. No significant mastoid fluid. Cervical spine: ALIGNMENT: The cervical spine has normal alignment without scoliosis or spondylolisthesis. BONE: Vertebral body heights are maintained. No aggressive osseous lesions. DEGENERATIVE: Multilevel cervical spondylosis with evidence of bilateral neural foraminal narrowing. No high grade central spinal stenosis. SOFT TISSUE: No significant abnormalities in the soft tissue of the neck. The visualized lung apices are clear. IMPRESSION: No acute intracranial abnormality. No acute fracture or traumatic malalignment of the cervical spine.
--- NOTE | 2024-10-06 13:53 | RAD REPORT ---
EXAM: Chest Abd Pelvis Wo Con CLINICAL INDICATION: Female, 49 years old SZ TECHNIQUE: CT chest, abdomen and pelvis was performed, without IV contrast, as per department protoco l. Axial, sagittal and coronal reconstructions were obtained. One or more of the following dose reduction techniques were used: Automated exposure control, adjustment of the mA and/or kV according to the patient size, and/or iterative reconstruction. Unless otherwise specified, incidental findings do not require dedicated imaging follow-up. [id number]. COMPARISON: 04/18/2024 FINDINGS: The lack of intravenous contrast limits the sensitivity of this exam for evaluation of solid visceral organs, vascular structures, and retroperitoneum. ---THORAX--- LOWER NECK AND CHEST WALL: Visualized thyroid gland and soft tissues are normal. LUNGS AND AIRWAYS: Airways are clear. No evidence of airspace or interstitial process.No dominant or clearly suspicious nodule identified. PLEURA: No pleural effusion. No pneumothorax. MEDIASTINUM AND LYMPH NODES: No mediastinal mass or fluid collection. Normal size mediastinal, hilar, and axillary lymph nodes. Mild distal esophageal thickening. THORACIC AORTA: No thoracic aortic aneurysm. Aberrant right subclavian artery PULMONARY ARTERIES: Caliber is within normal limits. HEART: Normal heart size. No coronary calcifications.No significant pericardial effusion. ---ABDOMEN/PELVIS--- UPPER GI: No significant abnormality. LIVER: No significant focal abnormality. GALLBLADDER/BILE DUCTS: Cholecystectomy. Mild extra-hepatic biliary ductal dilatation is likely relat ed to the post-cholecystectomy state. Consider correlating with LFT's.? PANCREAS: Atrophy, but otherwise unremarkable. SPLEEN: Unremarkable. ADRENALS: No adrenal masses. KIDNEYS AND URETERS: No hydronephrosis.No suspicious renal mass. ABDOMINAL AORTA AND OTHER VESSELS: Normal caliber aorta and IVC. PERITONEUM: Mild pelvic free fluid likely related to presence of the LEGAL ACTIVITY ADJUDICATOR shunt. LYMPH NODES: No pathologic lymphadenopathy. ABDOMINAL WALL: Unremarkable SMALL BOWEL/COLON: Small bowel has normal course and caliber. No colonic wall thickening or pericolon ic inflammatory changes.Appendix absent. URINARY BLADDER: Underdistended but grossly unremarkable. REPRODUCTIVE ORGANS: No pathologic process. ---COMBINED--- MUSCULOSKELETAL: Muscle. Plate deformities are present T8 and T10 which are likely chronic. ADDITIONAL FINDINGS: None. IMPRESSION: No acute findings within the chest, abdomen, or pelvis.
[2024-10-06] MEDS ORDERED: LORazepam 2 MG/ML VIAL ONE (13:54)
[2024-10-06] MEDS ORDERED: FAMOTIDINE 20 MG/2 ML VIAL IV ONE (13:55)
[2024-10-06] MEDS ORDERED: FOLIC ACID 5 MG/ML VIAL ONE (13:55)
[2024-10-06] MEDS ORDERED: LEVETIRACETAM 500 MG/5 ML VIAL IV ONE (13:55)
[2024-10-06] MEDS ORDERED: NA CHLORIDE 0.9% 500 ML ONE (13:56)
[2024-10-06] MEDS ORDERED: NA CHLORIDE 0.9% 100 ML ONE (13:58)
[2024-10-06 14:11] LABS: Absolute Basophils 0.1 K/uL (0-0.5); Absolute Eosinophils 0.1 K/uL (0-0.5); Absolute Lymphocytes (CBC) 2.1 K/uL (0.7-4.9); Absolute Monocytes 0.3 K/uL (0.1-1.3); Absolute Neutrophil 5.1 K/uL (1.8-8.0); Eosinophils % 1.6 % (0-4.4); Hematocrit 38.4 % (36.0-45.0); Hemoglobin 13.1 g/dL (12.0-15.0); Lymphocytes % 26.8 % (15.3-44.8); MCH 32.4 pg (27.0-35.0); MCHC 34.2 g/dL (32.0-36.0); MCV 94.8 fL (80-100); MPV 6.9 fL (7.6-11.3); Monocytes % 4.2 % (3.3-12.3); Neutrophils % 66.4 % (41.7-73.7); Nucleated Red Blood Cells % 0.1 % (0-0); Platelets 295 thou/uL (152-406); RBC Red Blood Cell Count 4.05 M/uL (3.86-4.86); Red Cell Distribution Width 13.3 % (12.1-15.2)
[2024-10-06 14:12] LABS: PT Prothrombin Time 10.8 SECONDS (10-13.0); Protime INR 0.94
[2024-10-06 14:47] LABS: ALT/SGPT 28 U/L (13-56); AST/SGOT 11 U/L (15-37); Albumin 3.7 g/dL (3.4-5.0); Albumin/Globulin Ratio 1.1 (1.1-1.8); Alkaline Phosphatase 109 U/L (45-117); Anion Gap 11.1 mEq/L (5.0-15.0); BUN Blood Urea Nitrogen 19 mg/dL (7-18); Bicarbonate 26 mEq/L (21-32); Bilirubin Total 0.4 mg/dL (0.2-1.0); Globulin 3.4 g/dL (2.3-3.5); Glomerular Filtration Rate 52 ml/min (=/>90); Glucose Level 78 mg/dL (74-106); Lipase 24 U/L (13-75); Magnesium 2.4 mg/dL (1.6-2.4); NT PRO-BNP 185 pg/mL (<125); Potassium 4.1 mEq/L (3.5-5.1); Protein, Total 7.1 g/dL (6.4-8.2); Sodium Level 140 mEq/L (136-145)
[2024-10-06 14:48] LABS: Bilirubin Direct < 0.2 mg/dL (0-0.2); Bilirubin Indirect, Calculated 0.2 mg/dL (0.2-0.8); Troponin High Sensitivity < 3.0 pg/mL (<58.9)
--- NOTE | 2024-10-06 15:50 | ER ---
Nurse's Notes [facility] Name: Shannan Fuller Age: 49 yrs Sex: Female : 1975 Arrival Date: 10/06/2024 Time: 12:51 Bed 17 Private MD: Diagnosis: Anxiety disorder, unspecified;Epileptic seizures related to external causes, not intractable Presentation: 10/06 12:56 Chief complaint: EMS states: toned out for seizure yesterday, sudden onset of migraine me1 yesterday pain 10/10. Mother reports worsening of memory problems. Patient has hx of TBI with a shunt, left sided weakness at baseline. 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 On EMS arrival patient was hysterical and dry heaving. Reports vomiting all day. Patient reports she took her migraine med, ubrelvy at 10 am but wasn't sure if it was today or yesterday. BGL 66. 20 g LAC established and was given zofran 4 mg, versed 1 mg and D10 100 ml IV. BGL increased to 127. Patient is comfortable on arrival to ER. HENDERSON 10. Coronavirus screen: At this time, the client does not indicate any symptoms associated with coronavirus-19. Ebola Screen: No symptoms or risks identified at this time. Initial Sepsis Screen: Does the patient meet any 2 criteria? No. Patient's initial sepsis screen is negative. Does the patient have a suspected source of infection? No. Patient's initial sepsis screen is negative. Risk Assessment: Do you want to hurt yourself or someone else? Patient reports no desire to harm self or others. Onset of symptoms is unknown. 12:56 Method Of Arrival: EMS: [place] [id number] 12:56 Acuity: ANNABEL 3 me1 Triage Assessment: 13:02 Headache History: The patient has had previous headaches and this one is similar to me1 previous episodes. General: Appears uncomfortable, well groomed, well developed, well nourished, Behavior is cooperative, appropriate for age, crying, Reports toned out for seizure yesterday, sudden onset of migraine yesterday pain 10/10. Mother reports worsening of memory problems. Patient has hx of TBI with a shunt, left sided weakness at baseline. 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 On EMS arrival patient was hysterical and dry heaving. Reports vomiting all day. Patient reports she took her migraine med, ubrelvy at 10 am but wasn't sure if it was today or yesterday. BGL 66. 20 g LAC established and was given zofran 4 mg, versed 1 mg and D10 100 ml IV. BGL increased to 127. Patient is comfortable on arrival to ER. HENDERSON 11/07. Pain: Complains of pain in head Pain does not radiate. Pain currently is 5 out of 10 on a pain scale. Quality of pain is described as aching, Pain began 1 day ago. Is continuous, Also complains of nausea, labile emotions. EENT: No signs and/or symptoms were reported regarding the EENT system. Neuro: Level of Consciousness is awake, alert, obeys commands, confused, Oriented to person, situation. Neuro: Reports headache. Cardiovascular: Patient's skin is warm and dry. Respiratory: Airway is patent Respiratory effort is even, unlabored, Respiratory pattern is regular, symmetrical. GI: Reports nausea, vomiting, since this morning. : No signs and/or symptoms were reported regarding the genitourinary system. Derm: Skin is intact, is healthy with good turgor, Skin is pink, warm \T\ dry. Musculoskeletal: No signs and/or symptoms reported regarding the musculoskeletal system. TANKERMAN: 13:02 LMP N/A - Post-menopause, Not me1 Historical: - Allergies: 13:02 GABAPENTIN; me1 13:02 Latex; me1 13:02 Prozac; me1 - PMHx: 13:02 Anxiety; Depression; diabetes mellitus; DJD; Mild left sided weakness (from brain SX); me1 PTSD; Seizure; Sleep Apnea; TBI (Sleep Apnea); - PSHx: 13:02 Appendectomy; Brain sx; Cholecystectomy; dual aneurysm sx; hip SX; hysterectomy; right me1 knee sx; shunt (Unknown); - Immunization history:: Adult Immunizations unknown. - Infectious Disease History:: Denies. - Social history:: Smoking status: unknown. - Family history:: not pertinent. Screenin:05 [facility] ED Fall Risk Assessment (Adult) History of falling in the last 3 months, me1 including since admission No falls in past 3 months (0 pts) Confusion or Disorientation Yes (5 pts) Intoxicated or Sedated No (0 pts) Impaired Gait No (0 pts) Mobility Assist Device Used No (0 pt) Altered Elimination No (0 pt) Score/Fall Risk Level 0 - 2 = Low Risk Maintained a safe environment, Provided non-skid footwear, Hourly rounding (assess needs \T\ fall precautionary measures) done. Abuse screen: Denies threats or abuse. Nutritional screening: No deficits noted. Tuberculosis screening: No symptoms or risk factors identified. Assessment: 13:05 General: See triage assessment. me1 Vital Signs: 12:56 BP 105 / 84; Pulse 82; Resp 18; Temp 98.1; Pulse Ox 99% ; Weight 81.65 kg; Pain 5/10; me1 14:00 BP 119 / 86; Pulse 71; Resp 17; Pulse Ox 99% ; me1 15:00 BP 139 / 88; Pulse 67; Resp 16; Pulse Ox 98% ; me1 15:45 BP 129 / 93; Pulse 66; Resp 16; Temp 98.5; Pulse Ox 100% ; me1 12:56 Pain Scale: Adult [facility] [place] Coma Score: 15:45 Eye Response: spontaneous(4). Motor Response: obeys commands(6). Verbal Response: darlyn oriented(5). Total: 15. ED Course: 12:55 Patient arrived in ED. me1 13:02 Triage completed. me1 13:02 Arm band placed on Patient placed in an exam room. me1 13:05 Patient has correct armband on for positive identification. Bed in low position. Call nh1 light in reach. Side rails up X2. Provided Education on: POC. Verbalized understanding.. Client placed on continuous cardiac and pulse oximetry monitoring. NIBP monitoring applied. Pulse ox on. NIBP on. 13:05 No provider procedures requiring assistance completed. Maintain EMS IV. Dressing me1 intact. Good blood return noted. Site clean \T\ dry. Gauge \T\ site: 20g LAC. Flushed with 10 mL NS. 13:07 Apple Meneses, MORA is Primary Nurse. me1 13:13 Ray Aguirre MD is Attending Physician. darlyn 13:33 Chest Abd Pelvis Wo Con In Process Unspecified. EDMS 13:33 Head C Spine Mpr Wo Con In Process Unspecified. EDMS 13:46 Basic Metabolic Panel Sent. me1 13:46 CBC with Diff Sent. me1 13:46 LFT's Sent. me1 13:46 Magnesium Sent. me1 13:46 NT PRO-BNP Sent. me1 13:46 PT-INR Sent. me1 13:46 Troponin HS Sent. me1 13:47 Initial lab(s) drawn, by me, sent to lab. EKG done, by ED staff, reviewed by Ray [email or web address] Timothy DUGGAN. 14:02 XRAY Chest (1 view) In Process Unspecified. EDMS 15:37 Urine collected: clean catch specimen, clear. me1 15:48 Wade Erickson MD is Referral Physician. darlyn 16:18 IV discontinued, intact, bleeding controlled, No redness/swelling at site. Pressure me1 dressing applied. Administered Medications: 14:03 Drug: Ativan IVP 1 mg IVP once Route: IVP; Site: right antecubital; me1 14:45 Follow up: Response: No adverse reaction; Anxiety decreased me1 14:05 Drug: NS 0.9% IV 500 ml 500 ml IV at 1 bolus once; to be given as a bolus over 30 me1 minutes Volume: 500 ml; Route: IV; Rate: 1 bolus; Site: right antecubital; 14:46 Follow up: Response: No adverse reaction; IV Status: Completed infusion; IV Intake: me1 500ml 14:05 Drug: foLIC Acid IVPB 1 mg IVPB once Route: IVPB; Site: right antecubital; me1 14:46 Follow up: IV Status: Completed infusion me1 14:05 Drug: Famotidine IVP 20 mg IVP once; dilute with 10 mL 0.9% NaCl; give over 2 minutes me1 Route: IVP; Site: right antecubital; 14:46 Follow up: Response: No adverse reaction me1 14:05 Drug: Keppra IV 1000 mg IV at per protocol once Route: IV; Rate: per protocol; Site: me1 right antecubital; 14:46 Follow up: Response: No adverse reaction; IV Status: Completed infusion; IV Intake: me1 100ml 15:58 Drug: Ketorolac IVP 30 mg IVP once Route: IVP; Site: right antecubital; me1 15:58 Follow up: Response: No adverse reaction; Pain is decreased me1 15:58 Drug: Ondansetron IVP 4 mg IVP once; over 2 minutes Route: IVP; Site: right antecubital;me1 15:58 Follow up: Response: No adverse reaction; Nausea is decreased me1 Medication: 13:05 VIS not applicable for this client. me1 Intake: 14:46 IV: 100ml; Total: 100ml. me1 14:46 IV: 500ml; Total: 600ml. me1 Outcome: 15:49 Discharge ordered by . darlyn 16:18 Discharged to home via wheelchair, with family, me1 16:18 Condition: stable 16:18 Discharge instructions given to patient, family, Instructed on discharge instructions, follow up and referral plans. medication usage, Demonstrated understanding of instructions, follow-up care, medications, Prescriptions given X 1, 16:18 Patient left the ED. me1 Signatures: Dispatcher [employer] Ray Brown MD MD cha Eddleman, Michelle, RN RN me1
--- NOTE | 2024-10-06 15:50 | EDPHYS ---
Physician Documentation [facility] Name: Shannan Fuller Age: 49 yrs Sex: Female : 1975 Arrival Date: 10/06/2024 Time: 12:51 Bed 17 Private MD: ED Physician Ray Aguirre HPI: 10/06 15:39 This 49 yrs old Female presents to ER via EMS with complaints of Headache, darlyn Altered Mental Status, Seizure. 15:39 The patient complains of pain to the forehead. The patient describes the headache as darlyn aching. Onset: The symptoms/episode began/occurred just prior to arrival. Associated signs and symptoms: Pertinent positives: anxiety. Severity of symptoms: At its worst the pain was moderate, in the emergency department the pain is unchanged. Headache History: The patient has had previous headaches and this one is similar to previous episodes. The symptoms are alleviated by nothing. the symptoms are aggravated by nothing. The patient has not experienced similar symptoms in the past. 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 - Infectious Disease History:: Denies. - Social history:: Smoking status: unknown. - Family history:: not pertinent. ROS: 15:39 Constitutional: Negative for fever, chills, and weight loss, Eyes: Negative for injury, darlyn pain, redness, and discharge, ENT: Negative for injury, pain, and discharge, Neck: Negative for injury, pain, and swelling, Cardiovascular: Negative for chest pain, palpitations, and edema, Respiratory: Negative for shortness of breath, cough, wheezing, and pleuritic chest pain, Abdomen/GI: Negative for abdominal pain, nausea, vomiting, diarrhea, and constipation, Back: Negative for injury and pain, : Negative for injury, bleeding, discharge, and swelling, MS/Extremity: Negative for injury and deformity, Skin: Negative for injury, rash, and discoloration, Neuro: Negative for headache, weakness, numbness, tingling, and seizure, Allergy/Immunology: Negative for hives, rash, and allergies, Endocrine: Negative for neck swelling, polydipsia, polyuria, polyphagia, and marked weight changes, Hematologic/Lymphatic: Negative for swollen nodes, abnormal bleeding, and unusual bruising, 15:39 Psych: Positive for anxiety, Exam: 15:39 Constitutional: This is a well developed, well nourished patient who is awake, alert, darlyn and in no acute distress. Head/Face: Normocephalic, atraumatic. Eyes: Pupils equal round and reactive to light, extra-ocular motions intact. Lids and lashes normal. Conjunctiva and sclera are non-icteric and not injected. Cornea within normal limits. Periorbital areas with no swelling, redness, or edema. ENT: Nares patent. No nasal discharge, no septal abnormalities noted. Tympanic membranes are normal and external auditory canals are clear. Oropharynx with no redness, swelling, or masses, exudates, or evidence of obstruction, uvula midline. Mucous membranes moist. Neck: Trachea midline, no thyromegaly or masses palpated, and no cervical lymphadenopathy. Supple, full range of motion without nuchal rigidity, or vertebral point tenderness. No Meningismus. Chest/axilla: Normal chest wall appearance and motion. Nontender with no deformity. No lesions are appreciated. Cardiovascular: Regular rate and rhythm with a normal S1 and S2. No gallops, murmurs, or rubs. Normal PMI, no JVD. No pulse deficits. Respiratory: Lungs have equal breath sounds bilaterally, clear to auscultation and percussion. No rales, rhonchi or wheezes noted. No increased work of breathing, no retractions or nasal flaring. Abdomen/GI: Soft, non-tender, with normal bowel sounds. No distension or tympany. No guarding or rebound. No evidence of tenderness throughout. Back: No spinal tenderness. No costovertebral tenderness. Full range of motion. Skin: Warm, dry with normal turgor. Normal color with no rashes, no lesions, and no evidence of cellulitis. MS/ Extremity: Pulses equal, no cyanosis. Neurovascular intact. Full, normal range of motion., bilateral aka Neuro: Awake and alert, GCS 15, oriented to person, place, time, and situation. Cranial nerves II-XII grossly intact. Motor strength 5/5 in all extremities. Sensory grossly intact. Cerebellar exam normal. Normal gait. Psych: Awake, alert, with orientation to person, place and time. Behavior, mood, and affect are within normal limits. 15:39 Neck: External neck: is normal, no acute changes, C-spine: appears grossly normal, no acute changes, Thyroid: appears normal, no acute changes, Trachea: is midline with no obvious abnormalities, no acute changes, ROM/movement: is normal, no acute changes, pain, is not appreciated, limited range of motion, is not appreciated, Meningeal signs: are not present, Kernig's sign is negative, Brudzinski's sign is negative, nuchal rigidity, is not appreciated, 15:39 ECG was reviewed by the Attending Physician. Vital Signs: 12:56 BP 105 / 84; Pulse 82; Resp 18; Temp 98.1; Pulse Ox 99% ; Weight 81.65 kg; Pain 5/10; me1 14:00 BP 119 / 86; Pulse 71; Resp 17; Pulse Ox 99% ; me1 15:00 BP 139 / 88; Pulse 67; Resp 16; Pulse Ox 98% ; me1 15:45 BP 129 / 93; Pulse 66; Resp 16; Temp 98.5; Pulse Ox 100% ; me1 12:56 Pain Scale: Adult me1 Agnes Coma Score: 15:45 Eye Response: spontaneous(4). Motor Response: obeys commands(6). Verbal Response: darlyn oriented(5). Total: 15. MDM: 13:13 Medical Screening Exam initiated darlyn 13:19 Medical Screening Exam initiated darlyn 15:45 Differential diagnosis: hypoglycemia, hyponatremia, intracerebral hemorrhage, migraine, darlyn neoplasm, sinusitis, subarachnoid bleed, subdural hematoma, temporal arteritis, tension headache, trigeminal neuralgia. Data reviewed: vital signs, nurses notes, EMS record, lab test result(s), EKG, radiologic studies, CT scan, plain films. Consideration of Admission/Observation Escalation of care including admission/observation considered. I considered the following discharge prescriptions or medication management in the emergency department Medications were administered in the Emergency Department. See MAR. Independent interpretation of the following test(s) in the Emergency Department EKG: See my EKG interpretation above. Test considered but Not performed: MRI: no mri brain. Care significantly affected by the following chronic conditions: Hypertension, anxiety, depression, djd,dm, vp ancillary shunt. 10/06 13:15 Order name: Basic Metabolic Panel; Complete Time: 15:37 [facility] 10/06 13:15 Order name: CBC with Diff 10/06 13:15 Order name: LFT's; Complete Time: 15:37 [facility] 10/06 13:15 Order name: Magnesium; Complete Time: 15:37 [facility] 10/06 13:15 Order name: NT PRO-BNP; Complete Time: 15:37 [facility] 10/06 13:15 Order name: PT-INR; Complete Time: 15:37 [facility] 10/06 13:15 Order name: Troponin HS; Complete Time: 15:37 [facility] 10/06 13:15 Order name: Lipase; Complete Time: 15:37 [facility] 10/06 13:15 Order name: Urinalysis w/ reflexes 10/06 13:15 Order name: XRAY Chest (1 view) [facility] 10/06 13:23 Order name: Chest Abd Pelvis Wo Con; Complete Time: 15:37 EDMS 10/06 13:24 Order name: Head C Spine Mpr Wo Con; Complete Time: 15:37 EDMS 10/06 13:15 Order name: Cardiac monitoring; Complete Time: 14:05 [facility] 10/06 13:15 Order name: EKG - Nurse/Tech; Complete Time: 14:05 [facility] 10/06 13:15 Order name: IV Saline Lock; Complete Time: 13:21 [facility] 10/06 13:15 Order name: Labs collected and sent; Complete Time: 13:46 [facility] 10/06 13:15 Order name: O2 Per Protocol; Complete Time: 13:21 [facility] 10/06 13:15 Order name: O2 Sat Monitoring; Complete Time: 13:21 [facility] EC:39 Rate is 68 beats/min. Rhythm is regular. QRS [place] is Normal. LA interval is normal. QRS darlyn interval is normal. QT interval is normal. No Q waves. T waves are Normal. No ST changes noted. Clinical impression: Normal ECG and No evidence of ischemia. Interpreted by me. Reviewed by me. Administered Medications: 14:03 Drug: Ativan IVP 1 mg IVP once Route: IVP; Site: right antecubital; me1 14:45 Follow up: Response: No adverse reaction; Anxiety decreased me1 14:05 Drug: NS 0.9% IV 500 ml 500 ml IV at 1 bolus once; to be given as a bolus over 30 me1 minutes Volume: 500 ml; Route: IV; Rate: 1 bolus; Site: right antecubital; 14:46 Follow up: Response: No adverse reaction; IV Status: Completed infusion; IV Intake: me1 500ml 14:05 Drug: foLIC Acid IVPB 1 mg IVPB once Route: IVPB; Site: right antecubital; me1 14:46 Follow up: IV Status: Completed infusion me1 14:05 Drug: Famotidine IVP 20 mg IVP once; dilute with 10 mL 0.9% NaCl; give over 2 minutes me1 Route: IVP; Site: right antecubital; 14:46 Follow up: Response: No adverse reaction me1 14:05 Drug: Keppra IV 1000 mg IV at per protocol once Route: IV; Rate: per protocol; Site: me1 right antecubital; 14:46 Follow up: Response: No adverse reaction; IV Status: Completed infusion; IV Intake: me1 100ml 15:58 Drug: Ketorolac IVP 30 mg IVP once Route: IVP; Site: right antecubital; me1 15:58 Follow up: Response: No adverse reaction; Pain is decreased me1 15:58 Drug: Ondansetron IVP 4 mg IVP once; over 2 minutes Route: IVP; Site: right antecubital;me1 15:58 Follow up: Response: No adverse reaction; Nausea is decreased me1 Disposition Summary: 10/06/24 15:49 Discharge Ordered Notes: Location: Home darlyn Problem: new darlyn Symptoms: have improved darlyn Condition: Stable darlyn Diagnosis - Anxiety disorder, unspecified darlyn - Epileptic seizures related to external causes, not intractable darlyn Followup: darlyn - With: Private Physician - When: 2 - 3 days - Reason: Recheck today's complaints, Continuance of care, Re-evaluation by your physician Followup: darlyn - With: Wade Erickson MD - When: 2 - 3 days - Reason: Recheck today's complaints, Continuance of care, Re-evaluation by your physician Discharge Instructions: - Discharge Summary Sheet darlyn - Seizure, Adult darlyn - Seizure, Adult, [id number] darlyn - Generalized Anxiety Disorder, Adult darlyn - Supporting Someone With Anxiety darlyn - Managing Anxiety, Adult darlyn Forms: - Medication Reconciliation Form darlyn - Antibiotic Education darlyn - Prescription Opioid Use darlyn - Patient Portal Instructions darlyn - Leadership Thank You Letter [facility] Prescriptions: - Keppra 1,000 mg Oral tablet - take 2 tablet ORAL route once; 30 tablet; Refills: 0, Product Selection darlyn Permitted Signatures: Dispatcher [employer] EDRay Marinelli MD MD cha Eddleman, Michelle, RN RN me1 Corrections: (The following items were deleted from the chart) 13:16 13:16 BASIC METABOLIC PANEL+C.LAB.BRZ ordered. EDMS EDMS 13:16 13:16 CBC+H.LAB.BRZ ordered. EDMS EDMS 13:16 13:16 HEPATIC FUNCTION+C.LAB.BRZ ordered. EDMS EDMS 13:16 13:16 MAGNESIUM+C.LAB.BRZ ordered. EDMS EDMS 13:16 13:16 PROBNP+C.LAB.BRZ ordered. EDMS EDMS 13:16 13:16 PROTIME (+INR)+COAG.LAB.BRZ ordered. EDMS EDMS 13:16 13:16 Troponin High Sensitivity+C.LAB.BRZ ordered. EDMS EDMS 13:16 13:16 LIPASE+C.LAB.BRZ ordered. EDMS EDMS 13:16 13:16 Urinalysis+U.LAB.BRZ ordered. EDMS EDMS 13:16 13:16 Chest Single View+RAD.RAD.BRZ ordered. EDMS EDMS 13:16 13:16 Head C Spine Cap Wo Con+CT.RAD.BRZ ordered. EDMS EDMS
[2024-10-06] MEDS ORDERED: ONDANSETRON 4 MG/2 ML VIAL ONE (15:55)
[2024-10-06] MEDS ORDERED: KETOROLAC 30 MG/ML INJ ONE (15:55)
[2024-10-06 16:07] LABS: Specific Gravity 1.009 (1.005-1.030); Sqamous Epithelial <5 /HPF (None Seen); Urine Bacteria <20 /HPF (<20); Urine Bilirubin NEGATIVE (Negative); Urine Blood Negative (Negative); Urine Clarity Turbid (Clear); Urine Color Colorless (Yellow); Urine Culture Reflex Order NOT NEEDED; Urine Glucose NEGATIVE (Negative); Urine Ketones NEGATIVE (Negative); Urine Microscopic Reflex YN ORDER UMIC; Urine Mucus Slight /HPF (None Seen); Urine Nitrite NEGATIVE (Negative); Urine Protein NEGATIVE (Negative); Urine RBC <5 /HPF (None Seen); Urine Urobilinogen Normal (Normal); Urine WBC <5 /HPF (<5); Urine pH 5.5 (5.0-7.0)
--- NOTE | 2024-10-06 16:21 | RAD REPORT ---
EXAM: Chest Single View HISTORY: 49 years Female COUGH COMPARISON: None. FINDINGS: LUNGS/PLEURA: The lungs are clear. No pleural effusions or pneumothorax. No pulmonary edema. CARDIAC/MEDIASTINUM: The cardiac silhouette is within normal limits. UPPER ABDOMEN: No significant abnormality. BONES: No acute abnormality. 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 IMPRESSION: No evidence of acute cardiopulmonary disease.
[2024-10-06 16:28] VITALS: BP 129/93; TEMP 98.5; O2SAT 100
[2024-10-06 18:18] LABS: Blood Morphology Comment NOT SEEN (NOT SEEN); Platelet Estimate ADEQ; White Blood Cell Scan OK (OK)
--- NOTE | 2024-10-07 12:00 | EKG ---
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
== END 2024-10-06 16:18 | disposition home or self-care (01) ==
LOC: ER 12:51
DX: G40.509 Epileptic seizures related to external causes, not intractable, without status epilepticus (principal); F41.9 Anxiety disorder, unspecified; Z87.820 Personal history of traumatic brain injury
CPT/HCPCS: 96365; 96368; 93005; 85025; 81001; 80048; 36415; 83735; 85610; 80076; 84484; 83690; 83880; 70450; 71250; 72125; 74176; 71045; 96375; 99284; J1953; J2405; J7040

== ENCOUNTER 2024-10-22 12:25 | Emergency (ER) | payer OTHER ==
[2024-10-22] MEDS ORDERED: NA CHLORIDE 0.9% 100 ML ONE (13:44)
[2024-10-22] MEDS ORDERED: NA CHLORIDE 0.9% 1,000 ML ONE ×2 (13:44→16:15)
[2024-10-22] MEDS ORDERED: LEVETIRACETAM 500 MG/5 ML VIAL IV ONE (13:45)
--- NOTE | 2024-10-22 13:52 | RAD REPORT ---
EXAMINATION: Head C Spine Mpr Wo Con CLINICAL INDICATION: Female, 49 years old. SEIZURE TECHNIQUE: Axial CT images from the skull base to the vertex without intravenous contrast. Axial CT i mages through the cervical spine were obtained without intravenous contrast. Sagittal and coronal reformatted images were created from the data set. Coronal and sagittal reformatted images were creat ed from the data set. One or more of the following dose reduction techniques were used: Automated exposure control, adjustment of the mA and/or kV according to patient size, and/or iterative reconstr uction. Unless otherwise specified, incidental findings do not require dedicated imaging follow-up. [id number]. COMPARISON: 10/06/2024 FINDINGS: Head: INTRACRANIAL: No acute intracranial hemorrhage. No hydrocephalus. No mass effect or midline shift. Ri ght frontal lobe cortical, deep white matter, and right basal ganglia encephalomalacia in addition to right temporal lobe is unchanged.Left frontal approach ventriculostomy with tip near the third michael tricle is unchanged. Prior aneurysm clipping. VASCULATURE: No visualized abnormalities in the arteries or dural venous sinuses. SCALP/SKULL: Right frontoparietal craniotomy. No acute soft tissue abnormality. SINUSES: The visualized paranasal sinuses are mostly clear. No significant mastoid fluid. Cervical spine: ALIGNMENT: The cervical spine has normal alignment without scoliosis or spondylolisthesis. BONE: Vertebral body heights are maintained. No aggressive osseous lesions. DEGENERATIVE: Multilevel cervical spondylosis with evidence of bilateral neural foraminal narrowing. No high grade central spinal stenosis. SOFT TISSUE: No significant abnormalities in the soft tissue of the neck. The visualized lung apices are clear. IMPRESSION: No acute intracranial abnormality. No acute fracture or traumatic malalignment of the cervical spine.
[2024-10-22 14:11] LABS: Absolute Basophils 0.1 K/uL (0-0.5); Absolute Eosinophils 0.1 K/uL (0-0.5); Absolute Lymphocytes (CBC) 2.2 K/uL (0.7-4.9); Absolute Monocytes 0.4 K/uL (0.1-1.3); Absolute Neutrophil 4.7 K/uL (1.8-8.0); Basophils % 0.8 % (0-1.3); Eosinophils % 1.9 % (0-4.4); Hematocrit 41.7 % (36.0-45.0); Hemoglobin 14.4 g/dL (12.0-15.0); MCH 32.3 pg (27.0-35.0); MCHC 34.6 g/dL (32.0-36.0); MCV 93.3 fL (80-100); MPV 6.9 fL (7.6-11.3); Monocytes % 5.8 % (3.3-12.3); Neutrophils % 62.5 % (41.7-73.7); Platelets 325 thou/uL (152-406); RBC Red Blood Cell Count 4.47 M/uL (3.86-4.86); Red Cell Distribution Width 13.3 % (12.1-15.2)
[2024-10-22 14:16] LABS: PT Prothrombin Time 10.1 SECONDS (10-13.0); PTT, Activated Partial Thromb 28.6 SECONDS (27.2-37.4); Protime INR 0.88
[2024-10-22 14:29] LABS: ALT/SGPT 36 U/L (13-56); AST/SGOT 13 U/L (15-37); Alkaline Phosphatase 122 U/L (45-117); Anion Gap 9.7 mEq/L (5.0-15.0); BUN Blood Urea Nitrogen 26 mg/dL (7-18); Bicarbonate 27 mEq/L (21-32); Bilirubin Direct < 0.2 mg/dL (0-0.2); Bilirubin Indirect, Calculated 0.2 mg/dL (0.2-0.8); Bilirubin Total 0.4 mg/dL (0.2-1.0); Glomerular Filtration Rate 38 ml/min (=/>90); Glucose Level 101 mg/dL (74-106); Magnesium 2.6 mg/dL (1.6-2.4); Potassium 3.7 mEq/L (3.5-5.1); Sodium Level 139 mEq/L (136-145); Troponin High Sensitivity < 3.0 pg/mL (<58.9)
[2024-10-22 16:18] LABS: Sqamous Epithelial <5 /HPF (None Seen); Urine Bacteria None Seen /HPF (<20); Urine Bilirubin NEGATIVE (Negative); Urine Blood Negative (Negative); Urine Clarity Turbid (Clear); Urine Color Colorless (Yellow); Urine Crystals Unidentified Few /HPF (None Seen); Urine Glucose NEGATIVE (Negative); Urine Ketones NEGATIVE (Negative); Urine Micro Reflex YN NO BILL MICROSCOPIC; Urine Mucus Slight /HPF (None Seen); Urine Nitrite NEGATIVE (Negative); Urine Protein NEGATIVE (Negative); Urine RBC <5 /HPF (None Seen); Urine Urobilinogen Normal (Normal); Urine WBC <5 /HPF (<5); Urine WBC Clump Rare /HPF (None Seen); Urine Yeast (Budding) Trace /HPF (None Seen); Urine pH 6.5 (5.0-7.0)
[2024-10-22 16:39] LABS: Barbiturates NEGATIVE (NEGATIVE); Benzodiazepines NEGATIVE (NEGATIVE); Cocaine NEGATIVE (NEGATIVE); METHAMPHETAM NEGATIVE (NEGATIVE); Methadone NEGATIVE (NEGATIVE); Opiates NEGATIVE (NEGATIVE); Phencyclidine NEGATIVE (NEGATIVE); THC Cannibis NEGATIVE (NEGATIVE)
--- NOTE | 2024-10-22 17:11 | EDPHYS ---
Physician Documentation [facility] Name: Shannan Fuller Age: 49 yrs Sex: Female : 1975 Arrival Date: 10/22/2024 Time: 12:25 Bed 3 Private MD: Ray Wilder HPI: 10/22 13:30 This 49 yrs old Female presents to ER via Ambulatory with complaints of Probable sb4 Seizure. 13:32 Patient with history of seizures was brought in today by her friend for suspected sb4 seizures. Friend states that she has been very out of it and believes that she is having seizures. Patient is confused, suspected to be postictal, cannot provide any history. Does report compliance with her seizure medications. Historical: - Allergies: 13:18 GABAPENTIN; ss 13:18 Latex; ss 13:18 Prozac; ss - Home Meds: 19:33 amantadine HCl 100 mg Oral capsule 2 times per day [Active]; trazodone 100 mg Oral sb4 tablet every day at bedtime [Active]; levetiracetam 500 mg Oral tablet 2 times per day [Active]; hydrochlorothiazide 12.5 mg Oral tablet every morning [Active]; baclofen 10 mg Oral tablet 3 times per day [Active]; lamotrigine oral [Active]; - PMHx: 13:18 Anxiety; Sleep Apnea; TBI (Sleep Apnea); Seizure; PTSD; Mild left sided weakness (from ss brain SX); DJD; Depression; diabetes mellitus; - PSHx: 13:18 Appendectomy; Cholecystectomy; Brain sx; dual aneurysm sx; hip SX; hysterectomy; right ss knee sx; shunt; - Immunization history:: Adult Immunizations unknown. - Infectious Disease History:: Denies. - Social history:: Smoking status: unknown. ROS: 13:32 Constitutional: Negative for fever, chills, and weight loss, sb4 13:32 Neuro: Positive for seizure activity, 13:32 All other systems are negative, Exam: 13:32 Head/Face: Normocephalic, atraumatic. Eyes: Extra-ocular motions intact. Periorbital sb4 areas with no swelling, redness, or edema. ENT: Mucous membranes moist. Cardiovascular: Regular rate and rhythm with a normal S1 and S2. Respiratory: No increased work of breathing, no retractions or nasal flaring. Abdomen/GI: Soft, non-tender, no distension. Skin: Warm, dry with normal turgor. Normal color with no rashes, no lesions, and no evidence of cellulitis. 13:32 Constitutional: The patient appears in no acute distress, 13:32 Neuro: seizure activity, is not displayed by the patient, is not currently displayed, but the patient is post-ictal, Vital Signs: 13:15 BP 97 / 74; Pulse 95; Resp 12; Temp 97(TE); Pulse Ox 95% on R/A; ss 13:45 BP 99 / 68; Pulse 77; Resp 16; Pulse Ox 96% on R/A; db 14:30 BP 108 / 74; Pulse 67; Resp 16; Pulse Ox 97% on R/A; db 15:30 BP 126 / 97; Pulse 60; Resp 16; Pulse Ox 98% on R/A; db 16:00 BP 108 / 80; Pulse 66; Resp 16; Pulse Ox 98% ; db 17:00 BP 148 / 98; Pulse 59; Resp 16; Pulse Ox 100% on R/A; db 18:00 BP 160 / 99; Pulse 59; Resp 16; Pulse Ox 100% on R/A; db 19:16 BP 127 / 82; Pulse 62; Resp 16; Pulse Ox 97% ; vc1 20:25 BP 127 / 87; Pulse 73; Resp 18; Temp 97; Pulse Ox 100% ; Pain 0/10; bm8 20:25 Pain Scale: Adult bm8 Agnes Coma Score: 13:45 Eye Response: to pain(2). Motor Response: withdraws from pain(4). Verbal Response: db confused(4). Total: 10. 15:15 Eye Response: spontaneous(4). Motor Response: obeys commands(6). Verbal Response: db oriented(5). Total: 15. 20:25 Eye Response: spontaneous(4). Motor Response: obeys commands(6). Verbal Response: bm8 oriented(5). Total: 15. MDM: 13:02 Medical Screening Exam initiated sb4 13:59 Differential diagnosis: drug overdose, seizure, medical noncompliance, electrolyte sb4 disturbance, hypoglycemia, hyperglycemia. 17:42 Data reviewed: vital signs, nurses notes, lab test result(s), EKG, radiologic studies, sb4 and as a result, I will discharge patient. Historians other than the Patient: Parent: mother. Counseling: I had a detailed discussion with the patient and/or guardian regarding the historical points, exam findings, and any diagnostic results supporting the discharge/admit diagnosis, the presence of at least one elevated blood pressure reading (>120/80) during this emergency department visit, lab results, radiology results, the need for outpatient follow up, a neurologist, to return to the emergency department if symptoms worsen or persist or if there are any questions or concerns that arise at home. 10/22 13:20 Order name: Basic Metabolic Panel; Complete Time: 14:30 sb4 10/22 13:20 Order name: CBC with Diff; Complete Time: 14:12 sb4 10/22 13:20 Order name: Hepatic Function; Complete Time: 14:30 sb4 10/22 13:20 Order name: Magnesium; Complete Time: 14:30 sb4 10/22 13:20 Order name: Protime (+inr); Complete Time: 14:17 sb4 10/22 13:20 Order name: Ptt, Activated; Complete Time: 14:17 sb4 10/22 13:20 Order name: Troponin High Sensitivity; Complete Time: 14:30 sb4 10/22 13:20 Order name: UDS; Complete Time: 16:48 sb4 10/22 13:31 Order name: Tegretol Level; Complete Time: 14:30 sb4 10/22 14:23 Order name: UAM; Complete Time: 16:19 sb4 10/22 13:20 Order name: CT Head C Spine; Complete Time: 13:56 sb4 10/22 13:20 Order name: Cardiac monitoring; Complete Time: 13:40 sb4 10/22 13:20 Order name: EKG - Nurse/Tech; Complete Time: 13:58 sb4 10/22 13:20 Order name: IV Saline Lock; Complete Time: 13:58 sb4 10/22 13:20 Order name: Labs collected and sent; Complete Time: 13:58 sb4 10/22 13:20 Order name: O2 Per Protocol; Complete Time: 13:40 sb4 10/22 13:20 Order name: O2 Sat Monitoring; Complete Time: 13:39 sb4 EC:48 Rate is 77 beats/min. Rhythm is regular, Normal Sinus Rhythm. [place] interval is normal at sb4 164 msec. QRS interval is normal at 96 msec. QT interval is prolonged at 418 msec. Clinical impression: No evidence of ischemia. Interpreted by me. Reviewed by me. Administered Medications: 13:53 Drug: NS 0.9% IV 1000 ml IV at 1 bolus Per protocol; to be given as a bolus over 60 db minutes Route: IV; Rate: 1 bolus; Site: right wrist; 18:22 Follow up: Response: No adverse reaction; IV Status: Completed infusion; IV Intake: db 1000ml 13:54 Drug: Keppra IV 1000 mg IV at calculated rate once Route: IV; Rate: calculated rate; db Site: right wrist; 18:22 Follow up: Response: No adverse reaction; IV Status: Completed infusion; IV Intake: db 100ml 16:19 Drug: NS 0.9% IV 1000 ml IV at 1000 ml once; to be given as a bolus over 60 minutes db Route: IV; Rate: 1000 ml; Site: right wrist; 18:21 Follow up: Response: No adverse reaction; IV Status: Completed infusion; IV Intake: db 1000ml 18:02 Drug: Ketorolac IVP 15 mg IVP once Route: IVP; Site: right hand; bp 18:21 Follow up: Response: No adverse reaction db Disposition: 10/23 15:50 Co-signature as Attending Physician, Ray Aguirre MD I agree with the assessment and darlyn plan of care. Disposition Summary: 10/22/24 20:14 Discharge Ordered Notes: Location: Home(10/22/24 20:14) sb4 Problem: new(10/22/24 20:14) sb4 Symptoms: have improved(10/22/24 20:14) sb4 Condition: Stable(10/22/24 20:14) sb4 Diagnosis - Other seizures sb4 Followup: sb4 - With: Emergency Department - When: As needed - Reason: Trouble breathing, Worsening of condition Discharge Instructions: - Discharge Summary Sheet sb4 - Seizure, Adult sb4 Forms: - Patient Portal Instructions sb4 - Leadership Thank You Letter sb4 Signatures: Dispatcher [employer] Ray Brown MD MD cha Blanchard, Shelby, RN RN Wni Castelan RN RN Mandy Delatorre RN RN Yesenia Long PA-C PA-C sb4 Corrections: (The following items were deleted from the chart) 10/22 13:20 13:20 BASIC METABOLIC PANEL+C.LAB.BRZ ordered. EDMS EDMS 13:20 13:20 CBC+H.LAB.BRZ ordered. EDMS EDMS 13:20 13:20 HEPATIC FUNCTION+C.LAB.BRZ ordered. EDMS EDMS 13:20 13:20 MAGNESIUM+C.LAB.BRZ ordered. EDMS EDMS 13:20 13:20 PROTIME (+INR)+COAG.LAB.BRZ ordered. EDMS EDMS 13:20 13:20 PTT, ACTIVATED+COAG.LAB.BRZ ordered. EDMS EDMS 13:20 13:20 Troponin High Sensitivity+C.LAB.BRZ ordered. EDMS EDMS 13:20 13:20 URINE DRUG SCREEN+UC.LAB.BRZ ordered. EDMS EDMS 13:21 13:21 Head C Spine MPR Wo Con+CT.RAD.BRZ ordered. EDMS EDMS 13:32 13:32 CARBAMAZEPINE (TEGRETOL)+C.LAB.BRZ ordered. EDMS EDMS 14:24 14:24 Urinalysis W/Microscopic+U.LAB.BRZ ordered. EDMS EDMS 18:34 17:10 Home sb4 sb4 18:34 17:10 new sb4 sb4 18:34 17:10 have improved sb4 sb4 18:34 17:10 Stable sb4 sb4 18:34 17:10 Epileptic seizures related to external causes, not intractable, without status sb4 epilepticus sb4
--- NOTE | 2024-10-22 17:11 | ER ---
Nurse's Notes [facility] Name: Shannan Fuller Age: 49 yrs Sex: Female : 1975 Arrival Date: 10/22/2024 Time: 12:25 Bed 3 Private MD: Diagnosis: Other seizures Presentation: 10/22 13:15 Chief complaint: Friend and/or Co-Worker states: seizures today. Unknown how many. ss Friend states, "she woke up looking lost.". Coronavirus screen: Client denies travel out of the [place] in the last 14 days. Ebola Screen: Patient denies exposure to infectious person. Patient denies travel to an Ebola-affected area in the 21 days before illness onset. Initial Sepsis Screen: Does the patient meet any 2 criteria? No. Patient's initial sepsis screen is negative. Does the patient have a suspected source of infection? No. Patient's initial sepsis screen is negative. Risk Assessment: Do you want to hurt yourself or someone else? Patient reports no desire to harm self or others. Onset of symptoms is unknown. 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 - Infectious Disease History:: Denies. - Social history:: Smoking status: unknown. Screenin:53 [facility] ED Fall Risk Assessment (Adult) History of falling in the last 3 months, db including since admission Yes- single mechanical fall (1 pt) Confusion or Disorientation Yes (5 pts) Intoxicated or Sedated No (0 pts) Impaired Gait No (0 pts) Mobility Assist Device Used No (0 pt) Altered Elimination No (0 pt) Score/Fall Risk Level 3 or more points = High Risk Oriented to surroundings, Maintained a safe environment, Hourly rounding (assess needs \\T\\ fall precautionary measures) done, Utilized family, sitter, or virtual cracking unit operator as indicated. Abuse screen: Denies threats or abuse. Denies injuries from another. Nutritional screening: No deficits noted. Tuberculosis screening: No symptoms or risk factors identified. Assessment: 13:45 Reassessment: Patient appears in no apparent distress at this time. Patient and/or db family updated on plan of care and expected duration. Pain level reassessed. General: Appears in no apparent distress. comfortable, Behavior is drowsy. Pain: Unable to use pain scale. Patient is disoriented. Neuro: Level of Consciousness is confused, Oriented to none. Respiratory: Airway is patent Respiratory effort is even, unlabored, Respiratory pattern is regular, symmetrical. 14:55 Reassessment: PATIENT TO RESTROOM VIA WHEELCHAIR. db 15:15 Reassessment: Patient appears in no apparent distress at this time. Patient and/or db family updated on plan of care and expected duration. Pain level reassessed. Patient is alert, oriented x 3, equal unlabored respirations, skin warm/dry/pink. General: Appears in no apparent distress. comfortable, Behavior is calm, cooperative, appropriate for age. Neuro: Level of Consciousness is awake, alert, obeys commands, Oriented to person, place, time, situation. 18:18 Reassessment: UPON DC PATIENT REQUEST PAIN MEDICATION SEE MAR FOR MEDICATION db ADMINISTRATION. WHEN ATTEMPTING TO DC PATIENT AGAIN. PATIENT AND FAMILY REQUESTS TO SPEAK TO PROVIDER. PROVIDER AT PATIENT BEDSIDE SPEAKING WITH PATIENT AND FAMILY. 18:20 Reassessment: Patient appears in no apparent distress at this time. Patient and/or db family updated on plan of care and expected duration. Pain level reassessed. Patient is alert, oriented x 3, equal unlabored respirations, skin warm/dry/pink. General: Appears in no apparent distress. comfortable. Neuro: Level of Consciousness is awake, alert, obeys commands, Oriented to person, place, time, situation. 19:25 Reassessment: PT SITTING UP IN BED EATING WHATABURGER TALKING TO A VISITOR. PT vc1 REQUESTED JUICE. 20:25 Reassessment: Patient appears in no apparent distress at this time. Patient and/or bm8 family updated on plan of care and expected duration. Pain level reassessed. Patient is alert, oriented x 3, equal unlabored respirations, skin warm/dry/pink. Patient denies pain at this time. Patient states feeling better. Patient states symptoms have improved. Vital Signs: 13:15 BP 97 / 74; Pulse 95; Resp 12; Temp 97(TE); Pulse Ox 95% on R/A; ss 13:45 BP 99 / 68; Pulse 77; Resp 16; Pulse Ox 96% on R/A; db 14:30 BP 108 / 74; Pulse 67; Resp 16; Pulse Ox 97% on R/A; db 15:30 BP 126 / 97; Pulse 60; Resp 16; Pulse Ox 98% on R/A; db 16:00 BP 108 / 80; Pulse 66; Resp 16; Pulse Ox 98% ; db 17:00 BP 148 / 98; Pulse 59; Resp 16; Pulse Ox 100% on R/A; db 18:00 BP 160 / 99; Pulse 59; Resp 16; Pulse Ox 100% on R/A; db 19:16 BP 127 / 82; Pulse 62; Resp 16; Pulse Ox 97% ; vc1 20:25 BP 127 / 87; Pulse 73; Resp 18; Temp 97; Pulse Ox 100% ; Pain 0/10; bm8 20:25 Pain Scale: Adult bm8 Gilliam Coma Score: 13:45 Eye Response: to pain(2). Motor Response: withdraws from pain(4). Verbal Response: db confused(4). Total: 10. 15:15 Eye Response: spontaneous(4). Motor Response: obeys commands(6). Verbal Response: db oriented(5). Total: 15. 20:25 Eye Response: spontaneous(4). Motor Response: obeys commands(6). Verbal Response: bm8 oriented(5). Total: 15. ED Course: 12:29 Patient arrived in ED. al6 13:01 Yesenia Marino PA-C is [facility]. sb4 13:01 Ray Aguirre MD is Attending Physician. sb4 13:18 Triage completed. ss 13:18 Arm band placed on left wrist. ss 13:26 Mandy Patterson, RN is Primary Nurse. db 13:[address] db 13:34 CT Head C Spine In Process Unspecified. EDMS 13:53 Patient has correct armband on for positive identification. Bed in low position. Call db light in reach. Side rails up X2. Seizure precautions initiated. Client placed on continuous cardiac and pulse oximetry monitoring. NIBP monitoring applied. youth nutritional monitor on. Pulse ox on. NIBP on. Pillow given. 13:53 Initial lab(s) drawn, by me, sent to lab. Pacemaker Interrogation completed and sent db to. Inserted saline lock: 22 gauge in right wrist, using aseptic technique. Blood collected. Flushed with 10 mL NS. 17:10 Wade Erickson MD is Referral Physician. sb4 19:24 Constanza Giron, MORA is Primary Nurse. vc1 20:25 Provided Education on: post er care. bm8 20:25 No provider procedures requiring assistance completed. IV discontinued, intact, bm8 bleeding controlled, No redness/swelling at site. Pressure dressing applied. Administered Medications: 13:53 Drug: NS 0.9% IV 1000 ml IV at 1 bolus Per protocol; to be given as a bolus over 60 db minutes Route: IV; Rate: 1 bolus; Site: right wrist; 18:22 Follow up: Response: No adverse reaction; IV Status: Completed infusion; IV Intake: db 1000ml 13:54 Drug: Keppra IV 1000 mg IV at calculated rate once Route: IV; Rate: calculated rate; db Site: right wrist; 18:22 Follow up: Response: No adverse reaction; IV Status: Completed infusion; IV Intake: db 100ml 16:19 Drug: NS 0.9% IV 1000 ml IV at 1000 ml once; to be given as a bolus over 60 minutes db Route: IV; Rate: 1000 ml; Site: right wrist; 18:21 Follow up: Response: No adverse reaction; IV Status: Completed infusion; IV Intake: db 1000ml 18:02 Drug: Ketorolac IVP 15 mg IVP once Route: IVP; Site: right hand; bp 18:21 Follow up: Response: No adverse reaction db Medication: 13:53 VIS not applicable for this client. db Intake: 18:21 IV: 1000ml; Total: 1000ml. db 18:22 IV: 100ml; Total: 1100ml. db 18:22 IV: 1000ml; Total: 2100ml. db Outcome: 17:10 Discharge ordered by MD. sb4 20:14 Discharge ordered by MD. sb4 20:25 Discharged to home via wheelchair, with family, bm8 20:25 Condition: stable 20:25 Discharge instructions given to patient, family, Instructed on discharge instructions, follow up and referral plans. no drinking with medication, no driving heavy equipment, medication usage, safety practices, Demonstrated understanding of instructions, follow-up care, medications, 20:26 Patient left the ED. bm8 Signatures: Dispatcher [employer] EDMS Pari Diallo RN RN ss Win Garcia RN RN bp Constanza Giron RN RN vc1 Mandy Patterson RN RN Yesenia Long, PA-C PA-C sb4 Casey Yepez RN RN bm8 Katarzyna Riley al6 Corrections: (The following items were deleted from the chart) 19:25 19:16 BP 127 / ???; Pulse 62bpm; Resp 16bpm; Pulse Ox 100%; vc1 vc1
[2024-10-22] MEDS ORDERED: KETOROLAC 30 MG/ML INJ ONE (18:04)
[2024-10-22 20:39] VITALS: TEMP 97
[2024-10-22 20:49] VITALS: BP 127/87; O2SAT 100
--- NOTE | 2024-10-26 12:22 | EKG ---
Test Date: 2024-10-22 Test Time: 13:46:07 Multimedia Programmer: JANIS MEASUREMENT RESULTS: Intervals: Rate: 77 PA: 164 QRSD: 96 QT: 418 QTc: 473 Larimore: P: 63 PA: 164 QRS: 86 T: 46 INTERPRETIVE STATEMENTS: Normal sinus rhythm Incomplete right bundle branch block Nonspecific T wave abnormality Prolonged QT Abnormal ECG Compared to ECG 10/06/2024 13:49:44 Incomplete right bundle-branch block now present T-wave abnormality now present Prolonged QT interval now present Electronically Signed On 10-26-24 12:11:44 CDT by Chao Elizabeth
== END 2024-10-22 20:26 | disposition home or self-care (01) ==
LOC: ER 12:25
DX: G40.89 Other seizures (principal); Z87.820 Personal history of traumatic brain injury
CPT/HCPCS: 96365; 93005; 85025; 81001; 80048; 36415; 83735; 80156; 85610; 80076; 85730; 84484; 80307; 70450; 72125; 96375; 99285; 96366; J1953; J7030 ×2

== ENCOUNTER 2025-03-24 21:38 | Emergency (ER) | payer BC, OTHER ==
[2025-03-24] MEDS ORDERED: ONDANSETRON 4 MG/2 ML VIAL ONE (22:38)
[2025-03-24] MEDS ORDERED: LORazepam 2 MG/ML VIAL ONE (22:38)
[2025-03-24] MEDS ORDERED: NA CHLORIDE 0.9% 1,000 ML ONE ×2 (22:39→23:37)
[2025-03-24 23:09] LABS: PT Prothrombin Time 11.6 SECONDS (10-13.0); PTT, Activated Partial Thromb 31.2 SECONDS (27.2-37.4); Protime INR 1.03
[2025-03-24 23:12] LABS: Absolute Lymphocytes (CBC) 2.1 K/uL (0.7-4.9); Hematocrit 41.8 % (36.0-45.0); Hemoglobin 14.4 g/dL (12.0-15.0); MCH 31.6 pg (27.0-35.0); MCHC 34.4 g/dL (32.0-36.0); MCV 91.8 fL (80-100); MPV 7.5 fL (7.6-11.3); Nucleated RBC Absolute Count 0.0 (0-0); Nucleated Red Blood Cells % 0.1 % (0-0); RBC Red Blood Cell Count 4.55 M/uL (3.86-4.86); White Blood Count 6.90 thou/uL (4.3-10.9)
[2025-03-24 23:18] LABS: ALT/SGPT 22 U/L (13-56); AST/SGOT < 10 U/L (15-37); Albumin 3.9 g/dL (3.4-5.0); Albumin/Globulin Ratio 1.1 (1.1-1.8); Alkaline Phosphatase 109 U/L (45-117); Anion Gap 8.6 mEq/L (5.0-15.0); BUN Blood Urea Nitrogen 11 mg/dL (7-18); Bilirubin Indirect, Calculated 0.3 mg/dL (0.2-0.8); Globulin 3.5 g/dL (2.3-3.5); Glucose Level 132 mg/dL (74-106)
[2025-03-24 23:21] LABS: Potassium 2.6 mEq/L (3.5-5.1)
[2025-03-24] MEDS ORDERED: POTASSIUM 25 MEQ EFFERV TAB ONE ×2 (23:37→23:55)
[2025-03-24] MEDS ORDERED: KCL 20 MEQ/100 mL IVPB 100 ML IV ONE (23:38)
--- NOTE | 2025-03-24 23:53 | RAD REPORT ---
CLINICAL HISTORY: hallucinations. TECHNIQUE: Noncontrast CT through the head was performed. Axial, coronal, and sagittal reconstructions were crea ashvin and sent to PACS. This exam was performed according to our departmental dose-optimization program which includes use of Automated Exposure Control, adjustment of the mA and/or kV according to patient size and/or use of iterative reconstruction technique. COMPARISON: CT abdomen from October 22, 2024. FINDINGS: No acute intra-axial or extra-axial bleed seen. There is no mass or mass effect. Unchanged appearance of the ventricular system status post left ventriculoperitoneal shunt which terminates in the body of the left lateral ventricle. 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 Unchanged associated mild ex vacuo dilatation of adjacent portions of the right lateral ventricle. The orbital contents appear unremarkable. The visualized paranasal sinuses and mastoid air cells are patent. No acute fracture is identified. R emote right convexity craniotomy with bone flap. IMPRESSION: No acute intracranial abnormality identified. Chronic findings. Electronically signed by: Nadege Robles MD 03/24/2025 11:50 PM CDT RP Due to temporary technical issues with the PACS/GetThis reporting system, reports are being violeta d by the in-house radiologist without review as a courtesy to ensure prompt reporting the interpreting radiologist is fully responsible for the content of the report. Transcribed Date/Time: 03/25/2025 7:21 AM
--- NOTE | 2025-03-25 00:09 | EDPHYS ---
Physician Documentation [facility] Name: Shannan Mckeon Age: 49 yrs Sex: Female : 1975 Arrival Date: 03/24/2025 Time: 21:38 Bed 20 Private MD: ED Physician Johanna Markham HPI: 03/24 22:25 This 49 yrs old Female presents to ER via Ambulatory with complaints of Hallucinations. cp 22:25 The patient presents to the emergency department with paranoia, psychosis, has cp experienced auditory hallucinations, has experienced visual hallucinations. Onset: The symptoms/episode began/occurred 4 day(s) ago. 22:25 Past psychiatric history: Prior diagnosis: depression, anxiety, PTSD. Associated signs cp and symptoms: Pertinent positives; substance abuse. Patient reports running out of prescribed psych medications 4 days ago. Has been taking OTC THC gummies. 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 - Infectious Disease History:: Denies. - Social history:: Smoking status: Patient reports the use of cigarette tobacco products, 5-6. ROS: 22:30 Constitutional: Negative for body aches, chills, fever, poor PO intake, cp 22:30 Eyes: Negative for injury, pain, redness, and discharge, cp 22:30 Cardiovascular: Negative for chest pain, edema, palpitations, 22:30 Respiratory: Negative for cough, shortness of breath, wheezing, 22:30 Abdomen/GI: Positive for nausea, vomiting, Negative for abdominal pain, diarrhea, constipation, 22:30 Psych: Positive for anxiety, auditory hallucinations, visual hallucinations, Negative for homicidal ideation, suicide gesture, suicidal ideation, 22:30 ENT: Negative for drainage from ear(s), ear pain, sore throat, difficulty swallowing, cp difficulty handling secretions, 22:30 Neck: Negative for pain with movement, pain at rest, stiffness, 22:30 Back: Negative for pain at rest, pain with movement, 22:30 Neuro: Positive for altered mental status, headache, 22:30 All other systems are negative, cp Exam: 22:35 Constitutional: The patient appears in no acute distress, alert, awake, cp non-diaphoretic, non-toxic, well developed, well nourished, anxious, tearful 22:35 Head/Face: Normocephalic, atraumatic. cp 22:35 Eyes: Periorbital structures: appear normal, Conjunctiva: normal, no exudate, no injection, Sclera: no appreciated abnormality, Lids and lashes: appear normal, bilaterally, 22:35 ENT: External ear(s): are unremarkable, Nose: is normal, Mouth: Lips: moist, Oral mucosa: pink and intact, moist, Posterior pharynx: Airway: no evidence of obstruction, patent, 22:35 Neck: ROM/movement: Meningeal signs: are not present, nuchal rigidity, is not appreciated, 22:35 Chest/axilla: Inspection: normal, Palpation: crepitus, is not appreciated, tenderness, is not appreciated, 22:35 Cardiovascular: Rate: normal, Rhythm: regular, Edema: is not appreciated, JVD: is not appreciated, 22:35 Respiratory: the patient does not display signs of respiratory distress, Respirations: normal, no use of accessory muscles, no retractions, labored breathing, is not present, Breath sounds: are clear throughout, no decreased breath sounds, no stridor, no wheezing, 22:35 Abdomen/GI: Inspection: abdomen appears normal, Palpation: abdomen is soft and non-tender, in all quadrants, 22:35 Back: pain, is absent, ROM is normal, 22:35 Neuro: Orientation: to person, place, situation, Mentation: able to follow commands, Motor: moves all fours, strength is normal, 22:35 Psych: Behavior/mood is cooperative, anxious, Affect is animated, Patient has no thoughts/intents to harm self or others. Delusions/hallucinations 22:52 ECG was reviewed by the Attending Physician. cp Vital Signs: 22:04 BP 136 / 92; Pulse 85; Resp 20; Temp 98.2; Pulse Ox 100% ; vc1 23:00 BP 116 / 87; Pulse 86; Resp 17; Pulse Ox 98% on R/A; mf3 23:36 Weight 81.65 kg; Height 5 ft. 6 in. ; vc1 03/25 00:10 BP 143 / 93; Pulse 75; Resp 18; Pulse Ox 95% on R/A; mf3 01:00 BP 134 / 91; Pulse 79; Resp 17; Pulse Ox 99% on R/A; mf3 02:00 BP 129 / 83; Pulse 73; Resp 17; Pulse Ox 98% on R/A; mf3 06:07 BP 129 / 94; Pulse 75; Resp 17; Pulse Ox 97% on R/A; mf3 08:00 BP 144 / 96; Pulse 68; Resp 16 S; Temp 97.8(TE); Pulse Ox 99% on R/A; aa5 11:28 BP 146 / 94; Pulse 60; Resp 18; Temp 97.3; Pulse Ox 100% on R/A; nh2 17:21 BP 127 / 83; Pulse 65; Resp 18; Pulse Ox 100% ; Pain 0/10; rg5 19:00 BP 132 / 93; Pulse 83; Resp 18 S; Pulse Ox 96% on R/A; ha1 20:00 BP 131 / 89; Pulse 70; Resp 18 S; Pulse Ox 98% on R/A; ha1 21:00 BP 138 / 89; Pulse 85; Resp 18 S; Pulse Ox 96% on R/A; ha1 22:15 BP 140 / 85; Pulse 63; Resp 18; Pulse Ox 96% ; Pain 0/10; rg5 22:45 BP 143 / 97; Pulse 72; Resp 18; Pulse Ox 72% ; rg5 23:00 BP 131 / 107; Pulse 63; Resp 18; Pulse Ox 99% ; rg5 23:35 BP 141 / 91; Pulse 65; Resp 18; Pulse Ox 95% ; rg5 03/26 01:57 BP 134 / 96; Pulse 68; Resp 19; Pulse Ox 100% on R/A; kd3 03:21 BP 151 / 95; Pulse 84; Resp 19; Pulse Ox 92% on R/A; kd3 04:48 BP 147 / 89; Pulse 73; Resp 19; Pulse Ox 94% on R/A; kd3 06:28 BP 133 / 93; Pulse 61; Resp 16; Pulse Ox 95% on R/A; kd3 08:05 BP 140 / 96; Pulse 79; Resp 16; Pulse Ox 97% ; bp 03/24 23:36 Body Mass Index 29.05 (81.65 kg, 167.64 cm) vc1 17:21 Pain Scale: Adult rg5 22:15 Pain Scale: Adult rg5 Agnes Coma Score: 03/24 22:57 Eye Response: spontaneous(4). Motor Response: obeys commands(6). Verbal Response: mf3 oriented(5). Total: 15. MDM: 22:06 Medical Screening Exam initiated 23:00 Differential diagnosis: drug withdrawal. acute psychotic break, depression, psychosis cp secondary to non-compliance, electrolyte abnormality. 03/25 01:10 Data reviewed: vital signs, nurses notes, lab test result(s), EKG, radiologic studies, CT scan, I have discussed the patient's presentation/case with the attending Emergency Department Physician; and as a result, I will transfer patient. 01:10 I considered the following discharge prescriptions or medication management in the emergency department Medications were administered in the Emergency Department. See MAR. Independent interpretation of the following test(s) in the Emergency Department EKG: See my EKG interpretation above. Test considered but Not performed: MRI: brain. Historians other than the Patient: Parent: mother assists with hpi. Care significantly affected by the following chronic conditions: Diabetes, seizure disorder. Counseling: I had a detailed discussion with the patient and/or guardian regarding the historical points, exam findings, and any diagnostic results supporting the discharge/admit diagnosis, lab results, radiology results, the need to transfer to another facility, for higher level of care, [facility] does not immediately have the required specialist. Response to treatment: the patient's symptoms have mildly improved after treatment. 07:26 Transition of care: Care assumed from Johanna Markham MD. ED course: Patient resting rn comfortably, signed out to me pending psychiatric transfer. [facility]. Patient stable with stable vital signs. Mother here and agrees with transfer.. 03/24 22:15 Order name: Acetaminophen; Complete Time: 23:21 03/25 01:03 Interpretation: Reviewed. 03/24 22:15 Order name: Basic Metabolic Panel; Complete Time: 23:21 03/24 23:22 Interpretation: Normal except: K 2.6; CO2 33; GLUC 132; CRE 1.85; GFR 33. 03/24 22:15 Order name: CBC with Diff; Complete Time: 23:21 03/25 01:03 Interpretation: Reviewed. 03/24 22:15 Order name: ETOH Level; Complete Time: 23:21 03/24 22:15 Order name: Hepatic Function; Complete Time: 23:21 03/25 01:04 Interpretation: Normal except: AST < 10. 03/24 22:15 Order name: PT-INR; Complete Time: 23:21 03/24 22:15 Order name: Ptt, Activated; Complete Time: 23:21 03/24 22:15 Order name: Salicylate; Complete Time: 23:21 03/25 01:04 Interpretation: EVELYN < 2.2; Reviewed. 03/24 22:15 Order name: Urine Drug Screen; Complete Time: 01:03 03/25 01:03 Interpretation: Normal except: THC POSITIVE. 03/25 07:39 Order name: BMP; Complete Time: 08:28 03/25 18:27 Order name: BMP: draw at 1930; Complete Time: 20:56 03/25 20:56 Interpretation: Normal except: K 3.2; CL 113; CRE 1.17; GFR 57; CA 7.6. 03/25 23:17 Order name: BMP; Complete Time: 00:58 kmf 03/26 00:59 Interpretation: K 3.8; CRE 1.34; GFR 48; CA 8.7. 03/24 22:21 Order name: CT Head Brain wo Cont; Complete Time: 07:25 03/25 00:01 Interpretation: Report reviewed. 03/25 22:44 Order name: CT Head C Spine rg5 03/26 01:00 Interpretation: Reviewed report. 03/24 22:15 Order name: EKG; Complete Time: 22:16 03/24 22:15 Order name: EKG - Nurse/Tech; Complete Time: 22:49 03/24 22:15 Order name: IV Saline Lock; Complete Time: 23:02 03/24 22:15 Order name: Labs collected and sent; Complete Time: 23:02 03/24 22:15 Order name: Suicide Precautions; Complete Time: 00:03 cp 03/24 22:15 Order name: Suicide Screening ([place]); Complete Time: 00:03 cp EC/24 22:52 Rate is 87 beats/min. Rhythm is regular. NH interval is normal. QRS interval is cp prolonged at 102 msec. QT interval is normal. Interpreted by me. Reviewed by me. Administered Medications: 23:02 Drug: Ativan IVP 1 mg IVP once Route: IVP; Site: left antecubital; [facility] 03/25 01:49 Follow up: Response: No adverse reaction; Anxiety unchanged [facility] 03/24 23:02 Drug: NS 0.9% IV 1000 ml IV at 1000 ml once; to be given as a bolus over 60 minutes [facility] Route: IV; Rate: 1000 ml; Site: left antecubital; 03/25 00:00 Follow up: Response: No adverse reaction; IV Status: Completed infusion [facility] 01:49 Follow up: IV Status: Completed infusion [facility] 03/24 23:02 Drug: Ondansetron IVP 4 mg IVP once; over 2 minutes Route: IVP; Site: left antecubital; [facility] 03/25 01:49 Follow up: Response: No adverse reaction [facility] 00:03 Drug: NS 0.9% IV 1000 ml IV at 1000 ml once; to be given as a bolus over 60 minutes [facility] Route: IV; Rate: 1000 ml; Site: left antecubital; 01:30 Follow up: Response: No adverse reaction; IV Status: Completed infusion [facility] 00:03 Drug: Potassium PO Effervescent Tablet 50 mEq PO once; dissolve in 4 ounces of water or 3 juice Route: PO; 01:49 Follow up: Response: No adverse reaction [facility] 00:03 Drug: Potassium Chloride IV 20 mEq IV at calculated rate once; administer over 1-2 mf3 hours, place in normal saline Route: IV; Rate: calculated rate; Site: left antecubital; 01:50 Follow up: IV Status: Completed infusion [facility] 17:10 Drug: Potassium Chloride IV 20 mEq IV at calculated rate once; administer over 1-2 rg5 hours Route: IV; Rate: calculated rate; Site: left antecubital; 19:06 Follow up: IV Status: Completed infusion; IV Intake: 100ml rg5 18:05 Drug: Ativan IVP 1 mg IVP once Route: IVP; Site: left antecubital; rg5 19:06 Follow up: Response: No adverse reaction rg5 18:05 Drug: Acetaminophen PO 1000 mg PO once Route: PO; rg5 19:06 Follow up: Response: No adverse reaction; Pain is decreased rg5 21:28 Drug: Potassium Chloride IV 20 mEq IV at calculated rate once; administer over 1-2 rg5 hours Route: IV; Rate: calculated rate; Site: left antecubital; 22:40 Follow up: IV Status: Completed infusion; IV Intake: 100ml rg5 21:28 Drug: Potassium PO Effervescent Tablet 50 mEq PO once; dissolve in 4 ounces of water or rg5 juice Route: PO; 23:00 Follow up: Response: No adverse reaction rg5 03/26 01:55 Drug: Acetaminophen PO 1000 mg PO once Route: PO; kd3 03:22 Follow up: Response: No adverse reaction; Pain is decreased kd3 01:55 Drug: LORazepam PO 2 mg PO once Route: PO; kd3 03:22 Follow up: Response: No adverse reaction; Anxiety decreased kd3 Disposition: 03/27 07:04 Co-signature as Attending Physician, Brijesh Matamoros MD I reviewed the patient's care rn provided by the Advanced Practice Provider and agree with the diagnosis and treatment plan. Disposition Summary: 03/25/25 00:08 Transfer Ordered Notes: Transfer Location: [facility] cp Reason: Higher level of care cp Condition: Stable cp Problem: new cp Symptoms: have improved cp Accepting Physician: doctor(03/26/25 09:17) blaze Diagnosis - Auditory hallucinations cp - Visual hallucinations cp - Unspecified injury of unspecified kidney, initial encounter cp - Hypokalemia cp Forms: - Medication Reconciliation Form cp - SBAR form cp Signatures: Dispatcher [employer] EDBrijesh Ordonez MD MD rn Page, Corey, PA-C PAAbeba Blum cp, Kyli RN RN kd3 Constanza Giron RN RN vc1 Justin Nunez RN RN rg5 Rebecca Campbell RN RN mf3 Corrections: (The following items were deleted from the chart) 03/26 09:17 03/25 00:08 doctor cp eb
--- NOTE | 2025-03-25 00:09 | ER ---
Nurse's Notes [facility] Name: Shannan Mckeon Age: 49 yrs Sex: Female : 1975 Arrival Date: 03/24/2025 Time: 21:38 Bed 20 Private MD: Diagnosis: Auditory hallucinations;Visual hallucinations;Unspecified injury of unspecified kidney, initial encounter;Hypokalemia Presentation: 03/24 22:04 Chief complaint: Patient states: I'm having hallucinations, seeing people then they vc1 disappear. Hear them talking but not talking to me. Coronavirus screen: Client denies travel out of the [place] in the last 14 days. At this time, the client does not indicate any symptoms associated with coronavirus-19. Ebola Screen: Patient negative for fever greater than or equal to 101.5 degrees Fahrenheit, and additional compatible Ebola Virus Disease symptoms Patient denies exposure to infectious person. Patient denies travel to an Ebola-affected area in the 21 days before illness onset. No symptoms or risks identified at this time. Initial Sepsis Screen: Does the patient meet any 2 criteria? No. Patient's initial sepsis screen is negative. Does the patient have a suspected source of infection? No. Patient's initial sepsis screen is negative. Risk Assessment: Do you want to hurt yourself or someone else? Patient reports no desire to harm self or others. Onset of symptoms was March 20, 2025. 22:04 Method Of Arrival: Ambulatory vc1 22:04 Acuity: ANNABEL 2 vc1 Triage Assessment: 22:04 General: Appears distressed, uncomfortable, Behavior is anxious, crying, restless. vc1 Pain: Complains of pain in top of head, left temporal area and right temporal area Pain does not radiate. Pain currently is 10 out of 10 on a pain scale. Noted to be crying, Also complains of nausea. EENT: No deficits noted. No signs and/or symptoms were reported regarding the EENT system. Neuro: Level of Consciousness is awake, alert, obeys commands, Oriented to person, place, time, situation, Appropriate for age. Cardiovascular: Capillary refill < 3 seconds Patient's skin is warm and dry. Respiratory: Airway is patent Respiratory effort is even, unlabored, Respiratory pattern is regular, symmetrical. GI: Reports nausea, vomiting. : No deficits noted. No signs and/or symptoms were reported regarding the genitourinary system. Derm: No deficits noted. No signs and/or symptoms reported regarding the dermatologic system. Musculoskeletal: Circulation, motion, and sensation intact. Range of motion: intact in all extremities. FLIGHT ENGINEER: 03/25 00:10 Verified mf3 Historical: - Allergies: 03/24 22:06 GABAPENTIN; vc1 22:06 Latex; vc1 22:06 Prozac; vc1 - PMHx: 22:06 Anxiety; Depression; diabetes mellitus; PTSD; DJD; TBI (Sleep Apnea); Sleep Apnea; vc1 Seizure; Mild left sided weakness (from brain SX); - PSHx: 22:06 Appendectomy; Brain sx; shunt; Cholecystectomy; dual aneurysm sx; hip SX; hysterectomy; vc1 right knee sx; - Immunization history:: Adult Immunizations up to date. - Infectious Disease History:: Denies. - Social history:: Smoking status: Patient reports the use of cigarette tobacco products, 5-6. Screenin:11 Abuse screen: Denies threats or abuse. Nutritional screening: No deficits noted. vc1 Tuberculosis screening: No symptoms or risk factors identified. 03/25 22:46 [facility] ED Fall Risk Assessment (Adult) History of falling in the last 3 months, ha1 including since admission Yes- single mechanical fall (1 pt) Confusion or Disorientation Yes (5 pts) Intoxicated or Sedated No (0 pts) Impaired Gait No (0 pts) Mobility Assist Device Used No (0 pt) Altered Elimination No (0 pt) Score/Fall Risk Level 3 or more points = High Risk Oriented to surroundings, Maintained a safe environment, Educated pt \\T\\ family on fall prevention, incl call for assistance when getting out of bed, Assessed \\T\\ reinforced patient's understanding of fall precautions, Provided non-skid footwear, Hourly rounding (assess needs \\T\\ fall precautionary measures) done, Remained with patient while ambulating. Assessment: 03/24 22:57 General: Appears in no apparent distress. comfortable, Behavior is calm, cooperative, mf3 appropriate for age. Pain: Denies pain. Neuro:. Neuro: Level of Consciousness is awake, alert, obeys commands, Oriented to person, place, time. Cardiovascular: Capillary refill < 3 seconds. Respiratory: Airway is patent Trachea midline Respiratory effort is even, unlabored, Respiratory pattern is regular, symmetrical. GI: Abdomen is flat. :. EENT:. Derm: Skin is intact, is healthy with good turgor, Skin is dry, Skin is pink, warm \\T\\ dry. 03/25 01:00 Reassessment: Patient and/or family updated on plan of care and expected duration. Pain mf3 level reassessed. Patient is alert, oriented x 3, equal unlabored respirations, skin warm/dry/pink. pt states she sees and hears ppl, but pt is not aggressive and cooperative. 03:00 Reassessment: No changes from previously documented assessment. Patient and/or family mf3 updated on plan of care and expected duration. Pain level reassessed. Patient is alert, oriented x 3, equal unlabored respirations, skin warm/dry/pink. Patient denies pain at this time. 06:01 Reassessment: Patient and/or family updated on plan of care and expected duration. Pain mf3 level reassessed. Patient is alert, oriented x 3, equal unlabored respirations, skin warm/dry/pink. pt sleeping Patient denies pain at this time. 07:00 Reassessment: Pt sleeping, equal and unlabored respirations, skin is pink/warm/dry. . aa5 07:00 Reassessment: Awaiting transfer to [facility]. . aa5 08:15 Reassessment: Pt sleeping, equal and unlabored respirations, skin is pink/warm/dry. . aa5 09:30 Reassessment: Pt sleeping, equal and unlabored respirations. . aa5 10:40 Reassessment: Pt ambulatory to restroom . Neuro: Level of Consciousness is awake, obeys aa5 commands, confused, Oriented to person, place. 10:45 Reassessment: Pt assisted back in bed, call palmer within reach, side rails x 2. Pt now aa5 watching TV . 11:30 Reassessment: Pt sleeping, equal and unlabored respirations, skin is pink/warm/dry. . aa5 12:00 Reassessment: Pt given lunch tray, pt declined to eat at this time. . aa5 13:00 General: Appears in no apparent distress. comfortable, Behavior is calm, cooperative, rg5 appropriate for age, quiet, sleeping. 13:00 Pain: Denies pain. Neuro: Oriented to person, place, time, situation. Cardiovascular: rg5 Rhythm is sinus rhythm. Respiratory: Airway is patent Respiratory pattern is regular, symmetrical. GI: No signs and/or symptoms were reported involving the gastrointestinal system. : No signs and/or symptoms were reported regarding the genitourinary system. EENT: No signs and/or symptoms were reported regarding the EENT system. Derm: No signs and/or symptoms reported regarding the dermatologic system. Musculoskeletal: Circulation, motion, and sensation intact. Range of motion: limited in all extremities. 14:25 Reassessment: No changes from previously documented assessment. Patient and/or family rg5 updated on plan of care and expected duration. Pain level reassessed. Patient is alert, oriented x 3, equal unlabored respirations, skin warm/dry/pink. 15:15 Reassessment: Patient and/or family updated on plan of care and expected duration. Pain rg5 level reassessed. Patient is alert, oriented x 3, equal unlabored respirations, skin warm/dry/pink. 16:30 Reassessment: No changes from previously documented assessment. Patient and/or family rg5 updated on plan of care and expected duration. Pain level reassessed. Patient is alert, oriented x 3, equal unlabored respirations, skin warm/dry/pink. 17:20 Reassessment: No changes from previously documented assessment. Patient and/or family rg5 updated on plan of care and expected duration. Pain level reassessed. Patient is alert, oriented x 3, equal unlabored respirations, skin warm/dry/pink. 18:00 Reassessment: Patient and/or family updated on plan of care and expected duration. Pain rg5 level reassessed. Patient is alert, oriented x 3, equal unlabored respirations, skin warm/dry/pink. 19:00 Reassessment: No changes from previously documented assessment. Patient and/or family rg5 updated on plan of care and expected duration. Pain level reassessed. 20:00 Reassessment: No changes from previously documented assessment. Patient and/or family rg5 updated on plan of care and expected duration. Pain level reassessed. 21:00 Reassessment: No changes from previously documented assessment. Patient and/or family rg5 updated on plan of care and expected duration. Pain level reassessed. General: Appears in no apparent distress. comfortable, Behavior is calm, cooperative, quiet, sleeping. 22:16 Reassessment: No changes from previously documented assessment. Patient and/or family rg5 updated on plan of care and expected duration. Pain level reassessed. Patient is alert, oriented x 3, equal unlabored respirations, skin warm/dry/pink. 22:44 Reassessment: Patient and/or family updated on plan of care and expected duration. Pain rg5 level reassessed. Patient is alert, oriented x 3, equal unlabored respirations, skin warm/dry/pink. 22:45 Reassessment: patient was attempting to pull up the short \\T\\ was caught up \\T\\ fell on her rg 5 side hitting her head on the wall. patient assisted back to bed care provider was notified. Vital signs reassessed and fall precaution was put in placed. Patient was A\\T\\O x 4. provided education on fall precaution. 23:00 Reassessment: Patient and/or family updated on plan of care and expected duration. Pain rg5 level reassessed. Patient is alert, oriented x 3, equal unlabored respirations, skin warm/dry/pink. Patient denies pain at this time. 03/26 01:56 General: Pt was given her call palmer, side rails up x 2, pt placed on a purwick and kd3 educated on its use. Pt remains alert and oriented x 4, respirations are even and unlabored. Pt medicated for headache and sleep. pt has no further requests. . 04:47 Reassessment: Patient and/or family updated on plan of care and expected duration. Pain kd3 level reassessed. Patient is alert, oriented x 3, equal unlabored respirations, skin warm/dry/pink. Pt is resting with eyes closed, respirations are even and unlabored, pt remains on continuous monitoring, VSS. . 06:29 Reassessment: Patient appears in no apparent distress at this time. No changes from kd3 previously documented assessment. Patient and/or family updated on plan of care and expected duration. Pain level reassessed. Patient is alert, oriented x 3, equal unlabored respirations, skin warm/dry/pink. 08:05 Reassessment: REPORT TO GET [facility] AT [facility]. bp Psych: 03/24 22:15 [place] Suicide Severity Screening: In the past month, have you wished you were mf or wished you could go to sleep and not wake up? Patient responds "No." "In the past month, have you actually had any thoughts of killing yourself?" Patient responds "no." "In your lifetime, have you ever done anything, started to do anything, or prepared to do anything to end your life?" Patient responds "no.". Subjective: Patient's mood is anxious Delusions are denied, Hallucinations are auditory, visual, Having thoughts of Pt denies suicidal ideations. pt does state she is having hallucinations. Objective: Patient is cooperative, guarded, Speech is normal, Affect is appropriate, Patient has mutilated themselves by no. Interventions:. Interventions: Patient placed in hospital gown. Urine collected and sent for urine drug test. Safety Checks:. Pt denies substance abuse. Commitment: Patient will be a voluntary commitment. Vital Signs: 22:04 BP 136 / 92; Pulse 85; Resp 20; Temp 98.2; Pulse Ox 100% ; vc1 23:00 BP 116 / 87; Pulse 86; Resp 17; Pulse Ox 98% on R/A; mf3 23:36 Weight 81.65 kg; Height 5 ft. 6 in. ; vc1 03/25 00:10 BP 143 / 93; Pulse 75; Resp 18; Pulse Ox 95% on R/A; 3 01:00 BP 134 / 91; Pulse 79; Resp 17; Pulse Ox 99% on R/A; 3 02:00 BP 129 / 83; Pulse 73; Resp 17; Pulse Ox 98% on R/A; 3 06:07 BP 129 / 94; Pulse 75; Resp 17; Pulse Ox 97% on R/A; 3 08:00 BP 144 / 96; Pulse 68; Resp 16 S; Temp 97.8(TE); Pulse Ox 99% on R/A; aa5 11:28 BP 146 / 94; Pulse 60; Resp 18; Temp 97.3; Pulse Ox 100% on R/A; nh2 17:21 BP 127 / 83; Pulse 65; Resp 18; Pulse Ox 100% ; Pain 0/10; rg5 19:00 BP 132 / 93; Pulse 83; Resp 18 S; Pulse Ox 96% on R/A; ha1 20:00 BP 131 / 89; Pulse 70; Resp 18 S; Pulse Ox 98% on R/A; ha1 21:00 BP 138 / 89; Pulse 85; Resp 18 S; Pulse Ox 96% on R/A; ha1 22:15 BP 140 / 85; Pulse 63; Resp 18; Pulse Ox 96% ; Pain 0/10; rg5 22:45 BP 143 / 97; Pulse 72; Resp 18; Pulse Ox 72% ; rg5 23:00 BP 131 / 107; Pulse 63; Resp 18; Pulse Ox 99% ; rg5 23:35 BP 141 / 91; Pulse 65; Resp 18; Pulse Ox 95% ; rg5 03/26 01:57 BP 134 / 96; Pulse 68; Resp 19; Pulse Ox 100% on R/A; kd3 03:21 BP 151 / 95; Pulse 84; Resp 19; Pulse Ox 92% on R/A; kd3 04:48 BP 147 / 89; Pulse 73; Resp 19; Pulse Ox 94% on R/A; kd3 06:28 BP 133 / 93; Pulse 61; Resp 16; Pulse Ox 95% on R/A; kd3 08:05 BP 140 / 96; Pulse 79; Resp 16; Pulse Ox 97% ; bp 03/24 23:36 Body Mass Index 29.05 (81.65 kg, 167.64 cm) vc1 17:21 Pain Scale: Adult rg5 22:15 Pain Scale: Adult rg5 Vitals: 03/24 22:57 Cardiac Rhythm Assessment Sinus rhythm. mf3 Agnes Coma Score: 22:57 Eye Response: spontaneous(4). Motor Response: obeys commands(6). Verbal Response: mf3 oriented(5). Total: 15. ED Course: 21:45 Patient arrived in ED. mr 21:45 Ray Hassan PA-C is PHCP. cp 21:45 Johanna Markham MD is Attending Physician. cp 22:04 Arm band placed on right wrist. vc1 22:06 Triage completed. vc1 22:36 Rebecca Campbell, RN is Primary Nurse. mf3 22:49 EKG done, by technical healthcare consultant. reviewed by Ray Hassan PA-C. ts3 22:57 No provider procedures requiring assistance completed. Inserted saline lock: 20 gauge mf3 in left antecubital area, using aseptic technique. Blood collected. Flushed with 10 mL NS. 22:57 Patient has correct armband on for positive identification. Bed in low position. Call 3 light in reach. Side rails up X2. Provided Education on: pt educated on POC. 23:02 Acetaminophen Sent. mf3 23:02 Basic Metabolic Panel Sent. mf3 23:02 CBC with Diff Sent. mf3 23:02 ETOH Level Sent. mf3 23:02 Hepatic Function Sent. mf3 23:02 PT-INR Sent. mf3 23:02 Ptt, Activated Sent. mf3 23:03 Salicylate Sent. mf3 23:15 CT Head Brain wo Cont In Process Unspecified. EDMS 03/25 00:04 Urine Drug Screen Sent. mf3 00:29 [facility] [phone] spoke with Rosanna Morillo. vk 07:08 Attending Physician role handed off by Johanna Markham MD rn 07:08 Brijesh Matamoros MD is Attending Physician. rn 09:35 faxed results, and EKG to [facility]. 6 12:00 Report given to MORA Anedrson. aa5 13:54 spoke with Sal at the [facility] and he informed me he would get with his team and get bc6 back with me. the K level might still be an issue. 16:20 Sal with [facility] informed me they are requesting the K \\T\\ 3.5. 6 23:11 CT Head C Spine In Process Unspecified. [facility] 03/26 01:04 [facility]POKE TO [facility]. kmf 01:36 Attending Physician role handed off by Brijesh Matamoros MD cp 01:36 Johanna Markham MD is Attending Physician. cp 06:23 called the [facility] to check on the status of [facility]/ they have sent off the eb information to the doctor labor union business representative they are waiting for a call back. 07:01 administrative approval given by Gonzalo Ruff/ patient has been accepted to the [facility]/ Dr. blaze Crump has accepted the patient in transfer/ report to be called to [phone]. Administered Medications: 03/24 23:02 Drug: Ativan IVP 1 mg IVP once Route: IVP; Site: left antecubital; [facility] 03/25 01:49 Follow up: Response: No adverse reaction; Anxiety unchanged [facility] 03/24 23:02 Drug: NS 0.9% IV 1000 ml IV at 1000 ml once; to be given as a bolus over 60 minutes [facility] Route: IV; Rate: 1000 ml; Site: left antecubital; 03/25 00:00 Follow up: Response: No adverse reaction; IV Status: Completed infusion 3 01:49 Follow up: IV Status: Completed infusion [facility] 03/24 23:02 Drug: Ondansetron IVP 4 mg IVP once; over 2 minutes Route: IVP; Site: left antecubital; [facility] 03/25 01:49 Follow up: Response: No adverse reaction [facility] 00:03 Drug: NS 0.9% IV 1000 ml IV at 1000 ml once; to be given as a bolus over 60 minutes [facility] Route: IV; Rate: 1000 ml; Site: left antecubital; 01:30 Follow up: Response: No adverse reaction; IV Status: Completed infusion [facility] 00:03 Drug: Potassium PO Effervescent Tablet 50 mEq PO once; dissolve in 4 ounces of water or 3 juice Route: PO; 01:49 Follow up: Response: No adverse reaction [facility] 00:03 Drug: Potassium Chloride IV 20 mEq IV at calculated rate once; administer over 1-2 mf3 hours, place in normal saline Route: IV; Rate: calculated rate; Site: left antecubital; 01:50 Follow up: IV Status: Completed infusion [facility] 17:10 Drug: Potassium Chloride IV 20 mEq IV at calculated rate once; administer over 1-2 rg5 hours Route: IV; Rate: calculated rate; Site: left antecubital; 19:06 Follow up: IV Status: Completed infusion; IV Intake: 100ml [facility] 18:05 Drug: Ativan IVP 1 mg IVP once Route: IVP; Site: left antecubital; rg5 19:06 Follow up: Response: No adverse reaction 5 18:05 Drug: Acetaminophen PO 1000 mg PO once Route: PO; rg5 19:06 Follow up: Response: No adverse reaction; Pain is decreased [facility] 21:28 Drug: Potassium Chloride IV 20 mEq IV at calculated rate once; administer over 1-2 rg5 hours Route: IV; Rate: calculated rate; Site: left antecubital; 22:40 Follow up: IV Status: Completed infusion; IV Intake: 100ml [facility] 21:28 Drug: Potassium PO Effervescent Tablet 50 mEq PO once; dissolve in 4 ounces of water or rg5 juice Route: PO; 23:00 Follow up: Response: No adverse reaction rg5 03/26 01:55 Drug: Acetaminophen PO 1000 mg PO once Route: PO; kd3 03:22 Follow up: Response: No adverse reaction; Pain is decreased kd3 01:55 Drug: LORazepam PO 2 mg PO once Route: PO; kd3 03:22 Follow up: Response: No adverse reaction; Anxiety decreased kd3 Medication: 03/24 22:57 VIS not applicable for this client. mf3 Intake: 03/25 19:06 IV: 100ml; Total: 100ml. rg5 22:40 IV: 100ml; Total: 200ml. rg5 Output: 03/26 03:21 Urine: 500ml (Voided); Total: 500ml. kd3 Outcome: 03/25 00:08 ER care complete, transfer ordered by . april 03/26 09:17 Patient left the ED. eb Signatures: Dispatcher [employer] EDAK Kellie Rodriges, Stu Reg mr Brijesh Matamoros MD MD rn Calderon, Audri RN RN aa5 Ray Hassan, PA-C PA-C Win Santizo, RN RN Abeba Casper Kyli RN RN kd3 Constanza Giron RN RN vc1 Nataly Trammell RN RN ha1 Nicole Hong bc6 Rosaura Acosta [facility] Bianca Scott Rommel RN MORA rg5 Tejas Whalen Jr RN MORA [facility] Mera De La Rosa 3 Rebecca Campbell RN RN 3 Corrections: (The following items were deleted from the chart) 02:03/24 22:57 [facility] ED Fall Risk Assessment (Adult) History of falling in the last 3 ha1 months, including since admission No falls in past 3 months (0 pts) Confusion or Disorientation No (0 pts) Intoxicated or Sedated No (0 pts) Impaired Gait No (0 pts) Mobility Assist Device Used No (0 pt) Altered Elimination No (0 pt) Score/Fall Risk Level 0 - 2 = Low Risk 3
[2025-03-25 00:49] LABS: METHAMPHETAM NEGATIVE (NEGATIVE); THC Cannibis POSITIVE (NEGATIVE)
[2025-03-25 08:17] LABS: Anion Gap 7.2 mEq/L (5.0-15.0); BUN Blood Urea Nitrogen 9.0 mg/dL (7-18); Glucose Level 81.0 mg/dL (74-106); Potassium 3.2 mEq/L (3.5-5.1)
[2025-03-25] MEDS ORDERED: NA CHLORIDE 0.9% 500 ML ONE ×2 (17:09→21:18)
[2025-03-25] MEDS ORDERED: KCL 20 MEQ/100 mL IVPB 100 ML IV ONE ×2 (17:10→21:18)
[2025-03-25] MEDS ORDERED: LORazepam 2 MG/ML VIAL ONE (18:00)
[2025-03-25] MEDS ORDERED: ACETAMINOPHEN 500 MG TAB ONE (18:01)
[2025-03-25 20:11] LABS: Anion Gap 7.2 mEq/L (5.0-15.0); BUN Blood Urea Nitrogen 7.0 mg/dL (7-18); Glucose Level 99.0 mg/dL (74-106); Potassium 3.2 mEq/L (3.5-5.1)
[2025-03-25] MEDS ORDERED: POTASSIUM 25 MEQ EFFERV TAB ONE (21:18)
--- NOTE | 2025-03-26 00:19 | RAD REPORT ---
EXAM: Head C Spine Mpr Wo Con CLINICAL INDICATION: 49-year-old female status post fall. COMPARISON: None. TECHNIQUE: CT brain without contrast. This exam was performed according to our departmental dose opti mization program which includes use of automated exposure control, adjustment of the mA and/or kV according to patient size and/or use of iterative reconstruction technique. FINDINGS: Multifocal regions of patchy hypoattenuation are present in a subcortical and periventricular deep wh ite matter distribution, nonspecific; however, most likely represent small vessel ischemic disease, age indeterminate. The ventricles, sulci, and cisterns are symmetric and unremarkable. The esquivel-white matter different iation is preserved. There is no mass effect, midline shift, intra- or extra-axial fluid collection/acute hemorrhage. Postoperative changes include left frontal approach ventricular peritoneal shunt catheter terminating at the level of the third ventricle and posterior parietal right-sided catheter tip terminating within the right frontal extra-axial space. Radiopaque portions of the shunt catheter tubing appear t o be intact. Postoperative changes of a right frontal pterional craniotomy following aneurysm clip placement to th e level of the right MCA. Gliosis and encephalomalacia of the right frontotemporal lobe with ex vacuo dilation of the right tem poral horn and lateral ventricle. 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 The paranasal sinuses and mastoid air cells are clear. IMPRESSION: 1. No acute intracranial abnormalities. Nonspecific white matter change most likely small vessel is chemic disease, age indeterminate. 2. CT is insensitive for early evaluation of acute stroke. If there is clinical concern for acute ischemia, an MRI may be considered. TECHNIQUE: Cervical spine CT was performed without contrast. Multiplanar reformatted images were prov ided. This exam was performed according to our departmental dose optimization program which includes use of automated exposure control, adjustment of the mA and/or kV according to patient size and/or use of iterative reconstruction technique. COMPARISON: None. FINDINGS: There is normal alignment of the cervical spine without fracture or subluxation. The facets are nika l in alignment bilaterally. The posterior elements including the spinous processes are intact. Straightening of the cervical spine which may be secondary to positioning for the examination. Morphology and attenuation of the vertebral bodies and intervertebral disk spaces is compatible with multilevel degenerative change. Multilevel loss of intervertebral disc height. Multilevel posterior osseous spurring results in neuro foraminal narrowing throughout the cervical spine. Posterior osseous spurring and disc bulge results in effacement of the ventral thecal sac at C3-4, C4 -5, C5-6 vertebral levels. The pre-and paravertebral soft tissues are within normal limits. IMPRESSION: 1. Straightening of the cervical spine which may be secondary to positioning for the examination vers us spasm. 2. Multilevel degenerative change without fracture or acute subluxation. If the patient's symptoms pe rsist, further evaluation with MRI is recommended. Electronically signed by: Beata Minor MD 03/26/2025 12:08 AM CDT RP Due to temporary technical issues with the PACS[employer] reporting system, reports are being violeta d by the in-house radiologist without review as a courtesy to ensure prompt reporting the interpreting radiologist is fully responsible for the content of the report. Transcribed Date/Time: 03/26/2025 12:18 AM
[2025-03-26 00:32] LABS: Anion Gap 9.8 mEq/L (5.0-15.0); BUN Blood Urea Nitrogen 8.0 mg/dL (7-18); Glucose Level 80.0 mg/dL (74-106); Potassium 3.8 mEq/L (3.5-5.1)
[2025-03-26] MEDS ORDERED: ACETAMINOPHEN 500 MG TAB ONE (01:42)
[2025-03-26] MEDS ORDERED: LORAZEPAM 1 MG TABLET ONE (01:53)
[2025-03-26 09:57] VITALS: TEMP 97.3
[2025-03-26 10:19] VITALS: BP 140/96; O2SAT 97
== END 2025-03-26 09:17 ==
LOC: ER 21:38
DX: R44.0 Auditory hallucinations (principal); R44.1 Visual hallucinations; S09.90XA Unspecified injury of head, initial encounter; E87.6 Hypokalemia; Z87.820 Personal history of traumatic brain injury; Z72.0 Tobacco use
CPT/HCPCS: 96365; 96361; 93005; 85025; 80048 ×4; 36415; 85610; 80076; 85730; 80307; 70450 ×2; 72125; 96375; 99285; 96366; 80143; 80179; 82077; J3480; J2405; J7030 ×2

== ENCOUNTER 2025-03-31 16:19 | Emergency (ER) | payer OTHER ==
[2025-03-31] MEDS ORDERED: FAMOTIDINE 20 MG/2 ML VIAL IV ONE (16:40)
[2025-03-31] MEDS ORDERED: ONDANSETRON 4 MG/2 ML VIAL ONE (16:40)
[2025-03-31 16:47] LABS: Absolute Lymphocytes (CBC) 1.4 K/uL (0.7-4.9); Hematocrit 41.1 % (36.0-45.0); Hemoglobin 13.7 g/dL (12.0-15.0); MCH 30.8 pg (27.0-35.0); MCHC 33.3 g/dL (32.0-36.0); MCV 92.5 fL (80-100); MPV 6.7 fL (7.6-11.3); Nucleated RBC Absolute Count 0.0 (0-0); Nucleated Red Blood Cells % 0.1 % (0-0); RBC Red Blood Cell Count 4.44 M/uL (3.86-4.86); White Blood Count 5.40 thou/uL (4.3-10.9)
[2025-03-31 17:05] LABS: ALT/SGPT 20 U/L (13-56); Albumin 3.4 g/dL (3.4-5.0); Albumin/Globulin Ratio 1.0 (1.1-1.8); Alkaline Phosphatase 98 U/L (45-117); Anion Gap 9.8 mEq/L (5.0-15.0); BUN Blood Urea Nitrogen 11 mg/dL (7-18); Globulin 3.4 g/dL (2.3-3.5); Glucose Level 81 mg/dL (74-106); Lipase 13 U/L (13-75); Potassium 3.8 mEq/L (3.5-5.1)
[2025-03-31 17:11] LABS: AST/SGOT < 10 U/L (15-37)
--- NOTE | 2025-03-31 17:27 | EDPHYS ---
Physician Documentation [facility] Name: Shannan Mckeon Age: 49 yrs Sex: Female : 1975 Arrival Date: 03/31/2025 Time: 16:19 Bed 17 Private MD: ED Physician Bryson Young HPI: 03/31 17:28 This 49 yrs old Female presents to ER via EMS with complaints of Abdominal Pain. ms3 17:28 49-year-old female with past medical history of anxiety, DJD, sleep apnea, depression, ms3 PTSD presents to the emergency department via [facility] for 3 days of nausea vomiting and diarrhea. Patient states she has had some dizziness. EMS administered 300 mL of IV fluid enroute. Patient denies pain.. 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 - Infectious Disease History:: Denies. - Social history:: Smoking status: . ROS: 17:28 Constitutional: Negative for fever, and chills. Cardiovascular: Negative for chest ms3 pain, and palpitations. Respiratory: Negative for shortness of breath, cough, wheezing, and pleuritic chest pain, MS/Extremity: Negative for injury and deformity, Skin: Negative for injury, rash, and discoloration, 17:28 Abdomen/GI: Positive for nausea and vomiting, Exam: 17:28 Constitutional: This is a well developed, well nourished patient who is awake, alert, ms3 and in no acute distress. Cardiovascular: Regular rate and rhythm with a normal S1 and S2. No gallops, murmurs, or rubs. Normal PMI, no JVD. No pulse deficits. Respiratory: Lungs have equal breath sounds bilaterally, clear to auscultation and percussion. No rales, rhonchi or wheezes noted. No increased work of breathing, no retractions or nasal flaring. Abdomen/GI: Soft, non-tender, with normal bowel sounds. No distension or tympany. No guarding or rebound. No evidence of tenderness throughout. MS/ Extremity: Pulses equal, no cyanosis. Neurovascular intact. Full, normal range of motion. 17:28 Neuro: Orientation: is normal, to person, place, time \T\ situation. Mentation: is ms3 normal, Memory: is normal, Vital Signs: 16:26 BP 121 / 68; Pulse 84; Resp 16; Temp 98.1; Pulse Ox 98% ; Weight 68 kg; Height 5 ft. 6 mb9 in. ; 16:56 BP 144 / 95; Pulse 79; Resp 16; Temp 98.9; Pulse Ox 97% ; go2 18:24 BP 139 / 96; Pulse 87; Resp 16; Temp 98.3; Pulse Ox 98% ; go2 16:26 Body Mass Index 24.20 (68.00 kg, 167.64 cm) mb9 MDM: 16:26 Medical Screening Exam initiated ms3 17:30 Differential diagnosis: non-specific abd pain, pancreatitis, Gastroenteritis. Data ms3 reviewed: vital signs, nurses notes, lab test result(s), and as a result, I will discharge patient. I considered the following discharge prescriptions or medication management in the emergency department Medications were administered in the Emergency Department. See MAR. Historians other than the Patient: EMS: [facility]. Counseling: I had a detailed discussion with the patient and/or guardian regarding the historical points, exam findings, and any diagnostic results supporting the discharge/admit diagnosis, lab results, the need for outpatient follow up, to return to the emergency department if symptoms worsen or persist or if there are any questions or concerns that arise at home. Special discussion: I discussed with the patient/guardian in detail that at this point there is no indication for admission to the hospital. It is understood, however, that if the symptoms persist or worsen the patient needs to return immediately for re-evaluation. ED course: Discussed labs with the patient. Patient to follow-up with primary care physician in 2 to 3 days. Patient understands and agrees with plan. All questions were answered. Patient given prescription for Phenergan. Return precautions discussed include worsening symptoms, inability tolerate p.o., or any other concerns.. 03/31 16:26 Order name: CBC with Diff; Complete Time: 17:18 ms3 03/31 16:26 Order name: CMP; Complete Time: 17:18 ms3 03/31 16:26 Order name: Lipase; Complete Time: 17:18 ms3 03/31 16:26 Order name: IV Saline Lock; Complete Time: 16:38 ms3 03/31 16:26 Order name: Labs collected and sent; Complete Time: 16:38 ms3 Administered Medications: 16:38 Drug: NS 0.9% IV 1000 ml IV at 1 bolus Per protocol; to be given as a bolus over 60 go2 minutes Route: IV; Rate: 1 bolus; Site: left wrist; 18:22 Follow up: IV Status: Completed infusion go2 18:22 Follow up: IV Status: Completed infusion go2 16:57 Drug: Famotidine IVP 20 mg IVP once; dilute with 10 mL 0.9% NaCl; give over 2 minutes go2 Route: IVP; Site: left wrist; 16:57 Drug: Ondansetron IVP 4 mg IVP once; over 2 minutes Route: IVP; Site: left wrist; go2 18:22 Follow up: Response: No adverse reaction go2 18:23 Drug: Meclizine PO 25 mg PO once Route: PO; go2 18:25 Follow up: Response: No adverse reaction go2 Disposition Summary: 03/31/25 17:26 Discharge Ordered Notes: Location: Home ms3 Condition: Stable ms3 Diagnosis - Nausea with vomiting, unspecified ms3 - Essential (primary) hypertension ms3 Followup: ms3 - With: Private Physician - When: 2 - 3 days - Reason: Recheck today's complaints Discharge Instructions: - Discharge Summary Sheet ms3 - Nausea and Vomiting, Adult, [id number] ms3 Forms: - Medication Reconciliation Form ms3 - Antibiotic Education ms3 - Prescription Opioid Use ms3 - Patient Portal Instructions ms3 - Leadership Thank You Letter ms3 Prescriptions: - promethazine 25 mg Rectal suppository - insert 1 suppository RECTAL route every 6 hours as needed for nausea and ms3 vomiting; 15 suppository; Refills: 0, Product Selection Permitted Signatures: Dispatcher [employer] EDBryson Sweeney, DO DO ms3 Kellie Ivey, RN RN mb9 Ashley Reed RN RN go2 Corrections: (The following items were deleted from the chart) 17:30 17:28 Constitutional: This is a well developed, well nourished patient who is awake, ms3 alert, and in no acute distress. Cardiovascular: Regular rate and rhythm with a normal S1 and S2. No gallops, murmurs, or rubs. Normal PMI, no JVD. No pulse deficits. Respiratory: Lungs have equal breath sounds bilaterally, clear to auscultation and percussion. No rales, rhonchi or wheezes noted. No increased work of breathing, no retractions or nasal flaring. Abdomen/GI: Soft, non-tender, with normal bowel sounds. No distension or tympany. No guarding or rebound. No evidence of tenderness throughout. MS/ Extremity: Pulses equal, no cyanosis. Neurovascular intact. Full, normal range of motion. Neuro: Awake and alert, GCS 15, oriented to person, place, time, and situation. Cranial nerves II-XII grossly intact. Motor strength 5/5 in all extremities. Sensory grossly intact. Cerebellar exam normal. Normal gait. ms3
--- NOTE | 2025-03-31 17:27 | ER ---
Nurse's Notes [facility] Name: Shannan Mckeon Age: 49 yrs Sex: Female : 1975 Arrival Date: 03/31/2025 Time: 16:19 Bed 17 Private MD: Diagnosis: Nausea with vomiting, unspecified;Essential (primary) hypertension Presentation: 03/31 16:26 Chief complaint: EMS states: "toned out for abdominal pain, N/V,D x 3 days.". mb9 Coronavirus screen: Vaccine status: Patient reports being unvaccinated. Ebola Screen: No symptoms or risks identified at this time. Initial Sepsis Screen: Does the patient meet any 2 criteria? No. Patient's initial sepsis screen is negative. Does the patient have a suspected source of infection? No. Patient's initial sepsis screen is negative. Risk Assessment: Do you want to hurt yourself or someone else? Patient reports no desire to harm self or others. Onset of symptoms was March 31, 2025. 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 - Infectious Disease History:: Denies. - Social history:: Smoking status: . Screenin:[address] [facility] ED Fall Risk Assessment (Adult) History of falling in the last 3 months, go2 including since admission No falls in past 3 months (0 pts) Confusion or Disorientation No (0 pts) Intoxicated or Sedated No (0 pts) Impaired Gait No (0 pts) Mobility Assist Device Used No (0 pt) Altered Elimination No (0 pt) Score/Fall Risk Level 0 - 2 = Low Risk. Abuse screen: Denies threats or abuse. Denies injuries from another. Nutritional screening: No deficits noted. Tuberculosis screening: No symptoms or risk factors identified. Assessment: 16:52 Reassessment: Patient is alert, oriented x 3, equal unlabored respirations, skin go2 warm/dry/pink. General: Appears in no apparent distress. comfortable, well groomed, Behavior is calm, cooperative, appropriate for age. Pain: Complains of pain in abdomen Pain currently is 9 out of 10 on a pain scale. Neuro: No deficits noted. Cardiovascular: No deficits noted. Denies chest pain, diaphoresis, fatigue, lightheadedness, palpitations, shortness of breath, syncope, vomiting. Respiratory: No deficits noted. GI: Reports lower abdominal pain, upper abdominal pain, epigastric pain, nausea. : No deficits noted. No signs and/or symptoms were reported regarding the genitourinary system. EENT: No deficits noted. No signs and/or symptoms were reported regarding the EENT system. Derm: No deficits noted. No signs and/or symptoms reported regarding the dermatologic system. Musculoskeletal: No deficits noted. No signs and/or symptoms reported regarding the musculoskeletal system. Vital Signs: 16:26 BP 121 / 68; Pulse 84; Resp 16; Temp 98.1; Pulse Ox 98% ; Weight 68 kg; Height 5 ft. 6 mb9 in. ; 16:56 BP 144 / 95; Pulse 79; Resp 16; Temp 98.9; Pulse Ox 97% ; go2 18:24 BP 139 / 96; Pulse 87; Resp 16; Temp 98.3; Pulse Ox 98% ; go2 16:26 Body Mass Index 24.20 (68.00 kg, 167.64 cm) mb9 ED Course: 16:26 Patient arrived in ED. bd 16:26 Bryson Young DO is Attending Physician. ms3 16:28 Triage completed. mb9 16:28 Arm band placed on. mb9 16:29 Inserted saline lock: 22 gauge in left wrist, using aseptic technique. Flushed with 10 mb9 mL NS. 16:37 Ashley Reed, MORA is Primary Nurse. go2 16:38 CBC with Diff Sent. go2 16:38 CMP Sent. go2 16:38 Lipase Sent. go2 16:54 Patient has correct armband on for positive identification. Bed in low position. Call go2 light in reach. Side rails up X2. Provided Education on: . Client placed on continuous cardiac and pulse oximetry monitoring. NIBP monitoring applied. hospital monitor on. Pulse ox on. NIBP on. Door closed. Warm blanket given. 18:23 No provider procedures requiring assistance completed. IV discontinued, intact, go2 bleeding controlled, No redness/swelling at site. Administered Medications: 16:38 Drug: NS 0.9% IV 1000 ml IV at 1 bolus Per protocol; to be given as a bolus over 60 go2 minutes Route: IV; Rate: 1 bolus; Site: left wrist; 18:22 Follow up: IV Status: Completed infusion go2 18:22 Follow up: IV Status: Completed infusion go2 16:57 Drug: Famotidine IVP 20 mg IVP once; dilute with 10 mL 0.9% NaCl; give over 2 minutes go2 Route: IVP; Site: left wrist; 16:57 Drug: Ondansetron IVP 4 mg IVP once; over 2 minutes Route: IVP; Site: left wrist; go2 18:22 Follow up: Response: No adverse reaction go2 18:23 Drug: Meclizine PO 25 mg PO once Route: PO; go2 18:25 Follow up: Response: No adverse reaction go2 Medication: 16:55 VIS not applicable for this client. go2 Outcome: 17:26 Discharge ordered by . ms3 18:24 Discharged to home ambulatory, go2 18:24 Condition: improved 18:24 Discharge instructions given to patient, Instructed on discharge instructions, follow up and referral plans. medication usage, Demonstrated understanding of instructions, follow-up care, medications, 18:25 Patient left the ED. go2 Signatures: Alba Li Marcus, DO DO ms3 Kellie Ivey, RN RN mb9 sAhley Reed RN RN go2
[2025-03-31] MEDS ORDERED: MECLIZINE HCL 12.5 MG TAB ONE (18:09)
[2025-03-31 18:40] VITALS: BP 139/96; TEMP 98.3; O2SAT 98
== END 2025-03-31 18:25 | disposition home or self-care (01) ==
LOC: ER 16:19
DX: R10.9 Unspecified abdominal pain (principal); R11.2 Nausea with vomiting, unspecified; F41.9 Anxiety disorder, unspecified; I10 Essential (primary) hypertension; F32.A Depression, unspecified; F43.10 Post-traumatic stress disorder, unspecified; G47.30 Sleep apnea, unspecified; Z88.8 Allergy status to other drugs, medicaments and biological substances
CPT/HCPCS: 96361; 85025; 36415; 83690; 80053; 96375; 96374; 99285; J8597; J2405